=== PATIENT | female | born 1940 ===

== ENCOUNTER 2017-09-24 07:38 | Inpatient (IN) | payer MEDICARE, OTHER ==
[2017-09-24 07:38] VITALS: BMI 27.2
[2017-09-24] MEDS ORDERED: Labetalol 5 mg/ml Inj 20ML IVP STA ×3 (08:09→18:00)
[2017-09-24] MEDS ORDERED: Sodium Chloride 0.45% 1,000 ML IV SCH ×2 (08:15→08:45)
[2017-09-24 08:25] LABS: BASO % 0.2 % (0.0-2.0); EOS # 0.1 K/uL (0.0-0.7); EOS % 0.5 % (0.0-4.0); HEMOGLOBIN 14.8 g/dL (12.0-16.0); LYMPH # 5.6 K/uL (1.0-4.3); LYMPH % 47.7 % (20.0-40.0); MEAN CELL VOLUME 93.3 fl (81.0-99.0); MEAN CORPUSCULAR HGB CONC 33.2 g/dL (33.0-37.0); MEAN PLATELET VOLUME 8.8 fl (7.2-11.7); MONO # 0.9 K/uL (0.0-0.8); MONO % 7.6 % (0.0-10.0); NEUT # 5.1 K/uL (1.8-7.0); NRBC % 0.1 % (0.0-0.0); RBC 4.76 Mil/uL (3.80-5.20); RED CELL DISTRIBUTION WIDTH 13.8 % (11.5-14.5); WHITE BLOOD COUNT 11.7 K/uL (4.8-10.8)
[2017-09-24 08:37] LABS: ALB/GLOB RATIO 1.1 (1.0-2.1); ALT/SGPT 40 U/L (9-52); AST/SGOT 31 U/L (14-36); BLOOD UREA NITROGEN 21 mg/dl (7-17); CALCIUM 9.7 mg/dL (8.4-10.2); GFR AFRICAN-AMERICAN > 60; GFR NON-AFRICAN AMERICAN > 60
[2017-09-24 08:37] LABS: VENOUS BLOOD GAS BASE EXCESS 1.5 mmol/L (0.0-2.0); VENOUS BLOOD GAS PCO2 43 mmHg (40-60); VENOUS BLOOD GAS PO2 46 mm/Hg (30-55)
[2017-09-24 08:38] LABS: INR 1.2 (0.9-1.2); PROTHROMBIN TIME 13.1 Seconds (9.8-13.1)
[2017-09-24 08:39] LABS: PARTIAL THROMBOPLASTIN TIME 27.4 Seconds (25.6-37.1)
--- NOTE | 2017-09-24 08:42 | ED PDOC ---
Syncope/Near Syncope/Dizziness Time Seen by Provider: 09/24/17 07:46 Chief Complaint (Nursing): Syncope Chief Complaint (Provider): Syncope History Per: Patient, Family (granddaughter) History/Exam Limitations: no limitations Onset/Duration Of Symptoms: Sudden Onset Current Symptoms Are (Timing): Still Present Additional Complaint(s): 77 years old female with history of diabetes, hypertension and arthritis presents to the emergency department today with granddaughter for an evaluation of a syncopal episode prior to arrival. Granddaughter states she found patient unconscious with a head injury status post hitting head on bath tub associated with sweats. She also reports that patient was doing well last night besides complaining of left shoulder pain, which, patient believed it was a symptom of her arthritis. Of note, patient had vomited once she regained consciousness and had one episode in ED. Patient denies any fall, abdominal pain or urinary complaints. PMD: none provided Past Medical History Reviewed: Historical Data, Nursing Documentation, Vital Signs Vital Signs: Last Vital Signs Temp 97.4 F L 09/24/17 07:39 Pulse 84 09/24/17 08:34 Resp 14 09/24/17 08:34 BP 179/82 H 09/24/17 08:34 Pulse Ox 100 09/24/17 08:34 - Medical History PMH: Arthritis, CVA, HTN, Hypercholesterolemia Denies: Chronic Kidney Disease - Surgical History Surgical History: Appendectomy, Cholecystectomy - Family History Family History: States: Unknown Family Hx - Social History Current smoker - smoking cessation education provided: No Ex-Smoker (has not smoked in the last 12 months): No Alcohol: None Drugs: Denies - Immunization History Hx Tetanus Toxoid Vaccination: No Hx Influenza Vaccination: Yes Hx Pneumococcal Vaccination: Yes - Home Medications Home Medications: Ambulatory Orders Medication Instructions Recorded Atenolol 50 mg PO DAILY 07/02/16 Ergocalciferol (Vitamin D2) 50,000 unit PO MO 09/24/17 [Vitamin D2] Meclizine [Meclizine*] 25 mg PO Q8 PRN 09/24/17 - Allergies Allergies/Adverse Reactions: Allergies Allergy/AdvReac Type Severity Reaction Status Date / Time No Known Allergies Allergy Verified 10/10/16 12:51 Review of Systems ROS Statement: Except As Marked, All Systems Reviewed And Found Negative Constitutional: Positive for: Sweats Gastrointestinal: Positive for: Vomiting. Negative for: Abdominal Pain Genitourinary Female: Negative for: Dysuria, Hematuria Musculoskeletal: Positive for: Shoulder Pain (left side). Negative for: Other ( trauma) Neurological: Positive for: Headache (head injury), Other (LOC) Physical Exam - Reviewed Nursing Documentation Reviewed: Yes Vital Signs Reviewed: Yes - Physical Exam Appears: Positive for: No Acute Distress Head Exam: Positive for: ATRAUMATIC, NORMAL INSPECTION, NORMOCEPHALIC Skin: Positive for: Normal Color Eye Exam: Positive for: Normal appearance, EOMI, PERRL ENT: Positive for: Normal ENT Inspection Neck: Positive for: Normal, Supple Cardiovascular/Chest: Positive for: Regular Rate, Rhythm. Negative for: Murmur Respiratory: Positive for: Normal Breath Sounds. Negative for: Wheezing, Respiratory Distress Gastrointestinal/Abdominal: Positive for: Normal Exam, Soft. Negative for: Tenderness Extremity: Positive for: Normal ROM (upper/lower). Negative for: Pedal Edema ( Bilatral), Deformity (upper/lower) Neurologic/Psych: Positive for: Alert, Oriented - Laboratory Results Result Diagrams: 09/24/17 08:00 09/24/17 08:00 - ECG O2 Sat by Pulse Oximetry: 100 (RA) Pulse Ox Interpretation: Normal Medical Decision Making Medical Decision Making: Initial Impression: Syncope, Hypertension, Head injury Initial Plan: --Venous Blood Gas --CT Head w/o contrast --EKG --CMP --Troponin 1 -- Urine dipstick --CBC --PTT --PT --CXR --NS 1,000ml IV 250 mls/hr --Toradol 30 mg IVP --Tramdate 20 mg IVP --Zofran 4 mg PO --Glucose, Blood, POC Time: 0828 --EKG: NSR at 81 BMP. LVH noted with no acute changes. Time: 0935 --CXR FINDINGS: LUNGS: The lungs are well inflated and clear. PLEURA: No pneumothorax or pleural fluid seen. CARDIOVASCULAR: There is mild cardiomegaly. OSSEOUS STRUCTURES: No significant abnormalities. VISUALIZED UPPER ABDOMEN: Normal. OTHER FINDINGS: None. IMPRESSION: No active pulmonary disease. Time: 0940 --CT head FINDINGS: HEMORRHAGE: No intracranial hemorrhage. BRAIN: There are severe chronic microangiopathic changes. There is no mass, mass effect or abnormal extra-axial fluid collection is space There are coarse atherosclerotic calcifications in the cavernous carotid an vertebral arteries. VENTRICLES: There is mild age-related global parenchymal volume loss and proportionate enlargement of the ventricles and cortical sulci. CALVARIUM: There is mild hyperostosis frontalis interna.There is no calvarial fracture or extracranial soft tissue swelling. PARANASAL SINUSES: Mild mucoperiosteal thickening in the ethmoid air cells, the remaining paranasal sinuses are predominantly clear. MASTOID AIR CELLS: Predominantly clear. OTHER FINDINGS: None. IMPRESSION: No acute intracranial abnormality. Severe chronic microangiopathic changes and mild age-related global parenchymal volume loss. Scribe Attestation: Documented by Nettie Mak acting as a scribe for Pilar Correa MD. Provider Scribe Attestation: All medical record entries made by the Scribe were at my direction and personally dictated by me. I have reviewed the chart and agree that the record accurately reflects my personal performance of the history, physical exam, medical decision making, and the department course for this patient. I have also personally directed, reviewed, and agree with the discharge instructions and disposition. 1.00p - patient improved but given history of uncontrolled hypertension, syncope and blunt head injury, will admit for observation on telemetry Disposition - Clinical Impression Clinical Impression: Syncope, Uncontrolled hypertension - Patient ED Disposition Is Patient to be Admitted: Yes Doctor Will See Patient In The: Hospital - Disposition Disposition: Transfer of Care Disposition Time: 13:20 Condition: GUARDED Instructions: Syncope (Fainting), High Blood Pressure in Adults Forms: [facility] (Yakut) - Pt Status Changed To: Hospital Disposition Of: Observation - POA Present On Arrival: Falls Or Trauma
--- NOTE | 2017-09-24 09:37 | CT ---
PROCEDURE: CT HEAD WITHOUT CONTRAST. HISTORY: Syncope and head injury COMPARISON: None available. TECHNIQUE: Axial computed tomography images were obtained through the head/brain without intravenous contrast. Radiation dose: Total exam DLP = 765.11 MGy-cm. This CT exam was performed using one or more of the following dose reduction techniques: Automated exposure control, adjustment of the mA and/or kV according to patient size, and/or use of iterative reconstruction technique. FINDINGS: HEMORRHAGE: No intracranial hemorrhage. BRAIN: There are severe chronic microangiopathic changes. There is no mass, mass effect or abnormal extra-axial fluid collection is space There are coarse atherosclerotic calcifications in the cavernous carotid an vertebral arteries. VENTRICLES: There is mild age-related global parenchymal volume loss and proportionate enlargement of the ventricles and cortical sulci. CALVARIUM: There is mild hyperostosis frontalis interna.There is no calvarial fracture or extracranial soft tissue swelling. PARANASAL SINUSES: Mild mucoperiosteal thickening in the ethmoid air cells, the remaining paranasal sinuses are predominantly clear. MASTOID AIR CELLS: Predominantly clear. OTHER FINDINGS: None. IMPRESSION: No acute intracranial abnormality. Severe chronic microangiopathic changes and mild age-related global parenchymal volume loss.
--- NOTE | 2017-09-24 09:41 | RAD ---
PROCEDURE: CHEST RADIOGRAPH, 1 VIEW HISTORY: Syncope COMPARISON: None available. FINDINGS: LUNGS: The lungs are well inflated and clear. PLEURA: No pneumothorax or pleural fluid seen. CARDIOVASCULAR: There is mild cardiomegaly. OSSEOUS STRUCTURES: No significant abnormalities. VISUALIZED UPPER ABDOMEN: Normal. OTHER FINDINGS: None. IMPRESSION: No active pulmonary disease.
[2017-09-24 10:10] LABS: VENOUS BLOOD GAS BASE EXCESS -0.2 mmol/L (0.0-2.0); VENOUS BLOOD GAS PCO2 47 mmHg (40-60); VENOUS BLOOD GAS PO2 49 mm/Hg (30-55); VENOUS BLOOD PH 7.35 (7.32-7.43)
[2017-09-24] MEDS: Enoxaparin 40 mg Syringe SC SCH (16:18)
--- NOTE | 2017-09-24 16:33 | HP ---
HISTORY OF PRESENT ILLNESS: Ms. Vineet Holland is a 77-year-old female who was admitted via the Emergency Room because of syncopal episode associated with uncontrolled hypertension. She indicates that she had been taking her blood pressure medication on the morning of admission and had a syncopal episode. She was brought to the Emergency Room by her grandchildren, denies having lost consciousness completely and denies chest pains or shortness of breath, but indicates that she hit her head bathtub. PAST MEDICAL HISTORY: Hypertension, diabetes mellitus, and arthritis. FAMILY HISTORY: Noncontributory. SOCIAL HISTORY: Socially, she does not smoke or drink and lives alone. REVIEW OF SYSTEMS: Essentially unremarkable. PHYSICAL EXAMINATION: GENERAL: The patient is alert and oriented, appears to be comfortable at present except for left shoulder pain. VITAL SIGNS: Blood pressure of 179/82 was high on admission, controlled by IV antihypertensive medications, pulse 84, respiratory rate 18. She is afebrile. O2 sat is 100% on room air. SKIN: Shows fair turgor. HEENT: Pupils are equal and reactive to light and accommodation. Mouth shows fair hygiene. NECK: JVP flat. LUNGS: Clear. HEART: Regular. No murmurs or gallop. EXTREMITIES: There is tenderness of left shoulder. Extremities show no edema or cyanosis. RECTAL AND GENITALIA: Deferred. CENTRAL NERVOUS SYSTEM: Exam is grossly intact. LABORATORY DATA: Remarkable for WBC 11.7, hemoglobin 14.8, and platelet count 178,000. Sodium 146, BUN 21, creatinine 0.8, potassium 3.6, and serum glucose 161. Chest x-ray shows no acute cardiopulmonary pathology. EKG, normal sinus rhythm with sinus arrhythmia, LVH by voltage. CT scan of the brain, official report no acute intracranial abnormality, severe chronic meningeal angiopathic changes and mild age-related global parenchymal volume loss. IMPRESSION: Syncopal episode, uncontrolled hypertension, history of diabetes, history of hyperlipidemia, and history of arthritis. PLAN: The plan is monitor the patient in telemetry. Neuro checks, we would obtain neurology evaluation. Further therapy will depend on findings. We will control blood pressure appropriately. Keron Chau MD [facility] # [id number]
--- NOTE | 2017-09-24 18:09 | CARD ---
APPROVED REPORT EKG Measurement Heart [id number] CT [id number] [id number] <Conclusion> Normal sinus rhythm with sinus arrhythmia Voltage criteria for left ventricular hypertrophy Abnormal ECG
--- NOTE | 2017-09-24 18:35 | CP.PCM.CON ---
History of Present Illness - History of Present Illness History of Present Illness: PT WITH PRESYNCOPAL EPISODE X 1. PT STATES SHE URINATED AND UPON COMPLETION SHE FELT LH AND WEAK. ALMOST LOOSING CONSCIOUSNESS. SHE DENIES CP, PALP, SOB , ORTHOPNEA, PND, AMY OR PRIOR NEAR SYNCOPAL OR SYNCOPAL EVENTS. NO CAD HX. Review of Systems - Constitutional Constitutional: As Per HPI. absent: Anorexia, Chills, Daytime Sleepiness, Excessive Sweating, Fatigue, Fever, Frequent Falls, Headache, Increased Appetite , Lethargy, Malaise, Night Sweats, Snoring, Sleep Apnea, Weight Gain, Weight Loss, Weakness, Other - EENT Eyes: As Per HPI. absent: Blind Spots, Blurred Vision, Change in Vision, Decreased Night Vision, Diplopia, Discharge, Dry Eye, Exophthalmos, Floaters, Irritation, Itchy Eyes, Loss of Peripheral Vision, Pain, Photophobia, Requires Corrective Lenses, Sees Flashes, Spots in Vision, Tunnel Vision, Other Visual Disturbances, Loss of Vision, Other Ears: As Per HPI. absent: Decreased Hearing, Ear Discharge, Ear Pain, Tinnitus , Abnormal Hearing, Disequilibrium, Dizziness, Other Nose/Mouth/Throat: As Per HPI. absent: Epistaxis, Nasal Congestion, Nasal Discharge, Nasal Obstruction, Nasal Trauma, Nose Pain, Post Nasal Drip, Sinus Pain, Sinus Pressure, Bleeding Gums, Change in Voice, Dental Pain, Dry Mouth, Dysphagia, Halitosis, Hoarsness, Lip Swelling, Mouth Lesions, Mouth Pain, Odynophagia, Sore Throat, Throat Swelling, Tongue Swelling, Facial Pain, Neck Pain, Neck Mass, Other - Breasts Breasts: As Per HPI. absent: Change in Shape, Mass, Pain, Nipple Discharge, Nipple Inversion, Skin Changes, Swelling, Other - Cardiovascular Cardiovascular: As Per HPI, Lightheadedness. absent: Acrocyanosis, Chest Pain, Chest Pain at Rest, Chest Pain with Activity, Claudication, Diaphoresis, Dyspnea , Dyspnea on Exertion, Edema, Irregular Heart Rhythm, Pain Radiating to Arm/Neck /Jaw, Leg Edema, Leg Ulcers, Orthopnea, Palpitations, Paroxysmal Nocturnal Dyspnea, Pedal Edema, Radiating Pain, Rapid Heart Rate, Slow Heart Rate, Syncope , Other - Respiratory Respiratory: As Per HPI. absent: Cough, Dyspnea, Hemoptysis, Dyspnea on Exertion, Wheezing, Snoring, Stridor, Pain on Inspiration, Chest Congestion, Excessive Mucous Production, Change in Mucous Color, Pain with Coughing, Other - Gastrointestinal Gastrointestinal: As Per HPI. absent: Abdominal Pain, Belching, Bloating, Change in Bowel Habits, Change in Stool Character, Coffee Ground Emesis, Constipation, Cramping, Diarrhea, Dyspepsia, Dysphagia, Early Satiety, Excessive Flatus, Fecal Incontinence, Heartburn, Hematemesis, Hematochezia, Loose Stools, Melena, Nausea, Odynophagia, Temesmus, Vomiting, Other - Genitourinary Genitourinary: As Per HPI. absent: Change in Urinary Stream, Difficulty Urinating, Dysuria, Flank Pain, Hematuria, Pyuria, Nocturia, Urinary Incontinence, Urinary Frequency, Urinary Hesitance, Urinary Urgency, Voiding Freq/Small Amts, Freq UTI, Hx Renal/Bladder Calculi, Hx /Renal Surgery, Bladder Distension, Other - Reproductive: Female Reproductive:Female: As Per HPI. absent: Amenorrhea, Amenorrhea/ Control, Currently Menstual, Cycle <21 Days, Cycle >35 Days, Cycle Variable, Menses 1-7 Days, Menses >/= 8 Days, Menses Variable, Cycle > 4 Weeks Between, No Menses for 6 Months, Heavy Menses, Light Menses, Normal Menses, Spotting Between Cycles , S/P Hysterectomy, Menopausal, Post Menopausal, Premenarche, Abnormal Vaginal Bleeding, Dysmenorrhea, Dyspareunia, Genital Lesions, Genital Pruritis, Pelvic Pain, Prolapse Symptoms, Sexual Dysfunction, Vaginal Discharge, Vaginal Dryness , Vaginal Odor, Vaginal Pruritis, Other - Menstruation Menstruation: As Per HPI. absent: Amenorrhea, Amenorrhea/ Control, Currently Menstual, Cycle <21 Days, Cycle >35 Days, Cycle Variable, Menses 1-7 Days, Menses >/= 8 Days, Menses Variable, Cycle > 4 Weeks Between, No Menses for 6 Months, Heavy Menses, Light Menses, Normal Menses, Spotting Between Cycles , S/P Hysterectomy, Menopausal, Post Menopausal, Premenarche, Abnormal Vaginal Bleeding, Dysmenorrhea, Other - Musculoskeletal Musculoskeletal: As Per HPI. absent: Abnormal Gait, Arthralgias, Atrophy, Back Pain, Deformity, Joint Swelling, Limited Range of Motion, Loss of Height, Muscle Cramps, Muscle Weakness, Myalgias, Neck Pain, Numbness, Radiating Pain into Limb, Stiffness, Tingling, Other - Integumentary Integumentary: As Per HPI. absent: Acne, Alopecia, Bleeding Lesions, Change in Hair, Change in Nails, Change in Pigmentation, Changing Lesions, Dry Skin, Erythema, Furuncle, Hirsutism, Lesions, New Lesions, Non-Healing Lesions, Photosensitivity, Pruritus, Rash, Skin Pain, Skin Ulcer, Sores, Striae, Swelling , Unusual Bruising, Wounds, Jaundice, Other - Neurological Neurological: As Per HPI. absent: Abnormal Gait, Abnormal Hearing, Abnormal Movements, Abnormal Speech, Behavioral Changes, Burning Sensations, Confusion, Convulsions, Disequilibrium, Dizziness, Numbness, Focal Weakness, Frequent Falls , Headaches, Lack of Coordination, Loss of Vision, Memory Loss, Paresthesias, Radicular Pain, Restless Legs, Sensory Deficit, Syncope, Tingling, Tremor, Vertigo, Weakness, Other Visual Disturbances, Other - Psychiatric Psychiatric: As Per HPI. absent: Abnormal Sleep Pattern, Anhedonia, Anxiety, Auditory Hallucinations, Behavioral Changes, Change in Appetite, Change in Libido, Confusion, Depression, Difficulty Concentrating, Hallucinations, Homicidal Ideation, Hopelessness, Irritability, Memory Loss, Mood Swings, Panic Attacks, Paranoia, Suicidal Ideation, Visual Hallucinations, Tactile Hallucinations, Other - Endocrine Endocrine: As Per HPI. absent: Change in Body Appearance, Change in Libido, Cold Intolorance, Deepening of Voice, Excessive Sweating, Fatigue, Flushing, Heat Intolorance, Increase in Ring/Shoe/Hat Size, Palpitations, Polydipsia, Polyphagia, Polyuria, Other - Hematologic/Lymphatic Hematologic: As Per HPI. absent: Easy Bleeding, Easy Bruising, Lymphadenopathy , Other Past Patient History - Infectious Disease Hx of Infectious Diseases: None - Past Medical History & Family History Past Medical History?: Yes - Past Social History Smoking Status: Never Smoked Alcohol: None Drugs: Denies - CARDIAC Hx Cardiac Disorders: Yes - PULMONARY Hx Respiratory Disorders: No - NEUROLOGICAL Hx Neurological Disorder: Yes - HEENT Hx HEENT Problems: Yes - RENAL Hx Chronic Kidney Disease: No - ENDOCRINE/METABOLIC Hx Endocrine Disorders: No - HEMATOLOGICAL/ONCOLOGICAL Hx Blood Disorders: No - INTEGUMENTARY Hx Dermatological Problems: No - MUSCULOSKELETAL/RHEUMATOLOGICAL Hx Musculoskeletal Disorders: Yes - GASTROINTESTINAL Hx Gastrointestinal Disorders: No - GENITOURINARY/GYNECOLOGICAL Hx Genitourinary Disorders: No - PSYCHIATRIC Hx Psychophysiologic Disorder: No - SURGICAL HISTORY Hx Appendectomy: Yes Hx Cholecystectomy: Yes - ANESTHESIA Hx Anesthesia: Yes Hx Anesthesia Reactions: No Hx Malignant Hyperthermia: No Meds Home Medications: Home Medication List Medication Instructions Recorded Confirmed Type Aspirin [Aspirin Chewable] 81 mg PO DAILY #30 chew 09/27/17 Rx Ramipril [Altace] 5 mg PO DAILY #30 cap 09/27/17 Rx amLODIPine [Norvasc] 5 mg PO Q12 #60 tab 09/27/17 Rx Allergies/Adverse Reactions: Allergies Allergy/AdvReac Type Severity Reaction Status Date / Time No Known Allergies Allergy Verified 10/10/16 12:51 - Medications Medications: Current Medications Acetaminophen (Tylenol 325mg Tab) 650 mg PO Q6 [facility] Aspirin (Aspirin Chewable) 81 mg PO DAILY [facility] Last Admin: 09/24/17 15:35 Dose: 81 mg Atenolol (Tenormin) 50 mg PO DAILY [facility] Enoxaparin Sodium (Lovenox) 40 mg SC DAILY [facility] PRN Reason: Protocol Last Admin: 09/24/17 16:18 Dose: 40 mg Sodium Chloride (Sodium Chloride 0.45%) 1,000 mls @ 1,000 mls/hr IV .Q1H [facility] Last Admin: 09/24/17 08:42 Dose: 1,000 mls/hr Physical Exam - Constitutional Appears: Well - Head Exam Head Exam: ATRAUMATIC, NORMAL INSPECTION, NORMOCEPHALIC - Eye Exam Eye Exam: EOMI, Normal appearance, PERRL. absent: Conjunctival injection, Nystagmus, Periorbital swelling, Periorbital tenderness, Scleral icterus Pupil Exam: NORMAL ACCOMODATION, PERRL. absent: Fixed, Irregular, Miosis, Mydriatic, Unequal - ENT Exam ENT Exam: Mucous Membranes Moist, Normal Exam. absent: Mucous Membranes Dry, Normal External Ear Exam, Normal Oropharynx, TM's Normal Bilaterally - Neck Exam Neck exam: Positive for: Normal Inspection. Negative for: Full Rom, Lymphadenopathy, Meningismus, Tenderness, Thyromegaly - Respiratory Exam Respiratory Exam: Clear to Auscultation Bilateral, NORMAL BREATHING PATTERN. absent: Accessory Muscle Use, Chest Wall Tenderness, Decreased Breath Sounds, Prolonged Expiratory Phase, Rales, Rhonchi, Wheezes, Respiratory Distress, Stridor - Cardiovascular Exam Cardiovascular Exam: REGULAR RHYTHM, +S1, +S2, Systolic Murmur. absent: Bradycardia, Tachycardia, Clicks, Diastolic murmur, Gallop, Irregular Rhythm, JVD, RRR, Rubs, +S4 - GI/Abdominal Exam GI & Abdominal Exam: Normal Bowel Sounds, Soft. absent: Bruit, Diminished Bowel Sounds, Distended, Firm, Guarding, Hernia, Hyperactive Bowel Sounds, Hypoactive Bowel Sounds, Mass, Organomegaly, Pulsatile Mass, Rebound, Rigid, Tenderness - Extremities Exam Extremities exam: Positive for: normal inspection. Negative for: calf tenderness, full ROM, joint swelling, normal capillary refill, pedal edema, tenderness, pedal pulses present - Back Exam Back exam: NORMAL INSPECTION. absent: CVA tenderness (L), CVA tenderness (R), FULL ROM, muscle spasm, paraspinal tenderness, rash noted, tenderness, vertebral tenderness - Neurological Exam Neurological exam: Alert, CN II-XII Intact, Normal Gait, Oriented x3, Reflexes Normal - Psychiatric Exam Psychiatric exam: Normal Affect, Normal Mood - Skin Skin Exam: Dry, Intact, Normal Color, Warm Results - Vital Signs Recent Vital Signs: Last Vital Signs Temp 98.1 F 09/24/17 17:00 Pulse 87 09/24/17 18:24 Resp 14 09/24/17 17:00 BP 203/104 H 09/24/17 18:24 Pulse Ox 99 09/24/17 17:00 - Labs Result Diagrams: 09/25/17 05:45 09/26/17 06:10 Labs: Laboratory Results - last 24 hr 09/24/17 09/24/17 09/24/17 08:00 08:00 08:00 WBC 11.7 H D RBC 4.76 Hgb 14.8 Hct 44.4 MCV 93.3 D MCH 31.0 MCHC 33.2 RDW 13.8 Plt Count 178 MPV 8.8 Neut % (Auto) 44.0 L Lymph % (Auto) 47.7 H [place] % (Auto) 7.6 Eos % (Auto) 0.5 Baso % (Auto) 0.2 Neut # (Auto) 5.1 Lymph # (Auto) 5.6 H [place] # (Auto) 0.9 H Eos # (Auto) 0.1 Baso # (Auto) 0.0 PT 13.1 INR 1.2 APTT 27.4 pO2 VBG pH VBG pCO2 VBG HCO3 VBG Total CO2 VBG O2 Sat (Calc) VBG Base Excess VBG Potassium Glucose Lactate FiO2 Crit Value Called To Crit Value Called By Crit Value Read Back Blood Gas Notified Time Sodium 146 Potassium 3.6 Chloride 107 Carbon Dioxide 23 Anion Gap 20 BUN 21 H Creatinine 0.8 Est GFR ( Amer) > 60 Est GFR (Non-Af Amer) > 60 POC Glucose (mg/dL) Random Glucose 161 H Calcium 9.7 Total Bilirubin 0.7 AST 31 ALT 40 Alkaline Phosphatase 84 Troponin I < 0.0120 Total Protein 7.6 Albumin 4.0 Globulin 3.6 Albumin/Globulin Ratio 1.1 Venous Blood Potassium 09/24/17 09/24/17 09/24/17 08:02 08:30 10:00 WBC RBC Hgb Hct MCV MCH MCHC RDW Plt Count MPV Neut % (Auto) Lymph % (Auto) [place] % (Auto) Eos % (Auto) Baso % (Auto) Neut # (Auto) Lymph # (Auto) [place] # (Auto) Eos # (Auto) Baso # (Auto) PT INR APTT pO2 46 49 VBG pH 7.40 7.35 VBG pCO2 43 47 VBG HCO3 25.7 24.4 VBG Total CO2 27.9 27.3 VBG O2 Sat (Calc) 83.5 H 82.8 H VBG Base Excess 1.5 -0.2 L VBG Potassium 3.6 Glucose 153 H 113 H Lactate 4.4 H* 3.3 H FiO2 21.0 21.0 Crit Value Called To Jie dixon Crit Value Called By Crit Value Read Back Y N Blood Gas Notified Time 836 1005 Sodium 200.0 H* 142.0 Potassium Chloride 131.0 H 113.0 H Carbon Dioxide Anion Gap BUN Creatinine Est GFR ( Amer) Est GFR (Non-Af Amer) POC Glucose (mg/dL) 150 H Random Glucose Calcium Total Bilirubin AST ALT Alkaline Phosphatase Troponin I Total Protein Albumin Globulin Albumin/Globulin Ratio Venous Blood Potassium 3.6 - EKG Data EKG Interpreted by: Myself EKG shows normal: Sinus rhythm Rate: Normal Assessment & Plan (1) Syncope Status: Acute (2) Uncontrolled hypertension Status: Acute - Assessment and Plan (Free Text) Plan: PT WITH VASOVAGAL EVENT PER HISTORY. NO PRIOR EVENTS. WOULD TREAT HTN. WILL ORDER ECHO. CONT TELE
--- NOTE | 2017-09-24 18:52 | PCM.RRT ---
<Maria A Ernandez - Last Filed: 09/24/17 18:49> PRODUCT APPLICATIONS SCIENTIST Nurse Assessment - Situation PRODUCT APPLICATIONS SCIENTIST Responder Arrival Time: 17:50 Location: [facility] 2 PRODUCT APPLICATIONS SCIENTIST Reason for Call: Hypertension PRODUCT APPLICATIONS SCIENTIST Called By: RN - Diagnostic Test Ordered EKG: Yes (NSR, no evidence of ST changes noted) Chest X-Ray: No CT Scan: No - Stat Labs Ordered PRODUCT APPLICATIONS SCIENTIST Stat Labs Ordered: TROPONIN (Q8 x 2) CPR started during PRODUCT APPLICATIONS SCIENTIST?: No - [place] Coma Scale Coma Scale Eye Opening: Spontaneous Coma Scale Motor: Obeys Commands Movement Coma Scale Verbal: Oriented Coma Scale Total: 15 - Time PRODUCT APPLICATIONS SCIENTIST Ended Time PRODUCT APPLICATIONS SCIENTIST Ended: 18:35 I.Reason for PRODUCT APPLICATIONS SCIENTIST - A) Acute Change in Patient: Subjective: PRODUCT APPLICATIONS SCIENTIST was called by nurse because Hypertension for a 77 years old female with history of diabetes, hypertension and arthritis admitted today for syncopal episode and uncontrolled hypertension. At the time of PRODUCT APPLICATIONS SCIENTIST arrival patient was awake, oriented x 3, answering all questions properly. Patient was complaining of a left shoulder pain, but denies chest pain, SOB, N/V, epigastric/abdominal pain or other complains. Left shoulder pain is a chronic pain that recently has worsen. Patient reports that she did not take her BP medications today. In ER was given labetalol 40 mg IV. VS: BP: 230/109 mmhg, HR: 97/min, oxygen sat: 99 % in 2 LPM via NC, RR: 15, T: 97.8 F PE: respiratory: CTA bilateral to auscultation, no rales, no wheezing or rhonchi CV: RRR, normal S1, S2 abd: non distended, non tender to palpation ext: no edema in Felicita, peripheral pulses present and B/L neuro: alert, oriented x 3, no neurological deficit - Constitutional Appears: Non-toxic, No Acute Distress - Respiratory Exam Respiratory Exam: Clear to Ausculation Bilateral, NORMAL BREATHING PATTERN. absent: Decreased Breath Sounds, Rales, Rhonchi, Wheezes, Respiratory Distress - Cardiovascular Exam Cardiovascular Exam: REGULAR RHYTHM, RRR, +S1, +S2. absent: Gallop, Rubs, Murmur - GI/Abdominal Exam GI & Abdominal Exam: Soft, Normal Bowel Sounds. absent: Distended, Guarding, Rigid, Tenderness - Neurological Exam Neurological Exam: Alert, Awake, CN II-XII Intact, Oriented x3 - Extremities Exam Extremities Exam: Normal Inspection. absent: Calf Tenderness, Pedal Edema Plan - Assessment of Findings&Treatment Plan A/P: 77 y/o F with h/o of uncontrolled hypertension and Arthritis with elevated BP and left shoulder pain. Labetalol 20 mg IV once resume home Atenolol 50 mg PO daily start Norvasc 5 mg PO daily EKG stat: evidence of LVH, NSR, no acute ST changes troponin I x 2. First troponin I in ER was negative at 8 am today Tylenol 650 mg PO once for pain re-assess BP After Labetalol 20 mg , BP 195/107, HR: 88/min BP at 18:22 203/104, patient complaining of dizziness, Hydralazine 10 mg IV once re-assessment of BP after Hydralazine 10 mg IV , still elevated 208/95, Given second HYdralazine 10 mg IV once re-assessment of BP after second Hydralazine 192/96, Dizziness resolved c/w norvasc 5 mg PO daily c/w home atenolol c/w Tylenol 650 mg PO Q6 phillip for now for better pain control. Avoid NSAIDs. Cardiology consult admitting doctor, Dr. Chau notified PRODUCT APPLICATIONS SCIENTIST leader : Dr. Rajan resident: Dr. Ernandez <Abby Rajan - Last Filed: 09/24/17 19:33> Attending/Attestation - Attestation I have personally seen and examined this patient.: Yes I have fully participated in the care of the patient.: Yes I have reviewed all pertinent clinical information, including history, physical exam and plan: Yes Notes (Text): Hypertensive Urgency - pt asymptomatic - EKG : no change - Serial Troponin - IV Labetalol 20 mg x 1 and Hydralazine 20 mg x 1 given - started pt on Norvasc 5 mg daily and Atenolol 5o mg daily - BP lowered by 20% now down to 190 systolic- - Dr Chau PMD notified of event - rec Cardio consult- Dr Ventura consulted - discussed case -
[2017-09-24] MEDS ORDERED: Pneumococcal 23-Valent Vaccine IM ONE (23:19)
[2017-09-25 02:16] LABS: ALB/GLOB RATIO 1.1 (1.0-2.1); ALBUMIN 3.4 g/dL (3.5-5.0); ALT/SGPT 35 U/L (9-52); AST/SGOT 29 U/L (14-36); BLOOD UREA NITROGEN 15 mg/dl (7-17); CALCIUM 9.3 mg/dL (8.4-10.2); GFR AFRICAN-AMERICAN > 60; GFR NON-AFRICAN AMERICAN > 60
[2017-09-25 07:50] LABS: HEMOGLOBIN 13.4 g/dL (12.0-16.0); MEAN CELL VOLUME 92.4 fl (81.0-99.0); MEAN CORPUSCULAR HEMOGLOBIN 32.1 pg (27.0-31.0); MEAN CORPUSCULAR HGB CONC 34.7 g/dL (33.0-37.0); RBC 4.18 Mil/uL (3.80-5.20); RED CELL DISTRIBUTION WIDTH 13.5 % (11.5-14.5); WHITE BLOOD COUNT 7.6 K/uL (4.8-10.8)
[2017-09-25] MEDS: Enoxaparin 40 mg Syringe SC SCH (08:43)
--- NOTE | 2017-09-25 10:54 | CP.PCM.PN ---
Subjective - Date & Time of Evaluation Date of Evaluation: 09/25/17 Time of Evaluation: 10:54 - Subjective Subjective: EVENTS OF LAST NIGHT NOTED BP BETTER CONTROLLED STILL HAVING L SHOULDER PAINS Objective - Vital Signs/Intake and Output Vital Signs (last 24 hours): Temp Pulse Resp BP Pulse Ox 97.7 F 68 16 167/80 H 95 09/25/17 08:15 09/25/17 08:15 09/25/17 08:15 09/25/17 08:41 09/25/17 08:15 - Medications Medications: Current Medications Acetaminophen (Tylenol 325mg Tab) 650 mg PO Q6 [facility] Last Admin: 09/25/17 05:21 Dose: 650 mg Amlodipine Besylate (Norvasc) 5 mg PO Q12 [facility] Last Admin: 09/25/17 08:42 Dose: 5 mg Aspirin (Aspirin Chewable) 81 mg PO DAILY [facility] Last Admin: 09/25/17 08:42 Dose: 81 mg Atenolol (Tenormin) 50 mg PO DAILY [facility] Last Admin: 09/25/17 08:43 Dose: 50 mg Clonidine HCl (Catapres) 0.1 mg PO BID [facility] Last Admin: 09/25/17 08:42 Dose: 0.1 mg Enoxaparin Sodium (Lovenox) 40 mg SC DAILY [facility] PRN Reason: Protocol Last Admin: 09/25/17 08:43 Dose: 40 mg Sodium Chloride (Sodium Chloride 0.45%) 1,000 mls @ 1,000 mls/hr IV .Q1H [facility] Last Admin: 09/24/17 08:42 Dose: 1,000 mls/hr Potassium Chloride (K-Dur 20 Meq Er Tab) 20 meq PO ONCE ONE Stop: 09/25/17 10:52 Ramipril (Altace) 5 mg PO DAILY [facility] Last Admin: 09/25/17 08:41 Dose: 5 mg - Labs Labs: 09/25/17 05:45 09/25/17 01:20 PT 13.1 Seconds (9.8-13.1) 09/24/17 08:00 INR 1.2 (0.9-1.2) 09/24/17 08:00 APTT 27.4 Seconds (25.6-37.1) 09/24/17 08:00 - Constitutional Appears: No Acute Distress - Head Exam Head Exam: ATRAUMATIC, NORMAL INSPECTION, NORMOCEPHALIC - Eye Exam Eye Exam: EOMI, Normal appearance, PERRL Pupil Exam: NORMAL ACCOMODATION, PERRL - ENT Exam ENT Exam: Mucous Membranes Moist, Normal Exam - Neck Exam Neck Exam: Full ROM, Normal Inspection. absent: Lymphadenopathy - Respiratory Exam Respiratory Exam: Clear to Ausculation Bilateral, NORMAL BREATHING PATTERN - Cardiovascular Exam Cardiovascular Exam: REGULAR RHYTHM, +S1, +S2. absent: Murmur - GI/Abdominal Exam GI & Abdominal Exam: Soft, Normal Bowel Sounds. absent: Tenderness - Rectal Exam Rectal Exam: NORMAL INSPECTION - Extremities Exam Extremities Exam: Full ROM, Normal Capillary Refill, Normal Inspection. absent : Joint Swelling, Pedal Edema - Back Exam Back Exam: NORMAL INSPECTION - Neurological Exam Neurological Exam: Alert, Awake, CN II-XII Intact, Normal Gait, Oriented x3 - Psychiatric Exam Psychiatric exam: Normal Affect, Normal Mood - Skin Skin Exam: Dry, Intact, Normal Color, Warm Assessment and Plan - Assessment and Plan (Free Text) Assessment: SYNCOPE HYPERTENSIVE CRISIS L SHOULDER TRAUMA Plan: CONTINUE CURRENT RX CASE DISCUSSED WITH PT AND HER SON
[2017-09-25] MEDS ORDERED: Potassium Chloride 20 mEq ER Tab PO ONE (11:30)
--- NOTE | 2017-09-25 15:21 | CP.PCM.CON ---
History of Present Illness - History of Present Illness History of Present Illness: 77 yr old woman, pmh of DM, HTN, and arthritis who had a syncopal spell associated with increased blood pressure according to daughter, and fell. There was an HOMOEOPATH called, and at this time, the patient was awake, alert and oriented times 3, and was answering all questions appropriately. Patient was complaining of a left shoulder pain, 9/10, increased by any movement, or by palpation. but denies chest pain, SOB, N/V, epigastric/abdominal pain or other complains. She denies any aphasia, dysarthria, no headache. PMH/PSH: as above FH/SH: has several children, no tobacco, no etoh. All: nkda On exam: AAOX3. Pupils 3mm-2mm with light. EOMI. No facial droop. CN 2-12 normal. Names and repeats appropriately. no dysarthria. Motor: except for left arm due to pain, exam is 5/5 ul and ll bl. Sensory: Normal sensory exam. Cerebellar: no dysmetria. no ataxia. Walks well with normal gait Rhomberg sign is negative. +2 dtr ull bl. Toes downgoing. No clonus. Past Patient History - Infectious Disease Hx of Infectious Diseases: None - Past Medical History & Family History Past Medical History?: Yes - Past Social History Smoking Status: Never Smoked - CARDIAC Hx Cardiac Disorders: Yes Hx Hypercholesterolemia: Yes Hx Hypertension: Yes - PULMONARY Hx Respiratory Disorders: No - NEUROLOGICAL Hx Neurological Disorder: Yes HX Cerebrovascular Accident: Yes - HEENT Hx HEENT Problems: Yes Hx Cataracts: Yes Hx Glaucoma: Yes - RENAL Hx Chronic Kidney Disease: No - ENDOCRINE/METABOLIC Hx Endocrine Disorders: Yes Hx Diabetes Mellitus Type 2: Yes - HEMATOLOGICAL/ONCOLOGICAL Hx Blood Disorders: No - INTEGUMENTARY Hx Dermatological Problems: No - MUSCULOSKELETAL/RHEUMATOLOGICAL Hx Musculoskeletal Disorders: Yes Hx Arthritis: Yes Hx Falls: No - GASTROINTESTINAL Hx Gastrointestinal Disorders: No - GENITOURINARY/GYNECOLOGICAL Hx Genitourinary Disorders: No - PSYCHIATRIC Hx Psychophysiologic Disorder: No Hx Substance Use: No - SURGICAL HISTORY Hx Surgeries: Yes Hx Appendectomy: Yes Hx Cholecystectomy: Yes - ANESTHESIA Hx Anesthesia: Yes Hx Anesthesia Reactions: No Hx Malignant Hyperthermia: No Has any member of the family had a problem w/ anesthesia?: No Meds Allergies/Adverse Reactions: Allergies Allergy/AdvReac Type Severity Reaction Status Date / Time No Known Allergies Allergy Verified 10/10/16 12:51 - Medications Medications: Current Medications Acetaminophen (Tylenol 325mg Tab) 650 mg PO Q6 [facility] Last Admin: 09/25/17 05:21 Dose: 650 mg Amlodipine Besylate (Norvasc) 5 mg PO Q12 [facility] Last Admin: 09/25/17 08:42 Dose: 5 mg Aspirin (Aspirin Chewable) 81 mg PO DAILY [facility] Last Admin: 09/25/17 08:42 Dose: 81 mg Atenolol (Tenormin) 50 mg PO DAILY [facility] Last Admin: 09/25/17 08:43 Dose: 50 mg Clonidine HCl (Catapres) 0.1 mg PO BID [facility] Last Admin: 09/25/17 08:42 Dose: 0.1 mg Enoxaparin Sodium (Lovenox) 40 mg SC DAILY [facility] PRN Reason: Protocol Last Admin: 09/25/17 08:43 Dose: 40 mg Sodium Chloride (Sodium Chloride 0.45%) 1,000 mls @ 1,000 mls/hr IV .Q1H [facility] Last Admin: 09/24/17 08:42 Dose: 1,000 mls/hr Naproxen (Naprosyn Tab) 375 mg PO Q12 [facility] Ramipril (Altace) 5 mg PO DAILY [facility] Last Admin: 09/25/17 08:41 Dose: 5 mg Results - Vital Signs Recent Vital Signs: Last Vital Signs Temp 97.5 F L 09/25/17 12:41 Pulse 67 09/25/17 12:41 Resp 16 09/25/17 12:41 BP 167/83 H 09/25/17 12:41 Pulse Ox 95 09/25/17 12:41 - Labs Result Diagrams: 09/25/17 05:45 09/25/17 01:20 Labs: Laboratory Results - last 24 hr 09/24/17 09/24/17 09/25/17 18:04 20:52 01:20 WBC RBC Hgb Hct MCV MCH MCHC RDW Plt Count Sodium 145 Potassium 3.4 L Chloride 108 H Carbon Dioxide 23 Anion Gap 17 BUN 15 Creatinine 0.7 Est GFR ( Amer) > 60 Est GFR (Non-Af Amer) > 60 POC Glucose (mg/dL) 98 Random Glucose 104 Calcium 9.3 Magnesium 1.9 Total Bilirubin 0.7 AST 29 ALT 35 Alkaline Phosphatase 63 Troponin I < 0.0120 < 0.0120 Total Protein 6.4 Albumin 3.4 L Globulin 3.0 Albumin/Globulin Ratio 1.1 09/25/17 09/25/17 09/25/17 05:21 05:45 11:23 WBC 7.6 RBC 4.18 Hgb 13.4 Hct 38.6 MCV 92.4 MCH 32.1 H MCHC 34.7 RDW 13.5 Plt Count 164 Sodium Potassium Chloride Carbon Dioxide Anion Gap BUN Creatinine Est GFR ( Amer) Est GFR (Non-Af Amer) POC Glucose (mg/dL) 108 94 Random Glucose Calcium Magnesium Total Bilirubin AST ALT Alkaline Phosphatase Troponin I Total Protein Albumin Globulin Albumin/Globulin Ratio Assessment & Plan - Assessment and Plan (Free Text) Assessment: 77 yr old woman with syncopal spell that was most likely related to hypertension which is severely uncontrolled. I am quite concerned about her left shoulder, but feel her neurological examination is normal. There is no sign of stroke at this time. Neuroimaging is not needed. Plan: 1. Control hypertension. 2. CTA brain Thank you for the interesting consult. Dr. Gal MD, DPN
--- NOTE | 2017-09-25 16:38 | RAD ---
PROCEDURE: Radiographs of the Left Shoulder HISTORY: FRACTURE COMPARISON: No prior. FINDINGS: BONES: No evidence of acute displaced fracture nor dislocation. The osseous structures appear intact. Slight high-riding humeral head possibly due to on chronic rotator cuff injury. Clinical correlation recommended. 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 SOFT TISSUES: Tiny calcification within the soft tissues adjacent to the greater tuberosity possibly representing sequela of calcified tendinitis or bursitis. . OTHER FINDINGS: None. IMPRESSION: No acute fractures. Mild DJD with findings suggestive of a chronic rotator cuff injury. Tiny calcification within the soft tissues suggesting calcified tendinitis or bursitis.
--- NOTE | 2017-09-25 20:15 | CP.PCM.PN ---
Subjective - Date & Time of Evaluation Date of Evaluation: 09/25/17 Time of Evaluation: 20:15 - Subjective Subjective: NO DIZZINESS OR LH. NO VAGAL SYMPTOMS. BP REMAINS ELEVATED Objective - Vital Signs/Intake and Output Vital Signs (last 24 hours): Temp Pulse Resp BP Pulse Ox 97.1 F L 73 16 137/79 96 09/25/17 19:56 09/25/17 19:56 09/25/17 19:56 09/25/17 19:56 09/25/17 19:56 - Medications Medications: Current Medications Acetaminophen (Tylenol 325mg Tab) 650 mg PO Q6 [facility] Last Admin: 09/25/17 17:28 Dose: Not Given Amlodipine Besylate (Norvasc) 5 mg PO Q12 [facility] Last Admin: 09/25/17 08:42 Dose: 5 mg Aspirin (Aspirin Chewable) 81 mg PO DAILY [facility] Last Admin: 09/25/17 08:42 Dose: 81 mg Atenolol (Tenormin) 50 mg PO DAILY [facility] Last Admin: 09/25/17 08:43 Dose: 50 mg Clonidine HCl (Catapres) 0.1 mg PO BID [facility] Stop: 09/26/17 09:00 Last Admin: 09/25/17 17:25 Dose: 0.1 mg Clonidine HCl (Catapres) 0.1 mg PO Q8 [facility] Enoxaparin Sodium (Lovenox) 40 mg SC DAILY [facility] PRN Reason: Protocol Last Admin: 09/25/17 08:43 Dose: 40 mg Sodium Chloride (Sodium Chloride 0.45%) 1,000 mls @ 1,000 mls/hr IV .Q1H [facility] Last Admin: 09/24/17 08:42 Dose: 1,000 mls/hr Naproxen (Naprosyn Tab) 375 mg PO Q12 [facility] Last Admin: 09/25/17 13:00 Dose: 375 mg Ramipril (Altace) 5 mg PO DAILY [facility] Last Admin: 09/25/17 08:41 Dose: 5 mg - Labs Labs: 09/25/17 05:45 09/25/17 01:20 PT 13.1 Seconds (9.8-13.1) 09/24/17 08:00 INR 1.2 (0.9-1.2) 09/24/17 08:00 APTT 27.4 Seconds (25.6-37.1) 09/24/17 08:00 Assessment and Plan (1) Syncope Status: Acute (2) Uncontrolled hypertension Status: Acute - Assessment and Plan (Free Text) Plan: INCREASE CLONIDINE TO Q8 [facility]
[2017-09-26 08:27] LABS: LDL CHOLESTEROL 123 mg/dL (0-129)
[2017-09-26 08:29] LABS: BLOOD UREA NITROGEN 15 mg/dl (7-17); CALCIUM 10.3 mg/dL (8.4-10.2); GFR AFRICAN-AMERICAN > 60; GFR NON-AFRICAN AMERICAN > 60; HDL CHOLESTEROL 41 MG/DL (30-70)
[2017-09-26] MEDS: Enoxaparin 40 mg Syringe SC SCH (08:30)
--- NOTE | 2017-09-26 08:53 | CP.PCM.PN ---
Subjective - Date & Time of Evaluation Date of Evaluation: 09/26/17 Time of Evaluation: 08:50 - Subjective Subjective: Ms. Vineet jain was seen and examined at the bedside. She is alert, oriented , speaks mainly Nepali. lip of shank cutter utilized with construction equipment operator ID # [id number]. She claims of her dizziness is improving and knows that her blood pressure is labile. She denies any headache, blurred vision, nause, or vomiting. She is abler to follow simple commands. She has been wanting to go home since early this morning, explained the need to control his blood pressure and do some diagnostic test prior to discharge, patient verbalizes understanding.There was no untoward events overnight. Objective - Vital Signs/Intake and Output Vital Signs (last 24 hours): Temp Pulse Resp BP Pulse Ox 98.6 F 81 16 171/94 H 98 09/26/17 08:20 09/26/17 08:29 09/26/17 08:20 09/26/17 08:29 09/26/17 08:20 - Medications Medications: Current Medications Acetaminophen (Tylenol 325mg Tab) 650 mg PO Q6 [facility] Last Admin: 09/26/17 04:32 Dose: Not Given Amlodipine Besylate (Norvasc) 5 mg PO Q12 [facility] Last Admin: 09/26/17 08:29 Dose: 5 mg Aspirin (Aspirin Chewable) 81 mg PO DAILY [facility] Last Admin: 09/26/17 08:26 Dose: 81 mg Atenolol (Tenormin) 50 mg PO DAILY [facility] Last Admin: 09/26/17 08:22 Dose: 50 mg Clonidine HCl (Catapres) 0.1 mg PO BID [facility] Stop: 09/26/17 09:00 Last Admin: 09/26/17 08:27 Dose: Not Given Clonidine HCl (Catapres) 0.1 mg PO Q8 [facility] Last Admin: 09/26/17 08:26 Dose: 0.1 mg Enoxaparin Sodium (Lovenox) 40 mg SC DAILY [facility] PRN Reason: Protocol Last Admin: 09/26/17 08:30 Dose: Not Given Sodium Chloride (Sodium Chloride 0.45%) 1,000 mls @ 1,000 mls/hr IV .Q1H [facility] Last Admin: 09/24/17 08:42 Dose: 1,000 mls/hr Naproxen (Naprosyn Tab) 375 mg PO Q12 [facility] Last Admin: 09/26/17 08:27 Dose: 375 mg Ramipril (Altace) 5 mg PO DAILY [facility] Last Admin: 09/26/17 08:23 Dose: 5 mg - Labs Labs: 09/25/17 05:45 09/26/17 06:10 PT 13.1 Seconds (9.8-13.1) 09/24/17 08:00 INR 1.2 (0.9-1.2) 09/24/17 08:00 APTT 27.4 Seconds (25.6-37.1) 09/24/17 08:00 - Constitutional Appears: No Acute Distress - Head Exam Head Exam: NORMAL INSPECTION - Neurological Exam Neurological Exam: Alert, Awake Neuro motor strength exam: Left Upper Extremity: 4, Right Upper Extremity: 4, Left Lower Extremity: 4, Right Lower Extremity: 4 Additional comments: She is alert, oriented, follows commands. Sensation is intact. Assessment and Plan (1) Dizziness Assessment & Plan: Case discussed with Dr. Santo, continue all current medical and physical therapy. Pending carotid ultrasound. Recommend blood pressure control. Status: Acute
--- NOTE | 2017-09-26 10:30 | CP.PCM.PN ---
Subjective - Date & Time of Evaluation Date of Evaluation: 09/26/17 Time of Evaluation: 10:31 - Subjective Subjective: WANTS TO GO HOME MILD CONFUSION TODAY STILL HAS L SHOULDER PAIN BUT ABLE TO MOVE ARM AGAINST GRAVITY NO RECURRENCE OF SYNCOPE BP BETTER CONTROLLED Objective - Vital Signs/Intake and Output Vital Signs (last 24 hours): Temp Pulse Resp BP Pulse Ox 98.6 F 81 16 171/94 H 98 09/26/17 08:20 09/26/17 08:29 09/26/17 08:20 09/26/17 08:29 09/26/17 08:20 - Medications Medications: Current Medications Acetaminophen (Tylenol 325mg Tab) 650 mg PO Q6 [facility] Last Admin: 09/26/17 04:32 Dose: Not Given Amlodipine Besylate (Norvasc) 5 mg PO Q12 [facility] Last Admin: 09/26/17 08:29 Dose: 5 mg Aspirin (Aspirin Chewable) 81 mg PO DAILY [facility] Last Admin: 09/26/17 08:26 Dose: 81 mg Atenolol (Tenormin) 50 mg PO DAILY [facility] Last Admin: 09/26/17 08:22 Dose: 50 mg Clonidine HCl (Catapres) 0.1 mg PO Q8 [facility] Last Admin: 09/26/17 08:26 Dose: 0.1 mg Enoxaparin Sodium (Lovenox) 40 mg SC DAILY [facility] PRN Reason: Protocol Last Admin: 09/26/17 08:30 Dose: Not Given Sodium Chloride (Sodium Chloride 0.45%) 1,000 mls @ 1,000 mls/hr IV .Q1H [facility] Last Admin: 09/24/17 08:42 Dose: 1,000 mls/hr Naproxen (Naprosyn Tab) 375 mg PO Q12 [facility] Last Admin: 09/26/17 08:27 Dose: 375 mg Ramipril (Altace) 5 mg PO DAILY [facility] Last Admin: 09/26/17 08:23 Dose: 5 mg - Labs Labs: 09/25/17 05:45 09/26/17 06:10 PT 13.1 Seconds (9.8-13.1) 09/24/17 08:00 INR 1.2 (0.9-1.2) 09/24/17 08:00 APTT 27.4 Seconds (25.6-37.1) 09/24/17 08:00 - Constitutional Appears: No Acute Distress - Head Exam Head Exam: ATRAUMATIC, NORMAL INSPECTION, NORMOCEPHALIC - Eye Exam Eye Exam: EOMI, Normal appearance, PERRL Pupil Exam: NORMAL ACCOMODATION, PERRL - ENT Exam ENT Exam: Mucous Membranes Moist, Normal Exam - Neck Exam Neck Exam: Full ROM, Normal Inspection. absent: Lymphadenopathy - Respiratory Exam Respiratory Exam: Clear to Ausculation Bilateral, NORMAL BREATHING PATTERN - Cardiovascular Exam Cardiovascular Exam: REGULAR RHYTHM, +S1, +S2. absent: Murmur - GI/Abdominal Exam GI & Abdominal Exam: Soft, Normal Bowel Sounds. absent: Tenderness - Rectal Exam Rectal Exam: NORMAL INSPECTION - Extremities Exam Extremities Exam: Full ROM, Normal Capillary Refill, Normal Inspection. absent : Joint Swelling, Pedal Edema - Back Exam Back Exam: NORMAL INSPECTION - Neurological Exam Neurological Exam: Alert, Awake, CN II-XII Intact, Normal Gait, Oriented x3 - Psychiatric Exam Psychiatric exam: Normal Affect, Normal Mood - Skin Skin Exam: Dry, Intact, Normal Color, Warm Assessment and Plan - Assessment and Plan (Free Text) Assessment: HYPERTENSIVE CRISIS SYNCOPE L SHOULDER PAIN?LIGAMENT DAMAGE MILD CONFUSION Plan: MONITOR BP CLOSELY ORTHOPEDIC EVAL OF SHOULDER MRI OF SHOULDER
--- NOTE | 2017-09-26 13:03 | CP.PCM.CON ---
History of Present Illness - History of Present Illness History of Present Illness: ID: 77 yo female CC SEVERE pain and pseudoparalysis L shoulder HPI: Pt a 77 yo female who presents to ER Wednesday evening, presents with severe pain and restricted L shoulder ROM. Pt with presentation to ER night. discussed case with cardilogy, who felt pain was L shoulder. pt admitted, Dr Chau formally calls me on consult today Past Patient History - Infectious Disease Hx of Infectious Diseases: None - Past Medical History & Family History Past Medical History?: Yes - Past Social History Smoking Status: Never Smoked - CARDIAC Hx Cardiac Disorders: Yes Hx Hypercholesterolemia: Yes Hx Hypertension: Yes - PULMONARY Hx Respiratory Disorders: No - NEUROLOGICAL Hx Neurological Disorder: Yes HX Cerebrovascular Accident: Yes - HEENT Hx HEENT Problems: Yes Hx Cataracts: Yes Hx Glaucoma: Yes - RENAL Hx Chronic Kidney Disease: No - ENDOCRINE/METABOLIC Hx Endocrine Disorders: Yes Hx Diabetes Mellitus Type 2: Yes - HEMATOLOGICAL/ONCOLOGICAL Hx Blood Disorders: No - INTEGUMENTARY Hx Dermatological Problems: No - MUSCULOSKELETAL/RHEUMATOLOGICAL Hx Musculoskeletal Disorders: Yes Hx Arthritis: Yes Hx Falls: No - GASTROINTESTINAL Hx Gastrointestinal Disorders: No - GENITOURINARY/GYNECOLOGICAL Hx Genitourinary Disorders: No - PSYCHIATRIC Hx Psychophysiologic Disorder: No Hx Substance Use: No - SURGICAL HISTORY Hx Surgeries: Yes Hx Appendectomy: Yes Hx Cholecystectomy: Yes - ANESTHESIA Hx Anesthesia: Yes Hx Anesthesia Reactions: No Hx Malignant Hyperthermia: No Has any member of the family had a problem w/ anesthesia?: No Meds Allergies/Adverse Reactions: Allergies Allergy/AdvReac Type Severity Reaction Status Date / Time No Known Allergies Allergy Verified 10/10/16 12:51 - Medications Medications: Current Medications Acetaminophen (Tylenol 325mg Tab) 650 mg PO Q6 [facility] Last Admin: 09/26/17 10:00 Dose: Not Given Amlodipine Besylate (Norvasc) 5 mg PO Q12 [facility] Last Admin: 09/26/17 08:29 Dose: 5 mg Aspirin (Aspirin Chewable) 81 mg PO DAILY [facility] Last Admin: 09/26/17 08:26 Dose: 81 mg Atenolol (Tenormin) 50 mg PO DAILY [facility] Last Admin: 09/26/17 08:22 Dose: 50 mg Clonidine HCl (Catapres) 0.1 mg PO Q8 [facility] Last Admin: 09/26/17 08:26 Dose: 0.1 mg Enoxaparin Sodium (Lovenox) 40 mg SC DAILY [facility] PRN Reason: Protocol Last Admin: 09/26/17 08:30 Dose: Not Given Sodium Chloride (Sodium Chloride 0.45%) 1,000 mls @ 1,000 mls/hr IV .Q1H [facility] Last Admin: 09/24/17 08:42 Dose: 1,000 mls/hr Naproxen (Naprosyn Tab) 375 mg PO Q12 [facility] Last Admin: 09/26/17 08:27 Dose: 375 mg Ramipril (Altace) 5 mg PO DAILY [facility] Last Admin: 09/26/17 08:23 Dose: 5 mg Physical Exam - Additional Findings Additional findings: Physical exxam systemic- as per DR Chau and cardiology Musculoskeletal: stance/gait- defrred ROM L shoulder restricted pt presetns with modified pseudoparaylsis L upper ext N/V intact Results - Vital Signs Recent Vital Signs: Last Vital Signs Temp 98.2 F 09/26/17 12:19 Pulse 75 09/26/17 12:19 Resp 16 09/26/17 12:19 BP 154/91 H 09/26/17 12:19 Pulse Ox 97 09/26/17 12:19 - Labs Result Diagrams: 09/25/17 05:45 09/26/17 06:10 Labs: Laboratory Results - last 24 hr 09/25/17 09/25/17 09/26/17 16:04 21:13 06:02 Sodium Potassium Chloride Carbon Dioxide Anion Gap BUN Creatinine Est GFR ( Amer) Est GFR (Non-Af Amer) POC Glucose (mg/dL) 92 106 128 H Random Glucose Calcium Triglycerides Cholesterol LDL Cholesterol Direct HDL Cholesterol TSH 3rd Generation 09/26/17 09/26/17 06:10 10:56 Sodium 147 Potassium 4.2 Chloride 102 Carbon Dioxide 27 Anion Gap 22 H BUN 15 Creatinine 0.9 Est GFR ( Amer) > 60 Est GFR (Non-Af Amer) > 60 POC Glucose (mg/dL) 137 H Random Glucose 123 H Calcium 10.3 H Triglycerides 112 Cholesterol 223 H LDL Cholesterol Direct 123 HDL Cholesterol 41 TSH 3rd Generation 0.94 - Impressions Impression: Xrays- rotator cuff arthropathy l shouldr Assessment & Plan - Assessment and Plan (Free Text) Assessment: A- rotator cuffv arthrop[athy L shouder P- MRI pssibility of surgical approach discussed at length Possibility of rotator cuff repair/ possibility of L shoulder replacement discussed at length thru culturally competent controls engineer, Pt wishes surgical approach. Mri pending
--- NOTE | 2017-09-26 16:04 | CP.PCM.PN ---
Subjective - Date & Time of Evaluation Date of Evaluation: 09/26/17 Time of Evaluation: 16:04 - Subjective Subjective: NO COMPLAINTS. PER RN PT WAS CONFUSED EARLIER. Objective - Vital Signs/Intake and Output Vital Signs (last 24 hours): Temp Pulse Resp BP Pulse Ox 98.6 F 73 16 159/81 H 98 09/26/17 16:03 09/26/17 16:03 09/26/17 16:03 09/26/17 16:03 09/26/17 16:03 - Medications Medications: Current Medications Acetaminophen (Tylenol 325mg Tab) 650 mg PO Q6 [facility] Last Admin: 09/26/17 10:00 Dose: Not Given Amlodipine Besylate (Norvasc) 5 mg PO Q12 [facility] Last Admin: 09/26/17 08:29 Dose: 5 mg Aspirin (Aspirin Chewable) 81 mg PO DAILY [facility] Last Admin: 09/26/17 08:26 Dose: 81 mg Atenolol (Tenormin) 50 mg PO DAILY [facility] Last Admin: 09/26/17 08:22 Dose: 50 mg Clonidine HCl (Catapres) 0.1 mg PO Q8 [facility] Last Admin: 09/26/17 08:26 Dose: 0.1 mg Enoxaparin Sodium (Lovenox) 40 mg SC DAILY [facility] PRN Reason: Protocol Last Admin: 09/26/17 08:30 Dose: Not Given Sodium Chloride (Sodium Chloride 0.45%) 1,000 mls @ 1,000 mls/hr IV .Q1H [facility] Last Admin: 09/24/17 08:42 Dose: 1,000 mls/hr Naproxen (Naprosyn Tab) 375 mg PO Q12 [facility] Last Admin: 09/26/17 08:27 Dose: 375 mg Ramipril (Altace) 5 mg PO DAILY [facility] Last Admin: 09/26/17 08:23 Dose: 5 mg - Labs Labs: 09/25/17 05:45 09/26/17 06:10 PT 13.1 Seconds (9.8-13.1) 09/24/17 08:00 INR 1.2 (0.9-1.2) 09/24/17 08:00 APTT 27.4 Seconds (25.6-37.1) 09/24/17 08:00 - Constitutional Appears: Well - Head Exam Head Exam: ATRAUMATIC, NORMAL INSPECTION, NORMOCEPHALIC - Eye Exam Eye Exam: EOMI, Normal appearance, PERRL. absent: Conjunctival injection, Nystagmus, Periorbital swelling, Periorbital tenderness, Scleral icterus Pupil Exam: NORMAL ACCOMODATION, PERRL - ENT Exam ENT Exam: Mucous Membranes Moist, Normal Exam. absent: Mucous Membranes Dry, Normal External Ear Exam, Normal Oropharynx, TM's Normal Bilaterally - Neck Exam Neck Exam: Full ROM, Normal Inspection. absent: Lymphadenopathy, Meningismus, Tenderness, Thyromegaly - Respiratory Exam Respiratory Exam: Clear to Ausculation Bilateral, NORMAL BREATHING PATTERN. absent: Accessory Muscle Use, Chest Wall Tenderness, Decreased Breath Sounds, Prolonged Expiratory Phase, Rales, Rhonchi, Wheezes, Respiratory Distress, Stridor - Cardiovascular Exam Cardiovascular Exam: REGULAR RHYTHM, +S1, +S2, Murmur. absent: Bradycardia, Tachycardia, Clicks, Diastolic murmur, Gallop, Irregular Rhythm, JVD, RRR, Rubs , +S4 - GI/Abdominal Exam GI & Abdominal Exam: absent: Bruit, Distended, Firm, Guarding, Rigid, Tenderness , Diminished Bowel Sounds, Hernia, Hyperactive Bowel Sounds, Hypoactive Bowel Sounds, Organomegaly, Pulsatile Mass, Rebound, Mass - Extremities Exam Extremities Exam: Full ROM, Normal Capillary Refill, Normal Inspection. absent : Calf Tenderness, Joint Swelling, Pedal Edema, Tenderness - Back Exam Back Exam: NORMAL INSPECTION - Neurological Exam Neurological Exam: Alert, Awake, CN II-XII Intact, Normal Gait, Oriented x3 - Psychiatric Exam Psychiatric exam: Normal Affect, Normal Mood - Skin Skin Exam: Dry, Intact, Normal Color, Warm Assessment and Plan (1) Syncope Status: Acute (2) Uncontrolled hypertension Status: Acute - Assessment and Plan (Free Text) Plan: CONTINUE CURRENT BP MEDS FOR 1 MORE DAY PRIOR TO TITRATING UP. NO OBVIOUS ETIOLOGY FOR CONFUSION.
[2017-09-27] MEDS: Enoxaparin 40 mg Syringe SC SCH ×2 (08:33→10:43)
--- NOTE | 2017-09-27 09:16 | CP.PCM.DIS ---
Provider - Provider Date of Admission: 09/24/17 13:52 Attending physician: Keron Chau MD Time Spent in preparation of Discharge (in minutes): 30 Diagnosis - Discharge Diagnosis (1) Syncope Status: Acute (2) Uncontrolled hypertension Status: Acute (3) Bursitis Status: Acute Hospital Course - Lab Results Lab Results: Most Recent Lab Values WBC 7.6 K/uL (4.8-10.8) 09/25/17 05:45 RBC 4.18 Mil/uL (3.80-5.20) 09/25/17 05:45 Hgb 13.4 g/dL (12.0-16.0) 09/25/17 05:45 Hct 38.6 % (34.0-47.0) 09/25/17 05:45 MCV 92.4 fl (81.0-99.0) 09/25/17 05:45 MCH 32.1 pg (27.0-31.0) H 09/25/17 05:45 MCHC 34.7 g/dL (33.0-37.0) 09/25/17 05:45 RDW 13.5 % (11.5-14.5) 09/25/17 05:45 Plt Count 164 K/uL (130-400) 09/25/17 05:45 MPV 8.8 fl (7.2-11.7) 09/24/17 08:00 Neut % (Auto) 44.0 % (50.0-75.0) L 09/24/17 08:00 Lymph % (Auto) 47.7 % (20.0-40.0) H 09/24/17 08:00 Wolfe % (Auto) 7.6 % (0.0-10.0) 09/24/17 08:00 Eos % (Auto) 0.5 % (0.0-4.0) 09/24/17 08:00 Baso % (Auto) 0.2 % (0.0-2.0) 09/24/17 08:00 Neut # (Auto) 5.1 K/uL (1.8-7.0) 09/24/17 08:00 Lymph # (Auto) 5.6 K/uL (1.0-4.3) H 09/24/17 08:00 Wolfe # (Auto) 0.9 K/uL (0.0-0.8) H 09/24/17 08:00 Eos # (Auto) 0.1 K/uL (0.0-0.7) 09/24/17 08:00 Baso # (Auto) 0.0 K/uL (0.0-0.2) 09/24/17 08:00 PT 13.1 Seconds (9.8-13.1) 09/24/17 08:00 INR 1.2 (0.9-1.2) 09/24/17 08:00 APTT 27.4 Seconds (25.6-37.1) 09/24/17 08:00 pO2 49 mm/Hg (30-55) 09/24/17 10:00 VBG pH 7.35 (7.32-7.43) 09/24/17 10:00 VBG pCO2 47 mmHg (40-60) 09/24/17 10:00 VBG HCO3 24.4 mmol/L 09/24/17 10:00 VBG Total CO2 27.3 mmol/L (22-28) 09/24/17 10:00 VBG O2 Sat (Calc) 82.8 % (40-65) H 09/24/17 10:00 VBG Base Excess -0.2 mmol/L (0.0-2.0) L 09/24/17 10:00 VBG Potassium 3.6 mmol/L (3.6-5.2) 09/24/17 10:00 Sodium 142.0 mmol/L (132-148) 09/24/17 10:00 Chloride 113.0 mmol/L (98-107) H 09/24/17 10:00 Glucose 113 mg/dL (65-105) H 09/24/17 10:00 Lactate 3.3 mmol/L (0.7-2.1) H 09/24/17 10:00 FiO2 21.0 % 09/24/17 10:00 Crit Value Called To Jie dixon 09/24/17 10:00 Crit Value Called By 23 09/24/17 10:00 Crit Value Read Back N 09/24/17 10:00 Blood Gas Notified Time 1005 09/24/17 10:00 Sodium 147 mmol/l (132-148) 09/26/17 06:10 Potassium 4.2 MMOL/L (3.6-5.0) 09/26/17 06:10 Chloride 102 mmol/L (98-107) 09/26/17 06:10 Carbon Dioxide 27 mmol/L (22-30) 09/26/17 06:10 Anion Gap 22 (10-20) H 09/26/17 06:10 BUN 15 mg/dl (7-17) 09/26/17 06:10 Creatinine 0.9 mg/dl (0.7-1.2) 09/26/17 06:10 Est GFR ( Amer) > 60 09/26/17 06:10 Est GFR (Non-Af Amer) > 60 09/26/17 06:10 POC Glucose (mg/dL) 99 mg/dL (65-110) 09/27/17 05:43 Random Glucose 123 mg/dL (65-105) H 09/26/17 06:10 Calcium 10.3 mg/dL (8.4-10.2) H 09/26/17 06:10 Magnesium 1.9 MG/DL (1.6-2.3) 09/25/17 01:20 Total Bilirubin 0.7 mg/dl (0.2-1.3) 09/25/17 01:20 AST 29 U/L (14-36) 09/25/17 01:20 ALT 35 U/L (9-52) 09/25/17 01:20 Alkaline Phosphatase 63 U/L (38-126) 09/25/17 01:20 Troponin I < 0.0120 ng/mL (0.00-0.120) 09/25/17 01:20 Total Protein 6.4 G/DL (6.3-8.2) 09/25/17 01:20 Albumin 3.4 g/dL (3.5-5.0) L 09/25/17 01:20 Globulin 3.0 gm/dL (2.2-3.9) 09/25/17 01:20 Albumin/Globulin Ratio 1.1 (1.0-2.1) 09/25/17 01:20 Triglycerides 112 mg/DL (0-149) 09/26/17 06:10 Cholesterol 223 mg/dL (0-199) H 09/26/17 06:10 LDL Cholesterol Direct 123 mg/dL (0-129) 09/26/17 06:10 HDL Cholesterol 41 MG/DL (30-70) 09/26/17 06:10 TSH 3rd Generation 0.94 mIU/ML (0.46-4.68) 09/26/17 06:10 Venous Blood Potassium 3.6 mmol/L (3.6-5.2) 09/24/17 10:00 - Hospital Course Hospital Course: CLINICALLY IMPROVED EXCEPT FOR L SHOULDER PAIN Discharge Exam - Head Exam Head Exam: ATRAUMATIC, NORMAL INSPECTION, NORMOCEPHALIC - Eye Exam Eye Exam: EOMI, Normal appearance, PERRL Pupil Exam: NORMAL ACCOMODATION, PERRL - GI/Abdominal Exam GI & Abdominal Exam: Normal Bowel Sounds - Rectal Exam Rectal Exam: NORMAL INSPECTION - Extremities Exam Extremities exam: tenderness Additional comments: L SHOULDER TENDERNESS WITH POOR RANGE OF MOTION - Neurological Exam Neurological exam: Alert, CN II-XII Intact, Normal Gait, Oriented x3, Reflexes Normal - Psychiatric Exam Psychiatric exam: Normal Affect, Normal Mood - Skin Skin Exam: Dry, Intact, Normal Color, Warm Discharge Plan - Follow Up Plan Condition: FAIR Disposition: HOME/ ROUTINE Patient education suggested?: Yes Instructions: Syncope (Fainting), High Blood Pressure in Adults Additional Instructions: PROBABLE D/C HOME TODAY AFTER MRI OF SHOULDER--ORTHO FOLLOW-UP
--- NOTE | 2017-09-27 10:22 | US ---
PROCEDURE: Duplex ultrasound of the carotid and vertebral arteries. HISTORY: SYNCOPE COMPARISON: None available. TECHNIQUE: Grayscale and duplex Doppler evaluation of the cervical carotid and vertebral arteries were performed. The common carotid, carotid bifurcations and cervical ICA and proximal ECA were evaluated. The vertebral arteries were evaluated for gross patency and direction. FINDINGS: RIGHT CAROTID ARTERIES: Common Carotid Artery: Normal. Maximal flow velocity of 57.0 cm/s. Carotid Bifurcation: Normal. Internal Carotid Artery:Calcific and noncalcific plaque. Maximal flow velocity of 48.3 cm/s. External Carotid Artery (proximal branches): Normal. Maximal flow velocity of 108.8 cm/s. ICA/CCA Ratio: 0.8 LEFT CAROTID ARTERIES: Common Carotid Artery: Normal. Maximal flow velocity of 77.9 cm/s. Carotid Bifurcation: Normal. Internal Carotid Artery:Calcific and noncalcific plaque. Maximal flow velocity of 65.5 cm/s. External Carotid Artery (proximal branches): Normal. Maximal flow velocity of 57.8 cm/s. ICA/CCA Ratio: 0.8 VERTEBRAL ARTERIES: Right Vertebral Artery: Patent. Antegrade flow. Left Vertebral Artery: Patent. Antegrade flow. OTHER FINDINGS: None. IMPRESSION: Per NASCET criteria, less than 50 percent stenosis of the internal carotid arteries bilaterally.
--- NOTE | 2017-09-27 13:10 | MRI ---
MRI left shoulder History: Shoulder pain. Comparison: None available. Technique: Multi-echo multiplanar sequences were performed through the left shoulder without the use of intravenous contrast. Findings: Thinning and fraying with increased signal seen within and at the bursal aspect of the distal supraspinatus tendon near its attachment on the greater tuberosity suggestive for partial bursal surface tearing with a moderate tendinopathy. In addition, at the far anterior insertion, there is a rounded low signal density measuring 7 millimeters which may represent focal calcific tendinopathy. No significant muscle atrophy. Moderate distal infraspinatus tendinopathy with interstitial delamination. No gross tendon retraction or muscle atrophy. Teres minor tendon is preserved. Partial tearing with a moderate distal subscapularis tendinopathy. Anterior to the lesser tuberosity, at the insertion of the subscapularis tendon, there is a rounded low signal density measuring 9 millimeters suggestive for a loose osteochondral body and/or focal calcific tendinopathy. Proximal portion of the long head of the biceps tendon demonstrates a moderate tendinopathy proximally. Evaluation of the glenoid labrum demonstrates increased signal within the superior labrum extending from its mid to posterior aspect as well as at the posterior inferior labrum suggestive for degenerative partial tearing. Trace glenohumeral joint effusion. Moderate acromioclavicular joint space degenerative changes with joint space narrowing, subchondral edema, and bony hypertrophy. 4 millimeter subchondral cyst formation within the anterior proximal humerus. Incidentally noted is prominent reactive edema and/or fluid within the musculature anterior to the proximal humerus extending inferiorly which may represent muscle strain and or partial tearing including the deltoid and or coracobrachialis muscles. Superimposed acute inflammatory and or infectious changes cannot entirely be excluded. Clinical correlation. Impression: 1. Thinning and fraying with increased signal seen within and at the bursal aspect of the distal supraspinatus tendon near its attachment on the greater tuberosity suggestive for partial bursal surface tearing with a moderate tendinopathy. In addition, at the far anterior insertion, there is a rounded low signal density measuring 7 millimeters which may represent focal calcific tendinopathy. No significant muscle atrophy. 2. Moderate distal infraspinatus tendinopathy with interstitial delamination. No gross tendon retraction or muscle atrophy. 3. Partial tearing with a moderate distal subscapularis tendinopathy. Anterior to the lesser tuberosity, at the insertion of the subscapularis tendon, there is a rounded low signal density measuring 9 millimeters suggestive for a loose osteochondral body and/or focal calcific tendinopathy. 4. Proximal portion of the long head of the biceps tendon demonstrates a moderate tendinopathy proximally. 5. Evaluation of the glenoid labrum demonstrates increased signal within the superior labrum extending from its mid to posterior aspect as well as at the posterior inferior labrum suggestive for degenerative partial tearing. 6. Trace glenohumeral joint effusion. 7. Moderate acromioclavicular joint space degenerative changes with joint space narrowing, subchondral edema, and bony hypertrophy. 8. 4 millimeter subchondral cyst formation within the anterior proximal humerus. 9. Incidentally noted is prominent reactive edema and/or fluid within the musculature anterior to the proximal humerus extending inferiorly which may represent muscle strain and or partial tearing including the deltoid and or coracobrachialis muscles. Superimposed acute inflammatory and or infectious changes cannot entirely be excluded. Clinical correlation.
--- NOTE | 2017-09-27 13:15 | CARD ---
APPROVED REPORT EXAM: Two-dimensional and M-mode echocardiogram with Doppler and color Doppler. Other Information Quality : GoodRhythm : NSR INDICATION Syncope 2D DIMENSIONS IVSd1.15 (0.7-1.1cm)LVDd3.80 (3.9-5.9cm) LVOT Diameter1.68 (1.8-2.4cm)PWd0.92 (0.7-1.1cm) IVSs1.32 (0.8-1.2cm)LVDs2.33 (2.5-4.0cm) FS (%) 38.8 %PWs1.25 (0.8-1.2cm) M-Mode DIMENSIONS Left Atrium (MM)3.12 (2.5-4.0cm)IVSd1.38 (0.7-1.1cm) Aortic Root3.03 (2.2-3.7cm)LVDd3.97 (4.0-5.6cm) Aortic Cusp Exc.1.65 (1.5-2.0cm)PWd1.24 (0.7-1.1cm) IVSs1.88 cmFS (%) 50 % LVDs2.00 (2.0-3.8cm)PWs1.65 cm Mitral Valve MV E Lmksvrdp71.8cm/sMV DECEL [id number] A Sbiminxi190.6cm/s MV [id number] ratio0.7MVA (PHT)2.10cm2 TDI Lateral E' Peak V6.36cm/sMedial E' Peak V5.62cm/sE/Lateral E'13.6 E/Medial E'15.4 Pulmonary Valve PV Peak Vimjwdhu36.8cm/s Tricuspid Valve TR Peak [id number]/sRAP [id number] Peak Gr.25mmHg [id number] LEFT VENTRICLE The left ventricle is normal size. There is normal left ventricular wall thickness. The left ventricular function is normal. The left ventricular ejection fraction is 60% There is normal LV segmental wall motion. Transmitral Doppler flow pattern is Grade I-abnormal relaxation pattern. No left ventricle thrombus noted on this study. There is no ventricular septal defect visualized. There is no left ventricular aneurysm. There is no mass noted in the left ventricle. RIGHT VENTRICLE The right ventricle is normal size. There is normal right ventricular wall thickness. The right ventricular systolic function is normal. ATRIA The left atrium size is normal. The right atrium size is normal. The interatrial septum is intact with no evidence for an atrial septal defect. AORTIC VALVE The aortic valve is normal in structure. There is mild aortic regurgitation. There is no aortic valvular stenosis. There is no aortic valvular vegetation. MITRAL VALVE Mitral annular calcification is mild to moderate. There is no evidence of mitral valve prolapse. There is no mitral valve stenosis. There is no mitral valve regurgitation noted. TRICUSPID VALVE The tricuspid valve is normal in structure. There is moderate tricuspid regurgitation. Right ventricular systolic pressure is estimated at 30-40 mmHg. There is no tricuspid valve prolapse or vegetation. There is no tricuspid valve stenosis. PULMONIC VALVE The pulmonary valve is normal in structure. There is no pulmonic valvular regurgitation. There is no pulmonic valvular stenosis. GREAT VESSELS The aortic root is normal in size. The ascending aorta is normal in size. The IVC is normal in size and collapses >50% with inspiration. PERICARDIAL EFFUSION The pericardium appears normal. There is no pleural effusion. <Conclusion> Normal LV Systolic Function Mild Aortic Insufficiency Mitral Annular Calcification Impaired Diastolic Relaxation
[2017-09-27 15:52] VITALS: BP 153/87; PULSE 76; RESP 20; TEMP 97.7; O2SAT 96
--- NOTE | 2017-09-27 16:44 | CP.PCM.PN ---
Subjective - Date & Time of Evaluation Date of Evaluation: 09/27/17 Time of Evaluation: 14:00 - Subjective Subjective: NO FURTHER DIZZINESS. BP REMAINS ELEVATED. Objective - Vital Signs/Intake and Output Vital Signs (last 24 hours): Temp Pulse Resp BP Pulse Ox 97.7 F 76 20 153/87 H 96 09/27/17 15:51 09/27/17 15:51 09/27/17 15:51 09/27/17 15:51 09/27/17 15:51 - Medications Medications: Current Medications Acetaminophen (Tylenol 325mg Tab) 650 mg PO Q6 REPLACED BY [facility] Last Admin: 09/27/17 10:00 Dose: Not Given Amlodipine Besylate (Norvasc) 10 mg PO Q12 REPLACED BY [facility] Aspirin (Aspirin Chewable) 81 mg PO DAILY REPLACED BY [facility] Last Admin: 09/27/17 08:31 Dose: 81 mg Atenolol (Tenormin) 50 mg PO DAILY REPLACED BY [facility] Last Admin: 09/27/17 08:32 Dose: 50 mg Clonidine HCl (Catapres) 0.1 mg PO Q8 REPLACED BY [facility] Last Admin: 09/27/17 08:35 Dose: 0.1 mg Enoxaparin Sodium (Lovenox) 40 mg SC DAILY REPLACED BY [facility] PRN Reason: Protocol Last Admin: 09/27/17 10:43 Dose: Not Given Naproxen (Naprosyn Tab) 375 mg PO Q12 REPLACED BY [facility] Last Admin: 09/27/17 08:32 Dose: 375 mg Ramipril (Altace) 5 mg PO DAILY REPLACED BY [facility] Last Admin: 09/27/17 08:31 Dose: 5 mg - Labs Labs: 09/25/17 05:45 09/26/17 06:10 PT 13.1 Seconds (9.8-13.1) 09/24/17 08:00 INR 1.2 (0.9-1.2) 09/24/17 08:00 APTT 27.4 Seconds (25.6-37.1) 09/24/17 08:00 - Constitutional Appears: Well - Head Exam Head Exam: ATRAUMATIC, NORMAL INSPECTION, NORMOCEPHALIC - Eye Exam Eye Exam: EOMI, Normal appearance, PERRL. absent: Conjunctival injection, Nystagmus, Periorbital swelling, Periorbital tenderness, Scleral icterus Pupil Exam: NORMAL ACCOMODATION, PERRL - ENT Exam ENT Exam: Mucous Membranes Moist, Normal Exam. absent: Mucous Membranes Dry, Normal External Ear Exam, Normal Oropharynx, TM's Normal Bilaterally - Neck Exam Neck Exam: Full ROM, Normal Inspection - Respiratory Exam Respiratory Exam: Clear to Ausculation Bilateral, NORMAL BREATHING PATTERN. absent: Accessory Muscle Use, Chest Wall Tenderness, Decreased Breath Sounds, Prolonged Expiratory Phase, Rales, Rhonchi, Wheezes, Respiratory Distress, Stridor - Cardiovascular Exam Cardiovascular Exam: REGULAR RHYTHM, +S1, +S2, Murmur. absent: Bradycardia, Tachycardia, Clicks, Diastolic murmur, Gallop, Irregular Rhythm, JVD, RRR, Rubs , +S4 - GI/Abdominal Exam GI & Abdominal Exam: Soft, Normal Bowel Sounds. absent: Bruit, Distended, Firm , Guarding, Rigid, Tenderness, Diminished Bowel Sounds, Hernia, Hyperactive Bowel Sounds, Hypoactive Bowel Sounds, Organomegaly, Pulsatile Mass, Rebound, Mass - Extremities Exam Extremities Exam: Full ROM, Normal Capillary Refill, Normal Inspection. absent : Calf Tenderness, Joint Swelling, Pedal Edema, Tenderness - Back Exam Back Exam: NORMAL INSPECTION. absent: CVA tenderness (L), CVA tenderness (R), Full ROM, muscle spasm, paraspinal tenderness, rash noted, tenderness, vertebral tenderness - Neurological Exam Neurological Exam: Alert, Awake, CN II-XII Intact, Normal Gait, Oriented x3. absent: Abnormal Gait, Altered, Motor Sensory Deficit, Reflexes Normal - Psychiatric Exam Psychiatric exam: Normal Affect, Normal Mood. absent: Agitated, Anxious, Depressed, Flat Affect, Homicidal Ideation, Manic, Suicidal Ideation - Skin Skin Exam: Dry, Intact, Normal Color, Warm. absent: Abrasion, Cyanosis, Diaphoretic, Erythema, Mottled, Pallor, Pallor, Petechiae, Rash, Urticaria, Vesicles Assessment and Plan (1) Syncope Status: Acute (2) Uncontrolled hypertension Status: Acute (3) Vasovagal episode Status: Acute - Assessment and Plan (Free Text) Plan: WOULD NOT ADVISE A BP UNDER 130 SYSTOLIC OR 70 DIASTOLIC. GIVEN CURRENT ELEVATED BP WILL INCREASE NORVASC DOSE. PT STABLE FOR D/C
--- NOTE | 2017-09-27 17:03 | CP.PCM.PN ---
Subjective - Date & Time of Evaluation Date of Evaluation: 09/27/17 Time of Evaluation: 09:00 - Subjective Subjective: Patient was seen and examined at bedside comfortable. C/o pain with ROM of LUE. No new complaints. Objective - Vital Signs/Intake and Output Vital Signs (last 24 hours): Temp Pulse Resp BP Pulse Ox 97.7 F 76 20 153/87 H 96 09/27/17 15:51 09/27/17 15:51 09/27/17 15:51 09/27/17 15:51 09/27/17 15:51 - Medications Medications: Current Medications Acetaminophen (Tylenol 325mg Tab) 650 mg PO Q6 [facility] Last Admin: 09/27/17 10:00 Dose: Not Given Amlodipine Besylate (Norvasc) 10 mg PO Q12 [facility] Aspirin (Aspirin Chewable) 81 mg PO DAILY [facility] Last Admin: 09/27/17 08:31 Dose: 81 mg Atenolol (Tenormin) 50 mg PO DAILY [facility] Last Admin: 09/27/17 08:32 Dose: 50 mg Clonidine HCl (Catapres) 0.1 mg PO Q8 [facility] Last Admin: 09/27/17 08:35 Dose: 0.1 mg Enoxaparin Sodium (Lovenox) 40 mg SC DAILY [facility] PRN Reason: Protocol Last Admin: 09/27/17 10:43 Dose: Not Given Naproxen (Naprosyn Tab) 375 mg PO Q12 [facility] Last Admin: 09/27/17 08:32 Dose: 375 mg Ramipril (Altace) 5 mg PO DAILY [facility] Last Admin: 09/27/17 08:31 Dose: 5 mg - Labs Labs: 09/25/17 05:45 09/26/17 06:10 PT 13.1 Seconds (9.8-13.1) 09/24/17 08:00 INR 1.2 (0.9-1.2) 09/24/17 08:00 APTT 27.4 Seconds (25.6-37.1) 09/24/17 08:00 - Extremities Exam Additional comments: LUE: + tenderness, no swelling ROM FF 0-90deg, 0-60 deg abd with pain sensation and motor intact MN/UN/RN radial pulses intact compartments soft NT Assessment and Plan (1) Rotator cuff arthropathy of left shoulder Assessment & Plan: -MRI reviewed -CT of left shoulder -Recommend left shoulder arthroscopy for 09/29 pending medical clearance and CT scan -continue PT/OT -above case and plan was discussed with Dr. Singleton in agreement Status: Acute
== END 2017-09-27 18:35 | disposition home or self-care (01) | DRG 312 ==
LOC: H.ER 07:38 → OBSVTOIN 13:52 → H.ERHOLD 13:52 → H.TEL 17:38
PROVIDERS: ADMIT Internal Medicine Pulmonary Disease; ATTEND Internal Medicine Pulmonary Disease
DX: R55 Syncope and collapse (principal); S06.9X9A Unspecified intracranial injury with loss of consciousness of unspecified duration, initial encounter; I16.9 Hypertensive crisis, unspecified; I10 Essential (primary) hypertension; M19.90 Unspecified osteoarthritis, unspecified site; X58.XXXA Exposure to other specified factors, initial encounter; E11.9 Type 2 diabetes mellitus without complications; E78.00 Pure hypercholesterolemia, unspecified; E78.5 Hyperlipidemia, unspecified; H40.9 Unspecified glaucoma; Z79.899 Other long term (current) drug therapy; Z86.73 Personal history of transient ischemic attack (TIA), and cerebral infarction without residual deficits; Z90.49 Acquired absence of other specified parts of digestive tract; H26.9 Unspecified cataract; M25.512 Pain in left shoulder

== ENCOUNTER 2018-05-17 09:24 | Emergency (ER) | payer MEDICARE, OTHER ==
[2018-05-17 09:25] VITALS: BMI 27.2
[2018-05-17 10:11] VITALS: TEMP 97; O2SAT 97
[2018-05-17] MEDS ORDERED: Lidocaine 5% Patch TD STA (10:57)
--- NOTE | 2018-05-17 11:00 | ED PDOC ---
Upper Extremity Pain/Injury Time Seen by Provider: 05/17/18 10:40 Chief Complaint (Nursing): Upper Extremity Problem/Injury Chief Complaint (Provider): shoulder pain History Per: Patient, Family History/Exam Limitations: no limitations Onset/Duration Of Symptoms: Days (4 months) Additional Complaint(s): 77 y/o female presents to the ED complaining of left shoulderpain for 4 months. She was admitted to the hospital for a stroke in the past. Patient had fallen during the stroke onto her left shoulder and MRI at that time showed multiple chronic injuries. Patient reports taking Motrin and Tylenol with some relief. Currently she denies any new pain, new weakness, numbness, paresthesias, chest pain, or difficulty breathing. No headache, dizziness. Seen 04/25/18 for same and given pain management referral which pt. had not followed up with. Demanding "better" meds. Past Medical History Reviewed: Historical Data, Nursing Documentation, Vital Signs Vital Signs: Last Vital Signs Temp 97 F L 05/17/18 10:07 Pulse 80 05/17/18 10:07 Resp 19 05/17/18 10:07 BP 187/102 H 05/17/18 10:07 Pulse Ox 97 05/17/18 10:07 - Medical History PMH: Arthritis, CVA, HTN, Hypercholesterolemia Denies: Chronic Kidney Disease - Surgical History Surgical History: Appendectomy, Cholecystectomy - Family History Family History: States: Unknown Family Hx - Immunization History Hx Tetanus Toxoid Vaccination: No Hx Influenza Vaccination: Yes Hx Pneumococcal Vaccination: Yes - Home Medications Home Medications: Ambulatory Orders Medication Instructions Recorded Ergocalciferol (Vitamin D2) 50,000 unit PO MO 09/24/17 [Vitamin D2] Meclizine [Meclizine*] 25 mg PO Q8 PRN 09/24/17 Aspirin [Aspirin Chewable] 81 mg PO DAILY #30 chew 09/27/17 Ramipril [Altace] 5 mg PO DAILY #30 cap 09/27/17 amLODIPine [Norvasc] 5 mg PO Q12 #60 tab 09/27/17 Lidocaine 5% [Lidoderm] 1 ea TD DAILY PRN #5 patch 05/17/18 Tramadol HCl [Ultram] 50 mg PO BID PRN 3 Days tablet 05/17/18 - Allergies Allergies/Adverse Reactions: Allergies Allergy/AdvReac Type Severity Reaction Status Date / Time Penicillins Allergy Verified 04/25/18 12:47 SHRIMP Allergy Uncoded 04/25/18 12:47 Review of Systems Constitutional: Negative for: Weakness Eyes: Negative for: Vision Change ENT: Negative for: Nose Congestion Cardiovascular: Negative for: Chest Pain, Palpitations, Orthopnea Respiratory: Negative for: Shortness of Breath Gastrointestinal: Negative for: Vomiting Musculoskeletal: Positive for: Shoulder Pain. Negative for: Neck Pain, Leg Pain Neurological: Negative for: Weakness, Numbness, Headache, Dizziness Physical Exam - Reviewed Nursing Documentation Reviewed: Yes Vital Signs Reviewed: Yes - Physical Exam Appears: Positive for: Well, Non-toxic, No Acute Distress Head Exam: Positive for: ATRAUMATIC, NORMAL INSPECTION, NORMOCEPHALIC Skin: Positive for: Normal Color, Warm, DRY Neck: Positive for: Normal, Painless ROM Cardiovascular/Chest: Positive for: Regular Rate, Rhythm Respiratory: Positive for: CNT, Normal Breath Sounds Pulses-Radial (L): 2+ Back: Positive for: Normal Inspection. Negative for: L CVA Tenderness, R CVA Tenderness Extremity: Positive for: Tenderness (left shoulder; no erythema, echymosis.). Negative for: Normal ROM (left shoulder due to pain), Calf Tenderness Neurologic/Psych: Positive for: Alert, Oriented - ECG O2 Sat by Pulse Oximetry: 97 Pulse Ox Interpretation: Normal - Progress ED Course And Treament: 1102: Chronic pain. Has had several er visits for the same. Advised to fu with pain management. No new symptoms today. AAOx3. Disposition - Clinical Impression Clinical Impression: Rotator cuff injury, Chronic pain - Patient ED Disposition Is Patient to be Admitted: No Counseled Patient/Family Regarding: Diagnosis, Need For Followup, Rx Given - Disposition Referrals: [facility] [Outside] - 05/18/18 Disposition: Routine/Home Disposition Time: 10:30 Condition: STABLE Additional Instructions: Return if not better in 3 days. Prescriptions: Lidocaine 5% [Lidoderm] 1 ea TD DAILY PRN #5 patch PRN Reason: Pain, Moderate (4-7) Tramadol HCl [Ultram] 50 mg PO BID PRN 3 Days tablet PRN Reason: Pain, Moderate (4-7) Instructions: Rotator Cuff Injury
[2018-05-17] MEDS ORDERED: Lidocaine 5% Patch TD ONE (11:32)
[2018-05-17 12:05] VITALS: BP 160/92; PULSE 76; RESP 18
== END 2018-05-17 11:50 | disposition home or self-care (01) ==
LOC: H.ER 09:24
DX: M75.102 Unspecified rotator cuff tear or rupture of left shoulder, not specified as traumatic (principal); W19.XXXA Unspecified fall, initial encounter; Y92.89 Other specified places as the place of occurrence of the external cause

== ENCOUNTER 2018-07-21 19:00 | Emergency (ER) | payer MEDICARE, OTHER ==
[2018-07-21 19:00] VITALS: BMI 27.2
[2018-07-21 19:09] VITALS: TEMP 97.4; O2SAT 100
[2018-07-21] MEDS ORDERED: Sodium Chloride 0.9% 1,000 ML IV STA (19:40)
--- NOTE | 2018-07-21 19:42 | ED PDOC ---
Syncope/Near Syncope/Dizziness Time Seen by Provider: 07/21/18 19:21 Chief Complaint (Nursing): Syncope Chief Complaint (Provider): Syncope History Per: Patient, EMS, Family History/Exam Limitations: no limitations Onset/Duration Of Symptoms: Mins Current Symptoms Are (Timing): Still Present Additional Complaint(s): 77 year old female, with a past medical history of CVA, presents to the ED with daughter and granddaughter after a syncopal episode. Granddaughter reports patient was having a bowel movement when she felt dizzy and had a brief loss of consciousness. Patient suffers from constipation. Fall was witnessed by patient's 2 daughters who held her up. Granddaughter denies any head injury or chest pain. Patient was discharged yesterday after being admitted at a physical therapist center, for about a month, after having a CVA. Patient is nonambulatory and wheelchair bound since the CVA. Granddaughter states patient has been eating very little. Patient takes Aspirin and Plavix. PMD: Genny Hopson Past Medical History Reviewed: Historical Data, Nursing Documentation, Vital Signs Vital Signs: Last Vital Signs Temp 97.4 F L 07/21/18 19:07 Pulse 107 H 07/21/18 19:07 Resp 18 07/21/18 19:07 BP 141/78 07/21/18 19:07 Pulse Ox 100 07/21/18 19:07 - Medical History PMH: Arthritis, COPD, Diabetes, HTN, Hypercholesterolemia Denies: Chronic Kidney Disease - Surgical History Surgical History: Appendectomy, Cholecystectomy Other surgeries: Eye surgery, hysterectomy - Family History Family History: States: Unknown Family Hx - Immunization History Hx Tetanus Toxoid Vaccination: No Hx Influenza Vaccination: Yes Hx Pneumococcal Vaccination: Yes - Home Medications Home Medications: Ambulatory Orders Medication Instructions Recorded Aspirin [Aspirin Chewable] 81 mg PO DAILY chew 06/02/18 Azithromycin [Zithromax] 500 mg PO DAILY #4 tab 06/02/18 Clopidogrel [Plavix] 75 mg PO DAILY tab 06/02/18 Docusate Sodium/Sennosides A 1 tab PO DAILY tab 06/02/18 [Senokot S 50 MG-8.6 MG] Docusate [Colace] 100 mg PO BID cap 06/02/18 Enalapril Maleate [Vasotec] 10 mg PO DAILY tab 06/02/18 Ergocalciferol [Drisdol 50,000 1 cap PO QWK cap 06/02/18 Intl Units Cap] Famotidine [Pepcid] 20 mg PO DAILY tab 06/02/18 Lidocaine 5% [Lidoderm] 1 ea TD DAILY PRN patch 06/02/18 Rosuvastatin Calcium [Crestor] 20 mg PO HS tab 06/02/18 amLODIPine [Norvasc] 5 mg PO Q12 tab 06/02/18 levETIRAcetam [Keppra] 750 mg PO BID tab 06/02/18 Docusate [Colace] 100 mg PO BID #30 cap 07/21/18 - Allergies Allergies/Adverse Reactions: Allergies Allergy/AdvReac Type Severity Reaction Status Date / Time Penicillins Allergy RASH Verified 07/21/18 19:06 SHRIMP Allergy RASH Uncoded 07/21/18 19:06 Review of Systems ROS Statement: Except As Marked, All Systems Reviewed And Found Negative Eyes: Positive for: Vision Change (Blurry vision) Cardiovascular: Negative for: Chest Pain Gastrointestinal: Positive for: Nausea, Vomiting, Constipation Musculoskeletal: Negative for: Other (Head injury) Physical Exam - Reviewed Nursing Documentation Reviewed: Yes Vital Signs Reviewed: Yes - Physical Exam Appears: Positive for: Non-toxic, No Acute Distress Head Exam: Positive for: ATRAUMATIC, NORMOCEPHALIC Skin: Positive for: Normal Color, Warm, Dry Eye Exam: Positive for: Normal appearance ENT: Positive for: Normal ENT Inspection Neck: Positive for: Normal, Painless ROM Cardiovascular/Chest: Positive for: Regular Rate, Rhythm Respiratory: Positive for: Normal Breath Sounds. Negative for: Wheezing, Respiratory Distress Gastrointestinal/Abdominal: Positive for: Normal Exam, Soft. Negative for: Tenderness Extremity: Positive for: Normal ROM Neurologic/Psych: Positive for: Motor/Sensory Deficits (Left arm and left leg motor/sensory severly decreased ), Facial Droop (left sided from previous CVA), Other (No effort against gravity in left arm and left leg from previous CVA; 1/5 strength in left leg and 0/5 strength in left arm and slurred speech from previous CVA) - Laboratory Results Result Diagrams: 07/21/18 20:15 07/21/18 20:15 - ECG O2 Sat by Pulse Oximetry: 100 (RA) Pulse Ox Interpretation: Normal - Progress Re-evaluation Time: 22:30 Condition: Re-examined, Improved Medical Decision Making Medical Decision Making: Initial Impression: Syncope Differential includes vasovagal, orthostatic, cardiac arrhythmia, r/o CVA Initial Plan: --Head CT --ECG --BMP --Troponin stat --ED urine dipstick --CBC --Sodium chloride 1000mL IV --Zofran 4mg IV --Urinalysis 20:[address] FINDINGS: BRAIN 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 VENTRICLES: There is generalized parenchymal atrophy noted as demonstrated by symmetrical dilatation of ventricles and sulci. ORBITS: The orbits are unremarkable. SINUSES AND MASTOIDS: The paranasal sinuses and mastoid air cells are clear. BONES: No fracture. SOFT TISSUES: Unremarkable. MISCELLANEOUS: No acute intracranial pathology. IMPRESSION: 1. There is generalized parenchymal atrophy noted as demonstrated by symmetrical dilatation of ventricles and sulci. 2. 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 3. No acute intracranial pathology. 21:19 Labs reviewed which showed no significant abnormalities. CT reviewed which showed no acute findings. 22:30 Upon reevaluation, patient reports she is feeling better and has no complaints at this time. Discussed plan with family who are agreeable with plan to discharge. Scribe Attestation: Documented by Carter Sandra acting as a scribe for Miracle Stanford MD. Provider Scribe Attestation: All medical record entries made by the Scribe were at my direction and personally dictated by me. I have reviewed the chart and agree that the record accurately reflects my personal performance of the history, physical exam, medical decision making, and the department course for this patient. I have also personally directed, reviewed, and agree with the discharge instructions and disposition. Disposition - Clinical Impression Clinical Impression: Syncope and collapse, Vasovagal syncope, Constipation - Patient ED Disposition Is Patient to be Admitted: No Doctor Will See Patient In The: Office Counseled Patient/Family Regarding: Studies Performed, Diagnosis, Need For Foll owup - Disposition Referrals: Genny Ruby MD [Family Provider] - Disposition: Routine/Home Disposition Time: 22:31 Condition: GOOD Additional Instructions: YANDEL TOM, thank you for letting us take care of you today. Your provider was Miracle Stanford MD and you were treated for POSS SYNCOPE. The emergency medical care you received today was directed at your acute symptoms. If you were prescribed any medication, please fill it and take as directed. It may take several days for your symptoms to resolve. Return to the Emergency Dep artment if your symptoms worsen, do not improve, or if you have any other problems. Please contact your doctor or call one of the physicians/clinics you have been referred to that are listed on the Patient Visit Information form that is included in your discharge packet. Bring any paperwork you were given at discharge with you along with any medications you are taking to your follow up visit. Our treatment cannot replace ongoing medical care by a primary care provider outside of the emergency department. Thank you for allowing the [facility] team to be part of your care today. If you had an X-Ray or CT scan: A Radiologist will review the ED reading if any change in treatment is needed we will contact you. If you had a blood, urine, or wound culture: It will take several days for the results, if any change in treatment is needed we will contact you. If you had an STI test: It will take 48 hours for the results. Please call after 1 week if you have not heard back. Prescriptions: Docusate [Colace] 100 mg PO BID #30 cap Instructions: Syncope (Fainting), Constipation in Adults Forms: [email or web address] (German)
[2018-07-21 20:24] LABS: BASO % 0.2 % (0.0-2.0); EOS % 0.3 % (0.0-4.0); HEMOGLOBIN 15.3 g/dL (12.0-16.0); LYMPH # 1.4 K/uL (1.0-4.3); MEAN PLATELET VOLUME 8.1 fl (7.2-11.7); MONO # 0.9 K/uL (0.0-0.8); MONO % 7.8 % (0.0-10.0); NEUT # 9.4 K/uL (1.8-7.0); NEUT % 79.7 % (50.0-75.0); RBC 4.78 Mil/uL (3.80-5.20); WHITE BLOOD COUNT 11.7 K/uL (4.8-10.8)
[2018-07-21 20:36] LABS: BLOOD UREA NITROGEN 26 mg/dl (7-17); CALCIUM 10.3 mg/dL (8.4-10.2); GFR NON-AFRICAN AMERICAN > 60
[2018-07-21 22:04] LABS: SQUAMOUS EPITHIAL 1 /hpf (0-5); URINE BACTERIA RARE (<OCC); URINE BILIRUBIN NEGATIVE (NEGATIVE); URINE BLOOD NEGATIVE (NEGATIVE); URINE CLARITY SLIGHTY-CLOUDY (Clear); URINE COLOR YELLOW (YELLOW); URINE GLUCOSE (UA) NEG (NEGATIVE); URINE LEUKOCYTE ESTERASE TRACE Leu/uL (Negative); URINE PROTEIN NEGATIVE (NEGATIVE); URINE UROBILINOGEN 0.2-1.0 mg/dL (0.2-1.0)
[2018-07-21 23:20] VITALS: BP 132/80; PULSE 80; RESP 16
--- NOTE | 2018-07-22 09:36 | CARD ---
APPROVED REPORT Date of service: 07/21/2018 EKG Measurement Heart [id number] <Conclusion> Sinus tachycardia with premature atrial complexes Minimal voltage criteria for LVH, may be normal variant Possible septal infarct, age undetermined Abnormal ECG
--- NOTE | 2018-07-22 09:54 | CT ---
Date of service: 07/21/2018 PROCEDURE: CT HEAD WITHOUT CONTRAST. HISTORY: syncope COMPARISON: None available. TECHNIQUE: Axial computed tomography images were obtained through the head/brain without intravenous contrast. Radiation dose: Total exam DLP = 719.31 mGy-cm. This CT exam was performed using one or more of the following dose reduction techniques: Automated exposure control, adjustment of the mA and/or kV according to patient size, and/or use of iterative reconstruction technique. FINDINGS: HEMORRHAGE: No intracranial hemorrhage. BRAIN: Good corticomedullary differentiation is seen. Reiterated diffuse cerebral atrophy and chronic microangiopathy. No suspicious extra-axial fluid collection is identified and the midline brain anatomy appears grossly nonfocal as imaged. No mass effect identified. VENTRICLES: Unremarkable. No hydrocephalus. CALVARIUM: Unremarkable. PARANASAL SINUSES: Unremarkable as visualized. No significant inflammatory changes. MASTOID AIR CELLS: Unremarkable as visualized. No inflammatory changes. OTHER FINDINGS: None. IMPRESSION: Stable age related neuro degenerative findings compared prior head CT without contrast 09/24/2017. Follow-up CT or MRI are available if clinically warranted. Concordant preliminary report from [facility], 07/21/2018, 8:09 p.m..
== END 2018-07-21 23:30 | disposition home or self-care (01) ==
LOC: H.ER 19:00
DX: R55 Syncope and collapse (principal); R42 Dizziness and giddiness; K59.00 Constipation, unspecified; E11.9 Type 2 diabetes mellitus without complications; E78.00 Pure hypercholesterolemia, unspecified; I10 Essential (primary) hypertension; Z88.0 Allergy status to penicillin
CPT/HCPCS: 70450; 80048; 81003; 84484; 85025; 93005; 96374; 99283; J2405; J7030

== ENCOUNTER 2018-08-31 20:26 | Inpatient (IN) | payer MEDICARE, OTHER ==
[2018-08-31 21:48] LABS: VENOUS BLOOD GAS BASE EXCESS 2.8 mmol/L (0.0-2.0); VENOUS BLOOD GAS PCO2 47 mmHg (40-60); VENOUS BLOOD GAS PO2 31 mm/Hg (30-55); VENOUS BLOOD PH 7.39 (7.32-7.43)
[2018-08-31 21:58] LABS: BASO % 0.5 % (0.0-2.0); EOS % 0.4 % (0.0-4.0); HEMOGLOBIN 14.6 g/dL (12.0-16.0); LYMPH # 2.7 K/uL (1.0-4.3); LYMPH % 35.6 % (20.0-40.0); MEAN CELL VOLUME 94.5 fl (81.0-99.0); MEAN CORPUSCULAR HEMOGLOBIN 31.8 pg (27.0-31.0); MEAN CORPUSCULAR HGB CONC 33.6 g/dL (33.0-37.0); MEAN PLATELET VOLUME 7.9 fl (7.2-11.7); MONO # 0.9 K/uL (0.0-0.8); MONO % 11.8 % (0.0-10.0); NEUT # 3.9 K/uL (1.8-7.0); NEUT % 51.7 % (50.0-75.0); NRBC % 0.1 % (0.0-0.0); RBC 4.59 Mil/uL (3.80-5.20); RED CELL DISTRIBUTION WIDTH 13.6 % (11.5-14.5); WHITE BLOOD COUNT 7.5 K/uL (4.8-10.8)
[2018-08-31 22:10] LABS: INR 1.2; PROTHROMBIN TIME 13.6 Seconds (9.8-13.1)
[2018-08-31 22:13] LABS: ALB/GLOB RATIO 1.2 (1.0-2.1); ALBUMIN 4.6 g/dL (3.5-5.0); ALT/SGPT 33 U/L (9-52); AST/SGOT 46 U/L (14-36); BLOOD UREA NITROGEN 18 mg/dl (7-17); CALCIUM 10.5 mg/dL (8.4-10.2); GFR NON-AFRICAN AMERICAN > 60; PARTIAL THROMBOPLASTIN TIME 30.3 Seconds (25.6-37.1)
[2018-08-31 22:23] LABS: B-TYPE NATRIURETIC PEPTIDE 60.7 pg/ml (0-900)
--- NOTE | 2018-08-31 22:32 | ED PDOC ---
HPI: General Adult Time Seen by Provider: 08/31/18 20:34 Chief Complaint (Nursing): Altered Mental Status Chief Complaint (Provider): Weakness History Per: Patient History/Exam Limitations: no limitations Onset/Duration Of Symptoms: Days (x 5) Current Symptoms Are (Timing): Still Present Additional Complaint(s): 78 year old female with multiple comorbidities presents to the ED with generalized weakness and right flank pain for five days. Patient is more tired than usual. Family reports she has a history of a stroke that left her with left side hemiparesis which has seemed worse since onset of symptoms. Denies abdominal pain, headache, diarrhea and urinary symptoms. PMD: Dr. Ruby NIHSS Stroke Scale - Date/Time Evaluation Performed Date Performed: 08/31/18 Time Performed: 20:35 When Was NIHSS Performed: Baseline - How Severe is the Stroke Level of Consciousness: 0=Alert LOC to Questions: 0=Both comments correct LOC to commands: 0=Obeys both correctly Best Gaze: 0=Normal Visual: 0=No visual loss Facial: 2=Partial (lower face paralysis) Motor Arm - Left: 2=Falls before 10 sec Motor Arm - Right: 0=No drift Motor Leg - Left: 2=Falls before 5 sec Motor Leg - Right: 1=Drift before 5 sec Limb Ataxia: 0=Absent Sensory: 0=Normal Best Language: 1=Mild to moderate aphasia Dysarthia: 1=Mild to moderate slurring Extinction & Inattention (Neglect): 0=Normal, no object Score: 9 rTPA Inclusion/Exclusion - Refusal of Treatment Patient Refused Treatment: No - Inclusion Criteria for Altepase Patient is 18 years or Older: Yes The Clinical Diagnosis of Ischemic Stroke That is Causing a Potentially Disabling Neurological Deficit: Yes Time of Onset is Well Established to be Less Than 270 Minute Before Treatment Would Begin: No Risk/Benefit Discussed With Patient/Family Member Present: No Past Medical History Reviewed: Historical Data, Nursing Documentation, Vital Signs Vital Signs: Last Vital Signs Temp 97.9 F 08/31/18 20:28 Pulse 89 08/31/18 20:28 Resp 16 08/31/18 20:28 BP 157/94 H 08/31/18 20:28 Pulse Ox 98 08/31/18 20:28 - Medical History PMH: Arthritis, COPD, Diabetes, HTN, Hypercholesterolemia Denies: Chronic Kidney Disease - Surgical History Surgical History: Appendectomy, Cholecystectomy - Family History Family History: States: Unknown Family Hx - Immunization History Hx Tetanus Toxoid Vaccination: No Hx Influenza Vaccination: Yes Hx Pneumococcal Vaccination: Yes - Home Medications Home Medications: Ambulatory Orders Medication Instructions Recorded Aspirin [Aspirin Chewable] 81 mg PO DAILY chew 06/02/18 Clopidogrel [Plavix] 75 mg PO DAILY tab 06/02/18 Enalapril Maleate [Vasotec] 10 mg PO DAILY tab 06/02/18 Rosuvastatin Calcium [Crestor] 20 mg PO HS tab 06/02/18 Meclizine [Meclizine*] 25 mg PO DAILY 09/01/18 Atorvastatin [Lipitor] 40 mg PO HS tab 09/02/18 Cilostazol [Pletal] 50 mg PO BID #60 tab 09/02/18 Enoxaparin [Lovenox] 40 mg SC DAILY syr 09/02/18 Famotidine [Pepcid] 20 mg PO BID 09/02/18 Lactulose 20 gm PO DAILY 09/02/18 - Allergies Allergies/Adverse Reactions: Allergies Allergy/AdvReac Type Severity Reaction Status Date / Time Penicillins Allergy RASH Verified 09/02/18 21:07 SHRIMP Allergy RASH Uncoded 09/02/18 21:07 Review of Systems ROS Statement: Except As Marked, All Systems Reviewed And Found Negative Constitutional: Positive for: Weakness Musculoskeletal: Positive for: Back Pain (right flank pain) Physical Exam - Reviewed Nursing Documentation Reviewed: Yes Vital Signs Reviewed: Yes - Physical Exam Appears: Positive for: No Acute Distress Head Exam: Positive for: ATRAUMATIC, NORMOCEPHALIC Skin: Positive for: Warm, Dry Eye Exam: Positive for: EOMI, PERRL ENT: Negative for: Pharyngeal Erythema, Tonsillar Exudate Neck: Positive for: Painless ROM, Supple Cardiovascular/Chest: Positive for: Regular Rate, Rhythm. Negative for: Bradycardia Respiratory: Positive for: Normal Breath Sounds. Negative for: Respiratory Dis tress Gastrointestinal/Abdominal: Positive for: Soft. Negative for: Tenderness, Mass, Guarding, Rebound Back: Positive for: Normal Inspection, R CVA Tenderness (mild), Muscle Spasm (right lumbar paraspinal muscle spasm) Extremity: Negative for: Normal ROM, Deformity Lymphatic: Negative for: Adenopathy Neurological/Psych: Positive for: Awake, Alert, Oriented (x 3), Facial Droop (left facial droop and hemiparesis) - Laboratory Results Result Diagrams: 09/01/18 05:15 09/01/18 05:20 Lab Results: pO2 31 mm/Hg (30-55) 08/31/18 21:40 VBG pH 7.39 (7.32-7.43) 08/31/18 21:40 VBG pCO2 47 mmHg (40-60) 08/31/18 21:40 VBG HCO3 26.1 mmol/L 08/31/18 21:40 VBG Total CO2 29.9 mmol/L (22-28) H 08/31/18 21:40 VBG O2 Sat (Calc) 58.0 % (40-65) 08/31/18 21:40 VBG Base Excess 2.8 mmol/L (0.0-2.0) H 08/31/18 21:40 VBG Potassium 4.4 mmol/L (3.6-5.2) 08/31/18 21:40 Sodium 135.0 mmol/L (132-148) 08/31/18 21:40 Chloride 102.0 mmol/L (98-107) 08/31/18 21:40 Glucose 113 mg/dL (65-105) H 08/31/18 21:40 Lactate 1.3 mmol/L (0.7-2.1) 08/31/18 21:40 FiO2 21.0 % 08/31/18 21:40 PT 13.6 Seconds (9.8-13.1) H 08/31/18 21:52 INR 1.2 08/31/18 21:52 APTT 30.3 Seconds (25.6-37.1) 08/31/18 21:52 Troponin I < 0.0120 ng/mL (0.00-0.120) 08/31/18 21:52 NT-Pro-B Natriuret Pep 60.7 pg/ml (0-900) 08/31/18 21:52 Total Bilirubin 0.6 mg/dl (0.2-1.3) 08/31/18 21:52 AST 46 U/L (14-36) H 08/31/18 21:52 ALT 33 U/L (9-52) 08/31/18 21:52 Alkaline Phosphatase 76 U/L (38-126) 08/31/18 21:52 Total Protein 8.2 G/DL (6.3-8.2) 08/31/18 21:52 Albumin 4.6 g/dL (3.5-5.0) 08/31/18 21:52 Globulin 3.7 gm/dL (2.2-3.9) 08/31/18 21:52 Albumin/Globulin Ratio 1.2 (1.0-2.1) 08/31/18 21:52 - ECG O2 Sat by Pulse Oximetry: 98 (RA) Pulse Ox Interpretation: Normal Medical Decision Making Medical Decision Makin:55 Impression: right flank and back pain with weakness Differential diagnoses include but are not limited to: muscle spasm, back strain, renal colic pyelonephritis, electrolyte abnormality, dehydration Initial Plan: --Blood type and screen --VBG --CT Abd and Pelvis --CT Head --EKG --BNP --BMP --Mag --Phos --Troponin --CBC --CMP --PTT --PT --CXR --Blood cx --Urine cx --Influenza Ab --UA Name: CALDERÓNNEGRO Exam Date: Aug 31, 2018 10:41:32 PM EDT Modality Type: CT Description: CT - BRAIN WITH CORONAL AND SAGITTAL MPRS Gender: F Laterality: Not applicable : 36 Referring Physician: Giuliana Werner EXAM: CT Head without Intravenous Contrast. CLINICAL HISTORY: Qweakness left side poss stroke TECHNIQUE: Axial computed tomography images of the head/brain without intravenous contrast. 793.53 mGy-cm COMPARISON: Prior CT examination of the brain dated 07/21/2018 is not available for comparison; however, its report was reviewed. FINDINGS: BRAIN No acute intraparenchymal hemorrhage. No mass lesion. No CT evidence for acute territorial infarct. A zone of decreased attenuation is seen in the right parietal-occipital region thought compatible with subacute ischemic infarction. No midline shift or extra-axial collections. Moderate-advanced age appropriate cerebral/cerebellar atrophy. There are bilateral confluent periventricular and subcortical white matter hypolucencies compatible with severe chronic microvascular disease. VENTRICLES: Mild compensatory hydrocephalus is present. VASCULAR: Dense atherosclerotic vascular plaquing seen within the vertebral arteries and carotid siphons bilaterally. ORBITS: The orbits are unremarkable. SINUSES AND MASTOIDS: The paranasal sinuses and mastoid air cells are clear. BONES: No fracture. SOFT TISSUES: Unremarkable. IMPRESSION: 1. No acute intracranial abnormality. 2. A zone of decreased attenuation is present in the right parietal occipital region thought compatible with subacute ischemic infarction. 3. Moderate-advanced age-appropriate cerebral/cerebellar atrophy. There is associated mild compensatory ventricular dilatation present. 4. Severe bilateral chronic microvascular disease. 5. Extensive atherosclerotic vascular plaquing in the vertebral arteries and carotid siphons bilaterally. Electronically signed on Aug 31, 2018 11:38:56 PM EDT by: Kevin Adam M.D., JILLIAN Certified By ABR & CBCCT Fellowship Trained MRI and CT Specialist EXAM: CT Abdomen and Pelvis without IV contrast CLINICAL HISTORY: Left flank pain TECHNIQUE: Axial computed tomography images of the abdomen and pelvis without intravenous contrast. 470.36 mGy-cm CONTRAST: Without COMPARISON: None provided. FINDINGS: LUNG BASES: The lung bases appear clear. No pleural effusions are seen. LIVER: Unremarkable. GALLBLADDER AND BILE DUCTS: The gallbladder was not visualized. No radioopaque gallstones are seen. No biliary ductal dilatation is evident. PANCREAS: Unremarkable. SPLEEN: Unremarkable. ADRENAL GLANDS: Unremarkable. KIDNEYS, URETERS, AND BLADDER: The kidneys appear within normal limits. There is no hydronephrosis or hydroureter. No urinary calculi are seen. The urinary bladder appeared normal in size and configuration. STOMACH AND BOWEL: A small hiatal hernia is noted. There is mucosal wall thickening seen in the gastric body and antrum suspicious for gastritis. No evidence of bowel obstruction. No evidence suggesting enteritis or colitis. A prominent fecal bolus is noted in the rectal ampulla suggesting mild fecal impaction APPENDIX: No evidence of acute appendicitis on CT examination. PERITONEUM: No free fluid. No free air. LYMPH NODES: No lymphadenopathy is evident. REPRODUCTIVE: Unremarkable as visualized. VASCULATURE: No evidence of abdominal aortic aneurysm. Moderate atherosclerotic vascular plaquing is present. BONES: No aggressive appearing osseous lesion. No acute osseous pathology evident. There is mild levoscoliosis of the lumbar spine with the apex at L3. IMPRESSION: 1. Evidence of gastritis. 2. A small hiatal hernia is noted. 3. A prominent fecal bolus identified in the rectal ampulla suggests mild fecal impaction. 4. The gallbladder was not identified compatible with cholecystectomy. Electronically signed on Aug 31, 2018 11:44:44 PM EDT by: Kevin Adam M.D., MBA Certified By ABR & CBCCT Fellowship Trained MRI and CT Specialist [facility] and [facility] for admission DW pt and family findings and plan of care. Scribe Attestation: Documented by Ceci Rodrigues, acting as a scribe for Giuliana Werner MD. Provider Scribe Attestation: All medical record entries made by the Scribe were at my direction and personally dictated by me. I have reviewed the chart and agree that the record accurately reflects my personal performance of the history, physical exam, [facility] decision making, and the department course for this patient. I have also personally directed, reviewed, and agree with the discharge instructions and disposition. Disposition - Clinical Impression Clinical Impression: CVA (cerebral vascular accident) Counseled Patient/Family Regarding: Studies Performed, Diagnosis - Disposition Disposition Time: 00:00 Condition: FAIR - Pt Status Changed To: Hospital Disposition Of: Inpatient - Admit Certification Admit to Inpatient:: After my assessment, the patient will require hospitalization for at least two midnights. This is because of the severity of symptoms shown, intensity of services needed, and/or the medical risk in this patient being treated as an outpatient. - POA Present On Arrival: Falls Or Trauma (risk)
[2018-08-31 23:00] LABS: URINE BILIRUBIN NEGATIVE (NEGATIVE); URINE BLOOD NEGATIVE (NEGATIVE); URINE CLARITY CLEAR (Clear); URINE COLOR YELLOW (YELLOW); URINE GLUCOSE (UA) NEG (NEGATIVE); URINE HYALINE CAST 0-2 /hpf (0-2); URINE LEUKOCYTE ESTERASE NEG Leu/uL (Negative); URINE PROTEIN NEGATIVE (NEGATIVE); URINE UROBILINOGEN 0.2-1.0 mg/dL (0.2-1.0)
[2018-08-31] MEDS ORDERED: Sodium Chloride 0.9% 1,000 ML IV STA (23:54)
[2018-09-01 05:59] LABS: BASO % 0.3 % (0.0-2.0); EOS % 0.7 % (0.0-4.0); HEMOGLOBIN 12.9 g/dL (12.0-16.0); LYMPH # 2.7 K/uL (1.0-4.3); LYMPH % 46.4 % (20.0-40.0); MEAN CELL VOLUME 94.5 fl (81.0-99.0); MEAN CORPUSCULAR HEMOGLOBIN 31.9 pg (27.0-31.0); MEAN CORPUSCULAR HGB CONC 33.8 g/dL (33.0-37.0); MEAN PLATELET VOLUME 7.9 fl (7.2-11.7); MONO # 0.7 K/uL (0.0-0.8); MONO % 12.3 % (0.0-10.0); NEUT # 2.3 K/uL (1.8-7.0); NEUT % 40.3 % (50.0-75.0); NRBC % 0.1 % (0.0-0.0); RBC 4.03 Mil/uL (3.80-5.20); RED CELL DISTRIBUTION WIDTH 13.7 % (11.5-14.5); WHITE BLOOD COUNT 5.8 K/uL (4.8-10.8)
[2018-09-01 06:24] LABS: ALB/GLOB RATIO 1.2 (1.0-2.1); ALBUMIN 3.7 g/dL (3.5-5.0); ALT/SGPT 28 U/L (9-52); AST/SGOT 26 U/L (14-36); BLOOD UREA NITROGEN 14 mg/dl (7-17); CALCIUM 10.1 mg/dL (8.4-10.2); GFR NON-AFRICAN AMERICAN > 60; HDL CHOLESTEROL 29 MG/DL (30-70)
[2018-09-01 06:31] LABS: LDL CHOLESTEROL 90 mg/dL (0-129)
--- NOTE | 2018-09-01 08:58 | CT ---
Date of service: 08/31/2018 PROCEDURE: CT HEAD WITHOUT CONTRAST. HISTORY: weaknes left side COMPARISON: 07/21/2018. TECHNIQUE: Axial computed tomography images were obtained through the head/brain without intravenous contrast. Radiation dose: Total exam DLP = 793.53 mGy-cm. This CT exam was performed using one or more of the following dose reduction techniques: Automated exposure control, adjustment of the mA and/or kV according to patient size, and/or use of iterative reconstruction technique. FINDINGS: HEMORRHAGE: No intracranial hemorrhage. BRAIN: There is a chronic right MCA DICE SPOTTER watershed territory infarction new since the prior examination. There are severe chronic microangiopathic changes. There is no mass, mass effect or abnormal extra-axial fluid collection. There is no territorial infarction. The midline sagittal structures are normal.There are coarse atherosclerotic calcifications in the cavernous carotid arteries. VENTRICLES: There is moderate age-related global parenchymal volume loss and proportionate enlargement of the ventricles and cortical sulci. CALVARIUM: There is no calvarial fracture or extracranial soft tissue swelling. PARANASAL SINUSES: Predominantly clear. MASTOID AIR CELLS: Predominantly clear. OTHER FINDINGS: None. IMPRESSION: No acute intracranial abnormality. 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 Severe chronic microangiopathic changes and moderate age-related global parenchymal volume loss.
--- NOTE | 2018-09-01 09:17 | CARD ---
APPROVED REPORT Date of service: 09/01/2018 EKG Measurement Heart [id number] <Conclusion> Normal sinus rhythm Minimal voltage criteria for LVH, may be normal variant Nonspecific ST-T changes Borderline ECG
--- NOTE | 2018-09-01 09:19 | CARD ---
APPROVED REPORT Date of service: 09/01/2018 EKG Measurement Heart [id number] <Conclusion> Sinus tachycardia Moderate voltage criteria for LVH, may be normal variant Cannot rule out Septal infarct, age undetermined Abnormal ECG
--- NOTE | 2018-09-01 10:35 | RAD ---
Date of service: 08/31/2018 HISTORY: Weakness. COMPARISON: 09/24/2017. FINDINGS: LUNGS: No active pulmonary disease. PLEURA: No significant pleural effusion identified, no pneumothorax apparent. CARDIOVASCULAR: No atherosclerotic calcification present No radiographic findings to suggest acute or significant cardiovascular disease. OSSEOUS STRUCTURES: No significant abnormalities. VISUALIZED UPPER ABDOMEN: Normal. OTHER FINDINGS: None. IMPRESSION: No active disease. No significant interval change compared to the prior examination(s).
--- NOTE | 2018-09-01 12:46 | CP.PCM.CON ---
History of Present Illness - History of Present Illness History of Present Illness: Neurology Consultation Note: Consult requested by Dr. Werner Mrs. Vineet Holland is an 78-year-old woman with a past medical history of HTN, HLD, previous ischemic stroke and residual left side weakness, who has had generalized weakness, flank pain and worsening left side weakness for the last 5 days. The family brought the patient in for evaluation. CT scan of the head showed multiple previous areas of hypodensity in both hemispheres consistent with chronic and subacute strokes. Review of Systems - Review of Systems Systems not reviewed;Unavailable: Altered Mental Status Past Patient History - Infectious Disease Hx of Infectious Diseases: None - Past Medical History & Family History Past Medical History?: Yes - Past Social History Smoking Status: Never Smoked - CARDIAC Hx Cardiac Disorders: Yes Hx Hypercholesterolemia: Yes Hx Hypertension: Yes - PULMONARY Hx Respiratory Disorders: Yes Hx Chronic Obstructive Pulmonary Disease (COPD): Yes - NEUROLOGICAL Hx Neurological Disorder: Yes HX Cerebrovascular Accident: Yes - HEENT Hx HEENT Problems: Yes Hx Cataracts: Yes - RENAL Hx Chronic Kidney Disease: No - ENDOCRINE/METABOLIC Hx Endocrine Disorders: No - HEMATOLOGICAL/ONCOLOGICAL Hx Blood Disorders: No - INTEGUMENTARY Hx Dermatological Problems: No - MUSCULOSKELETAL/RHEUMATOLOGICAL Hx Musculoskeletal Disorders: Yes Hx Arthritis: Yes Hx Falls: Yes - GASTROINTESTINAL Hx Gastrointestinal Disorders: No - GENITOURINARY/GYNECOLOGICAL Hx Genitourinary Disorders: No - PSYCHIATRIC Hx Psychophysiologic Disorder: No Hx Substance Use: No - SURGICAL HISTORY Hx Surgeries: Yes Hx Appendectomy: Yes Hx Cataract Extraction: Yes Hx Cholecystectomy: Yes - ANESTHESIA Hx Anesthesia: Yes Hx Anesthesia Reactions: No Hx Malignant Hyperthermia: No Meds Allergies/Adverse Reactions: Allergies Allergy/AdvReac Type Severity Reaction Status Date / Time Penicillins Allergy RASH Verified 08/31/18 20:28 SHRIMP Allergy RASH Uncoded 08/31/18 20:28 - Medications Medications: Current Medications Aspirin (Aspirin Chewable) 81 mg PO DAILY [facility] Atorvastatin Calcium (Lipitor) 40 mg PO HS [facility] Clopidogrel Bisulfate (Plavix) 75 mg PO DAILY [facility] Enalapril Maleate (Vasotec) 10 mg PO DAILY [facility] Enoxaparin Sodium (Lovenox) 40 mg SC DAILY [facility]; Protocol Famotidine (Pepcid) 20 mg PO BID [facility] Physical Exam - Constitutional Appears: Chronically Ill - Head Exam Head Exam: ATRAUMATIC, NORMAL INSPECTION, NORMOCEPHALIC - Eye Exam Eye Exam: EOMI, Normal appearance, PERRL Pupil Exam: NORMAL ACCOMODATION, PERRL - ENT Exam ENT Exam: Mucous Membranes Moist, Normal Exam - Neck Exam Neck exam: Positive for: Normal Inspection - Respiratory Exam Respiratory Exam: Clear to Auscultation Bilateral, NORMAL BREATHING PATTERN - Cardiovascular Exam Cardiovascular Exam: REGULAR RHYTHM, +S1, +S2 - GI/Abdominal Exam GI & Abdominal Exam: Normal Bowel Sounds, Soft. absent: Tenderness - Extremities Exam Extremities exam: Positive for: normal inspection - Back Exam Back exam: NORMAL INSPECTION - Neurological Exam Neurological exam: Alert, Altered, CN II-XII Intact Additional comments: Left side weakness with strength 0/5 in upper and lower extremities. Left facial droop noted. Decreased sensation on the left. Reflexes brisk, upgoing plantar responses. Gait could not be assessed. NIHSS = 10 - Psychiatric Exam Psychiatric exam: Normal Affect, Normal Mood - Skin Skin Exam: Dry, Intact, Normal Color, Warm Results - Vital Signs Recent Vital Signs: Last Vital Signs Temp 97.5 F L 09/01/18 12:16 Pulse 104 H 09/01/18 12:16 Resp 20 09/01/18 12:16 BP 139/90 09/01/18 12:16 Pulse Ox 93 L 09/01/18 12:16 - Labs Result Diagrams: 09/01/18 05:15 09/01/18 05:20 Labs: Laboratory Results - last 24 hr 08/31/18 08/31/18 08/31/18 21:40 21:52 21:52 WBC 7.5 RBC 4.59 Hgb 14.6 Hct 43.3 MCV 94.5 MCH 31.8 H MCHC 33.6 RDW 13.6 Plt Count 272 MPV 7.9 Neut % (Auto) 51.7 Lymph % (Auto) 35.6 [place] % (Auto) 11.8 H Eos % (Auto) 0.4 Baso % (Auto) 0.5 Neut # (Auto) 3.9 Lymph # (Auto) 2.7 [place] # (Auto) 0.9 H Eos # (Auto) 0.0 Baso # (Auto) 0.0 PT INR APTT pO2 31 VBG pH 7.39 VBG pCO2 47 VBG HCO3 26.1 VBG Total CO2 29.9 H VBG O2 Sat (Calc) 58.0 VBG Base Excess 2.8 H VBG Potassium 4.4 Sodium 135.0 138 Chloride 102.0 99 Glucose 113 H Lactate 1.3 FiO2 21.0 Potassium 4.4 Carbon Dioxide 29 Anion Gap 14 BUN 18 H Creatinine 0.8 Est GFR ( Amer) > 60 Est GFR (Non-Af Amer) > 60 POC Glucose (mg/dL) Random Glucose 113 H Calcium 10.5 H Phosphorus 3.4 Magnesium 2.1 Total Bilirubin 0.6 AST 46 H ALT 33 Alkaline Phosphatase 76 Troponin I < 0.0120 NT-Pro-B Natriuret Pep 60.7 Total Protein 8.2 Albumin 4.6 Globulin 3.7 Albumin/Globulin Ratio 1.2 Triglycerides Cholesterol LDL Cholesterol Direct HDL Cholesterol Thyroxine (T4) TSH 3rd Generation Venous Blood Potassium 4.4 Urine Color Urine Clarity Urine pH Ur Specific [place] Urine Protein Urine Glucose (UA) Urine Ketones Urine Blood Urine Nitrate Urine Bilirubin Urine Urobilinogen Ur Leukocyte Esterase Urine RBC (Auto) Urine Microscopic WBC Hyaline Casts Influenza Typ A,B (EIA) 08/31/18 08/31/18 08/31/18 21:52 21:52 22:16 WBC RBC Hgb Hct MCV MCH MCHC RDW Plt Count MPV Neut % (Auto) Lymph % (Auto) [place] % (Auto) Eos % (Auto) Baso % (Auto) Neut # (Auto) Lymph # (Auto) [place] # (Auto) Eos # (Auto) Baso # (Auto) PT 13.6 H INR 1.2 APTT 30.3 pO2 VBG pH VBG pCO2 VBG HCO3 VBG Total CO2 VBG O2 Sat (Calc) VBG Base Excess VBG Potassium Sodium Chloride Glucose Lactate FiO2 Potassium Carbon Dioxide Anion Gap BUN Creatinine Est GFR ( Amer) Est GFR (Non-Af Amer) POC Glucose (mg/dL) Random Glucose Calcium Phosphorus Magnesium Total Bilirubin AST ALT Alkaline Phosphatase Troponin I NT-Pro-B Natriuret Pep Total Protein Albumin Globulin Albumin/Globulin Ratio Triglycerides Cholesterol LDL Cholesterol Direct HDL Cholesterol Thyroxine (T4) TSH 3rd Generation Venous Blood Potassium Urine Color Yellow Urine Clarity Clear Urine pH 6.0 Ur Specific [place] 1.010 Urine Protein Negative Urine Glucose (UA) Neg Urine Ketones Negative Urine Blood Negative Urine Nitrate Negative Urine Bilirubin Negative Urine Urobilinogen 0.2-1.0 Ur Leukocyte Esterase Neg Urine RBC (Auto) 2 Urine Microscopic WBC < 1 Hyaline Casts 0-2 Influenza Typ A,B (EIA) Negative for flu a/b 09/01/18 09/01/18 09/01/18 04:53 05:15 05:20 WBC 5.8 RBC 4.03 Hgb 12.9 Hct 38.1 MCV 94.5 MCH 31.9 H MCHC 33.8 RDW 13.7 Plt Count 240 MPV 7.9 Neut % (Auto) 40.3 L Lymph % (Auto) 46.4 H [place] % (Auto) 12.3 H Eos % (Auto) 0.7 Baso % (Auto) 0.3 Neut # (Auto) 2.3 Lymph # (Auto) 2.7 [place] # (Auto) 0.7 Eos # (Auto) 0.0 Baso # (Auto) 0.0 PT INR APTT pO2 VBG pH VBG pCO2 VBG HCO3 VBG Total CO2 VBG O2 Sat (Calc) VBG Base Excess VBG Potassium Sodium 140 Chloride 102 Glucose Lactate FiO2 Potassium 4.3 Carbon Dioxide 29 Anion Gap 13 BUN 14 Creatinine 0.7 Est GFR ( Amer) > 60 Est GFR (Non-Af Amer) > 60 POC Glucose (mg/dL) 110 Random Glucose 102 Calcium 10.1 Phosphorus Magnesium Total Bilirubin 0.5 AST 26 ALT 28 Alkaline Phosphatase 57 Troponin I < 0.0120 NT-Pro-B Natriuret Pep Total Protein 6.9 Albumin 3.7 Globulin 3.2 Albumin/Globulin Ratio 1.2 Triglycerides 123 Cholesterol 160 LDL Cholesterol Direct 90 HDL Cholesterol 29 L Thyroxine (T4) 10.7 TSH 3rd Generation 0.52 Venous Blood Potassium Urine Color Urine Clarity Urine pH Ur Specific [place] Urine Protein Urine Glucose (UA) Urine Ketones Urine Blood Urine Nitrate Urine Bilirubin Urine Urobilinogen Ur Leukocyte Esterase Urine RBC (Auto) Urine Microscopic WBC Hyaline Casts Influenza Typ A,B (EIA) 09/01/18 11:15 WBC RBC Hgb Hct MCV MCH MCHC RDW Plt Count MPV Neut % (Auto) Lymph % (Auto) [place] % (Auto) Eos % (Auto) Baso % (Auto) Neut # (Auto) Lymph # (Auto) [place] # (Auto) Eos # (Auto) Baso # (Auto) PT INR APTT pO2 VBG pH VBG pCO2 VBG HCO3 VBG Total CO2 VBG O2 Sat (Calc) VBG Base Excess VBG Potassium Sodium Chloride Glucose Lactate FiO2 Potassium Carbon Dioxide Anion Gap BUN Creatinine Est GFR ( Amer) Est GFR (Non-Af Amer) POC Glucose (mg/dL) 120 H Random Glucose Calcium Phosphorus Magnesium Total Bilirubin AST ALT Alkaline Phosphatase Troponin I NT-Pro-B Natriuret Pep Total Protein Albumin Globulin Albumin/Globulin Ratio Triglycerides Cholesterol LDL Cholesterol Direct HDL Cholesterol Thyroxine (T4) TSH 3rd Generation Venous Blood Potassium Urine Color Urine Clarity Urine pH Ur Specific [place] Urine Protein Urine Glucose (UA) Urine Ketones Urine Blood Urine Nitrate Urine Bilirubin Urine Urobilinogen Ur Leukocyte Esterase Urine RBC (Auto) Urine Microscopic WBC Hyaline Casts Influenza Typ A,B (EIA) Assessment & Plan (1) CVA (cerebral vascular accident) Assessment and Plan: The patient's symptoms could be consistent with a subacute stroke, or resurgence of previous stroke symptoms. I recommend the followin. Telemetry 2. MRI brain without contrast, MRA head/neck without contrast 3. Echocardiogram 4. Check HbA1c, Lipid panel, B12, folate, TSH, and vitamin D levels 5. Continue Aspirin 81 mg daily & Plavix 75 mg daily and obtain a PRU for plavix to evaluate efficacy. 6. Lipitor 40 mg daily 7. PT/OT/ST eval and treatment 8. Permissive HTN, may normalize BP after 24 hours (don't treat BP lower than 220/110 mm Hg) 9. Fluids with NS at 100 mL/hr 10. Case management consult Thank you for this consultation. Status: Acute
--- NOTE | 2018-09-01 14:45 | CT ---
Date of service: 08/31/2018 PROCEDURE: CT Abdomen and Pelvis without intravenous contrast HISTORY: Left flank pain COMPARISON: None. TECHNIQUE: CT scan of the abdomen and pelvis was performed without administration of intravenous contrast. Oral contrast was not administered. Coronal and sagittal reformatted images were obtained. Radiation dose: Total exam DLP = 470.36 mGy-cm. This CT exam was performed using one or more of the following dose reduction techniques: Automated exposure control, adjustment of the mA and/or kV according to patient size, and/or use of iterative reconstruction technique. FINDINGS: LOWER THORAX: There is dependent atelectasis in the lung bases. LIVER: Normal in size. No gross lesion or ductal dilatation. GALLBLADDER AND BILE DUCTS: Not visualized and may be surgically absent. PANCREAS: Normal in size. No gross lesion or ductal dilatation. SPLEEN: Normal in size. ADRENALS: Normal in size. No discrete nodule. KIDNEYS AND URETERS: Both kidneys are normal in size. No hydronephrosis or nephrolithiasis. VASCULATURE: Normal in caliber. No aortic aneurysm. There are aortic atherosclerotic calcifications present. BOWEL: Evaluation of the bowel is limited in the absence of oral contrast. The small bowel loops are normal in caliber. There is large amount of stool in the colon with fecal impaction in the rectum. There is scattered colonic diverticulosis without CT evidence for acute diverticulitis. No bowel wall thickening or obstruction APPENDIX: Normal appendix. PERITONEUM: No free fluid. No free air. LYMPH NODES: No enlarged lymph nodes. BLADDER: Well distended and normal in appearance. REPRODUCTIVE: The uterus is surgically absent. BONES: No acute fracture. Within normal limits for the patient's age. OTHER FINDINGS: There is a small sliding hiatal hernia. IMPRESSION: No acute abdominal or pelvic abnormality. Constipation and fecal impaction in the rectum Scattered colonic diverticulosis without CT evidence for acute diverticulitis. No evidence for bowel obstruction. A preliminary report was provided by [email or web address].
--- NOTE | 2018-09-01 15:44 | CP.PCM.HP ---
History of Present Illness - History of Present Illness History of Present Illness: 78 y/o F, with PMHx: [place] with L side hemiparesia, O/A, COPD, HTN, Hypercholesterolemia. [facility] for evaluation of generalized weakness x 5 days [employer], associated to R flank pain x 5 days with no relief. Worsening symptoms: Increased tiredness, speech change Aggravated factor: Walking/exercise. Pt denied: Fever, chills, abdominal pain, n/v/d, urinary symptoms, headache, CP, palpitations, SOB, cough, sick contact, recent travel out of [facility]. EKG: Sinus tachycardia. CXR: No active disease. 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 Chronic microangiopathy changes age related Present on Admission - Present on Admission Any Indicators Present on Admission: No Review of Systems - Review of Systems Systems not reviewed;Unavailable: Acuity of Condition, Altered Mental Status Past Patient History - Infectious Disease Hx of Infectious Diseases: None - Past Medical History & Family History Past Medical History?: Yes Pertinent Family History: Unknown - Past Social History Smoking Status: Never Smoked Alcohol: None Drugs: Denies Home Situation {Lives}: Alone - CARDIAC Hx Cardiac Disorders: Yes Hx Hypercholesterolemia: Yes Hx Hypertension: Yes - PULMONARY Hx Respiratory Disorders: Yes Hx Chronic Obstructive Pulmonary Disease (COPD): Yes - NEUROLOGICAL Hx Neurological Disorder: Yes HX Cerebrovascular Accident: Yes - HEENT Hx HEENT Problems: Yes Hx Cataracts: Yes - RENAL Hx Chronic Kidney Disease: No - ENDOCRINE/METABOLIC Hx Endocrine Disorders: No - HEMATOLOGICAL/ONCOLOGICAL Hx Blood Disorders: No - INTEGUMENTARY Hx Dermatological Problems: No - MUSCULOSKELETAL/RHEUMATOLOGICAL Hx Musculoskeletal Disorders: Yes Hx Arthritis: Yes Hx Falls: Yes - GASTROINTESTINAL Hx Gastrointestinal Disorders: No - GENITOURINARY/GYNECOLOGICAL Hx Genitourinary Disorders: No - PSYCHIATRIC Hx Psychophysiologic Disorder: No Hx Substance Use: No - SURGICAL HISTORY Hx Surgeries: Yes Hx Appendectomy: Yes Hx Cataract Extraction: Yes Hx Cholecystectomy: Yes - ANESTHESIA Hx Anesthesia: Yes Hx Anesthesia Reactions: No Hx Malignant Hyperthermia: No Meds Allergies/Adverse Reactions: Allergies Allergy/AdvReac Type Severity Reaction Status Date / Time Penicillins Allergy RASH Verified 08/31/18 20:28 SHRIMP Allergy RASH Uncoded 03/13/19 20:28 Physical Exam - Constitutional Appears: No Acute Distress, Confused - Head Exam Head Exam: NORMAL INSPECTION - Eye Exam Eye Exam: PERRL - ENT Exam ENT Exam: Normal Exam - Neck Exam Neck exam: Positive for: Normal Inspection - Respiratory Exam Respiratory Exam: NORMAL BREATHING PATTERN - Cardiovascular Exam Cardiovascular Exam: REGULAR RHYTHM - GI/Abdominal Exam GI & Abdominal Exam: Normal Bowel Sounds, Soft - Extremities Exam Extremities exam: Positive for: normal inspection - Back Exam Back exam: CVA tenderness (R), tenderness (mild) - Neurological Exam Additional comments: Forgetful confused, L side hemiparesia, L facial droop, obeys commands. - Psychiatric Exam Additional comments: Calm - Skin Skin Exam: Normal Color, Warm Results - Vital Signs Recent Vital Signs: Last Vital Signs Temp 98.2 F 09/01/18 15:43 Pulse 90 09/01/18 15:43 Resp 18 09/01/18 15:43 BP 133/82 09/01/18 15:43 Pulse Ox 96 09/01/18 15:43 reviewed [place] - Labs Result Diagrams: 09/01/18 05:15 09/01/18 05:20 Labs: Laboratory Results - last 24 hr 08/31/18 08/31/18 08/31/18 21:40 21:52 21:52 WBC 7.5 RBC 4.59 Hgb 14.6 Hct 43.3 MCV 94.5 MCH 31.8 H MCHC 33.6 RDW 13.6 Plt Count 272 MPV 7.9 Neut % (Auto) 51.7 Lymph % (Auto) 35.6 [place] % (Auto) 11.8 H Eos % (Auto) 0.4 Baso % (Auto) 0.5 Neut # (Auto) 3.9 Lymph # (Auto) 2.7 [place] # (Auto) 0.9 H Eos # (Auto) 0.0 Baso # (Auto) 0.0 PT INR APTT pO2 31 VBG pH 7.39 VBG pCO2 47 VBG HCO3 26.1 VBG Total CO2 29.9 H VBG O2 Sat (Calc) 58.0 VBG Base Excess 2.8 H VBG Potassium 4.4 Sodium 135.0 138 Chloride 102.0 99 Glucose 113 H Lactate 1.3 FiO2 21.0 Potassium 4.4 Carbon Dioxide 29 Anion Gap 14 BUN 18 H Creatinine 0.8 Est GFR ( Amer) > 60 Est GFR (Non-Af Amer) > 60 POC Glucose (mg/dL) Random Glucose 113 H Hemoglobin A1c Calcium 10.5 H Phosphorus 3.4 Magnesium 2.1 Total Bilirubin 0.6 AST 46 H ALT 33 Alkaline Phosphatase 76 Troponin I < 0.0120 NT-Pro-B Natriuret Pep 60.7 Total Protein 8.2 Albumin 4.6 Globulin 3.7 Albumin/Globulin Ratio 1.2 Triglycerides Cholesterol LDL Cholesterol Direct HDL Cholesterol Vitamin B12 Thyroxine (T4) TSH 3rd Generation Venous Blood Potassium 4.4 Urine Color Urine Clarity Urine pH Ur Specific [place] Urine Protein Urine Glucose (UA) Urine Ketones Urine Blood Urine Nitrate Urine Bilirubin Urine Urobilinogen Ur Leukocyte Esterase Urine RBC (Auto) Urine Microscopic WBC Hyaline Casts Influenza Typ A,B (EIA) 08/31/18 08/31/18 08/31/18 21:52 21:52 22:16 WBC RBC Hgb Hct MCV MCH MCHC RDW Plt Count MPV Neut % (Auto) Lymph % (Auto) [place] % (Auto) Eos % (Auto) Baso % (Auto) Neut # (Auto) Lymph # (Auto) [place] # (Auto) Eos # (Auto) Baso # (Auto) PT 13.6 H INR 1.2 APTT 30.3 pO2 VBG pH VBG pCO2 VBG HCO3 VBG Total CO2 VBG O2 Sat (Calc) VBG Base Excess VBG Potassium Sodium Chloride Glucose Lactate FiO2 Potassium Carbon Dioxide Anion Gap BUN Creatinine Est GFR ( Amer) Est GFR (Non-Af Amer) POC Glucose (mg/dL) Random Glucose Hemoglobin A1c Calcium Phosphorus Magnesium Total Bilirubin AST ALT Alkaline Phosphatase Troponin I NT-Pro-B Natriuret Pep Total Protein Albumin Globulin Albumin/Globulin Ratio Triglycerides Cholesterol LDL Cholesterol Direct HDL Cholesterol Vitamin B12 Thyroxine (T4) TSH 3rd Generation Venous Blood Potassium Urine Color Yellow Urine Clarity Clear Urine pH 6.0 Ur Specific [place] 1.010 Urine Protein Negative Urine Glucose (UA) Neg Urine Ketones Negative Urine Blood Negative Urine Nitrate Negative Urine Bilirubin Negative Urine Urobilinogen 0.2-1.0 Ur Leukocyte Esterase Neg Urine RBC (Auto) 2 Urine Microscopic WBC < 1 Hyaline Casts 0-2 Influenza Typ A,B (EIA) Negative for flu a/b 09/01/18 09/01/18 09/01/18 04:53 05:15 05:20 WBC 5.8 RBC 4.03 Hgb 12.9 Hct 38.1 MCV 94.5 MCH 31.9 H MCHC 33.8 RDW 13.7 Plt Count 240 MPV 7.9 Neut % (Auto) 40.3 L Lymph % (Auto) 46.4 H [place] % (Auto) 12.3 H Eos % (Auto) 0.7 Baso % (Auto) 0.3 Neut # (Auto) 2.3 Lymph # (Auto) 2.7 [place] # (Auto) 0.7 Eos # (Auto) 0.0 Baso # (Auto) 0.0 PT INR APTT pO2 VBG pH VBG pCO2 VBG HCO3 VBG Total CO2 VBG O2 Sat (Calc) VBG Base Excess VBG Potassium Sodium 140 Chloride 102 Glucose Lactate FiO2 Potassium 4.3 Carbon Dioxide 29 Anion Gap 13 BUN 14 Creatinine 0.7 Est GFR ( Amer) > 60 Est GFR (Non-Af Amer) > 60 POC Glucose (mg/dL) 110 Random Glucose 102 Hemoglobin A1c Calcium 10.1 Phosphorus Magnesium Total Bilirubin 0.5 AST 26 ALT 28 Alkaline Phosphatase 57 Troponin I < 0.0120 NT-Pro-B Natriuret Pep Total Protein 6.9 Albumin 3.7 Globulin 3.2 Albumin/Globulin Ratio 1.2 Triglycerides 123 Cholesterol 160 LDL Cholesterol Direct 90 HDL Cholesterol 29 L Vitamin B12 Thyroxine (T4) 10.7 TSH 3rd Generation 0.52 Venous Blood Potassium Urine Color Urine Clarity Urine pH Ur Specific [place] Urine Protein Urine Glucose (UA) Urine Ketones Urine Blood Urine Nitrate Urine Bilirubin Urine Urobilinogen Ur Leukocyte Esterase Urine RBC (Auto) Urine Microscopic WBC Hyaline Casts Influenza Typ A,B (EIA) 09/01/18 09/01/18 09/01/18 05:20 11:15 13:05 WBC RBC Hgb Hct MCV MCH MCHC RDW Plt Count MPV Neut % (Auto) Lymph % (Auto) [place] % (Auto) Eos % (Auto) Baso % (Auto) Neut # (Auto) Lymph # (Auto) [place] # (Auto) Eos # (Auto) Baso # (Auto) PT INR APTT pO2 VBG pH VBG pCO2 VBG HCO3 VBG Total CO2 VBG O2 Sat (Calc) VBG Base Excess VBG Potassium Sodium Chloride Glucose Lactate FiO2 Potassium Carbon Dioxide Anion Gap BUN Creatinine Est GFR ( Amer) Est GFR (Non-Af Amer) POC Glucose (mg/dL) 120 H Random Glucose Hemoglobin A1c 5.7 Calcium Phosphorus Magnesium Total Bilirubin AST ALT Alkaline Phosphatase Troponin I < 0.0120 NT-Pro-B Natriuret Pep Total Protein Albumin Globulin Albumin/Globulin Ratio Triglycerides Cholesterol LDL Cholesterol Direct HDL Cholesterol Vitamin B12 Thyroxine (T4) TSH 3rd Generation Venous Blood Potassium Urine Color Urine Clarity Urine pH Ur Specific [place] Urine Protein Urine Glucose (UA) Urine Ketones Urine Blood Urine Nitrate Urine Bilirubin Urine Urobilinogen Ur Leukocyte Esterase Urine RBC (Auto) Urine Microscopic WBC Hyaline Casts Influenza Typ A,B (EIA) 09/01/18 13:32 WBC RBC Hgb Hct MCV MCH MCHC RDW Plt Count MPV Neut % (Auto) Lymph % (Auto) [place] % (Auto) Eos % (Auto) Baso % (Auto) Neut # (Auto) Lymph # (Auto) [place] # (Auto) Eos # (Auto) Baso # (Auto) PT INR APTT pO2 VBG pH VBG pCO2 VBG HCO3 VBG Total CO2 VBG O2 Sat (Calc) VBG Base Excess VBG Potassium Sodium Chloride Glucose Lactate FiO2 Potassium Carbon Dioxide Anion Gap BUN Creatinine Est GFR ( Amer) Est GFR (Non-Af Amer) POC Glucose (mg/dL) Random Glucose Hemoglobin A1c Calcium Phosphorus Magnesium Total Bilirubin AST ALT Alkaline Phosphatase Troponin I NT-Pro-B Natriuret Pep Total Protein Albumin Globulin Albumin/Globulin Ratio Triglycerides Cholesterol LDL Cholesterol Direct HDL Cholesterol Vitamin B12 344 Thyroxine (T4) TSH 3rd Generation Venous Blood Potassium Urine Color Urine Clarity Urine pH Ur Specific [place] Urine Protein Urine Glucose (UA) Urine Ketones Urine Blood Urine Nitrate Urine Bilirubin Urine Urobilinogen Ur Leukocyte Esterase Urine RBC (Auto) Urine Microscopic WBC Hyaline Casts Influenza Typ A,B (EIA) - EKG Data EKG comments: reviewed J.P. - Imaging and Cardiology CT scan - head Status: Report reviewed by me (J.P.) CT scan - abdomen Status: Report reviewed by me (J.P.) CT scan - pelvis Status: Report reviewed by me (J.P.) Chest x-ray Status: Report reviewed by me (J.P.) Assessment & Plan (1) CVA (cerebral vascular accident) Status: Acute Priority: High Comment: New (2) History of CVA with residual deficit Status: Acute (3) Generalized weakness Status: Acute Priority: High (4) Altered mental status Status: Acute Priority: High (5) Right flank pain Status: Chronic Priority: Medium - Assessment and Plan (Free Text) Plan: F/U Carotid Artery U-S, Head MRA, Neck MRA, Brain MRI, Echo, Neurology consult appreciated. - Date & Time Date: 09/01/18 Time: 13:00
[2018-09-01] MEDS ORDERED: Gadodiamide 287 MG/ML VIAL (15ML) IV ONE (17:05)
--- NOTE | 2018-09-01 18:04 | US ---
Date of service: 09/01/2018 PROCEDURE: Duplex ultrasound of the carotid and vertebral arteries. HISTORY: CVA COMPARISON: 09.26.17 TECHNIQUE: Grayscale and duplex Doppler evaluation of the cervical carotid and vertebral arteries were performed. The common carotid, carotid bifurcations and cervical ICA and proximal ECA were evaluated. The vertebral arteries were evaluated for gross patency and direction. FINDINGS: RIGHT CAROTID ARTERIES: Common Carotid Artery: Maximal flow velocity of 44.6 cm/s. Carotid Bifurcation: Intimal thickening is present Internal Carotid Artery:Heterogeneous plaque formation. Maximal flow velocity of 21.8 cm/s. External Carotid Artery (proximal branches): Maximal flow velocity of 121.3 cm/s. ICA/CCA Ratio: 0.5 LEFT CAROTID ARTERIES: Common Carotid Artery: Maximal flow velocity of 67.2 cm/s. Carotid Bifurcation: Intimal thickening is present Internal Carotid Artery: Intimal thickening is present Maximal flow velocity of 60.3 cm/s. External Carotid Artery (proximal branches): Maximal flow velocity of 50.5 cm/s. ICA/CCA Ratio: 0.9 VERTEBRAL ARTERIES: Right Vertebral Artery: Patent. Antegrade flow. Left Vertebral Artery: Patent. Antegrade flow. OTHER FINDINGS: Atherosclerotic calcification present. Solid nodule left thyroid lobe incompletely visualize/characterize 1.7 x 1.9 cm. Elective thyroid ultrasound recommended. IMPRESSION: Right ICA degree of stenosis: Less than 50% Left ICA degree of stenosis: Less than 50% Reference Internal Carotid Artery (ICA) Peak Systolic Velocity (PSV) for above: 1. Less than 50% stenosis less than 125 cm/s peak systolic velocity 2. 50-69% stenosis 125-230cm/s peak systolic velocity 3. Greater than 70% but less than near occlusion greater than 230 cm/s peak systolic velocity
--- NOTE | 2018-09-01 19:12 | MRI ---
Date of service: 09/01/2018 PROCEDURE: MR Angiography of the neck without contrast HISTORY: Stroke COMPARISON: Comparison is made to the previous ultrasound Doppler study dated 09/01/2018 TECHNIQUE: 3D [id number] angiography of the neck was performed. Rotating maximum intensity projection images of the cervical carotid and vertebral arteries were generated. The origins of the common carotid arteries were not visualized, which is a limitation inherent to the non-contrast time of flight technique. FINDINGS: RIGHT CAROTID ARTERIES: Common Carotid Artery: There is mild narrowing of the right common carotid artery due to diffuse intimal thickening. Carotid Bifurcation: There is a focal moderate approximately 60-70 percent stenosis at the carotid bifurcation. Internal Carotid Artery:There is long segment of moderate approximately 70 percent stenosis noted at the cervical portion of the right internal carotid artery. External Carotid Artery (proximal branches): Normal. LEFT CAROTID ARTERIES: Common Carotid Artery: Mild atherosclerotic disease and diffuse intimal thickening is noted. Carotid Bifurcation: No evidence of significant stenosis. Internal Carotid Artery:No evidence of significant focal stenosis. External Carotid Artery (proximal branches): Normal. VERTEBRAL ARTERIES: Right Vertebral Artery: The right vertebral artery is slightly smaller than the left. Left Vertebral Artery: Normal. OTHER FINDINGS: Incidentally noted is moderate to marked diffuse enlargement of the thyroid gland contains foci of hyperintense T2 signal likely represent thyroid nodules. IMPRESSION: Sekt-[id number] diffuse atherosclerotic disease more prominent at the right carotid arteries. Moderate approximately 60-70 percent stenosis at the right carotid bifurcation. Moderate diffuse stenosis noted at the cervical portion of the right internal carotid artery. The above findings were reported to the nurse taking care of the patient in the [address] [place], [place] [address]Elia Dupree at 6:55 p.m. on 09/01/2018
--- NOTE | 2018-09-01 19:20 | CARD ---
APPROVED REPORT Date of service: 09/01/2018 EXAM: Two-dimensional and M-mode echocardiogram with Doppler and color Doppler. Other Information Quality : GoodRhythm : NSR INDICATION CVA/TIA 2D DIMENSIONS IVSd0.91 (0.7-1.1cm)LVDd3.74 (3.9-5.9cm) LVOT Diameter1.80 (1.8-2.4cm)PWd0.82 (0.7-1.1cm) IVSs1.15 (0.8-1.2cm)LVDs2.49 (2.5-4.0cm) FS (%) 33.5 %PWs1.19 (0.8-1.2cm) M-Mode DIMENSIONS Left Atrium (MM)2.62 (2.5-4.0cm)IVSd0.80 (0.7-1.1cm) Aortic Root2.90 (2.2-3.7cm)LVDd3.58 (4.0-5.6cm) Aortic Cusp Exc.1.79 (1.5-2.0cm)PWd1.05 (0.7-1.1cm) IVSs0.99 cmFS (%) 57 % LVDs1.54 (2.0-3.8cm)PWs1.49 cm Aortic Valve AoV Peak Mficstnu159.3cm/sAoV VTI26.1cmAO Peak GR.8mmHg LVOT Peak Gsbwnnep466.0cm/sLVOT VTI22.45cmAO Mean GR.4mmHg REED (VMAX)1.24ul1DRU (VTI)1.72ve6BH P 1/2 Lygj267fq Mitral Valve MV E Xueauhmq14.8cm/sMV DECEL SAAM458koJI A Ffhqbadg417.8cm/s MV WRG85icA/A ratio0.6MVA (PHT)2.91cm2 TDI Lateral E' Peak V7.25cm/sMedial E' Peak V5.87cm/sE/Lateral E'9.1 E/Medial E'11.2 Tricuspid Valve TR Peak Foyevtqk172fe/sRAP [id number] Peak Gr.20mmHg [id number] LEFT VENTRICLE The left ventricle is normal size. There is normal left ventricular wall thickness. The left ventricular systolic function is normal. The estimated ejection fraction is 60-65% No regional wall motion abnormalities noted.. Transmitral Doppler flow pattern is Grade I-abnormal relaxation pattern. No left ventricle thrombus noted on this study. There is no ventricular septal defect visualized. There is no left ventricular aneurysm. There is no mass noted in the left ventricle. RIGHT VENTRICLE The right ventricle is normal size. There is normal right ventricular wall thickness. The right ventricular systolic function is normal. ATRIA The left atrium size is normal. The right atrium size is normal. The interatrial septum is intact with no evidence for an atrial septal defect. AORTIC VALVE The aortic valve is normal in structure. Mild aortic regurgitation is present. There is no aortic valvular stenosis. There is no aortic valvular vegetation. MITRAL VALVE The mitral valve is normal in structure. There is no evidence of mitral valve prolapse. There is no mitral valve stenosis. There is no mitral valve regurgitation noted. TRICUSPID VALVE The tricuspid valve is normal in structure. There is mild tricuspid valve regurgitation noted. RVSP is calculated at 25 mm Hg. There is no tricuspid valve prolapse or vegetation. There is no tricuspid valve stenosis. PULMONIC VALVE The pulmonary valve is normal in structure. There is no pulmonic valvular regurgitation. There is no pulmonic valvular stenosis. GREAT VESSELS The aortic root is normal in size. The ascending aorta is normal in size. The pulmonary artery is normal. The IVC is normal in size and collapses >50% with inspiration. PERICARDIAL EFFUSION There is no pericardial effusion. There is no pleural effusion. <Conclusion> The estimated ejection fraction is 60-65% Transmitral Doppler flow pattern is Grade I-abnormal relaxation pattern. The left atrium size is normal. Mild aortic regurgitation is present. There is mild tricuspid valve regurgitation noted. RVSP is calculated at 25 mm Hg.
--- NOTE | 2018-09-01 19:20 | MRI ---
Date of service: 09/01/2018 PROCEDURE: MRI BRAIN WITH AND WITHOUT CONTRAST HISTORY: CVA COMPARISON: Comparison is made to the previous CT of the head without contrast dated 08/31/2018 TECHNIQUE: Multiplanar, multisequence MR images of the brain were obtained with and without intravenous contrast enhancement. FINDINGS: HEMORRHAGE: None DWI: There are foci of diffusion restriction noted in the right temporal parietal occipital lobe suggestive of right MCA territory acute or early subacute infarcts. These foci demonstrate hyperintense T2 FLAIR signal. BRAIN PARENCHYMA: No mass,mass effect or edema. Focal encephalomalacia is noted at the right basal ganglia right thalamus and medial aspect of the right temporal lobe likely represent old infarct. Moderate atrophy noted. Moderate periventricular and subcortical white matter changes likely represent chronic microvascular ischemic disease. ENHANCEMENT: No abnormal intracranial enhancement. VENTRICLES: Unremarkable. No hydrocephalus. CRANIUM: Unremarkable. ORBITS: No evidence of acute pathology. PARANASAL SINUSES/MASTOIDS: Clear VASCULAR SYSTEM: Skull base flow voids intact. OTHER FINDINGS: None . IMPRESSION: Foci of diffusion restriction in the right cerebral hemisphere more prominent at the posterior right parietal and occipital lobe suggestive of acute right MCA infarcts. Volume loss and white matter changes likely represent chronic microvascular ischemic disease. The above findings were reported to the nurse taking care of the patient in the [address] [place] [address] on 09/01/2018 at 6:55 p.m.
--- NOTE | 2018-09-01 19:26 | MRI ---
Date of service: 09/01/2018 PROCEDURE: Magnetic Resonance Angiography Brain HISTORY: Stroke COMPARISON: None available. TECHNIQUE: 3D time of flight MR angiography of the intracranial arteries was performed. Rotating maximum intensity projection images were generated. FINDINGS: INTERNAL CAROTID ARTERIES: The distal portion of the right internal carotid artery is significantly smaller than the left especially the cavernous and supraclinoid portion. The right internal carotid terminus is also smaller than the left. ANTERIOR CEREBRAL ARTERIES: The right A1 and the right anterior cerebral arteries are smaller than the left. MIDDLE CEREBRAL ARTERIES: The right M1 and M2 are smaller than the left. There is a paucity of the right MCA branches in the mid and posterior aspect of the right cerebral hemisphere. POSTERIOR CIRCULATION: Basilar Artery: Unremarkable. Distal Vertebral Arteries: The right V4 is slightly smaller than the left. Posterior Cerebral Arteries: There is origin of the right posterior cerebral artery. Posterior Inferior Cerebellar Arteries: Unremarkable. ANEURYSM/ VASCULAR MALFORMATIONS: None. OTHER FINDINGS: None. IMPRESSION: Narrowing of the distal right internal carotid artery. The right anterior and middle cerebral arteries are smaller than the left. Possibly of the right MCA branches in the posterior parietal and occipital lobe.
[2018-09-01] MEDS: Sodium Chloride 0.9% 1,000 ML IV SCH (21:09)
[2018-09-02 01:29] VITALS: BMI 22.4
[2018-09-02 05:52] LABS: HDL CHOLESTEROL 28 MG/DL (30-70)
[2018-09-02 06:04] LABS: LDL CHOLESTEROL 84 mg/dL (0-129)
[2018-09-02] MEDS ORDERED: Enoxaparin 40 mg Syringe SC SCH (09:00)
--- NOTE | 2018-09-02 09:16 | PCM.STROKE ---
Interval History Stroke Date: 08/26/18 No other interval changes in current, PMHx, FHx, SocHx, ROS: other than on note by: (initial neuro h&p) - Treatment DVT Prophylaxis: Sequential compression device in place bilaterally, Lovenox Antiplatelet: Acetylsalicylic acid (ASA), Plavix Statin: Atrovastatin - Education Written Stroke Education provided regarding: personal risk factors, stroke warni ng sign/symptoms, how to activate emergency medical services, need to follow up after discharge Hx Atrial Fibrillation: No Hx Atrial Flutter: No - Therapy Notes Physical therapy notes date reviewed: 09/02/18 Speech therapy notes date reviewed: 09/02/18 I have reviewed care of the patient with: Dr. Mayberry NIHSS Stroke Scale - Date/Time Evaluation Performed Date Performed: 09/02/18 Time Performed: 10:10 When Was NIHSS Performed: Re-evaluation - How Severe is the Stroke Level of Consciousness: 0=Alert LOC to Questions: 0=Both comments correct LOC to commands: 0=Obeys both correctly Best Gaze: 0=Normal Visual: 0=No visual loss Facial: 2=Partial (lower face paralysis) Motor Arm - Left: 4=No movement Motor Arm - Right: 0=No drift Motor Leg - Left: 3=No effort against gravity (falls immediately) Motor Leg - Right: 1=Drift before 5 sec Limb Ataxia: 0=Absent Sensory: 0=Normal Best Language: 0=No aphasia Dysarthia: 0=Normal articulation Extinction & Inattention (Neglect): 0=Normal, no object Score: 10 Exam - Vital Sign Vital Signs: Temp Pulse Resp BP Pulse Ox 98.2 F 80 18 151/82 H 97 09/02/18 05:53 09/02/18 05:53 09/02/18 05:53 09/02/18 05:53 09/02/18 05:53 Constitutional: No distress, Normal appearing Ophthalmoscopic: absent: papilledema, hemorrhage Right Pupil: Reactive Right Pupil Size (in mm): 3 Left Pupil: Reactive Left Pupil Size (in mm): 3 Cardiovascular: Regular rate & rhythm Mental Status: Normal: Orientation, Memory, Attention, Language, Fund of Knowledge Cranial Nerve: Normal: Extraocular movement intact, Hearing, Palate/Tongue Movement. Abnormal: Visual Tanner (difficulty assessing left side visual tanner; right side intact), Facial Sensation (decreased sensation to left side), Facial Strength (decreased to left; + facial asymmetry), Shoulder Strength (decreased to left) Motor: absent: Tone (lue flaccid; lle weakness) Neuro motor strength exam: Left Upper Extremity: 0 (unable to parole director), Right Upper Extremity: 5, Left Lower Extremity: 2/1 (unable to plantar flex), Right Lower Extremity: 4 Sensation: absent: Intact to pin, Vibration (decreased sensation to left sided extremities and left side face) DTR: Patellar Left: 2+, Patellar Right: 1+ Coordination: Finger/nose (normal on right side; unable to assess left), Heel/Odom (unable to assess left) Gait: Other (PT notes reviewed) Vascular Risk: Hypertension, Lipids, Age - Data reviewed Laboratory results: 09/01/18 05:15 09/01/18 05:20 Triglycerides 105 mg/DL (0-149) 09/02/18 04:40 Cholesterol 147 mg/dL (0-199) 09/02/18 04:40 LDL Cholesterol Direct 84 mg/dL (0-129) 09/02/18 04:40 HDL Cholesterol 28 MG/DL (30-70) L 09/02/18 04:40 Hemoglobin A1c 5.7 % (4.2-6.5) 09/01/18 05:20 Assessment and Plan (1) CVA (cerebral vascular accident) Assessment & Plan: Imaging reviewed: -MRA Head and neck (09/01/18): Narrowing of the distal right internal carotid artery. The right anterior and middle cerebral arteries are smaller than the left. Possibly of the right MCA branches in the posterior parietal and occipital lobe. [id number] diffuse atherosclerotic disease more prominent at the right carotid arteries. Moderate approximately 60-70 percent stenosis at the right carotid bifurcation. Moderate diffuse stenosis noted at the cervical portion of the right internal carotid artery. -Brain MRI (09/01/18): Foci of diffusion restriction in the right cerebral hemisphere more prominent at the posterior right parietal and occipital lobe suggestive of acute right MCA infarcts. Volume loss and white matter changes likely represent chronic microvascular ischemic disease. -CT Head (08/31/18): No acute intracranial abnormality. Chronic right MCA KILN REPAIRER watershed territory infarction, new since the prior examination. Severe chronic microangiopathic changes and moderate age-related global parenchymal volume loss. -Continue ASA, Plavix, Statin. -Continue DVT ppx -Continue PT/OT/ST per stroke protocol. Recommend acute rehab which pt and daughter are in agreement with. -PRU ordered by primary team as the pt has been on Plavix at home and this is her third stroke since September 2017. -Will discuss with Dr. Mayberry need for neuro IR to see the pt regarding CTA results. -Notify neuro team of any acute changes in pt condition. Codie Eli DNP, TOWER LOADER OPERATOR Discussed with Dr. Mayberry Status: Acute
[2018-09-02] MEDS: Sodium Chloride 0.9% 1,000 ML IV SCH ×2 (09:53→18:07)
[2018-09-02 13:11] VITALS: RESP 18
--- NOTE | 2018-09-02 14:15 | CP.PCM.PN ---
Objective - Vital Signs/Intake and Output Vital Signs (last 24 hours): Temp Pulse Resp BP Pulse Ox 97.6 F 76 18 138/87 99 09/02/18 13:15 09/02/18 13:15 09/02/18 13:15 09/02/18 13:15 09/02/18 13:15 - Medications Medications: Current Medications Aspirin (Aspirin Chewable) 81 mg PO DAILY [facility] Last Admin: 09/02/18 09:53 Dose: 81 mg Atorvastatin Calcium (Lipitor) 40 mg PO HS [facility] Last Admin: 09/01/18 22:25 Dose: 40 mg Cilostazol (Pletal) 50 mg PO BID [facility] Clopidogrel Bisulfate (Plavix) 75 mg PO DAILY [facility] Last Admin: 09/02/18 09:50 Dose: 75 mg Enalapril Maleate (Vasotec) 10 mg PO DAILY [facility] Last Admin: 09/02/18 09:50 Dose: 10 mg Enoxaparin Sodium (Lovenox) 40 mg SC DAILY [facility]; Protocol Last Admin: 09/02/18 09:51 Dose: 40 mg Famotidine (Pepcid) 20 mg PO BID [facility] Last Admin: 09/02/18 09:50 Dose: 20 mg Sodium Chloride (Sodium Chloride 0.9%) 1,000 mls @ 100 mls/hr IV .Q10H [facility] Stop: 09/02/18 19:37 Last Admin: 09/02/18 09:53 Dose: 100 mls/hr Lactulose (Enulose) 20 gm PO DAILY [facility] Last Admin: 09/02/18 12:35 Dose: 20 gm - Labs Labs: 09/01/18 05:15 09/01/18 05:20 PT 13.6 Seconds (9.8-13.1) H 08/31/18 21:52 INR 1.2 08/31/18 21:52 APTT 30.3 Seconds (25.6-37.1) 08/31/18 21:52 Assessment and Plan (1) CVA (cerebral vascular accident) Status: Acute (2) History of CVA with residual deficit Status: Acute (3) Generalized weakness Status: Acute (4) Altered mental status Status: Acute (5) Right flank pain Status: Chronic
[2018-09-02 15:45] VITALS: BP 148/87; PULSE 82; TEMP 97.7; O2SAT 98
[2018-09-02] MEDS ORDERED: Cilostazol 50 mg Tab UD PO SCH (17:00)
--- NOTE | 2018-09-02 22:12 | CP.PCM.DIS ---
Provider - Provider Date of Admission: 08/31/18 23:54 Attending physician: Wilner Ortiz MD Primary care physician: Genny Rbuy MD Consults: 09/01/18 04:11 Neurology Consult Routine Comment: Consulting Provider: Nima Mayberry Consulting Physician: Nima Mayberry Reason for Consult: CVA 09/01/18 05:00 Nursing Referral for Wound Care Routine Comment: Physician Instructions: Reason For Exam: Low Oscar Scale Time Spent in preparation of Discharge (in minutes): 35 Diagnosis - Discharge Diagnosis (1) CVA (cerebral vascular accident) Status: Acute Priority: High (2) History of CVA with residual deficit Status: Chronic Priority: High (3) Generalized weakness Status: Acute Priority: High (4) Altered mental status Status: Acute Priority: High (5) Right flank pain Status: Chronic Priority: Medium Hospital Course - Lab Results Lab Results: Micro Results 08/31/18 21:40 Blood Blood Culture - Preliminary NO GROWTH AFTER 48 HOURS 08/31/18 22:16 Urine,Clean Catch Urine Culture - Preliminary Gram Negative Garrison Gram Positive Cocci 08/31/18 22:10 Blood Blood Culture - Preliminary NO GROWTH AFTER 24 HOURS Most Recent Lab Values WBC 5.8 K/uL (4.8-10.8) 09/01/18 05:15 RBC 4.03 Mil/uL (3.80-5.20) 09/01/18 05:15 Hgb 12.9 g/dL (12.0-16.0) 09/01/18 05:15 Hct 38.1 % (34.0-47.0) 09/01/18 05:15 MCV 94.5 fl (81.0-99.0) 09/01/18 05:15 MCH 31.9 pg (27.0-31.0) H 09/01/18 05:15 MCHC 33.8 g/dL (33.0-37.0) 09/01/18 05:15 RDW 13.7 % (11.5-14.5) 09/01/18 05:15 Plt Count 240 K/uL (130-400) 09/01/18 05:15 MPV 7.9 fl (7.2-11.7) 09/01/18 05:15 Neut % (Auto) 40.3 % (50.0-75.0) L 09/01/18 05:15 Lymph % (Auto) 46.4 % (20.0-40.0) H 09/01/18 05:15 [place] % (Auto) 12.3 % (0.0-10.0) H 09/01/18 05:15 Eos % (Auto) 0.7 % (0.0-4.0) 09/01/18 05:15 Baso % (Auto) 0.3 % (0.0-2.0) 09/01/18 05:15 Neut # (Auto) 2.3 K/uL (1.8-7.0) 09/01/18 05:15 Lymph # (Auto) 2.7 K/uL (1.0-4.3) 09/01/18 05:15 [place] # (Auto) 0.7 K/uL (0.0-0.8) 09/01/18 05:15 Eos # (Auto) 0.0 K/uL (0.0-0.7) 09/01/18 05:15 Baso # (Auto) 0.0 K/uL (0.0-0.2) 09/01/18 05:15 PT 13.6 Seconds (9.8-13.1) H 08/31/18 21:52 INR 1.2 08/31/18 21:52 APTT 30.3 Seconds (25.6-37.1) 08/31/18 21:52 pO2 31 mm/Hg (30-55) 08/31/18 21:40 VBG pH 7.39 (7.32-7.43) 08/31/18 21:40 VBG pCO2 47 mmHg (40-60) 08/31/18 21:40 VBG HCO3 26.1 mmol/L 08/31/18 21:40 VBG Total CO2 29.9 mmol/L (22-28) H 08/31/18 21:40 VBG O2 Sat (Calc) 58.0 % (40-65) 08/31/18 21:40 VBG Base Excess 2.8 mmol/L (0.0-2.0) H 08/31/18 21:40 VBG Potassium 4.4 mmol/L (3.6-5.2) 08/31/18 21:40 Sodium 135.0 mmol/L (132-148) 08/31/18 21:40 Chloride 102.0 mmol/L (98-107) 08/31/18 21:40 Glucose 113 mg/dL (65-105) H 08/31/18 21:40 Lactate 1.3 mmol/L (0.7-2.1) 08/31/18 21:40 FiO2 21.0 % 08/31/18 21:40 Sodium 140 mmol/l (132-148) 09/01/18 05:20 Potassium 4.3 MMOL/L (3.6-5.0) 09/01/18 05:20 Chloride 102 mmol/L (98-107) 09/01/18 05:20 Carbon Dioxide 29 mmol/L (22-30) 09/01/18 05:20 Anion Gap 13 (10-20) 09/01/18 05:20 BUN 14 mg/dl (7-17) 09/01/18 05:20 Creatinine 0.7 mg/dl (0.7-1.2) 09/01/18 05:20 Est GFR ( Amer) > 60 09/01/18 05:20 Est GFR (Non-Af Amer) > 60 09/01/18 05:20 POC Glucose (mg/dL) 93 mg/dL (65-110) 09/02/18 17:09 Random Glucose 102 mg/dL (65-105) 09/01/18 05:20 Hemoglobin A1c 5.7 % (4.2-6.5) 09/01/18 05:20 Calcium 10.1 mg/dL (8.4-10.2) 09/01/18 05:20 Phosphorus 3.4 mg/dl (2.5-4.5) 08/31/18 21:52 Magnesium 2.1 MG/DL (1.6-2.3) 08/31/18 21:52 Total Bilirubin 0.5 mg/dl (0.2-1.3) 09/01/18 05:20 AST 26 U/L (14-36) 09/01/18 05:20 ALT 28 U/L (9-52) 09/01/18 05:20 Alkaline Phosphatase 57 U/L (38-126) 09/01/18 05:20 Troponin I < 0.0120 ng/mL (0.00-0.120) 09/01/18 20:36 NT-Pro-B Natriuret Pep 60.7 pg/ml (0-900) 08/31/18 21:52 Total Protein 6.9 G/DL (6.3-8.2) 09/01/18 05:20 Albumin 3.7 g/dL (3.5-5.0) 09/01/18 05:20 Globulin 3.2 gm/dL (2.2-3.9) 09/01/18 05:20 Albumin/Globulin Ratio 1.2 (1.0-2.1) 09/01/18 05:20 Triglycerides 105 mg/DL (0-149) 09/02/18 04:40 Cholesterol 147 mg/dL (0-199) 09/02/18 04:40 LDL Cholesterol Direct 84 mg/dL (0-129) 09/02/18 04:40 HDL Cholesterol 28 MG/DL (30-70) L 09/02/18 04:40 Vitamin B12 344 pg/mL (239-931) 09/01/18 13:32 25-OH Vitamin D Total 29.6 NG/ML (30.0-100.0) L 09/01/18 13:43 Thyroxine (T4) 10.7 ug/dl (5.5-11.0) 09/01/18 05:20 TSH 3rd Generation 0.52 mIU/ML (0.46-4.68) 09/01/18 05:20 Venous Blood Potassium 4.4 mmol/L (3.6-5.2) 08/31/18 21:40 Urine Color Yellow (YELLOW) 08/31/18 22:16 Urine Clarity Clear (Clear) 08/31/18 22:16 Urine pH 6.0 (5.0-8.0) 08/31/18 22:16 Ur Specific [place] 1.010 (1.003-1.030) 08/31/18 22:16 Urine Protein Negative mg/dL (NEGATIVE) 08/31/18 22:16 Urine Glucose (UA) Neg mg/dL (NEGATIVE) 08/31/18 22:16 Urine Ketones Negative mg/dL (NEGATIVE) 08/31/18 22:16 Urine Blood Negative (NEGATIVE) 08/31/18 22:16 Urine Nitrate Negative (NEGATIVE) 08/31/18 22:16 Urine Bilirubin Negative (NEGATIVE) 08/31/18 22:16 Urine Urobilinogen 0.2-1.0 mg/dL (0.2-1.0) 08/31/18 22:16 Ur Leukocyte Esterase Neg Sachi/uL (Negative) 08/31/18 22:16 Urine RBC (Auto) 2 /hpf (0-3) 08/31/18 22:16 Urine Microscopic WBC < 1 /hpf (0-5) 08/31/18 22:16 Hyaline Casts 0-2 /hpf (0-2) 08/31/18 22:16 Influenza Typ A,B (EIA) Negative for flu a/b (NEGATIVE) 08/31/18 21:52 - Date & Time of H&P Date of H&P: 09/01/18 Time of H&P: 13:00 Discharge Exam - Head Exam Head Exam: NORMAL INSPECTION - Eye Exam Eye Exam: PERRL - ENT Exam ENT Exam: Normal Exam - Neck Exam Neck exam: Normal Inspection - Respiratory Exam Respiratory Exam: NORMAL BREATHING PATTERN - Cardiovascular Exam Cardiovascular Exam: REGULAR RHYTHM - GI/Abdominal Exam GI & Abdominal Exam: Normal Bowel Sounds, Soft - Extremities Exam Extremities exam: normal inspection - Back Exam Back exam: CVA tenderness (R), tenderness (mild) - Neurological Exam Additional comments: forgetful, confused, L side hemiparesia, L facial droop, obeys commands - Psychiatric Exam Additional comments: Calm - Skin Skin Exam: Normal Color, Warm Discharge Plan - Discharge Medications Prescriptions: Cilostazol [Pletal] 50 mg PO BID #60 tab - Follow Up Plan Condition: FAIR Disposition: REHAB FACILITY/REHAB UNIT Instructions: Stroke (DC) Additional Instructions: discharge pt to acute rehab Referrals: Genny Ruby MD [Primary Care Provider] - Nima Mayberry MD [Medical Doctor] - Wilner Ortiz MD [Staff Provider] -
== END 2018-09-02 19:29 | DRG 65 ==
LOC: H.ER 20:26 → H.ERHOLD 23:54 → H.TEL 09-01 03:33
PROVIDERS: ADMIT Internal Medicine Pulmonary Disease; ATTEND Internal Medicine Pulmonary Disease
DX: I63.9 Cerebral infarction, unspecified (principal); G81.94 Hemiplegia, unspecified affecting left nondominant side; R47.01 Aphasia; J44.9 Chronic obstructive pulmonary disease, unspecified; E11.9 Type 2 diabetes mellitus without complications; I10 Essential (primary) hypertension; E78.5 Hyperlipidemia, unspecified; E78.00 Pure hypercholesterolemia, unspecified; K44.9 Diaphragmatic hernia without obstruction or gangrene; R53.1 Weakness; Z79.02 Long term (current) use of antithrombotics/antiplatelets; Z79.82 Long term (current) use of aspirin; Z88.0 Allergy status to penicillin; Z91.013 Allergy to seafood

== ENCOUNTER 2018-09-02 16:10 | Inpatient (IN) | payer MEDICARE, OTHER ==
[2018-09-02 21:09] VITALS: BMI 20.9
[2018-09-03] MEDS: Enoxaparin 40 mg Syringe SC SCH (08:37)
[2018-09-03] MEDS: Cilostazol 50 mg Tab UD PO SCH ×2 (08:38→16:59)
--- NOTE | 2018-09-03 14:42 | CP.PCM.HP ---
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 after found with a subacute stroke. Pt was seen by the Neurology health care consultant who also recommended PT, OT, ST eval., after evaluation, Pt was referred to [facility] on 09/02/18 due to impaired functional mobility and ambulation, also Pt c/o of mild pain in L side of body. No other interval changes in current PMHx, SocHx, ROS, other than on initial HPI. Present on Admission - Present on Admission Any Indicators Present on Admission: No Review of Systems - Review of Systems Systems not reviewed;Unavailable: Altered Mental Status Past Patient History - Infectious Disease Hx of Infectious Diseases: None - Past Medical History & Family History Past Medical History?: Yes Pertinent Family History: Unknown - Past Social History Smoking Status: Never Smoked Alcohol: None Drugs: Denies Home Situation {Lives}: Alone - CARDIAC Hx Cardiac Disorders: Yes Hx Hypercholesterolemia: Yes Hx Hypertension: Yes - PULMONARY Hx Respiratory Disorders: Yes Hx Chronic Obstructive Pulmonary Disease (COPD): Yes - NEUROLOGICAL Hx Neurological Disorder: Yes HX Cerebrovascular Accident: Yes - HEENT Hx HEENT Problems: Yes Hx Cataracts: Yes (had left eye cataract surgery) - RENAL Hx Chronic Kidney Disease: No - ENDOCRINE/METABOLIC Hx Endocrine Disorders: Yes Hx Diabetes Mellitus Type 2: Yes - HEMATOLOGICAL/ONCOLOGICAL Hx Blood Disorders: No Hx AIDS: No Hx Human Immunodeficiency Virus (HIV): No - INTEGUMENTARY Hx Dermatological Problems: No - MUSCULOSKELETAL/RHEUMATOLOGICAL Hx Musculoskeletal Disorders: Yes Hx Arthritis: Yes Hx Falls: No - GASTROINTESTINAL Hx Gastrointestinal Disorders: No - GENITOURINARY/GYNECOLOGICAL Hx Genitourinary Disorders: Yes Hx Incontinence: Yes - PSYCHIATRIC Hx Psychophysiologic Disorder: No Hx Substance Use: No - SURGICAL HISTORY Hx Surgeries: Yes Hx Appendectomy: Yes Hx Cataract Extraction: Yes (left eye) Hx Cholecystectomy: Yes - ANESTHESIA Hx Anesthesia: Yes Hx Anesthesia Reactions: No Hx Malignant Hyperthermia: No Meds Allergies/Adverse Reactions: Allergies Allergy/AdvReac Type Severity Reaction Status Date / Time Penicillins Allergy RASH Verified 09/02/18 21:07 SHRIMP Allergy RASH Uncoded 09/02/18 21:07 Physical Exam - Constitutional Appears: Confused - Head Exam Head Exam: NORMAL INSPECTION - Eye Exam Eye Exam: PERRL - ENT Exam ENT Exam: Normal Exam - Neck Exam Neck exam: Positive for: Normal Inspection - Respiratory Exam Respiratory Exam: NORMAL BREATHING PATTERN - Cardiovascular Exam Cardiovascular Exam: REGULAR RHYTHM - GI/Abdominal Exam GI & Abdominal Exam: Normal Bowel Sounds, Soft - Extremities Exam Extremities exam: Positive for: tenderness (L shoulder) - Back Exam Back exam: tenderness (mild L-S) - Neurological Exam Additional comments: Forgetful, confused, L hemiparesia, L facial droop, able to follow commands - Psychiatric Exam Additional comments: Calm - Skin Skin Exam: Warm Results - Vital Signs Recent Vital Signs: Last Vital Signs Temp 97.7 F 09/03/18 07:36 Pulse 99 H 09/03/18 08:17 Resp 20 09/03/18 07:36 BP 153/88 H 09/03/18 07:36 Pulse Ox 94 L 09/03/18 07:36 reviewed J.P. - Labs Result Diagrams: 09/07/18 05:30 09/07/18 05:30 Labs: Laboratory Results - last 24 hr 09/03/18 09/03/18 06:34 11:11 POC Glucose (mg/dL) 105 153 H reviewed J.P. Assessment & Plan (1) CVA (cerebral vascular accident) Status: Acute Priority: High (2) History of CVA with residual deficit Status: Chronic Priority: High (3) Generalized weakness Status: Acute Priority: High (4) Altered mental status Status: Acute Priority: High (5) HTN (hypertension) Status: Chronic Priority: Medium (6) Pain in left shoulder Status: Chronic Priority: High - Assessment and Plan (Free Text) Plan: Continue Antivert, ASA, Lovenox, Pletal, Plavix, Vasotec and rest of Tx. PT, OT, Physiatry consult - Date & Time Date: 09/03/18 Time: 13:10
--- NOTE | 2018-09-03 21:39 | CP.PCM.CON ---
History of Present Illness - History of Present Illness History of Present Illness: 78 year old female with left hemiplegia, admitted to acute rehab with diagnosis of new cva, history of previous CVA, OA, HTN, Hyperchlostremia Review of Systems - Neurological Neurological: Abnormal Gait, Lack of Coordination, Weakness Past Patient History - Infectious Disease Hx of Infectious Diseases: None - Past Medical History & Family History Past Medical History?: Yes - Past Social History Smoking Status: Never Smoked Alcohol: None Drugs: Denies Home Situation {Lives}: Alone - CARDIAC Hx Cardiac Disorders: Yes Hx Hypercholesterolemia: Yes Hx Hypertension: Yes - PULMONARY Hx Respiratory Disorders: Yes Hx Chronic Obstructive Pulmonary Disease (COPD): Yes - NEUROLOGICAL Hx Neurological Disorder: Yes HX Cerebrovascular Accident: Yes - HEENT Hx HEENT Problems: Yes Hx Cataracts: Yes (had left eye cataract surgery) - RENAL Hx Chronic Kidney Disease: No - ENDOCRINE/METABOLIC Hx Endocrine Disorders: Yes Hx Diabetes Mellitus Type 2: Yes - HEMATOLOGICAL/ONCOLOGICAL Hx Blood Disorders: No Hx AIDS: No Hx Human Immunodeficiency Virus (HIV): No - INTEGUMENTARY Hx Dermatological Problems: No - MUSCULOSKELETAL/RHEUMATOLOGICAL Hx Musculoskeletal Disorders: Yes Hx Arthritis: Yes Hx Falls: No - GASTROINTESTINAL Hx Gastrointestinal Disorders: No - GENITOURINARY/GYNECOLOGICAL Hx Genitourinary Disorders: Yes Hx Incontinence: Yes - PSYCHIATRIC Hx Psychophysiologic Disorder: No Hx Substance Use: No - SURGICAL HISTORY Hx Surgeries: Yes Hx Appendectomy: Yes Hx Cataract Extraction: Yes (left eye) Hx Cholecystectomy: Yes - ANESTHESIA Hx Anesthesia: Yes Hx Anesthesia Reactions: No Hx Malignant Hyperthermia: No Meds Allergies/Adverse Reactions: Allergies Allergy/AdvReac Type Severity Reaction Status Date / Time Penicillins Allergy RASH Verified 09/02/18 21:07 SHRIMP Allergy RASH Uncoded 09/02/18 21:07 - Medications Medications: Current Medications Acetaminophen (Tylenol 325mg Tab) 650 mg PO Q6 PRN PRN Reason: for pain scale 4-10 Aspirin (Aspirin Chewable) 81 mg PO DAILY [facility] Last Admin: 09/03/18 08:38 Dose: 81 mg Atorvastatin Calcium (Lipitor) 40 mg PO HS [facility] Last Admin: 09/02/18 22:49 Dose: 40 mg Bisacodyl (Dulcolax) 10 mg MA DAILY PRN PRN Reason: Constipation Last Admin: 09/02/18 23:30 Dose: 10 mg Cilostazol (Pletal) 50 mg PO BID [facility] Last Admin: 09/03/18 16:59 Dose: 50 mg Clopidogrel Bisulfate (Plavix) 75 mg PO DAILY [facility] Last Admin: 09/03/18 08:38 Dose: 75 mg Enalapril Maleate (Vasotec) 10 mg PO DAILY [facility] Last Admin: 09/03/18 08:38 Dose: 10 mg Enoxaparin Sodium (Lovenox) 40 mg SC DAILY [facility]; Protocol Last Admin: 09/03/18 08:37 Dose: 40 mg Famotidine (Pepcid) 20 mg PO BID [facility] Last Admin: 09/03/18 16:59 Dose: 20 mg Lactulose (Enulose) 20 gm PO DAILY [facility] Last Admin: 09/03/18 08:38 Dose: 20 gm Meclizine HCl (Antivert) 25 mg PO DAILY [facility] Last Admin: 09/03/18 08:38 Dose: 25 mg Physical Exam - Constitutional Appears: Well - Head Exam Head Exam: ATRAUMATIC, NORMAL INSPECTION, NORMOCEPHALIC - Eye Exam Eye Exam: EOMI, Normal appearance Pupil Exam: NORMAL ACCOMODATION, PERRL - ENT Exam ENT Exam: Mucous Membranes Moist, Normal Exam - Neck Exam Neck exam: Positive for: Normal Inspection - Respiratory Exam Respiratory Exam: Clear to Auscultation Bilateral, NORMAL BREATHING PATTERN - Cardiovascular Exam Cardiovascular Exam: REGULAR RHYTHM - GI/Abdominal Exam GI & Abdominal Exam: Normal Bowel Sounds - Rectal Exam Rectal Exam: NORMAL INSPECTION - Exam External exam: NORMAL EXTERNAL EXAM - Extremities Exam Extremities exam: Positive for: normal inspection Additional comments: left arm and left leg weakness, decreased range of motion, and strength - Back Exam Back exam: NORMAL INSPECTION - Neurological Exam Neurological exam: Alert - Psychiatric Exam Psychiatric exam: Normal Affect - Skin Skin Exam: Dry, Normal Color Results - Vital Signs Recent Vital Signs: Last Vital Signs Temp 97.7 F 09/03/18 07:36 Pulse 99 H 09/03/18 08:17 Resp 20 09/03/18 07:36 BP 153/88 H 09/03/18 07:36 Pulse Ox 94 L 09/03/18 07:36 - Labs Labs: Laboratory Results - last 24 hr 09/03/18 09/03/18 09/03/18 06:34 11:11 16:09 POC Glucose (mg/dL) 105 153 H 133 H 09/03/18 20:41 POC Glucose (mg/dL) 122 H Assessment & Plan (1) HTN (hypertension) Status: Chronic Priority: Medium (2) Bursitis Status: Acute (3) CVA (cerebral vascular accident) Assessment and Plan: plan for physical, occupational, rec and speech therapy. Plan for range of motion, strengthening, transfers and gait training. FUNCTIONAL STATUS. patient used to be independent previously, now needs assistance in adl, transfers and gait . Lived with daughter Impairment code 01.1 Status: Acute Priority: High (4) Cervical radiculopathy Status: Acute (5) Decreased ambulation status Status: Acute
--- NOTE | 2018-09-03 21:47 | PCM.OPOC ---
Physiatry Overall Plan of Care - Overall Plan of Care Estimated Length of Stay in Weeks: 3 Rehab Impairment: Mobility, Gait, Cognition, Speech, Balance, Coordination Etiologic Diagnosis: Cerebrovascular Accident Rehab/Medical Prognosis: Fair - Anticipated Interventions Physical Therapy:: Yes Number of Hours: 1.5 Number of times per week: 5 Number of Week(s) Duration: 3 Occupational Therapy:: Yes Number of Hours: 1 Number of times per week: 5 Number of Week(s) Duration: 3 Speech Therapy:: Yes Number of Hours: 1 Number of times per week: 5 Number of Week(s) Duration: 3 Recreational Therapy:: Yes Number of Hours: 1 Number of times per week: 3 Number of Week(s) Duration: 3 - Therapy Goals Bed Mobility: Independent Ambulation: Contact Guard Functional Positional Changes:: Independent - Functional Status Prior to Admission: patient was independent in all activities, adls transfers and gait . Lives with daughter Current Status: patient now needs assistance in all levels of ADL, transfers and gait . - Functional Outcomes Functional Outcomes: fair - Discharge Plan Identification of Barriers to Discharge: Cognition Discharge Destination: Home
[2018-09-04 07:41] LABS: HEMOGLOBIN 12.5 g/dL (12.0-16.0); MEAN CELL VOLUME 93.5 fl (81.0-99.0); MEAN CORPUSCULAR HEMOGLOBIN 31.9 pg (27.0-31.0); MEAN CORPUSCULAR HGB CONC 34.1 g/dL (33.0-37.0); RBC 3.93 Mil/uL (3.80-5.20); RED CELL DISTRIBUTION WIDTH 13.4 % (11.5-14.5); WHITE BLOOD COUNT 6.8 K/uL (4.8-10.8)
[2018-09-04 07:50] LABS: BLOOD UREA NITROGEN 14 mg/dl (7-17); GFR NON-AFRICAN AMERICAN > 60
[2018-09-04] MEDS: Enoxaparin 40 mg Syringe SC SCH (08:34)
[2018-09-04] MEDS: Cilostazol 50 mg Tab UD PO SCH ×2 (08:35→17:02)
[2018-09-05] MEDS: Cilostazol 50 mg Tab UD PO SCH ×2 (08:25→16:19)
[2018-09-05] MEDS: Enoxaparin 40 mg Syringe SC SCH (08:26)
[2018-09-05] MEDS ORDERED: Propofol 10 mg/ml Inj (20 ML) ONE (09:37)
--- NOTE | 2018-09-05 12:24 | CARD ---
APPROVED REPORT Date of service: 09/05/2018 EKG Measurement Heart [id number] <Conclusion> Sinus tachycardia Left axis deviation Moderate voltage criteria for LVH, may be normal variant Non specific T-wave changes Abnormal ECG
--- NOTE | 2018-09-05 14:05 | CP.PCM.PN ---
Subjective - Date & Time of Evaluation Date of Evaluation: 09/05/18 Time of Evaluation: 13:00 - Subjective Subjective: F/U CVA No SOB, no CP, nose congestion, Objective - Vital Signs/Intake and Output Vital Signs (last 24 hours): Temp Pulse Resp BP Pulse Ox 97.9 F 64 19 131/62 96 09/05/18 08:37 09/05/18 08:37 09/05/18 08:37 09/05/18 08:37 09/05/18 08:37 - Medications Medications: Current Medications Acetaminophen (Tylenol 325mg Tab) 650 mg PO Q6 PRN PRN Reason: for pain scale 4-10 Last Admin: 09/04/18 19:37 Dose: 650 mg Aspirin (Aspirin Chewable) 81 mg PO DAILY [facility] Last Admin: 09/05/18 08:25 Dose: 81 mg Atorvastatin Calcium (Lipitor) 40 mg PO HS [facility] Last Admin: 09/04/18 21:31 Dose: 40 mg Bisacodyl (Dulcolax) 10 mg [place] DAILY PRN PRN Reason: Constipation Last Admin: 09/02/18 23:30 Dose: 10 mg Cilostazol (Pletal) 50 mg PO BID [facility] Last Admin: 09/05/18 08:25 Dose: 50 mg Ciprofloxacin (Cipro) 500 mg PO Q12 [facility]; Protocol Clopidogrel Bisulfate (Plavix) 75 mg PO DAILY [facility] Last Admin: 09/05/18 08:25 Dose: 75 mg Enalapril Maleate (Vasotec) 10 mg PO DAILY [facility] Last Admin: 09/05/18 08:25 Dose: 10 mg Enoxaparin Sodium (Lovenox) 40 mg SC DAILY [facility]; Protocol Last Admin: 09/05/18 08:26 Dose: 40 mg Famotidine (Pepcid) 20 mg PO BID [facility] Last Admin: 09/05/18 08:25 Dose: 20 mg Lactulose (Enulose) 20 gm PO DAILY [facility] Last Admin: 09/05/18 08:26 Dose: 20 gm Meclizine HCl (Antivert) 25 mg PO DAILY [facility] Last Admin: 09/05/18 08:25 Dose: 25 mg - Labs Labs: 09/04/18 06:50 09/04/18 06:55 - Constitutional Appears: No Acute Distress - Head Exam Head Exam: NORMAL INSPECTION - Eye Exam Eye Exam: PERRL - ENT Exam ENT Exam: Normal Exam - Neck Exam Neck Exam: Normal Inspection - Respiratory Exam Respiratory Exam: NORMAL BREATHING PATTERN - Cardiovascular Exam Cardiovascular Exam: REGULAR RHYTHM, Murmur (1/6 LSB) - GI/Abdominal Exam GI & Abdominal Exam: Soft, Normal Bowel Sounds - Extremities Exam Extremities Exam: Tenderness (l shoulder) - Back Exam Back Exam: tenderness (mild L-S) - Neurological Exam Neurological Exam: Awake Additional comments: Forgetful, confused, L facial droop, L hemiparesia. - Skin Skin Exam: Warm Assessment and Plan (1) CVA (cerebral vascular accident) Status: Acute (2) History of CVA with residual deficit Status: Chronic (3) Generalized weakness Status: Acute (4) Altered mental status Status: Acute (5) HTN (hypertension) Status: Chronic (6) Pain in left shoulder Status: Chronic - Assessment and Plan (Free Text) Plan: HR 164 earlier today, know in 110, Echo normal. Continue Cipro, Pletal, Vasotec and rest of Tx. Cardiology consult.
[2018-09-06] MEDS: Enoxaparin 40 mg Syringe SC SCH (08:44)
[2018-09-06] MEDS: Cilostazol 50 mg Tab UD PO SCH ×2 (08:45→19:29)
--- NOTE | 2018-09-06 14:23 | CP.PCM.PN ---
Subjective - Date & Time of Evaluation Date of Evaluation: 09/06/18 Time of Evaluation: 12:30 - Subjective Subjective: F/U CVA Pt smiling, no A/D, no SOB, N/C, no CP, no palpitations. Objective - Vital Signs/Intake and Output Vital Signs (last 24 hours): Temp Pulse Resp BP Pulse Ox 97.9 F 100 H 20 138/85 96 09/06/18 07:41 09/06/18 07:41 09/06/18 07:41 09/06/18 07:41 09/06/18 07:41 - Medications Medications: Current Medications Acetaminophen (Tylenol 325mg Tab) 650 mg PO Q6 PRN PRN Reason: for pain scale 4-10 Last Admin: 09/04/18 19:37 Dose: 650 mg Aspirin (Aspirin Chewable) 81 mg PO DAILY [facility] Last Admin: 09/06/18 08:45 Dose: 81 mg Atorvastatin Calcium (Lipitor) 40 mg PO HS [facility] Last Admin: 09/05/18 21:10 Dose: 40 mg Bisacodyl (Dulcolax) 10 mg [place] DAILY PRN PRN Reason: Constipation Last Admin: 09/02/18 23:30 Dose: 10 mg Cilostazol (Pletal) 50 mg PO BID [facility] Last Admin: 09/06/18 08:45 Dose: 50 mg Ciprofloxacin (Cipro) 500 mg PO Q12 [facility]; Protocol Last Admin: 09/06/18 08:44 Dose: 500 mg Clopidogrel Bisulfate (Plavix) 75 mg PO DAILY [facility] Last Admin: 09/06/18 08:45 Dose: 75 mg Enalapril Maleate (Vasotec) 10 mg PO DAILY [facility] Last Admin: 09/06/18 08:45 Dose: 10 mg Enoxaparin Sodium (Lovenox) 40 mg SC DAILY [facility]; Protocol Last Admin: 09/06/18 08:44 Dose: 40 mg Famotidine (Pepcid) 20 mg PO BID [facility] Last Admin: 09/06/18 08:44 Dose: 20 mg Lactulose (Enulose) 20 gm PO DAILY [facility] Last Admin: 09/06/18 08:46 Dose: Not Given Meclizine HCl (Antivert) 25 mg PO DAILY [facility] Last Admin: 09/06/18 08:44 Dose: 25 mg - Labs Labs: 09/04/18 06:50 09/04/18 06:55 - Constitutional Appears: Younger Than Stated Age - Head Exam Head Exam: NORMAL INSPECTION - Eye Exam Eye Exam: PERRL - ENT Exam ENT Exam: Normal Exam - Neck Exam Neck Exam: Normal Inspection - Respiratory Exam Respiratory Exam: NORMAL BREATHING PATTERN - Cardiovascular Exam Cardiovascular Exam: REGULAR RHYTHM - GI/Abdominal Exam GI & Abdominal Exam: Soft, Normal Bowel Sounds - Extremities Exam Extremities Exam: Tenderness (L shoulder) - Back Exam Back Exam: tenderness (mild L-S) - Neurological Exam Neurological Exam: Awake Additional comments: Confused, forgetful, L facial droop, L hemiparesia. - Skin Skin Exam: Warm Assessment and Plan (1) CVA (cerebral vascular accident) Status: Acute (2) History of CVA with residual deficit Status: Chronic (3) Generalized weakness Status: Acute (4) Altered mental status Status: Acute (5) HTN (hypertension) Status: Chronic (6) Tachycardia Status: Acute (7) Pain in left shoulder Status: Chronic - Assessment and Plan (Free Text) Plan: Echo reviewed LVEF 60/65%, VQ lung scan, Cardiac consult.
--- NOTE | 2018-09-06 17:58 | CP.PCM.CON ---
History of Present Illness - History of Present Illness History of Present Illness: Justyna Colindres, PGY-1, Cardiology Consult Note for Dr. Holland 78 year old female with past medical history of HTN, Hypercholesterolemia, OA, CVA, Arthritis, COPD, Pneumonia presented to the hospital for the 3rd stroke in the past year. Patient had her first stroke on September 2017 and was able to ambulate after that stroke. Patient had her second stroke on April 2018 which led her to be unable to speak or move her lower extremities. Patient's latest stroke was this month when she was found to have a droopy mouth, back pain and lethargy at home. Patient was unable to provide HPI and ROS due to patient's current status. Family member at bedside provided all of the history. Records from prior strokes are not [facility] at this time. Will follow up results. PMH: HTN, Hypercholesterolemia, OA, CVA, Arthritis, COPD, Pneumonia PSH: Appendectomy, cataracts, hysterectomy FamHx: Father ( Heart attack in 60s, HTN); Mother Pancreatic cancer SHx: never smoked, never drugs, never alcohol Allergies: penicillin, seafood PMD: Dr. Ortiz Has rn occupational, but does not recall name No prior cath; No prior stress tests Review of Systems - Review of Systems Systems not reviewed;Unavailable: Other (unable to communicate post stroke) Past Patient History - Infectious Disease Hx of Infectious Diseases: None - Past Medical History & Family History Past Medical History?: Yes - Past Social History Smoking Status: Never Smoked Alcohol: None Drugs: Denies Home Situation {Lives}: Alone - CARDIAC Hx Cardiac Disorders: Yes Hx Hypercholesterolemia: Yes Hx Hypertension: Yes - PULMONARY Hx Respiratory Disorders: Yes Hx Chronic Obstructive Pulmonary Disease (COPD): Yes - NEUROLOGICAL Hx Neurological Disorder: Yes HX Cerebrovascular Accident: Yes - HEENT Hx HEENT Problems: Yes Hx Cataracts: Yes (had left eye cataract surgery) - RENAL Hx Chronic Kidney Disease: No - ENDOCRINE/METABOLIC Hx Endocrine Disorders: Yes Hx Diabetes Mellitus Type 2: Yes - HEMATOLOGICAL/ONCOLOGICAL Hx Blood Disorders: No Hx AIDS: No Hx Human Immunodeficiency Virus (HIV): No - INTEGUMENTARY Hx Dermatological Problems: No - MUSCULOSKELETAL/RHEUMATOLOGICAL Hx Musculoskeletal Disorders: Yes Hx Arthritis: Yes Hx Falls: No - GASTROINTESTINAL Hx Gastrointestinal Disorders: No - GENITOURINARY/GYNECOLOGICAL Hx Genitourinary Disorders: Yes Hx Incontinence: Yes - PSYCHIATRIC Hx Psychophysiologic Disorder: No Hx Substance Use: No - SURGICAL HISTORY Hx Surgeries: Yes Hx Appendectomy: Yes Hx Cataract Extraction: Yes (left eye) Hx Cholecystectomy: Yes - ANESTHESIA Hx Anesthesia: Yes Hx Anesthesia Reactions: No Hx Malignant Hyperthermia: No Meds Allergies/Adverse Reactions: Allergies Allergy/AdvReac Type Severity Reaction Status Date / Time Penicillins Allergy RASH Verified 09/02/18 21:07 SHRIMP Allergy RASH Uncoded 09/02/18 21:07 - Medications Medications: Current Medications Acetaminophen (Tylenol 325mg Tab) 650 mg PO Q6 PRN PRN Reason: for pain scale 4-10 Last Admin: 09/04/18 19:37 Dose: 650 mg Aspirin (Aspirin Chewable) 81 mg PO DAILY [facility] Last Admin: 09/06/18 08:45 Dose: 81 mg Atorvastatin Calcium (Lipitor) 40 mg PO HS [facility] Last Admin: 09/05/18 21:10 Dose: 40 mg Bisacodyl (Dulcolax) 10 mg [place] DAILY PRN PRN Reason: Constipation Last Admin: 09/02/18 23:30 Dose: 10 mg Cilostazol (Pletal) 50 mg PO BID [facility] Last Admin: 09/06/18 08:45 Dose: 50 mg Ciprofloxacin (Cipro) 500 mg PO Q12 [facility]; Protocol Last Admin: 09/06/18 08:44 Dose: 500 mg Clopidogrel Bisulfate (Plavix) 75 mg PO DAILY [facility] Last Admin: 09/06/18 08:45 Dose: 75 mg Enalapril Maleate (Vasotec) 10 mg PO DAILY [facility] Last Admin: 09/06/18 08:45 Dose: 10 mg Enoxaparin Sodium (Lovenox) 40 mg SC DAILY [facility]; Protocol Last Admin: 09/06/18 08:44 Dose: 40 mg Famotidine (Pepcid) 20 mg PO BID [facility] Last Admin: 09/06/18 08:44 Dose: 20 mg Lactulose (Enulose) 20 gm PO DAILY [facility] Last Admin: 09/06/18 08:46 Dose: Not Given Meclizine HCl (Antivert) 25 mg PO DAILY [facility] Last Admin: 09/06/18 08:44 Dose: 25 mg Physical Exam - Constitutional Appears: Well, Non-toxic, No Acute Distress - Head Exam Head Exam: ATRAUMATIC, NORMAL INSPECTION, NORMOCEPHALIC - Eye Exam Eye Exam: EOMI, PERRL - ENT Exam ENT Exam: Mucous Membranes Moist - Respiratory Exam Respiratory Exam: Clear to Auscultation Bilateral, NORMAL BREATHING PATTERN - Cardiovascular Exam Cardiovascular Exam: Tachycardia, REGULAR RHYTHM, +S1, +S2 - GI/Abdominal Exam GI & Abdominal Exam: Normal Bowel Sounds, Soft. absent: Tenderness - Extremities Exam Extremities exam: Positive for: normal capillary refill, normal inspection. Negative for: full ROM, pedal edema - Neurological Exam Neurological exam: Alert, CN II-XII Intact Additional comments: left sided weakness appreciated - Skin Skin Exam: Dry, Intact Results - Vital Signs Recent Vital Signs: Last Vital Signs Temp 97.9 F 09/06/18 07:41 Pulse 100 H 09/06/18 07:41 Resp 20 09/06/18 07:41 BP 138/85 09/06/18 07:41 Pulse Ox 96 09/06/18 07:41 - Labs Result Diagrams: 09/04/18 06:50 09/04/18 06:55 Labs: Laboratory Results - last 24 hr 09/05/18 09/06/18 09/06/18 20:32 06:08 11:19 POC Glucose (mg/dL) 128 H 106 115 H 09/06/18 15:40 POC Glucose (mg/dL) 128 H Assessment & Plan - Assessment and Plan (Free Text) Assessment: CVA HTN Hypercholesterolemia COPD Plan: CVA UTI Sepsis HTN Hypercholesterolemia COPD Head CT 08/31/18: Chronic right MCA [employer] watershed territory infarct; new since last examination in 06/2018; Chronic microangiopathic changes and age related volume loss EKG 09/05/18: NSR with left axis deviation with HR: 112 ECHO 09/01/18: EF 60-65%, Mild AR, Mild TR, RVSP 25 mmHg Brain MRI 09/01: Foci of diffusion restriction in R. cerebral hemisphere (prom inent at right posterior parietal and occipital lobe) suggestive of right MCA infarct Carotid Artery U/S 09/01: Right ICA and Left ICA < 50% stenosis MRA 09/01: Narrow distal right internal carotid artery; Right MCA smaller than left; Diffuse stenosis of R ICA HgbA1c 09/01: 5.7 Lipid panel 09/02: unremarkable except for low HDL Tropx4: negative BNP 08/31: 60.7 Continue aspirin, lipitor, and enalapril for acute stroke. Continue with PT and OT Continue with antibiotics for treatment of UTI Will need evaluation with PATRICIA to rule out ASD or PFO as cause of recurrent strokes. Medications: aspirin 81 mg daily lipitor 40 mg daily cipro 500 Q12 plavix 75 daily enalapril 10 daily meclizine 25 mg daily - Date & Time Date: 09/06/18 Time: 18:00
--- NOTE | 2018-09-06 18:56 | RAD ---
HISTORY: pre requisite for vq scan COMPARISON: Chest x-ray performed 08/31/18 TECHNIQUE: Chest, one view. FINDINGS: LUNGS: Hyperinflation may be seen in the setting of COPD. Biapical pleural thickening. No focal consolidation. Please note that chest x-ray has limited sensitivity for the detection of pulmonary masses. PLEURA: No significant pleural effusion identified. No definite pneumothorax . CARDIOVASCULAR: Cardiomegaly. Ectatic aorta with atherosclerotic calcifications. OSSEOUS STRUCTURES: Osseous demineralization. Degenerative changes. VISUALIZED UPPER ABDOMEN: Unremarkable. OTHER FINDINGS: None. IMPRESSION: Cardiomegaly. Hyperinflation may be seen in the setting of COPD. Biapical pleural thickening.
--- NOTE | 2018-09-06 22:22 | CP.PCM.PN ---
Subjective - Date & Time of Evaluation Date of Evaluation: 09/03/18 Time of Evaluation: 15:00 - Subjective Subjective: no acute complaints of neck or back pain, Objective - Vital Signs/Intake and Output Vital Signs (last 24 hours): Temp Pulse Resp BP Pulse Ox 97.9 F 100 H 20 138/85 96 09/06/18 07:41 09/06/18 07:41 09/06/18 07:41 09/06/18 07:41 09/06/18 07:41 - Medications Medications: Current Medications Acetaminophen (Tylenol 325mg Tab) 650 mg PO Q6 PRN PRN Reason: for pain scale 4-10 Last Admin: 09/04/18 19:37 Dose: 650 mg Aspirin (Aspirin Chewable) 81 mg PO DAILY [facility] Last Admin: 09/06/18 08:45 Dose: 81 mg Atorvastatin Calcium (Lipitor) 40 mg PO HS [facility] Last Admin: 09/06/18 21:41 Dose: 40 mg Bisacodyl (Dulcolax) 10 mg [place] DAILY PRN PRN Reason: Constipation Last Admin: 09/02/18 23:30 Dose: 10 mg Cilostazol (Pletal) 50 mg PO BID [facility] Last Admin: 09/06/18 19:29 Dose: 50 mg Ciprofloxacin (Cipro) 500 mg PO Q12 [facility]; Protocol Last Admin: 09/06/18 21:41 Dose: 500 mg Clopidogrel Bisulfate (Plavix) 75 mg PO DAILY [facility] Last Admin: 09/06/18 08:45 Dose: 75 mg Enalapril Maleate (Vasotec) 10 mg PO DAILY [facility] Last Admin: 09/06/18 08:45 Dose: 10 mg Enoxaparin Sodium (Lovenox) 40 mg SC DAILY [facility]; Protocol Last Admin: 09/06/18 08:44 Dose: 40 mg Famotidine (Pepcid) 20 mg PO BID [facility] Last Admin: 09/06/18 19:29 Dose: 20 mg Lactulose (Enulose) 20 gm PO DAILY [facility] Last Admin: 09/06/18 08:46 Dose: Not Given Meclizine HCl (Antivert) 25 mg PO DAILY [facility] Last Admin: 09/06/18 08:44 Dose: 25 mg - Labs Labs: 09/04/18 06:50 09/04/18 06:55 - Constitutional Appears: Well - Head Exam Head Exam: ATRAUMATIC, NORMAL INSPECTION, NORMOCEPHALIC - Eye Exam Eye Exam: EOMI, Normal appearance Pupil Exam: NORMAL ACCOMODATION, PERRL - ENT Exam ENT Exam: Mucous Membranes Moist, Normal Exam - Neck Exam Neck Exam: Full ROM, Normal Inspection - Respiratory Exam Respiratory Exam: Clear to Ausculation Bilateral, NORMAL BREATHING PATTERN - Cardiovascular Exam Cardiovascular Exam: REGULAR RHYTHM - GI/Abdominal Exam GI & Abdominal Exam: Soft, Normal Bowel Sounds - Exam External exam: NORMAL EXTERNAL EXAM - Extremities Exam Extremities Exam: Full ROM, Normal Capillary Refill, Normal Inspection - Back Exam Back Exam: NORMAL INSPECTION - Neurological Exam Neurological Exam: Alert, Awake Neuro motor strength exam: Left Upper Extremity: 2/1, Right Upper Extremity: 3, Left Lower Extremity: 2/1, Right Lower Extremity: 3 - Psychiatric Exam Psychiatric exam: Normal Affect - Skin Skin Exam: Dry, Normal Color Assessment and Plan (1) HTN (hypertension) Status: Chronic (2) Bursitis Status: Acute (3) CVA (cerebral vascular accident) Assessment & Plan: plan for physical, occupational, rec and speech therapy program. Monitor labs Status: Acute (4) Cervical radiculopathy Status: Acute (5) Decreased ambulation status Status: Acute
--- NOTE | 2018-09-06 22:27 | CP.PCM.PN ---
Subjective - Date & Time of Evaluation Date of Evaluation: 09/06/18 Time of Evaluation: 14:00 - Subjective Subjective: patient is alert, no acute complaints at present family by bedside Objective - Vital Signs/Intake and Output Vital Signs (last 24 hours): Temp Pulse Resp BP Pulse Ox 97.9 F 100 H 20 138/85 96 09/06/18 07:41 09/06/18 07:41 09/06/18 07:41 09/06/18 07:41 09/06/18 07:41 - Medications Medications: Current Medications Acetaminophen (Tylenol 325mg Tab) 650 mg PO Q6 PRN PRN Reason: for pain scale 4-10 Last Admin: 09/04/18 19:37 Dose: 650 mg Aspirin (Aspirin Chewable) 81 mg PO DAILY [facility] Last Admin: 09/06/18 08:45 Dose: 81 mg Atorvastatin Calcium (Lipitor) 40 mg PO HS [facility] Last Admin: 09/06/18 21:41 Dose: 40 mg Bisacodyl (Dulcolax) 10 mg [place] DAILY PRN PRN Reason: Constipation Last Admin: 09/02/18 23:30 Dose: 10 mg Cilostazol (Pletal) 50 mg PO BID [facility] Last Admin: 09/06/18 19:29 Dose: 50 mg Ciprofloxacin (Cipro) 500 mg PO Q12 [facility]; Protocol Last Admin: 09/06/18 21:41 Dose: 500 mg Clopidogrel Bisulfate (Plavix) 75 mg PO DAILY [facility] Last Admin: 09/06/18 08:45 Dose: 75 mg Enalapril Maleate (Vasotec) 10 mg PO DAILY [facility] Last Admin: 09/06/18 08:45 Dose: 10 mg Enoxaparin Sodium (Lovenox) 40 mg SC DAILY [facility]; Protocol Last Admin: 09/06/18 08:44 Dose: 40 mg Famotidine (Pepcid) 20 mg PO BID [facility] Last Admin: 09/06/18 19:29 Dose: 20 mg Lactulose (Enulose) 20 gm PO DAILY [facility] Last Admin: 09/06/18 08:46 Dose: Not Given Meclizine HCl (Antivert) 25 mg PO DAILY [facility] Last Admin: 09/06/18 08:44 Dose: 25 mg - Labs Labs: 09/04/18 06:50 09/04/18 06:55 - Constitutional Appears: Well - Head Exam Head Exam: ATRAUMATIC, NORMAL INSPECTION, NORMOCEPHALIC - Eye Exam Eye Exam: EOMI, Normal appearance Pupil Exam: NORMAL ACCOMODATION, PERRL - ENT Exam ENT Exam: Mucous Membranes Moist, Normal Exam - Neck Exam Neck Exam: Full ROM, Normal Inspection - Respiratory Exam Respiratory Exam: Clear to Ausculation Bilateral, NORMAL BREATHING PATTERN - Cardiovascular Exam Cardiovascular Exam: REGULAR RHYTHM - GI/Abdominal Exam GI & Abdominal Exam: Soft, Normal Bowel Sounds - Rectal Exam Rectal Exam: NORMAL INSPECTION - Exam External exam: NORMAL EXTERNAL EXAM - Extremities Exam Extremities Exam: Full ROM, Normal Capillary Refill, Normal Inspection - Back Exam Back Exam: NORMAL INSPECTION - Neurological Exam Neurological Exam: Alert, Awake Neuro motor strength exam: Left Upper Extremity: 2/1, Right Upper Extremity: 3, Left Lower Extremity: 2/1, Right Lower Extremity: 3 - Psychiatric Exam Psychiatric exam: Normal Affect - Skin Skin Exam: Dry, Normal Color Assessment and Plan (1) HTN (hypertension) Status: Chronic (2) Bursitis Status: Acute (3) CVA (cerebral vascular accident) Assessment & Plan: PLAN for cardiology follow up, for physical, occupational , rec therapy for team conference Status: Acute (4) Cervical radiculopathy Status: Acute (5) Decreased ambulation status Status: Acute
[2018-09-06] MEDS ORDERED: Alum-Mag Hydrox-Simethicone Susp (30 mL) PO ONE (23:56)
[2018-09-07 07:03] LABS: HEMOGLOBIN 12.2 g/dL (12.0-16.0); MEAN CELL VOLUME 94.6 fl (81.0-99.0); MEAN CORPUSCULAR HGB CONC 33.7 g/dL (33.0-37.0); RBC 3.81 Mil/uL (3.80-5.20); RED CELL DISTRIBUTION WIDTH 13.9 % (11.5-14.5); WHITE BLOOD COUNT 5.6 K/uL (4.8-10.8)
[2018-09-07 07:14] LABS: MEAN CORPUSCULAR HEMOGLOBIN 31.9 pg (27.0-31.0)
[2018-09-07 07:18] LABS: BLOOD UREA NITROGEN 15 mg/dl (7-17); CALCIUM 9.8 mg/dL (8.4-10.2); GFR NON-AFRICAN AMERICAN > 60
[2018-09-07] MEDS: Cilostazol 50 mg Tab UD PO SCH ×2 (08:37→17:43)
[2018-09-07] MEDS: Enoxaparin 40 mg Syringe SC SCH (08:38)
--- NOTE | 2018-09-07 10:47 | CP.PCM.PN ---
Subjective - Date & Time of Evaluation Date of Evaluation: 09/07/18 Time of Evaluation: 10:45 - Subjective Subjective: Justyna Colindres, PGY-1, Cardiology Progress Note for Dr. Holland Patient seen and evaluated at bedside. Patient was unable to sleep last night. Patient today reports no change in condition. Patient continues to have left sided weakness from recent stroke but denies chest pain, shortness of breath, nausea, diaphoresis, left arm pain, jaw pain, dizziness. Objective - Vital Signs/Intake and Output Vital Signs (last 24 hours): Temp Pulse Resp BP Pulse Ox 97.9 F 100 H 18 142/83 98 09/07/18 09:04 09/07/18 09:04 09/07/18 09:04 09/07/18 09:04 09/07/18 09:04 - Medications Medications: Current Medications Acetaminophen (Tylenol 325mg Tab) 650 mg PO Q6 PRN PRN Reason: for pain scale 4-10 Last Admin: 09/04/18 19:37 Dose: 650 mg Aspirin (Aspirin Chewable) 81 mg PO DAILY [facility] Last Admin: 09/07/18 08:37 Dose: 81 mg Atorvastatin Calcium (Lipitor) 40 mg PO HS [facility] Last Admin: 09/06/18 21:41 Dose: 40 mg Bisacodyl (Dulcolax) 10 mg [place] DAILY PRN PRN Reason: Constipation Last Admin: 09/02/18 23:30 Dose: 10 mg Cilostazol (Pletal) 50 mg PO BID [facility] Last Admin: 09/07/18 08:37 Dose: 50 mg Ciprofloxacin (Cipro) 500 mg PO Q12 [facility]; Protocol Last Admin: 09/07/18 08:37 Dose: 500 mg Clopidogrel Bisulfate (Plavix) 75 mg PO DAILY [facility] Last Admin: 09/07/18 08:40 Dose: 75 mg Enalapril Maleate (Vasotec) 10 mg PO DAILY [facility] Last Admin: 09/07/18 08:37 Dose: 10 mg Enoxaparin Sodium (Lovenox) 40 mg SC DAILY [facility]; Protocol Last Admin: 09/07/18 08:38 Dose: 40 mg Famotidine (Pepcid) 20 mg PO BID [facility] Last Admin: 09/07/18 08:37 Dose: 20 mg Lactulose (Enulose) 20 gm PO DAILY [facility] Last Admin: 09/07/18 08:38 Dose: 20 gm Meclizine HCl (Antivert) 25 mg PO DAILY [facility] Last Admin: 09/07/18 08:37 Dose: 25 mg - Labs Labs: 09/07/18 05:30 09/07/18 05:30 - Constitutional Appears: Well, Non-toxic, No Acute Distress - Head Exam Head Exam: ATRAUMATIC, NORMAL INSPECTION, NORMOCEPHALIC - Eye Exam Eye Exam: EOMI, PERRL - ENT Exam ENT Exam: Mucous Membranes Moist - Respiratory Exam Respiratory Exam: Clear to Ausculation Bilateral, NORMAL BREATHING PATTERN - Cardiovascular Exam Cardiovascular Exam: Tachycardia, REGULAR RHYTHM - GI/Abdominal Exam GI & Abdominal Exam: Soft, Normal Bowel Sounds. absent: Tenderness - Extremities Exam Extremities Exam: Normal Capillary Refill, Normal Inspection. absent: Pedal Edema - Neurological Exam Neurological Exam: Alert, Awake, CN II-XII Intact, Oriented x3 Neuro motor strength exam: Left Upper Extremity: 0, Right Upper Extremity: 5, Left Lower Extremity: 0, Right Lower Extremity: 5 - Skin Skin Exam: Dry, Intact Assessment and Plan - Assessment and Plan (Free Text) Assessment: CVA UTI Sepsis HTN Hypercholesterolemia COPD Plan: CVA UTI Sepsis HTN Hypercholesterolemia COPD Head CT 08/31/18: Chronic right MCA [employer] watershed territory infarct; new since last examination in 06/2018; Chronic microangiopathic changes and age related volume loss EKG 09/05/18: NSR with left axis deviation with HR: 112 ECHO 09/01/18: EF 60-65%, Mild AR, Mild TR, RVSP 25 mmHg Brain MRI 09/01: Foci of diffusion restriction in R. cerebral hemisphere (prominent at right posterior parietal and occipital lobe) suggestive of right MCA infarct Carotid Artery U/S 09/01: Right ICA and Left ICA < 50% stenosis MRA 09/01: Narrow distal right internal carotid artery; Right MCA smaller than left; Diffuse stenosis of R ICA HgbA1c 09/01: 5.7 Lipid panel 09/02: unremarkable except for low HDL Tropx4: negative BNP 08/31: 60.7 Continue aspirin, lipitor, and enalapril for acute stroke. Continue with PT and OT Continue with antibiotics for treatment of UTI Will need evaluation with PATRICIA to rule out ASD or PFO as cause of recurrent strokes to be done likely Wednesday. Due to patient's likely dehydrated status, will start NS at 50 cc/hr and metoprolol tartrate 50 mg BID for tachycardia Medications: aspirin 81 mg daily lipitor 40 mg daily cipro 500 Q12 plavix 75 daily enalapril 10 daily meclizine 25 mg daily
--- NOTE | 2018-09-07 12:11 | PCM.PSYTMC ---
Acute Rehab Team Conference - - Vital Signs: Vital Signs (Last 8 Hours): Vital Signs 09/07/18 09:04 Temperature 97.9 F Pulse Rate 100 H Respiratory 18 Rate Blood Pressure 142/83 O2 Sat by Pulse 98 Oximetry Pain: 0 Physical Therapy - Bed Mobility Bed Mobility: Maximum Assistance Comment: rolling to L Max A. Rolling to R minimal A. Supine <> sit max A - Transfers Sit to Stand: Maximum Assistance Comment: sit <> stand max A. stand pivot max A - Ambulation Level of Assistance: Maximum Assistance Distance (ft.): 8 Orthoses: used R hallway rail - Stair Negotiation Stairs: Level of Assistance: Not Tested - Standing Balance Static Stand: Maximal Assistance - Pain Pain (assessed during therapy session): 0 - Insight/Carryover Insight/Carryover: Fair - Patient/Family Education Comment: plan of care - Assessment/Plan Assessment: The patient has good potential in therapy, but recent sessions have been limited by tachycardia. Feel she needs an intense therapy program focusing on standing, walking, transfers, and use of the L side. Feel she can make a decent recovery, but will likely need at least supervision. - Goals Timeframe: 1 week Goals: up and down 2 steps with bilateral rail moderate assistance. 50' with WBQC minimal assistance. sit <> stand minimal assistance with WBQC. the patient will perform rolling bilaterally with minimal assistance, supine <> sit minimal assistance - Provider Physical Therapist:: Bhargav Mariee License Number:: [id number] Occupational Therapy - Arousal/Attention/Orientation Level of Consciousness: Awake, Alert, Forgetful, Disoriented, Confused Patient Orientation: Person, Place Assessment Comment: Oriented to being in therapy, but not to exact place. Patient disoriented to time. - ADL/IADL Self Feeding: Supervision, Verbal Cues, Set-up Help Grooming: Verbal Cues, Moderate Assistance Dressing-Upper Ext: Moderate Assistance Dressing-Lower Ext: Dependent Homemaking: Dependent - Sitting Balance Static Sitting: Supervision Dynamic Sitting: Requires supervision, Contact Guard Assist, Minimal Assistance - Transfers Wheelchair to Bed Transfers: Moderate Assistance, Maximum Assistance Toilet Transfers: Moderate Assistance, Maximum Assistance - Wheelchair Management Level of Assistance: Dependent - Upper Extremity Status Right Upper Extremity Comment: AROM WFL Left Upper Extremity Comment: No AROM noted. Patient with hypertonicity in L UE and pt positioned in flexor synergy pattern into shoulder internal rotation, elbow flexion, forearm pronation, wrist flexion, finger flexion. Impaired PROM. - Pain Pain (assessed during therapy session): 8 Comment: c/o pain with PROM L UE. - Insight/Carryover Insight/Carryover: Fair - Patient/Family Education Comment: Educated pt on role of OT, rehab process, compensatory techniques for ADL's, safe functional transfers, DME recommendations - Assessment/Plan Assessment: Patient was evaluated 09-03-18 for OT services. Patient currently presents with decreased sitting/standing tolerance/balance, L UE/LE hemiparesis, +L hypertonicity and pain with PROM, decreased overall strength/endurance, L visual inattention and decreased cognition. Patient would benefit from IP OT services to address the above deficits, increase functional level of I with ADL's for safe d/c. Recommend d/c to [facility] vs home with family support. - Goals Timeframe: 1 week Comment: Bed mobility: Min A. Functional transfers: Mod A. Grooming: Supervision with cues. UB dressing: Min A with cues. dynamic sitting balance for ADL's: Close S - Provider Occupational Therapist:: Ann Greer License Number: [id number] Speech Therapy - Consult Information Patient on Program: Yes Medical Diagnosis: CVA Treatment Diagnosis: -moderate cognitive deficits. -mild-moderate dysarthria - Assessment Memory Impairment: Moderate Speech/Articulation Impairment: Moderate - Plan Assessment: Tahira Holland presents with 1.) moderate cognitive deficits characterized by impaired orientation, short-term memory, thought organization, word retrieval, and ability to answer more complex questions and follow more complex commands; and 2.) mild-moderate dysarthria characterized by L facial weakness and impaired respiration for phonation resulting in moderately impaired vocal loudness and impaired articulatory precision negatively impacting speech intelligibility. Pt and family report decline in cognitive/speech skills s/p most recent CVA. Pt would benefit from skilled ST for improved cognition and speech intelligibility. Plan: Continue Speech/Language Therapy Frequency: 3-5 times per week Duration: 1 week Goals/Timeframe: Please see IE dated 09/05/18 for complete goals/POC Recommendations: Speech tx 3-5x/week for improved cognition and intelligibility - Provider Therapist: Madison Oh License Number: [id number] Recreational Therapy - Participation Participation: Monitors His/Her Own Leisure Time - Attendance Attendance: Daily - Activities Leisure Activities: Television - Socialization Level of Socialization: Initiates/interacts freely with care givers and peer - Assessment Assessment/Plan: Pt was oriented to benefits and purpose of participating in recreation therapy sessions throughout stay on unit. Pt has yet to participate in 1:1 or group recreation therapy session 2' pt resting in afternoon presenting with decrease arousal to participate in session. Pt presents with L side visual inattention and short term memory deficits. Will continue to encourage pt to participate in recreation therapy sessions throughout stay on unit. Problems Currently Limiting Participation: L side visual inattention, L side residual weakness s/p September 2017, memory deficits, short-term recall, decrease leisure awareness level Goals and Time Frame: Pt will tolerate participating in tabletop task for 20 min utes requiring min verbal cues throughout session by date of discharge. - Provider Therapist: Yareli Almaguer Nutrition - Current Diet Current Diet/Supplement/Feedings: Moderate consistent CHO heart healthy pureed thin liquids glucerna shake. 8 ounces 1 per day - Appetite Percent Meal Consumed: 50-74% - Assessment/Goals/Time Frame Assessments/Goals/Time Frame: Pt at moderate nutritional risk. goals: 1. Improve PO intake to greater than 75% at mealtime(not met,continue). 2. Maintain good glycemic control:GLU:140-180mg/dl(partially met, continue). Follow-up due on 09/13/2018. [ End ] - Provider Provider: Debbi Layton Case Management - Psychosocial Assessment Support Systems: Caryl Lozano (daughter) - [phone] Psychological Interventions/Needs: Patient is AAO and able to verbalize needs with some cognitive deficits/needs. Discharge Concerns: Patient lives in an apartment alone with elevator access and no steps. Daughter will be staying with her to assist/supervise and care for her. Patient/Family Meeting: CM met with patient and rehab team. Intervention/Goal/Outcome: 1. Goal: 24hr supervision 2. Plan: Home with VNS/homemaker services 3. assist family with maximizing hours of services rece ived while also maintaing patient's daughter Caryl as her paid caregiver through the [facility] [facility] 4. complete advanced directive forms with pt's daughter 5. DME needs 6. f/u appts - Discharge Plan Discharge Plan: Home with services Home Services: [facility] + [facility] - Provider Provider: Loraine Castañeda License Number: [id number] Rehabilitation Plan - Treatment Plan Treatment Plan: Physical Therapy, Occupational Therapy, Speech, Dietary, Patient/Family Education - Recommendation Recommendation: Physical Therapy, Occupational Therapy, Speech, Dietary, Patient/Family Education - Discharge Plan Discharge to: Home (lives with daughter)
--- NOTE | 2018-09-07 13:28 | CP.PCM.PN ---
Subjective - Date & Time of Evaluation Date of Evaluation: 09/07/18 Time of Evaluation: 10:00 - Subjective Subjective: no acute complaints at present Objective - Vital Signs/Intake and Output Vital Signs (last 24 hours): Temp Pulse Resp BP Pulse Ox 97.9 F 100 H 18 142/83 98 09/07/18 09:04 09/07/18 09:04 09/07/18 09:04 09/07/18 09:04 09/07/18 09:04 - Medications Medications: Current Medications Acetaminophen (Tylenol 325mg Tab) 650 mg PO Q6 PRN PRN Reason: for pain scale 4-10 Last Admin: 09/04/18 19:37 Dose: 650 mg Aspirin (Aspirin Chewable) 81 mg PO DAILY [facility] Last Admin: 09/07/18 08:37 Dose: 81 mg Atorvastatin Calcium (Lipitor) 40 mg PO HS [facility] Last Admin: 09/06/18 21:41 Dose: 40 mg Bisacodyl (Dulcolax) 10 mg MS DAILY PRN PRN Reason: Constipation Last Admin: 09/02/18 23:30 Dose: 10 mg Cilostazol (Pletal) 50 mg PO BID [facility] Last Admin: 09/07/18 08:37 Dose: 50 mg Ciprofloxacin (Cipro) 500 mg PO Q12 [facility]; Protocol Last Admin: 09/07/18 08:37 Dose: 500 mg Clopidogrel Bisulfate (Plavix) 75 mg PO DAILY [facility] Last Admin: 09/07/18 08:40 Dose: 75 mg Enalapril Maleate (Vasotec) 10 mg PO DAILY [facility] Last Admin: 09/07/18 08:37 Dose: 10 mg Enoxaparin Sodium (Lovenox) 40 mg SC DAILY [facility]; Protocol Last Admin: 09/07/18 08:38 Dose: 40 mg Famotidine (Pepcid) 20 mg PO BID [facility] Last Admin: 09/07/18 08:37 Dose: 20 mg Lactulose (Enulose) 20 gm PO DAILY [facility] Last Admin: 09/07/18 08:38 Dose: 20 gm Meclizine HCl (Antivert) 25 mg PO DAILY [facility] Last Admin: 09/07/18 08:37 Dose: 25 mg - Labs Labs: 09/07/18 05:30 09/07/18 05:30 - Constitutional Appears: Well - Head Exam Head Exam: ATRAUMATIC, NORMAL INSPECTION, NORMOCEPHALIC - Eye Exam Eye Exam: EOMI, Normal appearance, PERRL Pupil Exam: NORMAL ACCOMODATION - ENT Exam ENT Exam: Mucous Membranes Moist, Normal Exam - Neck Exam Neck Exam: Full ROM, Normal Inspection - Respiratory Exam Respiratory Exam: Clear to Ausculation Bilateral, NORMAL BREATHING PATTERN - Cardiovascular Exam Cardiovascular Exam: REGULAR RHYTHM - GI/Abdominal Exam GI & Abdominal Exam: Soft, Normal Bowel Sounds - Rectal Exam Rectal Exam: NORMAL INSPECTION - Exam External exam: NORMAL EXTERNAL EXAM - Extremities Exam Extremities Exam: Full ROM - Back Exam Back Exam: NORMAL INSPECTION - Neurological Exam Neurological Exam: Alert, Awake Neuro motor strength exam: Left Upper Extremity: 2/1, Right Upper Extremity: 3, Left Lower Extremity: 2/1, Right Lower Extremity: 3 - Psychiatric Exam Psychiatric exam: Normal Affect, Normal Mood - Skin Skin Exam: Dry, Intact, Normal Color Assessment and Plan (1) HTN (hypertension) Status: Chronic (2) Bursitis Status: Acute (3) CVA (cerebral vascular accident) Assessment & Plan: plan for physical, occupational therapy, rec and speech therapy for team conference Dc for September 25 Status: Acute (4) Cervical radiculopathy Status: Acute (5) Decreased ambulation status Status: Acute
--- NOTE | 2018-09-07 14:55 | CP.PCM.PN ---
Subjective - Date & Time of Evaluation Date of Evaluation: 09/07/18 Time of Evaluation: 10:40 - Subjective Subjective: F/U CVA no AD, HR up to 140's during PT Objective - Vital Signs/Intake and Output Vital Signs (last 24 hours): Temp Pulse Resp BP Pulse Ox 97.9 F 100 H 18 142/83 98 09/07/18 09:04 09/07/18 09:04 09/07/18 09:04 09/07/18 09:04 09/07/18 09:04 - Medications Medications: Current Medications Acetaminophen (Tylenol 325mg Tab) 650 mg PO Q6 PRN PRN Reason: for pain scale 4-10 Last Admin: 09/04/18 19:37 Dose: 650 mg Aspirin (Aspirin Chewable) 81 mg PO DAILY [facility] Last Admin: 09/07/18 08:37 Dose: 81 mg Atorvastatin Calcium (Lipitor) 40 mg PO HS [facility] Last Admin: 09/06/18 21:41 Dose: 40 mg Bisacodyl (Dulcolax) 10 mg MD DAILY PRN PRN Reason: Constipation Last Admin: 09/02/18 23:30 Dose: 10 mg Cilostazol (Pletal) 50 mg PO BID [facility] Last Admin: 09/07/18 08:37 Dose: 50 mg Ciprofloxacin (Cipro) 500 mg PO Q12 [facility]; Protocol Last Admin: 09/07/18 08:37 Dose: 500 mg Clopidogrel Bisulfate (Plavix) 75 mg PO DAILY [facility] Last Admin: 09/07/18 08:40 Dose: 75 mg Enalapril Maleate (Vasotec) 10 mg PO DAILY [facility] Last Admin: 09/07/18 08:37 Dose: 10 mg Enoxaparin Sodium (Lovenox) 40 mg SC DAILY [facility]; Protocol Last Admin: 09/07/18 08:38 Dose: 40 mg Famotidine (Pepcid) 20 mg PO BID [facility] Last Admin: 09/07/18 08:37 Dose: 20 mg Lactulose (Enulose) 20 gm PO DAILY [facility] Last Admin: 09/07/18 08:38 Dose: 20 gm Meclizine HCl (Antivert) 25 mg PO DAILY [facility] Last Admin: 09/07/18 08:37 Dose: 25 mg - Labs Labs: 09/07/18 05:30 09/07/18 05:30 - Constitutional Appears: No Acute Distress - Head Exam Head Exam: NORMAL INSPECTION - Eye Exam Eye Exam: PERRL - ENT Exam ENT Exam: Normal Exam - Neck Exam Neck Exam: Normal Inspection - Respiratory Exam Respiratory Exam: NORMAL BREATHING PATTERN - Cardiovascular Exam Cardiovascular Exam: REGULAR RHYTHM, Murmur (/ LSB) - GI/Abdominal Exam GI & Abdominal Exam: Soft, Normal Bowel Sounds - Extremities Exam Extremities Exam: Tenderness (L shoulder) - Back Exam Back Exam: tenderness (mild L-S) - Neurological Exam Neurological Exam: Awake Additional comments: Forgetful, confused, L facial droop, L hemiparesia - Skin Skin Exam: Warm Assessment and Plan (1) CVA (cerebral vascular accident) Status: Acute (2) History of CVA with residual deficit Status: Chronic (3) Generalized weakness Status: Acute (4) Altered mental status Status: Acute (5) HTN (hypertension) Status: Chronic (6) Tachycardia Status: Acute (7) Pain in left shoulder Status: Chronic - Assessment and Plan (Free Text) Plan: Tachycardia during PT HR up to 140's, also Tachycardia low 100's at rest, VQ Lung scan could not be done due to no IV access, to have PICC line for VQ Lung Scan, f/u Cardiac consult, continue Lovenox, Plavix, Pletal, Lopressor, Vasotec
[2018-09-08] MEDS: Sodium Chloride 0.9% 1,000 ML IV SCH ×2 (07:34→12:33)
--- NOTE | 2018-09-08 07:45 | CP.PCM.PN ---
Subjective - Date & Time of Evaluation Date of Evaluation: 09/08/18 Time of Evaluation: 07:43 - Subjective Subjective: Justyna Colindres, PGY-1, Cardiology Progress Note for Dr. Holland Patient seen and evaluated at bedside. Patient had no acute overnight events. Patient continues to report left sided weakness but denies chest pain, shortness of breath, nausea, diaphoresis, left arm pain, or jaw pain. Patient notes right arm pain as venous access was tried multiple times. Objective - Vital Signs/Intake and Output Vital Signs (last 24 hours): Temp Pulse Resp BP Pulse Ox 97.7 F 109 H 20 135/79 97 09/07/18 20:18 09/07/18 21:23 09/07/18 20:18 09/07/18 21:23 09/07/18 20:18 - Medications Medications: Current Medications Acetaminophen (Tylenol 325mg Tab) 650 mg PO Q6 PRN PRN Reason: for pain scale 4-10 Last Admin: 09/07/18 23:48 Dose: 650 mg Aspirin (Aspirin Chewable) 81 mg PO DAILY [facility] Last Admin: 09/07/18 08:37 Dose: 81 mg Atorvastatin Calcium (Lipitor) 40 mg PO HS [facility] Last Admin: 09/07/18 21:23 Dose: 40 mg Bisacodyl (Dulcolax) 10 mg MS DAILY PRN PRN Reason: Constipation Last Admin: 09/07/18 17:49 Dose: 10 mg Cilostazol (Pletal) 50 mg PO BID [facility] Last Admin: 09/07/18 17:43 Dose: 50 mg Ciprofloxacin (Cipro) 500 mg PO Q12 [facility]; Protocol Last Admin: 09/07/18 21:23 Dose: 500 mg Clopidogrel Bisulfate (Plavix) 75 mg PO DAILY [facility] Last Admin: 09/07/18 08:40 Dose: 75 mg Enalapril Maleate (Vasotec) 10 mg PO DAILY [facility] Last Admin: 09/07/18 08:37 Dose: 10 mg Enoxaparin Sodium (Lovenox) 40 mg SC DAILY [facility]; Protocol Last Admin: 09/07/18 08:38 Dose: 40 mg Famotidine (Pepcid) 20 mg PO BID [facility] Last Admin: 09/07/18 17:46 Dose: 20 mg Sodium Chloride (Sodium Chloride 0.9%) 1,000 mls @ 50 mls/hr IV .Q20H [facility] Stop: 09/08/18 15:12 Last Admin: 09/08/18 07:34 Dose: 50 mls/hr Lactulose (Enulose) 20 gm PO DAILY [facility] Last Admin: 09/07/18 08:38 Dose: 20 gm Meclizine HCl (Antivert) 25 mg PO DAILY [facility] Last Admin: 09/07/18 08:37 Dose: 25 mg Metoprolol Tartrate (Lopressor) 50 mg PO Q12 [facility] Last Admin: 09/07/18 21:23 Dose: 50 mg - Labs Labs: 09/07/18 05:30 09/07/18 05:30 - Constitutional Appears: Well, Non-toxic, No Acute Distress - Head Exam Head Exam: ATRAUMATIC, NORMAL INSPECTION, NORMOCEPHALIC - Eye Exam Eye Exam: EOMI, PERRL - ENT Exam ENT Exam: Mucous Membranes Moist - Respiratory Exam Respiratory Exam: Clear to Ausculation Bilateral, NORMAL BREATHING PATTERN - Cardiovascular Exam Cardiovascular Exam: Tachycardia, REGULAR RHYTHM, +S1, +S2 - GI/Abdominal Exam GI & Abdominal Exam: Soft, Normal Bowel Sounds. 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 cerebral hemisphere (prominent at right posterior parietal and occipital lobe) suggestive of right MCA infarct Carotid Artery U/S 09/01: Right ICA and Left ICA < 50% stenosis MRA 09/01: Narrow distal right internal carotid artery; Right MCA smaller than left; Diffuse stenosis of R ICA HgbA1c 09/01: 5.7 Lipid panel 09/02: unremarkable except for low HDL Tropx4: negative BNP 08/31: 60.7 Continue aspirin, lipitor, and enalapril for acute stroke. Continue with PT and OT Continue with antibiotics for treatment of UTI Will need evaluation with PATRICIA to rule out ASD or PFO as cause of recurrent strokes to be done likely Wednesday. Fluids were unable to be started due to issues with obtaining access. Will start fluids this morning and monitor for heart rate. Patient is still tachycardic. Medications: aspirin 81 mg daily lipitor 40 mg daily cipro 500 Q12 plavix 75 daily enalapril 10 daily meclizine 25 mg daily metoprolol tartrate 50 mg BID NS at 50 cc/hr
[2018-09-08] MEDS: Enoxaparin 40 mg Syringe SC SCH (09:02)
[2018-09-08] MEDS: Cilostazol 50 mg Tab UD PO SCH ×2 (09:03→17:25)
--- NOTE | 2018-09-08 17:31 | CP.PCM.PN ---
Subjective - Date & Time of Evaluation Date of Evaluation: 09/08/18 Time of Evaluation: 17:29 - Subjective Subjective: Coverage for Dr Sandra Seen in room with nurse and family member denies chest pain or SOB dense left UE/LE HP max A in all aspects family does not want [facility] Therapy on hold pending VQ scan no doppler has been done no calf tenderness. Given above I will get a doppler and if negative should be able to get up and mobilized as tolerated. Objective - Vital Signs/Intake and Output Vital Signs (last 24 hours): Temp Pulse Resp BP Pulse Ox 97.9 F 96 H 18 124/61 96 09/08/18 08:59 09/08/18 11:25 09/08/18 08:59 09/08/18 11:25 09/08/18 08:59 - Medications Medications: Current Medications Acetaminophen (Tylenol 325mg Tab) 650 mg PO Q6 PRN PRN Reason: for pain scale 4-10 Last Admin: 09/07/18 23:48 Dose: 650 mg Aspirin (Aspirin Chewable) 81 mg PO DAILY [facility] Last Admin: 09/08/18 09:02 Dose: 81 mg Atorvastatin Calcium (Lipitor) 40 mg PO HS [facility] Last Admin: 09/07/18 21:23 Dose: 40 mg Bisacodyl (Dulcolax) 10 mg [place] DAILY PRN PRN Reason: Constipation Last Admin: 09/07/18 17:49 Dose: 10 mg Cilostazol (Pletal) 50 mg PO BID [facility] Last Admin: 09/08/18 17:25 Dose: 50 mg Ciprofloxacin (Cipro) 500 mg PO Q12 [facility]; Protocol Last Admin: 09/08/18 09:03 Dose: 500 mg Clopidogrel Bisulfate (Plavix) 75 mg PO DAILY [facility] Last Admin: 09/08/18 09:06 Dose: 75 mg Enalapril Maleate (Vasotec) 10 mg PO DAILY [facility] Last Admin: 09/08/18 09:02 Dose: 10 mg Enoxaparin Sodium (Lovenox) 40 mg SC DAILY [facility]; Protocol Last Admin: 09/08/18 09:02 Dose: 40 mg Famotidine (Pepcid) 20 mg PO BID [facility] Last Admin: 09/08/18 17:24 Dose: 20 mg Lactulose (Enulose) 20 gm PO DAILY [facility] Last Admin: 09/08/18 09:03 Dose: 20 gm Meclizine HCl (Antivert) 25 mg PO DAILY [facility] Last Admin: 09/08/18 09:03 Dose: 25 mg Metoprolol Tartrate (Lopressor) 50 mg PO Q12 [facility] Last Admin: 09/08/18 09:02 Dose: 50 mg - Labs Labs: 09/07/18 05:30 09/07/18 05:30
[2018-09-09] MEDS: Cilostazol 50 mg Tab UD PO SCH ×2 (09:17→17:54)
[2018-09-09] MEDS: Enoxaparin 40 mg Syringe SC SCH (09:19)
--- NOTE | 2018-09-09 09:30 | US ---
Date of service: 09/08/2018 HISTORY: r/o DVT. PRIORS: None. FINDINGS: 2-D, color and duplex Doppler analysis of the lower extremity venous circulation using routine protocol from the femoral veins through the popliteal veins. Venous compressibility: Normal. Flow and augmentation patterns: Normal. Visualized veins upper third of calf: Normal. Carvajal cyst: None. IMPRESSION: No sonographic or Doppler evidence for DVT in left lower extremity. Concordant findings (preliminary report) provided by ADEN ROJAS.
--- NOTE | 2018-09-09 12:05 | CP.PCM.PN ---
Subjective - Date & Time of Evaluation Date of Evaluation: 09/09/18 Time of Evaluation: 12:03 - Subjective Subjective: Justyna Colindres, PGY-1, Cardiology Progress Note for Dr. Holland Patient seen and evaluated at bedside. Patient had no acute overnight events. Patient continues to report left sided weakness but denies chest pain, shortness of breath, nausea, diaphoresis, left arm pain, or jaw pain. Objective - Vital Signs/Intake and Output Vital Signs (last 24 hours): Temp Pulse Resp BP Pulse Ox 97.9 F 93 H 20 157/93 H 98 09/09/18 10:00 09/09/18 10:00 09/09/18 10:00 09/09/18 10:00 09/09/18 10:00 Intake and Output: 09/09/18 09/09/18 06:59 18:59 Intake Total 740 Balance 740 - Medications Medications: Current Medications Acetaminophen (Tylenol 325mg Tab) 650 mg PO Q6 PRN PRN Reason: for pain scale 4-10 Last Admin: 09/07/18 23:48 Dose: 650 mg Aspirin (Aspirin Chewable) 81 mg PO DAILY [facility] Last Admin: 09/09/18 09:18 Dose: 81 mg Atorvastatin Calcium (Lipitor) 40 mg PO HS [facility] Last Admin: 09/08/18 21:13 Dose: 40 mg Bisacodyl (Dulcolax) 10 mg [place] DAILY PRN PRN Reason: Constipation Last Admin: 09/07/18 17:49 Dose: 10 mg Cilostazol (Pletal) 50 mg PO BID [facility] Last Admin: 09/09/18 09:17 Dose: 50 mg Clopidogrel Bisulfate (Plavix) 75 mg PO DAILY [facility] Last Admin: 09/09/18 09:17 Dose: 75 mg Enalapril Maleate (Vasotec) 10 mg PO DAILY [facility] Last Admin: 09/09/18 09:18 Dose: 10 mg Enoxaparin Sodium (Lovenox) 40 mg SC DAILY [facility]; Protocol Last Admin: 09/09/18 09:19 Dose: 40 mg Famotidine (Pepcid) 20 mg PO BID [facility] Last Admin: 09/09/18 09:17 Dose: 20 mg Lactulose (Enulose) 20 gm PO DAILY [facility] Last Admin: 09/09/18 09:18 Dose: 20 gm Meclizine HCl (Antivert) 25 mg PO DAILY [facility] Last Admin: 09/09/18 09:19 Dose: 25 mg Metoprolol Tartrate (Lopressor) 50 mg PO Q12 [facility] Last Admin: 09/09/18 09:17 Dose: 50 mg - Labs Labs: 09/07/18 05:30 09/07/18 05:30 - Constitutional Appears: Well, Non-toxic, No Acute Distress - Head Exam Head Exam: ATRAUMATIC, NORMAL INSPECTION, NORMOCEPHALIC - Eye Exam Eye Exam: EOMI, PERRL - ENT Exam ENT Exam: Mucous Membranes Moist - Respiratory Exam Respiratory Exam: Clear to Ausculation Bilateral, NORMAL BREATHING PATTERN - Cardiovascular Exam Cardiovascular Exam: RRR, REGULAR RHYTHM, +S1, +S2 - GI/Abdominal Exam GI & Abdominal Exam: Soft, Normal Bowel Sounds. 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 cerebral hemisphere (prominent at right posterior parietal and occipital lobe) suggestive of right MCA infarct Carotid Artery U/S 09/01: Right ICA and Left ICA < 50% stenosis MRA 09/01: Narrow distal right internal carotid artery; Right MCA smaller than left; Diffuse stenosis of R ICA HgbA1c 09/01: 5.7 Lipid panel 09/02: unremarkable except for low HDL Tropx4: negative BNP 08/31: 60.7 Continue aspirin, lipitor, and enalapril for acute stroke. Continue with PT and OT Continue with antibiotics for treatment of UTI Will need evaluation with PATRICIA to rule out ASD or PFO as cause of recurrent strokes to be done likely Wednesday. Heart rate improved to 93 today Medications: aspirin 81 mg daily lipitor 40 mg daily cipro 500 Q12 plavix 75 daily enalapril 10 daily meclizine 25 mg daily metoprolol tartrate 50 mg BID NS at 50 cc/hr
--- NOTE | 2018-09-09 14:14 | CP.PCM.PN ---
Subjective - Date & Time of Evaluation Date of Evaluation: 09/09/18 Time of Evaluation: 14:30 - Subjective Subjective: F/U CVA No A/D, N/C Objective - Vital Signs/Intake and Output Vital Signs (last 24 hours): Temp Pulse Resp BP Pulse Ox 97.9 F 93 H 20 157/93 H 98 09/09/18 10:00 09/09/18 10:00 09/09/18 10:00 09/09/18 10:00 09/09/18 10:00 Intake and Output: 09/09/18 09/09/18 06:59 18:59 Intake Total 740 Balance 740 - Medications Medications: Current Medications Acetaminophen (Tylenol 325mg Tab) 650 mg PO Q6 PRN PRN Reason: for pain scale 4-10 Last Admin: 09/07/18 23:48 Dose: 650 mg Aspirin (Aspirin Chewable) 81 mg PO DAILY [facility] Last Admin: 09/09/18 09:18 Dose: 81 mg Atorvastatin Calcium (Lipitor) 40 mg PO HS [facility] Last Admin: 09/08/18 21:13 Dose: 40 mg Bisacodyl (Dulcolax) 10 mg [place] DAILY PRN PRN Reason: Constipation Last Admin: 09/07/18 17:49 Dose: 10 mg Cilostazol (Pletal) 50 mg PO BID [facility] Last Admin: 09/09/18 09:17 Dose: 50 mg Clopidogrel Bisulfate (Plavix) 75 mg PO DAILY [facility] Last Admin: 09/09/18 09:17 Dose: 75 mg Enalapril Maleate (Vasotec) 10 mg PO DAILY [facility] Last Admin: 09/09/18 09:18 Dose: 10 mg Enoxaparin Sodium (Lovenox) 40 mg SC DAILY [facility]; Protocol Last Admin: 09/09/18 09:19 Dose: 40 mg Famotidine (Pepcid) 20 mg PO BID [facility] Last Admin: 09/09/18 09:17 Dose: 20 mg Lactulose (Enulose) 20 gm PO DAILY [facility] Last Admin: 09/09/18 09:18 Dose: 20 gm Meclizine HCl (Antivert) 25 mg PO DAILY [facility] Last Admin: 09/09/18 09:19 Dose: 25 mg Metoprolol Tartrate (Lopressor) 50 mg PO Q12 [facility] Last Admin: 09/09/18 09:17 Dose: 50 mg - Labs Labs: 09/07/18 05:30 09/07/18 05:30 - Constitutional Appears: No Acute Distress - Head Exam Head Exam: NORMAL INSPECTION - Eye Exam Eye Exam: PERRL - ENT Exam ENT Exam: Normal Exam - Neck Exam Neck Exam: Normal Inspection - Respiratory Exam Respiratory Exam: NORMAL BREATHING PATTERN - Cardiovascular Exam Cardiovascular Exam: REGULAR RHYTHM, Murmur (1/6 LSB) - GI/Abdominal Exam GI & Abdominal Exam: Soft, Normal Bowel Sounds - Extremities Exam Extremities Exam: Tenderness (L shoulder) - Back Exam Back Exam: NORMAL INSPECTION - Neurological Exam Neurological Exam: Awake Additional comments: Forgetful, confused, L facial droop, L hemiparesia - Skin Skin Exam: Normal Color Assessment and Plan (1) CVA (cerebral vascular accident) Status: Acute (2) History of CVA with residual deficit Status: Chronic (3) Generalized weakness Status: Acute (4) Altered mental status Status: Acute (5) HTN (hypertension) Status: Chronic (6) Tachycardia Status: Acute (7) Pain in left shoulder Status: Chronic - Assessment and Plan (Free Text) Plan: No IV access, cancel Lung VQ scan, HR stable, continue PT
[2018-09-10 08:52] LABS: BLOOD UREA NITROGEN 11 mg/dl (7-17); CALCIUM 10.1 mg/dL (8.4-10.2); GFR NON-AFRICAN AMERICAN > 60
[2018-09-10] MEDS: Cilostazol 50 mg Tab UD PO SCH ×2 (08:53→17:00)
[2018-09-10] MEDS: Enoxaparin 40 mg Syringe SC SCH (08:55)
[2018-09-10 10:08] LABS: HEMOGLOBIN 12.1 g/dL (12.0-16.0); MEAN CELL VOLUME 93.9 fl (81.0-99.0); MEAN CORPUSCULAR HEMOGLOBIN 32.3 pg (27.0-31.0); MEAN CORPUSCULAR HGB CONC 34.4 g/dL (33.0-37.0); RBC 3.76 Mil/uL (3.80-5.20); RED CELL DISTRIBUTION WIDTH 13.9 % (11.5-14.5); WHITE BLOOD COUNT 5.8 K/uL (4.8-10.8)
--- NOTE | 2018-09-10 14:44 | CP.PCM.PN ---
Subjective - Date & Time of Evaluation Date of Evaluation: 09/10/18 Time of Evaluation: 14:00 - Subjective Subjective: F/U CVA Pt awake, no A/D, no c/o, no SOB, no pain. Objective - Vital Signs/Intake and Output Vital Signs (last 24 hours): Temp Pulse Resp BP Pulse Ox 97.7 F 76 20 141/73 96 09/10/18 09:07 09/10/18 08:51 09/09/18 21:00 09/10/18 08:51 09/09/18 21:00 - Medications Medications: Current Medications Acetaminophen (Tylenol 325mg Tab) 650 mg PO Q6 PRN PRN Reason: for pain scale 4-10 Last Admin: 09/10/18 09:07 Dose: 650 mg Aspirin (Aspirin Chewable) 81 mg PO DAILY [facility] Last Admin: 09/10/18 08:54 Dose: 81 mg Atorvastatin Calcium (Lipitor) 40 mg PO HS [facility] Last Admin: 09/09/18 21:11 Dose: 40 mg Bisacodyl (Dulcolax) 10 mg [place] DAILY PRN PRN Reason: Constipation Last Admin: 09/07/18 17:49 Dose: 10 mg Cilostazol (Pletal) 50 mg PO BID [facility] Last Admin: 09/10/18 08:53 Dose: 50 mg Clopidogrel Bisulfate (Plavix) 75 mg PO DAILY [facility] Last Admin: 09/10/18 08:57 Dose: 75 mg Enalapril Maleate (Vasotec) 10 mg PO DAILY [facility] Last Admin: 09/10/18 08:53 Dose: 10 mg Enoxaparin Sodium (Lovenox) 40 mg SC DAILY [facility]; Protocol Last Admin: 09/10/18 08:55 Dose: 40 mg Famotidine (Pepcid) 20 mg PO BID [facility] Last Admin: 09/10/18 08:52 Dose: 20 mg Lactulose (Enulose) 20 gm PO DAILY [facility] Last Admin: 09/10/18 08:52 Dose: 20 gm Meclizine HCl (Antivert) 25 mg PO DAILY [facility] Last Admin: 09/10/18 08:53 Dose: 25 mg Metoprolol Tartrate (Lopressor) 50 mg PO Q12 [facility] Last Admin: 09/10/18 08:51 Dose: 50 mg - Labs Labs: 09/10/18 07:00 09/10/18 07:00 - Constitutional Appears: No Acute Distress - Head Exam Head Exam: NORMAL INSPECTION - Eye Exam Eye Exam: PERRL - ENT Exam ENT Exam: Normal Exam - Neck Exam Neck Exam: Normal Inspection - Respiratory Exam Respiratory Exam: NORMAL BREATHING PATTERN - Cardiovascular Exam Cardiovascular Exam: REGULAR RHYTHM, Murmur (1/6 LSB) - GI/Abdominal Exam GI & Abdominal Exam: Soft, Normal Bowel Sounds - Extremities Exam Extremities Exam: Tenderness (L shoulder) - Back Exam Back Exam: NORMAL INSPECTION - Neurological Exam Neurological Exam: Awake Additional comments: Forgetful, confused, L facial droop, L hemiparesia - Skin Skin Exam: Warm Assessment and Plan (1) CVA (cerebral vascular accident) Status: Acute (2) History of CVA with residual deficit Status: Chronic (3) Generalized weakness Status: Acute (4) Altered mental status Status: Acute (5) HTN (hypertension) Status: Chronic (6) Tachycardia Status: Acute (7) Pain in left shoulder Status: Chronic - Assessment and Plan (Free Text) Plan: Continue ASA, Lipitor, Enalapril, Metropolol and rest of Tx, PT/OT. ETT rescheduled for next week as per cardiology.
[2018-09-11] MEDS: Cilostazol 50 mg Tab UD PO SCH ×2 (08:45→17:49)
[2018-09-11] MEDS: Enoxaparin 40 mg Syringe SC SCH (08:46)
--- NOTE | 2018-09-11 09:14 | CP.PCM.PN ---
Subjective - Date & Time of Evaluation Date of Evaluation: 09/11/18 Time of Evaluation: 09:12 - Subjective Subjective: Dr. Lozano Coverage on Tahira Manley, born 08/21/1950 who has been admitted to the [facility] acute rehab unit with dense left HP following right CVA + history of prior CVA, OA, HTN, Hyperchlostremia Objective - Vital Signs/Intake and Output Vital Signs (last 24 hours): Temp Pulse Resp BP Pulse Ox 98.1 F 87 20 143/81 96 09/10/18 21:00 09/11/18 08:45 09/10/18 21:00 09/11/18 08:45 09/10/18 21:00 - Medications Medications: Current Medications Acetaminophen (Tylenol 325mg Tab) 650 mg PO Q6 PRN PRN Reason: for pain scale 4-10 Last Admin: 09/10/18 09:07 Dose: 650 mg Aspirin (Aspirin Chewable) 81 mg PO DAILY [facility] Last Admin: 09/11/18 08:46 Dose: 81 mg Atorvastatin Calcium (Lipitor) 40 mg PO HS [facility] Last Admin: 09/10/18 21:05 Dose: 40 mg Bisacodyl (Dulcolax) 10 mg [place] DAILY PRN PRN Reason: Constipation Last Admin: 09/07/18 17:49 Dose: 10 mg Cilostazol (Pletal) 50 mg PO BID [facility] Last Admin: 09/11/18 08:45 Dose: 50 mg Clopidogrel Bisulfate (Plavix) 75 mg PO DAILY [facility] Last Admin: 09/11/18 08:48 Dose: 75 mg Enalapril Maleate (Vasotec) 10 mg PO DAILY [facility] Last Admin: 09/11/18 08:46 Dose: 10 mg Enoxaparin Sodium (Lovenox) 40 mg SC DAILY [facility]; Protocol Last Admin: 09/11/18 08:46 Dose: 40 mg Famotidine (Pepcid) 20 mg PO BID [facility] Last Admin: 09/11/18 08:45 Dose: 20 mg Lactulose (Enulose) 20 gm PO DAILY [facility] Last Admin: 09/11/18 08:49 Dose: 20 gm Meclizine HCl (Antivert) 25 mg PO DAILY [facility] Last Admin: 09/11/18 08:46 Dose: 25 mg Metoprolol Tartrate (Lopressor) 50 mg PO Q12 [facility] Last Admin: 09/11/18 08:45 Dose: 50 mg - Labs Labs: 09/10/18 07:00 09/10/18 07:00 - Constitutional Appears: Non-toxic, No Acute Distress - Head Exam Head Exam: ATRAUMATIC, NORMAL INSPECTION, NORMOCEPHALIC - ENT Exam ENT Exam: Mucous Membranes Moist - Respiratory Exam Respiratory Exam: NORMAL BREATHING PATTERN - Cardiovascular Exam Cardiovascular Exam: REGULAR RHYTHM. absent: JVD - GI/Abdominal Exam GI & Abdominal Exam: Soft - Neurological Exam Neurological Exam: Alert Neuro motor strength exam: Left Upper Extremity: 0, Right Upper Extremity: 5, Left Lower Extremity: 2/1, Right Lower Extremity: 5 - Psychiatric Exam Psychiatric exam: Normal Affect - Skin Skin Exam: Warm Assessment and Plan - Assessment and Plan (Free Text) Assessment: PT/OT to continue to help increase functional independence Team conference for d/c planning Pain: controlled, although does have some left knee pain. will see how this responds to therapy tomorrow Vascular: no evidence of DVT GI: No evidence of constipation or diarrhea Patient continues to be an excellent acute rehabilitation candidate and will have continued focused speech, PT, OT and recreational therapy to help facilitate a safe and appropriate d/c plan
[2018-09-12] MEDS: Enoxaparin 40 mg Syringe SC SCH (08:29)
[2018-09-12] MEDS: Cilostazol 50 mg Tab UD PO SCH ×2 (08:29→17:41)
--- NOTE | 2018-09-12 16:32 | CP.PCM.PN ---
Subjective - Date & Time of Evaluation Date of Evaluation: 09/12/18 Time of Evaluation: 16:31 - Subjective Subjective: Dr. Lozano Coverage on Tahira Manley, born 08/21/1950 who has been admitted to the [facility] acute rehab unit with dense left HP following right CVA + history of prior CVA, OA, HTN, Hyperchlostremia Objective - Vital Signs/Intake and Output Vital Signs (last 24 hours): Temp Pulse Resp BP Pulse Ox 97.7 F 77 17 136/71 97 09/12/18 09:10 09/12/18 09:10 09/12/18 09:10 09/12/18 09:10 09/12/18 09:10 - Medications Medications: Current Medications Acetaminophen (Tylenol 325mg Tab) 650 mg PO Q6 PRN PRN Reason: for pain scale 4-10 Last Admin: 09/12/18 11:07 Dose: 650 mg Aspirin (Aspirin Chewable) 81 mg PO DAILY [facility] Last Admin: 09/12/18 08:28 Dose: 81 mg Atorvastatin Calcium (Lipitor) 40 mg PO HS [facility] Last Admin: 09/11/18 21:05 Dose: 40 mg Bisacodyl (Dulcolax) 10 mg [place] DAILY PRN PRN Reason: Constipation Last Admin: 09/07/18 17:49 Dose: 10 mg Cilostazol (Pletal) 50 mg PO BID [facility] Last Admin: 09/12/18 08:29 Dose: 50 mg Clopidogrel Bisulfate (Plavix) 75 mg PO DAILY [facility] Last Admin: 09/12/18 08:28 Dose: 75 mg Enalapril Maleate (Vasotec) 10 mg PO DAILY [facility] Last Admin: 09/12/18 08:28 Dose: 10 mg Enoxaparin Sodium (Lovenox) 40 mg SC DAILY [facility]; Protocol Last Admin: 09/12/18 08:29 Dose: 40 mg Famotidine (Pepcid) 20 mg PO BID [facility] Last Admin: 09/12/18 08:28 Dose: 20 mg Lactulose (Enulose) 20 gm PO DAILY [facility] Last Admin: 09/12/18 08:30 Dose: 20 gm Meclizine HCl (Antivert) 25 mg PO DAILY [facility] Last Admin: 09/12/18 08:28 Dose: 25 mg Metoprolol Tartrate (Lopressor) 50 mg PO Q12 [facility] Last Admin: 09/12/18 08:29 Dose: 50 mg - Labs Labs: 09/10/18 07:00 09/10/18 07:00 - Constitutional Appears: Non-toxic, No Acute Distress - Head Exam Head Exam: ATRAUMATIC, NORMAL INSPECTION, NORMOCEPHALIC - Eye Exam Eye Exam: EOMI - ENT Exam ENT Exam: Mucous Membranes Moist - Respiratory Exam Respiratory Exam: NORMAL BREATHING PATTERN - Cardiovascular Exam Cardiovascular Exam: REGULAR RHYTHM - GI/Abdominal Exam GI & Abdominal Exam: Soft. absent: Distended - Extremities Exam Extremities Exam: absent: Calf Tenderness (some bilateral swelling) - Neurological Exam Neurological Exam: Alert Neuro motor strength exam: Left Upper Extremity: 0, Right Upper Extremity: 5, Left Lower Extremity: 0, Right Lower Extremity: 5 - Psychiatric Exam Psychiatric exam: Flat Affect - Skin Skin Exam: Warm Assessment and Plan - Assessment and Plan (Free Text) Assessment: 78 year old female with dense left HP after right CVA PT/OT to continue to help increase functional independence Team conference for d/c planning Pain: controlled, although does have some left knee pain. will see how this responds to therapy tomorrow Vascular: no evidence of DVT GI: No evidence of constipation or diarrhea Patient continues to be an excellent acute rehabilitation candidate and will have continued focused speech, PT, OT and recreational therapy to help facilit ate a safe and appropriate d/c plan
[2018-09-13 06:34] LABS: HEMOGLOBIN 12.2 g/dL (12.0-16.0); MEAN CELL VOLUME 94.4 fl (81.0-99.0); MEAN CORPUSCULAR HEMOGLOBIN 32.4 pg (27.0-31.0); MEAN CORPUSCULAR HGB CONC 34.3 g/dL (33.0-37.0); RBC 3.76 Mil/uL (3.80-5.20); RED CELL DISTRIBUTION WIDTH 14.1 % (11.5-14.5); WHITE BLOOD COUNT 6.3 K/uL (4.8-10.8)
[2018-09-13 06:46] LABS: BLOOD UREA NITROGEN 15 mg/dl (7-17); GFR NON-AFRICAN AMERICAN > 60
[2018-09-13] MEDS: Cilostazol 50 mg Tab UD PO SCH ×2 (08:33→16:15)
--- NOTE | 2018-09-13 09:23 | CP.PCM.PN ---
Subjective - Date & Time of Evaluation Date of Evaluation: 09/13/18 Time of Evaluation: 13:02 - Subjective Subjective: Justyna Colindres, PGY-1, Cardiology Progress Note for Dr. Holland Patient seen and evaluated at bedside. Patient had no acute overnight events. Patient continues to report left sided weakness but denies any new symptoms including chest pain, shortness of breath, nausea, diaphoresis, left arm pain, or jaw pain. Objective - Vital Signs/Intake and Output Vital Signs (last 24 hours): Temp Pulse Resp BP Pulse Ox 97.9 F 73 19 142/76 97 09/13/18 08:08 09/13/18 08:34 09/13/18 08:08 09/13/18 08:34 09/13/18 08:08 - Medications Medications: Current Medications Acetaminophen (Tylenol 325mg Tab) 650 mg PO Q6 PRN PRN Reason: for pain scale 4-10 Last Admin: 09/12/18 23:11 Dose: 650 mg Aspirin (Aspirin Chewable) 81 mg PO DAILY [facility] Last Admin: 09/13/18 08:35 Dose: Not Given Atorvastatin Calcium (Lipitor) 40 mg PO HS [facility] Last Admin: 09/12/18 21:21 Dose: 40 mg Bisacodyl (Dulcolax) 10 mg [place] DAILY PRN PRN Reason: Constipation Last Admin: 09/07/18 17:49 Dose: 10 mg Cilostazol (Pletal) 50 mg PO BID [facility] Last Admin: 09/13/18 08:33 Dose: Not Given Clopidogrel Bisulfate (Plavix) 75 mg PO DAILY [facility] Last Admin: 09/13/18 08:34 Dose: Not Given Enalapril Maleate (Vasotec) 10 mg PO DAILY [facility] Last Admin: 09/13/18 08:33 Dose: Not Given Enoxaparin Sodium (Lovenox) 40 mg SC DAILY [facility]; Protocol Last Admin: 09/12/18 08:29 Dose: 40 mg Famotidine (Pepcid) 20 mg PO BID [facility] Last Admin: 09/13/18 08:34 Dose: Not Given Lactulose (Enulose) 20 gm PO DAILY [facility] Last Admin: 09/13/18 08:35 Dose: Not Given Meclizine HCl (Antivert) 25 mg PO DAILY [facility] Last Admin: 09/13/18 08:35 Dose: Not Given Metoprolol Tartrate (Lopressor) 50 mg PO Q12 [facility] Last Admin: 09/13/18 08:34 Dose: Not Given - Labs Labs: 09/13/18 05:20 09/13/18 05:20 - Constitutional Appears: Well, Non-toxic, No Acute Distress - Head Exam Head Exam: ATRAUMATIC, NORMAL INSPECTION, NORMOCEPHALIC - Eye Exam Eye Exam: EOMI, PERRL - ENT Exam ENT Exam: Mucous Membranes Moist - Respiratory Exam Respiratory Exam: Clear to Ausculation Bilateral, NORMAL BREATHING PATTERN - Cardiovascular Exam Cardiovascular Exam: RRR, REGULAR RHYTHM, +S1, +S2 - GI/Abdominal Exam GI & Abdominal Exam: Soft, Normal Bowel Sounds. 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 cerebral hemisphere (prominent at right posterior parietal and occipital lobe) suggestive of right MCA infarct Carotid Artery U/S 09/01: Right ICA and Left ICA < 50% stenosis MRA 09/01: Narrow distal right internal carotid artery; Right MCA smaller than left; Diffuse stenosis of R ICA HgbA1c 09/01: 5.7 Lipid panel 09/02: unremarkable except for low HDL Tropx4: negative BNP 08/31: 60.7 Continue aspirin, lipitor, and enalapril for acute stroke. Continue with PT and OT PATRICIA done today shows aortic dilation and atheromas likely causing recurrent strokes. Patient will be NPO for 3 hours and started on a Puree diet and transferred back to rehabilitation Medications: aspirin 81 mg daily lipitor 40 mg daily cilostazol 50 mg BID plavix 75 daily enalapril 10 daily meclizine 25 mg daily metoprolol tartrate 50 mg BID
[2018-09-13] MEDS ORDERED: Propofol 10 mg/ml Inj (20 ML) ONE (12:09)
[2018-09-13] MEDS ORDERED: Etomidate 20 mg/10ml Inj IV ONE (12:10)
[2018-09-13] MEDS ORDERED: Lidocaine 1% 5ml Abboject ONE (12:10)
--- NOTE | 2018-09-13 12:44 | CP.PCM.PN ---
Subjective - Date & Time of Evaluation Date of Evaluation: 09/13/18 Time of Evaluation: 09:00 - Subjective Subjective: F/U CVA Pt with no A/D, c/o of pain L shoulder. L leg, L foot. Objective - Vital Signs/Intake and Output Vital Signs (last 24 hours): Temp Pulse Resp BP Pulse Ox 97.8 F 84 18 158/88 H 97 09/13/18 11:41 09/13/18 11:41 09/13/18 11:41 09/13/18 11:41 09/13/18 11:41 - Medications Medications: Current Medications Acetaminophen (Tylenol 325mg Tab) 650 mg PO Q6 PRN PRN Reason: for pain scale 4-10 Last Admin: 09/12/18 23:11 Dose: 650 mg Aspirin (Aspirin Chewable) 81 mg PO DAILY [facility] Last Admin: 09/13/18 08:35 Dose: Not Given Atorvastatin Calcium (Lipitor) 40 mg PO HS [facility] Last Admin: 09/12/18 21:21 Dose: 40 mg Bisacodyl (Dulcolax) 10 mg [place] DAILY PRN PRN Reason: Constipation Last Admin: 09/07/18 17:49 Dose: 10 mg Cilostazol (Pletal) 50 mg PO BID [facility] Last Admin: 09/13/18 08:33 Dose: Not Given Clopidogrel Bisulfate (Plavix) 75 mg PO DAILY [facility] Last Admin: 09/13/18 08:34 Dose: Not Given Enalapril Maleate (Vasotec) 10 mg PO DAILY [facility] Last Admin: 09/13/18 08:33 Dose: Not Given Enoxaparin Sodium (Lovenox) 40 mg SC DAILY [facility]; Protocol Last Admin: 09/12/18 08:29 Dose: 40 mg Famotidine (Pepcid) 20 mg PO BID [facility] Last Admin: 09/13/18 08:34 Dose: Not Given Lactulose (Enulose) 20 gm PO DAILY [facility] Last Admin: 09/13/18 08:35 Dose: Not Given Meclizine HCl (Antivert) 25 mg PO DAILY [facility] Last Admin: 09/13/18 08:35 Dose: Not Given Metoprolol Tartrate (Lopressor) 50 mg PO Q12 [facility] Last Admin: 09/13/18 08:34 Dose: Not Given - Labs Labs: 09/13/18 05:20 09/13/18 05:20 - Constitutional Appears: No Acute Distress - Head Exam Head Exam: NORMAL INSPECTION - Eye Exam Eye Exam: PERRL - ENT Exam ENT Exam: Normal Exam - Neck Exam Neck Exam: Normal Inspection - Respiratory Exam Respiratory Exam: NORMAL BREATHING PATTERN - Cardiovascular Exam Cardiovascular Exam: REGULAR RHYTHM, Murmur (1/6 LSB) - GI/Abdominal Exam GI & Abdominal Exam: Soft, Normal Bowel Sounds - Extremities Exam Extremities Exam: Tenderness (L shoulder) - Back Exam Back Exam: NORMAL INSPECTION - Neurological Exam Neurological Exam: Alert, Awake, CN II-XII Intact Additional comments: Ox2, forgetful, L facial droop, L hemiparesia - Skin Skin Exam: Warm Assessment and Plan (1) CVA (cerebral vascular accident) Status: Acute (2) History of CVA with residual deficit Status: Chronic (3) Generalized weakness Status: Acute (4) Altered mental status Status: Acute (5) HTN (hypertension) Status: Chronic (6) Tachycardia Status: Acute (7) Pain in left shoulder Status: Chronic - Assessment and Plan (Free Text) Plan: Continue ASA, Metoprolol, Enalapril, Lipitor, Pt,OT. For PATRICIA today.
[2018-09-13] MEDS ORDERED: Lactated Ringer's 1,000 ML IV SCH (14:00)
[2018-09-13] MEDS: Enoxaparin 60 mg Syringe SC SCH (17:30)
[2018-09-14] MEDS: Enoxaparin 60 mg Syringe SC SCH ×2 (01:05→09:24)
[2018-09-14] MEDS: Enoxaparin 40 mg Syringe SC SCH (01:07)
--- NOTE | 2018-09-14 07:52 | CP.PCM.PN ---
<Justyna Colindres - Last Filed: 09/14/18 14:26> Subjective - Date & Time of Evaluation Date of Evaluation: 09/14/18 Time of Evaluation: 07:51 - Subjective Subjective: Justyna Colindres, PGY-1, Cardiology Progress Note for Dr. Holland Patient seen and evaluated at bedside. Patient had no acute overnight events. Patient continues to report left sided weakness but denies any new symptoms including chest pain, shortness of breath, nausea, diaphoresis, left arm pain, or jaw pain. Objective - Vital Signs/Intake and Output Vital Signs (last 24 hours): Temp Pulse Resp BP Pulse Ox 97.2 F L 82 18 162/93 H 97 09/13/18 17:00 09/13/18 17:00 09/13/18 17:00 09/13/18 17:00 09/13/18 17:00 - Medications Medications: Current Medications Acetaminophen (Tylenol 325mg Tab) 650 mg PO Q6 PRN PRN Reason: for pain scale 4-10 Last Admin: 09/12/18 23:11 Dose: 650 mg Aspirin (Aspirin Chewable) 81 mg PO DAILY [facility] Last Admin: 09/13/18 08:35 Dose: Not Given Atorvastatin Calcium (Lipitor) 40 mg PO HS [facility] Last Admin: 09/14/18 01:05 Dose: Not Given Bisacodyl (Dulcolax) 10 mg CA DAILY PRN PRN Reason: Constipation Last Admin: 09/07/18 17:49 Dose: 10 mg Cilostazol (Pletal) 50 mg PO BID [facility] Last Admin: 09/13/18 16:15 Dose: 50 mg Clopidogrel Bisulfate (Plavix) 75 mg PO DAILY [facility] Last Admin: 09/13/18 08:34 Dose: Not Given Enalapril Maleate (Vasotec) 10 mg PO DAILY [facility] Last Admin: 09/13/18 16:12 Dose: 10 mg Enoxaparin Sodium (Lovenox) 50 mg SC Q12 [facility]; Protocol Last Admin: 09/14/18 01:05 Dose: Not Given Famotidine (Pepcid) 20 mg PO BID [facility] Last Admin: 09/13/18 16:16 Dose: 20 mg Lactulose (Enulose) 20 gm PO DAILY [facility] Last Admin: 09/13/18 08:35 Dose: Not Given Meclizine HCl (Antivert) 25 mg PO DAILY [facility] Last Admin: 09/13/18 08:35 Dose: Not Given Metoprolol Tartrate (Lopressor) 50 mg PO Q12 [facility] Last Admin: 09/14/18 01:05 Dose: Not Given - Labs Labs: 09/13/18 05:20 09/13/18 05:20 - Constitutional Appears: Well, Non-toxic, No Acute Distress - Head Exam Head Exam: ATRAUMATIC, NORMAL INSPECTION, NORMOCEPHALIC - Eye Exam Eye Exam: EOMI, PERRL - ENT Exam ENT Exam: Mucous Membranes Moist - Respiratory Exam Respiratory Exam: Clear to Ausculation Bilateral, NORMAL BREATHING PATTERN - Cardiovascular Exam Cardiovascular Exam: RRR, REGULAR RHYTHM, +S1, +S2 - GI/Abdominal Exam GI & Abdominal Exam: Soft, Normal Bowel Sounds. 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 Patient will be NPO for 3 hours and started on a Puree diet and transferred back to rehabilitation Extremity ultrasound on 09/08: no DVT observed Brain MRI 09/01: Foci of diffusion restriction in R. cerebral hemisphere (prominent at right posterior parietal and occipital lobe) suggestive of right MCA infarct Carotid Artery U/S 09/01: Right ICA and Left ICA < 50% stenosis MRA 09/01: Narrow distal right internal carotid artery; Right MCA smaller than left; Diffuse stenosis of R ICA HgbA1c 09/01: 5.7 Lipid panel 09/02: unremarkable except for low HDL Tropx4: negative BNP 3/13: 60.7 Continue aspirin, lipitor, and enalapril for acute stroke. Continue with PT and OT Will add xarelto as anticoagulation for atheroma Medications: aspirin 81 mg daily lipitor 40 mg daily cilostazol 50 mg BID plavix 75 daily enalapril 10 daily meclizine 25 mg daily metoprolol tartrate 50 mg BID <Jamil Holland - Last Filed: 09/14/18 23:27> Objective - Vital Signs/Intake and Output Vital Signs (last 24 hours): Temp Pulse Resp BP Pulse Ox 97.7 F 89 20 124/61 97 09/14/18 19:56 09/14/18 21:18 09/14/18 19:56 09/14/18 21:18 09/14/18 19:56 - Medications Medications: Current Medications Acetaminophen (Tylenol 325mg Tab) 650 mg PO Q6 PRN PRN Reason: for pain scale 4-10 Last Admin: 09/12/18 23:11 Dose: 650 mg Aspirin (Aspirin Chewable) 81 mg PO DAILY [facility] Last Admin: 09/14/18 09:23 Dose: 81 mg Atorvastatin Calcium (Lipitor) 40 mg PO HS [facility] Last Admin: 09/14/18 21:20 Dose: 40 mg Bisacodyl (Dulcolax) 10 mg CA DAILY PRN PRN Reason: Constipation Last Admin: 09/14/18 17:03 Dose: 10 mg Cilostazol (Pletal) 50 mg PO BID [facility] Last Admin: 09/14/18 17:06 Dose: 50 mg Enalapril Maleate (Vasotec) 10 mg PO DAILY [facility] Last Admin: 09/14/18 09:21 Dose: 10 mg Famotidine (Pepcid) 20 mg PO BID [facility] Last Admin: 09/14/18 17:06 Dose: 20 mg Lactulose (Enulose) 20 gm PO DAILY [facility] Last Admin: 09/14/18 09:23 Dose: 20 gm Meclizine HCl (Antivert) 25 mg PO DAILY [facility] Last Admin: 09/14/18 09:21 Dose: 25 mg Metoprolol Tartrate (Lopressor) 50 mg PO Q12 [facility] Last Admin: 09/14/18 21:18 Dose: 50 mg Rivaroxaban (Xarelto) 10 mg PO DAILY [facility]; Protocol - Labs Labs: 09/13/18 05:20 09/13/18 05:20 Attending/Attestation - Attestation I have personally seen and examined this patient.: Yes I have fully participated in the care of the patient.: Yes I have reviewed all pertinent clinical information, including history, physical exam and plan: Yes Notes (Text): 09/14/18 23:27 dc plavix add xarelto cont asa arb/statins
[2018-09-14] MEDS: Cilostazol 50 mg Tab UD PO SCH ×2 (09:23→17:06)
--- NOTE | 2018-09-14 10:53 | CARD ---
APPROVED REPORT Date of service: 09/13/2018 EXAM: Transesophageal echocardiogram with color flow Doppler. INDICATION CVA/TIA Reason For Test : Rule out cardiac source of emboli. PROCEDURE After obtaining informed consent, patient underwent transesophageal echo in the Echo Lab. Type of Sedation : Conscious Sedation Sedation was provided by anesthesiologist. Sedation was achieved with Propofol, Versed intravenously. Transesophageal probe was inserted and advanced into esophagus without difficulty. Echo enhancement indication: R/O Septal defect. Echo enhancement agent administered: The PATRICIA was performed without complications. Throughout the procedure, the blood pressure, pulse oximetry, cardiac rhythm, and rate were monitored. The patient tolerated the procedure without adverse effects. Recovery from conscious sedation was uneventful and vital signs were stable. LEFT VENTRICLE The left ventricle is normal size. There is mild to moderate concentric left ventricular hypertrophy. The left ventricular function is normal. The left ventricular ejection fraction is within the normal range. LVEF is 65-70%. There is normal LV segmental wall motion. Transmitral Doppler flow pattern is Grade II-pseudonormal filling dynamics. No left ventricle thrombus noted on this study. There is no ventricular septal defect visualized. There is no left ventricular aneurysm. There is no mass noted in the left ventricle. RIGHT VENTRICLE The right ventricle is normal size. There is normal right ventricular wall thickness. The right ventricular systolic function is normal. ATRIA The left atrium is mildly dilated. The right atrium size is normal. The interatrial septum is intact with no evidence for an atrial septal defect. AORTIC VALVE The aortic valve is normal in structure. No aortic regurgitation is present. There is no aortic valvular stenosis. There is no aortic valvular vegetation. MITRAL VALVE The mitral valve is normal in structure. There is no evidence of mitral valve prolapse. There is no mitral valve stenosis. Mitral regurgitation is trace to mild. TRICUSPID VALVE The tricuspid valve is normal in structure. There is mild tricuspid regurgitation. There is no tricuspid valve prolapse or vegetation. There is no tricuspid valve stenosis. PULMONIC VALVE The pulmonary valve is normal in structure. There is no pulmonic valvular regurgitation. There is no pulmonic valvular stenosis. GREAT VESSELS The aortic root is normal in size. There ismoderate atherosclerotic plaques in the aortic arch. The pulmonary artery is normal. The IVC is normal in size and collapses >50% with inspiration. PERICARDIAL EFFUSION The pericardium appears normal. <Conclusion> The left ventricular function is normal. The left ventricular ejection fraction is within the normal range. LVEF is 65-70%. Transmitral Doppler flow pattern is Grade II-pseudonormal filling dynamics. Mitral regurgitation is trace to mild. There ismoderate atherosclerotic plaques in the aortic arch. Grade II aortic arch atheroma noted.
--- NOTE | 2018-09-14 12:17 | PCM.PSYTMC ---
Acute Rehab Team Conference - - Vital Signs: Vital Signs (Last 8 Hours): Vital Signs 09/14/18 09/14/18 09/14/18 09:22 10:00 11:59 Temperature 97.9 F 97.9 F Pulse Rate 68 68 68 Respiratory 18 18 Rate Blood Pressure 154/84 H 154/84 H 154/84 H O2 Sat by Pulse 98 Oximetry Pain: 0 - Precautions: Precautions: Fall Prevention, Aspiration, Cardiac/Pulmonary - Medications/Other Issues: Comment: Lovenox increase to every 12 hrs - Consults: Comment: Dr Holland for tachycardia - Skin: Incision Site: Intact Incision Line Treatment: N/A - Toileting: Toileting: Maximal Assistance - Bladder Management: Bladder Pattern: Normal Voiding Method: Toilet, Bedpan Bladder Management: Maximal Assistance Other Intervention:: no urine incontinence - Transfers: Transfers: Maximal Assistance - ADL's: ADL's: Moderate Assistance - Pain Management: Other Intervention:: Tylenol 650 mg p.o every 6 hrs for pain level4-10 - Patient/Family Teaching: Other Intervention:: Safe transfer, aspiration precaution , signs and symptom of low sugar, education about medication , indication and side effects.pain mgt - Goals/Time Frame: Comment: Next team conference - Provider: Registered Nurse:: Carolyn Thompson Physical Therapy - Bed Mobility Bed Mobility: Verbal Cues, Moderate Assistance, Maximum Assistance - Transfers Wheelchair to Mat: Verbal Cues, Maximum Assistance Sit to Stand: Verbal Cues, Minimal Assistance, Moderate Assistance - Ambulation Level of Assistance: Moderate Assistance, Maximum Assistance Distance (ft.): 15 Assistive Devices: Rakan Walker Orthoses: LUE giv-jewell. LLE dorsiflexion wrap Comment: -15 feet x 3 with R rakan-walker with LUE giv-jewell sling. -RLE dorsiflexion wrap & WC follow. -mod A for trunk control and weight shifting, max A for LLE progression and mod A for LLE stabilization during stance. -rest breaks between trials. -VCs for upright gaze and motivation - Stair Negotiation Stairs: Level of Assistance: Not Tested - Standing Balance Static Stand: Moderate Assistance Comment: RUE support - Pain Pain (assessed during therapy session): 6 Alleviating Techniques: Medication, Massage, Position Change, Distraction, Relaxation Techniques, Exercise, Inactivity Comment: LUE & LLE - increased with PROM - Insight/Carryover Insight/Carryover: Fair - Patient/Family Education Comment: POC, therapy goals, safety, mobility, therapy schedule, use of DME - Assessment/Plan Assessment: Ms. Manley continues to report L sided discomfort as well as impaired tolerance to activities. Patient lacks motivation during therapy sessions and requires cueing to participate. Pt continues to be limited by L sided weakness and impaired postural control. PT recommends skilled therapy to maximize safety and independence with all mobility s/p CVA. PT recommends home discharge with 24 hour care as prior. - Goals Timeframe: 7 days Goals: Ms. Vineet Holland will perform the following: -rolling with min A. - supine to/from sit with min A. -SPT with mod A. -sit to/from stand with min A. -ambulate 25 feet with WBQC with mod A. -negotiate 2 steps with max A with R rail - Provider Physical Therapist:: Mar Camacho License Number:: [id number] Occupational Therapy - Arousal/Attention/Orientation Level of Consciousness: Awake, Alert, Forgetful Patient Orientation: Person, Place Assessment Comment: +not oriented to temporal context - ADL/IADL Self Feeding: Set-up Help, Minimal Assistance Grooming: Set-up Help, Minimal Assistance Bathing-Upper Ext: Moderate Assistance Bathing-Lower Ext: Maximum Assistance Dressing-Upper Ext: Moderate Assistance Dressing-Lower Ext: Maximum Assistance - Sitting Balance Static Sitting: Supervision Dynamic Sitting: Contact Guard Assist - Transfers Wheelchair to Bed Transfers: Verbal Cues, Moderate Assistance Toilet Transfers: Verbal Cues, Moderate Assistance, Maximum Assistance Tub Transfers: Maximum Assistance - Wheelchair Management Level of Assistance: Moderate Assistance Distance (ft.): 50 - Upper Extremity Status Right Upper Extremity Comment: AROM WFLs Left Upper Extremity Comment: No AROM noted. Patient with hypertonicity in L UE and pt positioned in flexor synergy pattern into shoulder internal rotation, elbow flexion, forearm pronation, wrist flexion, finger flexion. Impaired PROM. - Pain Pain (assessed during therapy session): 8 Alleviating Techniques: Massage Comment: LUE - Insight/Carryover Insight/Carryover: Fair - Patient/Family Education Comment: CVA recovery, dme/ae education, plan of care, goal, role of OT - Assessment/Plan Assessment: Pt is a a 78 yo f presenting to [facility] s/p acute CVA. Patient currently presents with decreased sitting/standing tolerance/balance, L UE/LE hemiparesis, +L hypertonicity and pain with PROM, decreased overall strength/endurance, L visual inattention and decreased cognition. Patient has made gains since beginning skilled OT services . patient completes ub adls with overall mod A, lb adls with max A in long sitting and toileting with overall max A, no AROM is noted in LUE at this time, pt also with hypertonicity. patient has been limitedd 2' cardiac issues. Patient would benefit from IP OT services to address the above deficits, increase functional level of I with ADL's for safe d/c. Recommend d/c to [facility] vs home with family support. - Goals Timeframe: 2 weeks Comment: Bed mobility: Min A. Functional transfers: Mod A. Grooming: S upervision with cues. UB dressing: Min A with cues. dynamic sitting balance for ADL's: Close S - Provider Occupational Therapist:: Shantel Santiago License Number: [id number] Speech Therapy - Consult Information Patient on Program: Yes Medical Diagnosis: CVA Treatment Diagnosis: -moderate cognitive deficits. -mild dysarthria. -mild-moderate oral dysphagia - Assessment Problem Solving Impairment: Moderate Memory Impairment: Moderate Speech/Articulation Impairment: Mild Dysphagia/Swallowing Impairment: Mild - Plan Assessment: Tahira Holland presents with 1.) moderate cognitive deficits characterized by impaired orientation, short-term memory, thought organization, word retrieval, and ability to answer more complex questions and follow more complex commands; 2.) mild dysarthria characterized by L facial weakness and impaired respiration for phonation resulting in moderately impaired vocal loudness and impaired articulatory precision negatively impacting speech intelligibility; and 3.) mild-moderate oral dysphagia for bite-sized solids characterized by impaired mastication with moderately prolonged mastication and A-P transit time; pharyngeally, pt demonstrates timely swallow initiation with appropriate laryngeal elevation and no overt s/s aspiration on PO trials tested. Recommend diet advancement to finely chopped solids and thin liquids, though monitor for pt fatigue with solids; if pt unable to tolerate entire meals without fatigue from excessive mastication, downgrade diet back to puree/thin. Pt would benefit from continued speech tx 3-5x/week for improved cognition and intelligibility, as well as dysphagia follow up 1-2x for diet tolerance and compensatory strategy training. Barriers to learning include cognitive and physical deficits, visual deficits, and pt fatigue. Plan: Continue Dysphagia Therapy, Continue Speech/Language Therapy Frequency: 3-5 times per week Duration: 1 week Goals/Timeframe: Please see IE completed 09/12/18 for updated goals/POC Recommendations: -Continue speech tx 3-5x/week. -Finely chopped solids/thin liquids; dysphagia tx 1-2x - Provider Therapist: Madison Oh License Number: [id number] Recreational Therapy - Participation Participation: Monitors His/Her Own Leisure Time - Attendance Attendance: Daily - Activities Leisure Activities: Television - Socialization Level of Socialization: Initiates/interacts with caregivers but not with peer - Assessment Assessment/Plan: Pt is agreeable to participate in recreation therapy sessions following encouragement. Pt requires mod-max verbal cues for encouragement to participate 2' decrease arousal and decrease initiation. Pt was agreeable to participate in bingo task with her daughter's encouragement and required mod A throughout task for visual awareness to the L side. Pt's barriers to participation are flat affect, decrease initiation, and decrease attention to task. Pt will continue to benefit from participating in recreation therapy session throughout stay on unit. Problems Currently Limiting Participation: L side visual inattention, L side residual weakness s/p September 2017, memory deficits, short-term recall, decrease leisure awareness level Goals and Time Frame: Pt will tolerate participating in tabletop task for 20 minutes requiring min verbal cues throughout session by date of discharge. - Provider Therapist: Yareli Almaguer Nutrition - Current Diet Current Diet/Supplement/Feedings: finely chopped - Appetite Percent Meal Consumed: 50-74% - Assessment/Goals/Time Frame Assessments/Goals/Time Frame: Pt at high nutritional risk. goals: 1. finely chopped. 2. Blood glucoses to be between 70-180 mg/dl. Follow-up due on 09/18/2018 - Provider Provider: Debbi Layton Case Management - Psychosocial Assessment Support Systems: Caryl (daughter) - [phone]. Jaelyn (daughter) - [phone] Psychological Interventions/Needs: Patient is AAO and able to verbalize needs. Discharge Concerns: Patient's daughters refuse [facility] for patient and will be taking care of her at home. Patient/Family Meeting: CM met with patient and rehab team. Intervention/Goal/Outcome: 1. Goal: 24hr care 2. Plan: home with VNS and family support 3. discuss DME needs with team 4. schedule follow up appts 5. caregiver training with both daughters present 6. continued emotional support - Discharge Plan Discharge Plan: Home with services Home Services: [facility] - Provider Provider: Loraine Castañeda License Number: [id number] Rehabilitation Plan - Treatment Plan Treatment Plan: Physical Therapy, Occupational Therapy, Speech, Dietary, Patient/Family Education - Discharge Plan Estimated Date of Discharge: 09/25/18 Discharge to: Home
--- NOTE | 2018-09-14 14:54 | CP.PCM.PN ---
Subjective - Date & Time of Evaluation Date of Evaluation: 09/14/18 Time of Evaluation: 11:20 - Subjective Subjective: F/U CVA. No A/D, doing well with PT,OT Objective - Vital Signs/Intake and Output Vital Signs (last 24 hours): Temp Pulse Resp BP Pulse Ox 97.9 F 68 18 154/84 H 98 09/14/18 11:59 09/14/18 11:59 09/14/18 11:59 09/14/18 11:59 09/14/18 10:00 - Medications Medications: Current Medications Acetaminophen (Tylenol 325mg Tab) 650 mg PO Q6 PRN PRN Reason: for pain scale 4-10 Last Admin: 09/12/18 23:11 Dose: 650 mg Aspirin (Aspirin Chewable) 81 mg PO DAILY [facility] Last Admin: 09/14/18 09:23 Dose: 81 mg Atorvastatin Calcium (Lipitor) 40 mg PO HS [facility] Last Admin: 09/14/18 01:05 Dose: Not Given Bisacodyl (Dulcolax) 10 mg ID DAILY PRN PRN Reason: Constipation Last Admin: 09/07/18 17:49 Dose: 10 mg Cilostazol (Pletal) 50 mg PO BID [facility] Last Admin: 09/14/18 09:23 Dose: 50 mg Enalapril Maleate (Vasotec) 10 mg PO DAILY [facility] Last Admin: 09/14/18 09:21 Dose: 10 mg Famotidine (Pepcid) 20 mg PO BID [facility] Last Admin: 09/14/18 09:21 Dose: 20 mg Lactulose (Enulose) 20 gm PO DAILY [facility] Last Admin: 09/14/18 09:23 Dose: 20 gm Meclizine HCl (Antivert) 25 mg PO DAILY [facility] Last Admin: 09/14/18 09:21 Dose: 25 mg Metoprolol Tartrate (Lopressor) 50 mg PO Q12 [facility] Last Admin: 09/14/18 09:22 Dose: 50 mg Rivaroxaban (Xarelto) 10 mg PO QD5 [facility]; Protocol - Labs Labs: 09/13/18 05:20 09/13/18 05:20 - Constitutional Appears: No Acute Distress - Head Exam Head Exam: NORMAL INSPECTION - Eye Exam Eye Exam: PERRL - ENT Exam ENT Exam: Normal Exam - Neck Exam Neck Exam: Normal Inspection - Respiratory Exam Respiratory Exam: NORMAL BREATHING PATTERN - Cardiovascular Exam Cardiovascular Exam: REGULAR RHYTHM, Murmur (/6 LSB) - GI/Abdominal Exam GI & Abdominal Exam: Soft, Normal Bowel Sounds - Extremities Exam Extremities Exam: Pedal Edema (L foot), Tenderness (L shoulder) - Back Exam Back Exam: NORMAL INSPECTION - Neurological Exam Neurological Exam: Awake, CN II-XII Intact Additional comments: Ox2, forgetful, L facial droop, L hemiparesia. - Skin Skin Exam: Warm Assessment and Plan (1) CVA (cerebral vascular accident) Status: Acute (2) History of CVA with residual deficit Status: Chronic (3) Generalized weakness Status: Acute (4) Altered mental status Status: Acute (5) HTN (hypertension) Status: Chronic (6) Tachycardia Status: Acute (7) Pain in left shoulder Status: Chronic - Assessment and Plan (Free Text) Plan: Continue with Pletal, ASA, Lopressor, Vasotec and rest of Tx. continue PT,OT, speech therapy. As per rehab team conference of Dr. Lozano and family, Pt's daughter refused [facility] and she will be taking care of her at home.
[2018-09-15] MEDS: Cilostazol 50 mg Tab UD PO SCH ×2 (08:06→16:22)
--- NOTE | 2018-09-15 14:59 | CP.PCM.PN ---
Subjective - Date & Time of Evaluation Date of Evaluation: 09/15/18 Time of Evaluation: 14:57 - Subjective Subjective: Justyna Colindres, PGY-1, Cardiology Progress Note for Dr. Holland Patient seen and evaluated at bedside. Patient had no acute overnight events. Patient continues to report left sided weakness and left arm pain but denies symptoms including chest pain, shortness of breath, nausea, diaphoresis, or jaw pain. Objective - Vital Signs/Intake and Output Vital Signs (last 24 hours): Temp Pulse Resp BP Pulse Ox 98.1 F 88 20 136/70 97 09/15/18 09:25 09/15/18 09:25 09/15/18 09:25 09/15/18 09:25 09/15/18 09:25 - Medications Medications: Current Medications Acetaminophen (Tylenol 325mg Tab) 650 mg PO Q6 PRN PRN Reason: for pain scale 4-10 Last Admin: 09/12/18 23:11 Dose: 650 mg Aspirin (Aspirin Chewable) 81 mg PO DAILY [facility] Last Admin: 09/15/18 08:05 Dose: 81 mg Atorvastatin Calcium (Lipitor) 40 mg PO HS [facility] Last Admin: 09/14/18 21:20 Dose: 40 mg Bisacodyl (Dulcolax) 10 mg [place] DAILY PRN PRN Reason: Constipation Last Admin: 09/14/18 17:03 Dose: 10 mg Cilostazol (Pletal) 50 mg PO BID [facility] Last Admin: 09/15/18 08:06 Dose: 50 mg Enalapril Maleate (Vasotec) 10 mg PO DAILY [facility] Last Admin: 09/15/18 08:07 Dose: 10 mg Famotidine (Pepcid) 20 mg PO BID [facility] Last Admin: 09/15/18 08:07 Dose: 20 mg Lactulose (Enulose) 20 gm PO DAILY [facility] Last Admin: 09/15/18 08:06 Dose: 20 gm Meclizine HCl (Antivert) 25 mg PO DAILY [facility] Last Admin: 09/15/18 08:06 Dose: 25 mg Metoprolol Tartrate (Lopressor) 50 mg PO Q12 [facility] Last Admin: 09/15/18 08:06 Dose: 50 mg Rivaroxaban (Xarelto) 10 mg PO DAILY [facility]; Protocol Last Admin: 09/15/18 08:17 Dose: 10 mg - Labs Labs: 09/13/18 05:20 09/13/18 05:20 - Constitutional Appears: Well, Non-toxic, No Acute Distress - Head Exam Head Exam: ATRAUMATIC, NORMAL INSPECTION, NORMOCEPHALIC - Eye Exam Eye Exam: EOMI, PERRL - ENT Exam ENT Exam: Mucous Membranes Moist - Respiratory Exam Respiratory Exam: Clear to Ausculation Bilateral, NORMAL BREATHING PATTERN - Cardiovascular Exam Cardiovascular Exam: RRR, REGULAR RHYTHM, +S1, +S2 - GI/Abdominal Exam GI & Abdominal Exam: Soft, Normal Bowel Sounds. absent: Tenderness - Extremities Exam Extremities Exam: Normal Capillary Refill, Normal Inspection - Neurological Exam Neurological Exam: Alert, Awake, CN II-XII Intact, Oriented x3 Neuro motor strength exam: Left Upper Extremity: 0, Right Upper Extremity: 5, Left Lower Extremity: 0, Right Lower Extremity: 5 - Skin Skin Exam: Dry, Intact Assessment and Plan (1) CVA (cerebral vascular accident) Assessment & Plan: Brain MRI 09/01: Foci of diffusion restriction in R. cerebral hemisphere (prominent at right posterior parietal and occipital lobe) suggestive of right MCA infarct Carotid Artery U/S 09/01: Right ICA and Left ICA < 50% stenosis MRA 09/01: Narrow distal right internal carotid artery; Right MCA smaller than left; Diffuse stenosis of R ICA TTE 09/01/18: EF 60-65%, Mild AR, Mild TR, RVSP 25 mmHg PATRICIA 09/13: aortic dilation and atheromas likely causing recurrent strokes. 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 Status: Acute (2) Hypercholesteremia Assessment & Plan: Continue lipitor Status: Acute (3) Tachycardia Assessment & Plan: Tachycardia has resolved Status: Acute (4) HTN (hypertension) Assessment & Plan: Continue enalapril, lopressor Status: Chronic (5) UTI (urinary tract infection) Assessment & Plan: Patient has finished dose of antibiotics and last UCx and BCx were negative Status: Acute
[2018-09-15] MEDS ORDERED: Lidocaine 5% Patch TD PRN (15:30)
--- NOTE | 2018-09-15 18:01 | CP.PCM.PN ---
Subjective - Date & Time of Evaluation Date of Evaluation: 09/15/18 Time of Evaluation: 18:00 - Subjective Subjective: Dr. Lozano Coverage on Tahira Manley, born 08/21/1950 who has been admitted to the [facility] acute rehab unit with dense left HP following right CVA + history of prior CVA, OA, HTN, Hyperchlostremia Objective - Vital Signs/Intake and Output Vital Signs (last 24 hours): Temp Pulse Resp BP Pulse Ox 98.1 F 88 20 136/70 97 09/15/18 09:25 09/15/18 09:25 09/15/18 09:25 09/15/18 09:25 09/15/18 09:25 - Medications Medications: Current Medications Acetaminophen (Tylenol 325mg Tab) 650 mg PO Q6 PRN PRN Reason: for pain scale 4-10 Last Admin: 09/12/18 23:11 Dose: 650 mg Aspirin (Aspirin Chewable) 81 mg PO DAILY [facility] Last Admin: 09/15/18 08:05 Dose: 81 mg Atorvastatin Calcium (Lipitor) 40 mg PO HS [facility] Last Admin: 09/14/18 21:20 Dose: 40 mg Bisacodyl (Dulcolax) 10 mg [place] DAILY PRN PRN Reason: Constipation Last Admin: 09/14/18 17:03 Dose: 10 mg Cilostazol (Pletal) 50 mg PO BID [facility] Last Admin: 09/15/18 16:22 Dose: 50 mg Enalapril Maleate (Vasotec) 10 mg PO DAILY [facility] Last Admin: 09/15/18 08:07 Dose: 10 mg Famotidine (Pepcid) 20 mg PO BID [facility] Last Admin: 09/15/18 17:01 Dose: 20 mg Lactulose (Enulose) 20 gm PO DAILY [facility] Last Admin: 09/15/18 08:06 Dose: 20 gm Lidocaine (Lidoderm) 1 ea TD DAILY PRN PRN Reason: Muscle spasm Lidocaine (Lidoderm) 1 ea TD DAILY [facility] Meclizine HCl (Antivert) 25 mg PO DAILY [facility] Last Admin: 09/15/18 08:06 Dose: 25 mg Metoprolol Tartrate (Lopressor) 50 mg PO Q12 [facility] Last Admin: 09/15/18 08:06 Dose: 50 mg Rivaroxaban (Xarelto) 10 mg PO DAILY [facility]; Protocol Last Admin: 09/15/18 08:17 Dose: 10 mg - Labs Labs: 09/13/18 05:20 09/13/18 05:20 - Constitutional Appears: Non-toxic - Head Exam Head Exam: ATRAUMATIC, NORMAL INSPECTION, NORMOCEPHALIC - Eye Exam Eye Exam: EOMI - ENT Exam ENT Exam: Mucous Membranes Moist - Respiratory Exam Respiratory Exam: NORMAL BREATHING PATTERN - Cardiovascular Exam Cardiovascular Exam: REGULAR RHYTHM - GI/Abdominal Exam GI & Abdominal Exam: Soft. absent: Guarding, Rigid - Extremities Exam Extremities Exam: absent: Calf Tenderness - Neurological Exam Neurological Exam: Alert - Psychiatric Exam Psychiatric exam: Flat Affect. absent: Anxious - Skin Skin Exam: Warm Assessment and Plan - Assessment and Plan (Free Text) Assessment: Tahira Manley, born 08/21/1950 who has been admitted to the [facility] acute rehab unit with dense left HP following right CVA + history of prior CVA, OA, HTN, Hyperchlostremia Left UE/LE pain but distractable PT/OT to continue to help increase functional independence Team conference for d/c planning Pain: controlled Vascular: no evidence of DVT GI: No evidence of constipation or diarrhea Patient continues to be an excellent acute rehabilitation candidate and will have continued focused speech, PT, OT and recreational therapy to help facilitate a safe and appropriate d/c plan
[2018-09-16 06:14] LABS: MEAN CELL VOLUME 93.6 fl (81.0-99.0); MEAN CORPUSCULAR HEMOGLOBIN 32.3 pg (27.0-31.0); MEAN CORPUSCULAR HGB CONC 34.5 g/dL (33.0-37.0); RBC 3.71 Mil/uL (3.80-5.20); WHITE BLOOD COUNT 5.5 K/uL (4.8-10.8)
[2018-09-16 06:28] LABS: BLOOD UREA NITROGEN 13 mg/dl (7-17); CALCIUM 9.8 mg/dL (8.4-10.2); GFR NON-AFRICAN AMERICAN > 60
[2018-09-16] MEDS: Lidocaine 5% Patch TD SCH (08:45)
[2018-09-16] MEDS: Lidocaine 5% Patch TD PRN (08:46)
[2018-09-16] MEDS: Cilostazol 50 mg Tab UD PO SCH ×2 (08:48→17:00)
--- NOTE | 2018-09-16 12:10 | CP.PCM.PN ---
Subjective - Date & Time of Evaluation Date of Evaluation: 09/16/18 Time of Evaluation: 12:08 - Subjective Subjective: Justyna Colindres, PGY-1, Cardiology Progress Note for Dr. Holland Patient seen and evaluated at bedside. Patient had no acute overnight events. Patient continues to report left sided weakness and left arm pain but denies symptoms including chest pain, shortness of breath, nausea, diaphoresis, or jaw pain. Objective - Vital Signs/Intake and Output Vital Signs (last 24 hours): Temp Pulse Resp BP Pulse Ox 97.3 F L 74 18 119/72 95 09/16/18 10:00 09/16/18 10:00 09/16/18 10:00 09/16/18 10:00 09/16/18 10:00 - Medications Medications: Current Medications Acetaminophen (Tylenol 325mg Tab) 650 mg PO Q6 PRN PRN Reason: for pain scale 4-10 Last Admin: 09/15/18 20:56 Dose: 650 mg Aspirin (Aspirin Chewable) 81 mg PO DAILY [facility] Last Admin: 09/16/18 08:44 Dose: 81 mg Atorvastatin Calcium (Lipitor) 40 mg PO HS [facility] Last Admin: 09/15/18 21:02 Dose: 40 mg Bisacodyl (Dulcolax) 10 mg [place] DAILY PRN PRN Reason: Constipation Last Admin: 09/14/18 17:03 Dose: 10 mg Cilostazol (Pletal) 50 mg PO BID [facility] Last Admin: 09/16/18 08:48 Dose: 50 mg Enalapril Maleate (Vasotec) 10 mg PO DAILY [facility] Last Admin: 09/16/18 08:49 Dose: 10 mg Famotidine (Pepcid) 20 mg PO BID [facility] Last Admin: 09/16/18 08:44 Dose: 20 mg Lactulose (Enulose) 20 gm PO DAILY [facility] Last Admin: 09/16/18 08:44 Dose: 20 gm Lidocaine (Lidoderm) 1 ea TD DAILY PRN PRN Reason: Muscle spasm Last Admin: 09/16/18 08:46 Dose: 1 ea Lidocaine (Lidoderm) 1 ea TD DAILY [facility] Last Admin: 09/16/18 08:45 Dose: 1 ea Meclizine HCl (Antivert) 25 mg PO DAILY [facility] Last Admin: 09/16/18 08:44 Dose: 25 mg Metoprolol Tartrate (Lopressor) 50 mg PO Q12 [facility] Last Admin: 09/16/18 08:48 Dose: 50 mg Rivaroxaban (Xarelto) 10 mg PO DAILY [facility]; Protocol Last Admin: 09/16/18 08:49 Dose: 10 mg - Labs Labs: 09/16/18 05:06 09/16/18 05:06 - Constitutional Appears: Well, Non-toxic, No Acute Distress - Head Exam Head Exam: ATRAUMATIC, NORMAL INSPECTION, NORMOCEPHALIC - Eye Exam Eye Exam: EOMI, PERRL - ENT Exam ENT Exam: Mucous Membranes Moist - Respiratory Exam Respiratory Exam: Clear to Ausculation Bilateral, NORMAL BREATHING PATTERN - Cardiovascular Exam Cardiovascular Exam: RRR, REGULAR RHYTHM, +S1, +S2 - GI/Abdominal Exam GI & Abdominal Exam: Soft, Normal Bowel Sounds. absent: Tenderness - Extremities Exam Extremities Exam: Normal Capillary Refill, Normal Inspection - Neurological Exam Neurological Exam: Alert, Awake, CN II-XII Intact, Oriented x3 Neuro motor strength exam: Left Upper Extremity: 0, Right Upper Extremity: 5, Left Lower Extremity: 0, Right Lower Extremity: 5 - Skin Skin Exam: Dry, Intact Assessment and Plan (1) CVA (cerebral vascular accident) Assessment & Plan: Brain MRI 09/01: Foci of diffusion restriction in R. cerebral hemisphere (pro minent at right posterior parietal and occipital lobe) suggestive of right MCA infarct Carotid Artery U/S 09/01: Right ICA and Left ICA < 50% stenosis MRA 09/01: Narrow distal right internal carotid artery; Right MCA smaller than left; Diffuse stenosis of R ICA TTE 09/01/18: EF 60-65%, Mild AR, Mild TR, RVSP 25 mmHg PATRICIA 09/13: aortic dilation and atheromas likely causing recurrent strokes. Patient will be NPO for 3 hours and started on a Puree diet and transferred back to rehabilitation Extremity ultrasound on 09/08: no DVT observed Due to PATRICIA showing atheroma in the aortic arch, will continue xarelto and aspirin. Status: Acute (2) Hypercholesteremia Assessment & Plan: Continue lipitor Status: Acute (3) Tachycardia Assessment & Plan: Tachycardia has resolved Status: Acute (4) HTN (hypertension) Assessment & Plan: Continue enalapril, lopressor Status: Chronic (5) UTI (urinary tract infection) Assessment & Plan: Patient has finished dose of antibiotics and last UCx and BCx were negative Status: Acute
--- NOTE | 2018-09-16 15:37 | CP.PCM.PN ---
Subjective - Date & Time of Evaluation Date of Evaluation: 09/16/18 Time of Evaluation: 15:35 - Subjective Subjective: patient seen in the gym and is stable and in NAD c/o left UE/LE pain, no swelling or erythema continue current care Objective - Vital Signs/Intake and Output Vital Signs (last 24 hours): Temp Pulse Resp BP Pulse Ox 97.3 F L 74 18 119/72 95 09/16/18 10:00 09/16/18 10:00 09/16/18 10:00 09/16/18 10:00 09/16/18 10:00 - Medications Medications: Current Medications Acetaminophen (Tylenol 325mg Tab) 650 mg PO Q6 PRN PRN Reason: for pain scale 4-10 Last Admin: 09/15/18 20:56 Dose: 650 mg Aspirin (Aspirin Chewable) 81 mg PO DAILY [facility] Last Admin: 09/16/18 08:44 Dose: 81 mg Atorvastatin Calcium (Lipitor) 40 mg PO HS [facility] Last Admin: 09/15/18 21:02 Dose: 40 mg Bisacodyl (Dulcolax) 10 mg [place] DAILY PRN PRN Reason: Constipation Last Admin: 09/14/18 17:03 Dose: 10 mg Cilostazol (Pletal) 50 mg PO BID [facility] Last Admin: 09/16/18 08:48 Dose: 50 mg Enalapril Maleate (Vasotec) 10 mg PO DAILY [facility] Last Admin: 09/16/18 08:49 Dose: 10 mg Famotidine (Pepcid) 20 mg PO BID [facility] Last Admin: 09/16/18 08:44 Dose: 20 mg Lactulose (Enulose) 20 gm PO DAILY [facility] Last Admin: 09/16/18 08:44 Dose: 20 gm Lidocaine (Lidoderm) 1 ea TD DAILY PRN PRN Reason: Muscle spasm Last Admin: 09/16/18 08:46 Dose: 1 ea Lidocaine (Lidoderm) 1 ea TD DAILY [facility] Last Admin: 09/16/18 08:45 Dose: 1 ea Meclizine HCl (Antivert) 25 mg PO DAILY [facility] Last Admin: 09/16/18 08:44 Dose: 25 mg Metoprolol Tartrate (Lopressor) 50 mg PO Q12 [facility] Last Admin: 09/16/18 08:48 Dose: 50 mg Rivaroxaban (Xarelto) 10 mg PO DAILY [facility]; Protocol Last Admin: 09/16/18 08:49 Dose: 10 mg - Labs Labs: 09/16/18 05:06 09/16/18 05:06
--- NOTE | 2018-09-16 18:43 | CP.PCM.CON ---
History of Present Illness - History of Present Illness History of Present Illness: Podiatry Consult Note: Dr. Knox 78 year old female patient, seen and evaluated in TCU for elongated, dystrophic nails. Patient states that secondary to her recent stroke she is unable to take care of her nails herself. She reports pain to her nails when she participates in rehab. Family member present at visit. Denies nausea/vomiting/fever/shortness of breath. PMH: HTN, Hypercholesterolemia, OA, CVA, Arthritis, COPD, Pneumonia PSH: Appendectomy, cataracts, hysterectomy SHx: denies tobacco and alcohol use All: PCN Review of Systems - Constitutional Constitutional: As Per HPI Past Patient History - Infectious Disease Hx of Infectious Diseases: None - Past Medical History & Family History Past Medical History?: Yes - Past Social History Smoking Status: Never Smoked Alcohol: None Drugs: Denies Home Situation {Lives}: Alone - CARDIAC Hx Cardiac Disorders: Yes Hx Hypercholesterolemia: Yes Hx Hypertension: Yes - PULMONARY Hx Respiratory Disorders: Yes Hx Chronic Obstructive Pulmonary Disease (COPD): Yes - NEUROLOGICAL Hx Neurological Disorder: Yes HX Cerebrovascular Accident: Yes - HEENT Hx HEENT Problems: Yes Hx Cataracts: Yes (had left eye cataract surgery) - RENAL Hx Chronic Kidney Disease: No - ENDOCRINE/METABOLIC Hx Endocrine Disorders: Yes Hx Diabetes Mellitus Type 2: Yes - HEMATOLOGICAL/ONCOLOGICAL Hx Blood Disorders: No Hx AIDS: No Hx Human Immunodeficiency Virus (HIV): No - INTEGUMENTARY Hx Dermatological Problems: No - MUSCULOSKELETAL/RHEUMATOLOGICAL Hx Musculoskeletal Disorders: Yes Hx Arthritis: Yes Hx Falls: No - GASTROINTESTINAL Hx Gastrointestinal Disorders: No - GENITOURINARY/GYNECOLOGICAL Hx Genitourinary Disorders: Yes Hx Incontinence: Yes - PSYCHIATRIC Hx Psychophysiologic Disorder: No Hx Substance Use: No - SURGICAL HISTORY Hx Surgeries: Yes Hx Appendectomy: Yes Hx Cataract Extraction: Yes (left eye) Hx Cholecystectomy: Yes - ANESTHESIA Hx Anesthesia: Yes Hx Anesthesia Reactions: No Hx Malignant Hyperthermia: No Meds Allergies/Adverse Reactions: Allergies Allergy/AdvReac Type Severity Reaction Status Date / Time Penicillins Allergy RASH Verified 09/02/18 21:07 SHRIMP Allergy RASH Uncoded 09/02/18 21:07 - Medications Medications: Current Medications Acetaminophen (Tylenol 325mg Tab) 650 mg PO Q6 PRN PRN Reason: for pain scale 4-10 Last Admin: 09/15/18 20:56 Dose: 650 mg Aspirin (Aspirin Chewable) 81 mg PO DAILY [facility] Last Admin: 09/16/18 08:44 Dose: 81 mg Atorvastatin Calcium (Lipitor) 40 mg PO HS [facility] Last Admin: 09/15/18 21:02 Dose: 40 mg Bisacodyl (Dulcolax) 10 mg [place] DAILY PRN PRN Reason: Constipation Last Admin: 09/14/18 17:03 Dose: 10 mg Cilostazol (Pletal) 50 mg PO BID [facility] Last Admin: 09/16/18 17:00 Dose: 50 mg Enalapril Maleate (Vasotec) 10 mg PO DAILY [facility] Last Admin: 09/16/18 08:49 Dose: 10 mg Famotidine (Pepcid) 20 mg PO BID [facility] Last Admin: 09/16/18 17:00 Dose: 20 mg Lactulose (Enulose) 20 gm PO DAILY [facility] Last Admin: 09/16/18 08:44 Dose: 20 gm Lidocaine (Lidoderm) 1 ea TD DAILY PRN PRN Reason: Muscle spasm Last Admin: 09/16/18 08:46 Dose: 1 ea Lidocaine (Lidoderm) 1 ea TD DAILY [facility] Last Admin: 09/16/18 08:45 Dose: 1 ea Meclizine HCl (Antivert) 25 mg PO DAILY [facility] Last Admin: 09/16/18 08:44 Dose: 25 mg Metoprolol Tartrate (Lopressor) 50 mg PO Q12 [facility] Last Admin: 09/16/18 08:48 Dose: 50 mg Rivaroxaban (Xarelto) 10 mg PO DAILY [facility]; Protocol Last Admin: 09/16/18 08:49 Dose: 10 mg Physical Exam - Constitutional Appears: Non-toxic, No Acute Distress - Head Exam Head Exam: ATRAUMATIC, NORMOCEPHALIC - Extremities Exam Additional comments: Vascular: DP/PT 1/4, CFT < 3 seconds, TG warm to warm, no edema present to b/l lower extremities Ortho: Tenderness with palpation of b/l nails Neuro: Gross sensation intact, unable to assess protective Derm: Elongated, dystrophic nails. No open lesions, no erythema, no clinical signs of infection - Neurological Exam Neurological exam: Alert, Oriented x3 - Psychiatric Exam Psychiatric exam: Normal Affect, Normal Mood Results - Vital Signs Recent Vital Signs: Last Vital Signs Temp 97.3 F L 09/16/18 10:00 Pulse 74 09/16/18 10:00 Resp 18 09/16/18 10:00 BP 119/72 09/16/18 10:00 Pulse Ox 95 09/16/18 10:00 - Labs Result Diagrams: 09/20/18 05:31 09/20/18 05:31 Labs: Laboratory Results - last 24 hr 09/16/18 09/16/18 09/16/18 05:06 05:06 07:07 WBC 5.5 RBC 3.71 L Hgb 12.0 Hct 34.8 MCV 93.6 MCH 32.3 H MCHC 34.5 RDW 14.0 Plt Count 278 Sodium 138 Potassium 3.7 Chloride 104 Carbon Dioxide 27 Anion Gap 11 BUN 13 Creatinine 0.7 Est GFR ( Amer) > 60 Est GFR (Non-Af Amer) > 60 POC Glucose (mg/dL) 103 Random Glucose 91 Calcium 9.8 09/16/18 15:56 WBC RBC Hgb Hct MCV MCH MCHC RDW Plt Count Sodium Potassium Chloride Carbon Dioxide Anion Gap BUN Creatinine Est GFR ( Amer) Est GFR (Non-Af Amer) POC Glucose (mg/dL) 123 H Random Glucose Calcium Assessment & Plan - Assessment and Plan (Free Text) Assessment: 78 year old female patient with elongated, dystrophic nails. Plan: Patient seen and evaluated with all questions and concerns addressed Discussed with Dr. Knox Nails debrided with a large nail nipper x10 without incident Podiatry to sign off at this time, please reconsult as needed Thank you for the consult - Date & Time Date: 09/16/18 Time: 18:43
[2018-09-17] MEDS: Cilostazol 50 mg Tab UD PO SCH ×2 (08:07→16:57)
[2018-09-17] MEDS: Lidocaine 5% Patch TD SCH (08:09)
--- NOTE | 2018-09-17 16:34 | CP.PCM.PN ---
Subjective - Date & Time of Evaluation Date of Evaluation: 09/17/18 Time of Evaluation: 14:00 - Subjective Subjective: F/U CVA Pt doing well with PT, minimal tenderness L shoulder. Objective - Vital Signs/Intake and Output Vital Signs (last 24 hours): Temp Pulse Resp BP Pulse Ox 97.3 F L 81 20 122/88 95 09/17/18 10:00 09/17/18 13:23 09/17/18 10:00 09/17/18 10:00 09/17/18 13:23 - Medications Medications: Current Medications Acetaminophen (Tylenol 325mg Tab) 650 mg PO Q6 PRN PRN Reason: for pain scale 4-10 Last Admin: 09/15/18 20:56 Dose: 650 mg Aspirin (Aspirin Chewable) 81 mg PO DAILY [facility] Last Admin: 09/17/18 08:08 Dose: 81 mg Atorvastatin Calcium (Lipitor) 40 mg PO HS [facility] Last Admin: 09/16/18 21:05 Dose: 40 mg Bisacodyl (Dulcolax) 10 mg [place] DAILY PRN PRN Reason: Constipation Last Admin: 09/14/18 17:03 Dose: 10 mg Cilostazol (Pletal) 50 mg PO BID [facility] Last Admin: 09/17/18 08:07 Dose: 50 mg Enalapril Maleate (Vasotec) 10 mg PO DAILY [facility] Last Admin: 09/17/18 08:09 Dose: 10 mg Famotidine (Pepcid) 20 mg PO BID [facility] Last Admin: 09/17/18 08:08 Dose: 20 mg Lactulose (Enulose) 20 gm PO DAILY [facility] Last Admin: 09/17/18 08:08 Dose: 20 gm Lidocaine (Lidoderm) 1 ea TD DAILY PRN PRN Reason: Muscle spasm Last Admin: 09/16/18 08:46 Dose: 1 ea Lidocaine (Lidoderm) 1 ea TD DAILY [facility] Last Admin: 09/17/18 08:09 Dose: 1 ea Meclizine HCl (Antivert) 25 mg PO DAILY [facility] Last Admin: 09/17/18 08:08 Dose: 25 mg Metoprolol Tartrate (Lopressor) 50 mg PO Q12 [facility] Last Admin: 09/17/18 08:08 Dose: 50 mg Rivaroxaban (Xarelto) 10 mg PO DAILY [facility]; Protocol Last Admin: 09/17/18 08:09 Dose: 10 mg - Labs Labs: 09/16/18 05:06 09/16/18 05:06 - Constitutional Appears: No Acute Distress - Head Exam Head Exam: NORMAL INSPECTION - Eye Exam Eye Exam: PERRL - ENT Exam ENT Exam: Normal Exam - Neck Exam Neck Exam: Normal Inspection - Respiratory Exam Respiratory Exam: NORMAL BREATHING PATTERN - Cardiovascular Exam Cardiovascular Exam: REGULAR RHYTHM, Murmur (1/6 LSB) - GI/Abdominal Exam GI & Abdominal Exam: Soft, Normal Bowel Sounds - Extremities Exam Extremities Exam: Pedal Edema (L foot) - Back Exam Back Exam: tenderness (L shoulder) - Neurological Exam Neurological Exam: Awake, CN II-XII Intact Additional comments: Ox2, forgetful, L facial droop, L hemiparesia - Skin Skin Exam: Warm Assessment and Plan (1) CVA (cerebral vascular accident) Status: Acute (2) History of CVA with residual deficit Status: Chronic (3) Generalized weakness Status: Acute (4) Altered mental status Status: Acute (5) HTN (hypertension) Status: Chronic (6) Tachycardia Status: Acute (7) Pain in left shoulder Status: Chronic - Assessment and Plan (Free Text) Plan: Continue Vasotec, Pletal, Lidoderm, ASA and rest of Tx., continue PT.
[2018-09-18] MEDS: Cilostazol 50 mg Tab UD PO SCH ×2 (09:33→16:31)
[2018-09-18] MEDS: Lidocaine 5% Patch TD SCH (09:38)
[2018-09-19] MEDS: Cilostazol 50 mg Tab UD PO SCH ×2 (08:39→16:51)
[2018-09-19] MEDS: Lidocaine 5% Patch TD SCH (08:40)
[2018-09-19] MEDS: Lidocaine 5% Patch TD PRN (08:41)
--- NOTE | 2018-09-19 14:42 | CP.PCM.PN ---
Subjective - Date & Time of Evaluation Date of Evaluation: 09/19/18 Time of Evaluation: 13:00 - Subjective Subjective: F/U CVA Pt calm, smiling, with good appetite, doing well with PT, minimal tenderness L shoulder Objective - Vital Signs/Intake and Output Vital Signs (last 24 hours): Temp Pulse Resp BP Pulse Ox 96.8 F L 69 18 130/77 98 09/19/18 10:08 09/19/18 09:33 09/19/18 09:33 09/19/18 09:33 09/19/18 09:33 - Medications Medications: Current Medications Acetaminophen (Tylenol 325mg Tab) 650 mg PO Q6 PRN PRN Reason: for pain scale 4-10 Last Admin: 09/19/18 10:08 Dose: 650 mg Aspirin (Aspirin Chewable) 81 mg PO DAILY [facility] Last Admin: 09/19/18 08:39 Dose: 81 mg Atorvastatin Calcium (Lipitor) 40 mg PO HS [facility] Last Admin: 09/18/18 21:14 Dose: 40 mg Bisacodyl (Dulcolax) 10 mg [place] DAILY PRN PRN Reason: Constipation Last Admin: 09/14/18 17:03 Dose: 10 mg Cilostazol (Pletal) 50 mg PO BID [facility] Last Admin: 09/19/18 08:39 Dose: 50 mg Enalapril Maleate (Vasotec) 10 mg PO DAILY [facility] Last Admin: 09/19/18 08:44 Dose: 10 mg Famotidine (Pepcid) 20 mg PO BID [facility] Last Admin: 09/19/18 08:45 Dose: 20 mg Lactulose (Enulose) 20 gm PO DAILY [facility] Last Admin: 09/19/18 08:39 Dose: 20 gm Lidocaine (Lidoderm) 1 ea TD DAILY PRN PRN Reason: Muscle spasm Last Admin: 09/19/18 08:41 Dose: 1 ea Lidocaine (Lidoderm) 1 ea TD DAILY [facility] Last Admin: 09/19/18 08:40 Dose: 1 ea Meclizine HCl (Antivert) 25 mg PO DAILY [facility] Last Admin: 09/19/18 08:39 Dose: 25 mg Metoprolol Tartrate (Lopressor) 50 mg PO Q12 [facility] Last Admin: 09/19/18 08:43 Dose: 50 mg Rivaroxaban (Xarelto) 10 mg PO DAILY [facility]; Protocol Last Admin: 09/19/18 08:44 Dose: 10 mg - Labs Labs: 09/16/18 05:06 09/16/18 05:06 - Constitutional Appears: No Acute Distress - Head Exam Head Exam: NORMAL INSPECTION - Eye Exam Eye Exam: PERRL - ENT Exam ENT Exam: Normal Exam - Neck Exam Neck Exam: Normal Inspection - Respiratory Exam Respiratory Exam: NORMAL BREATHING PATTERN - Cardiovascular Exam Cardiovascular Exam: REGULAR RHYTHM, Murmur (1/6 LSB) - Extremities Exam Extremities Exam: Pedal Edema (L foot), Tenderness (L shoulder) - Back Exam Back Exam: NORMAL INSPECTION - Neurological Exam Neurological Exam: Awake, CN II-XII Intact Additional comments: Ox2, forgetful, L facial droop, L hemiparesia. - Skin Skin Exam: Warm Assessment and Plan (1) CVA (cerebral vascular accident) Status: Acute (2) History of CVA with residual deficit Status: Chronic (3) Generalized weakness Status: Acute (4) Altered mental status Status: Acute (5) HTN (hypertension) Status: Chronic (6) Tachycardia Status: Acute (7) Pain in left shoulder Status: Chronic - Assessment and Plan (Free Text) Plan: Continue ASA, Lopressor, Vasotec and rest of Ts, PT?OT
[2018-09-20 06:07] LABS: HEMOGLOBIN 12.4 g/dL (12.0-16.0); MEAN CELL VOLUME 95.9 fl (81.0-99.0); MEAN CORPUSCULAR HEMOGLOBIN 31.6 pg (27.0-31.0); RBC 3.93 Mil/uL (3.80-5.20); RED CELL DISTRIBUTION WIDTH 14.2 % (11.5-14.5); WHITE BLOOD COUNT 8.7 K/uL (4.8-10.8)
[2018-09-20 06:10] LABS: BLOOD UREA NITROGEN 14 mg/dl (7-17); CALCIUM 9.9 mg/dL (8.4-10.2); GFR NON-AFRICAN AMERICAN > 60
[2018-09-20] MEDS: Cilostazol 50 mg Tab UD PO SCH ×2 (08:38→16:52)
[2018-09-20] MEDS: Lidocaine 5% Patch TD SCH (08:39)
--- NOTE | 2018-09-20 19:18 | CP.PCM.PN ---
Subjective - Date & Time of Evaluation Date of Evaluation: 09/20/18 Time of Evaluation: 12:00 - Subjective Subjective: no acute complaints of pain mild discomfort Objective - Vital Signs/Intake and Output Vital Signs (last 24 hours): Temp Pulse Resp BP Pulse Ox 97.5 F L 77 18 116/70 98 09/20/18 07:28 09/20/18 08:38 09/20/18 07:28 09/20/18 08:38 09/20/18 08:34 - Medications Medications: Current Medications Acetaminophen (Tylenol 325mg Tab) 650 mg PO Q6 PRN PRN Reason: for pain scale 4-10 Last Admin: 09/19/18 10:08 Dose: 650 mg Aspirin (Aspirin Chewable) 81 mg PO DAILY [facility] Last Admin: 09/20/18 08:39 Dose: 81 mg Atorvastatin Calcium (Lipitor) 40 mg PO HS [facility] Last Admin: 09/19/18 21:18 Dose: 40 mg Bisacodyl (Dulcolax) 10 mg [place] DAILY PRN PRN Reason: Constipation Last Admin: 09/14/18 17:03 Dose: 10 mg Cilostazol (Pletal) 50 mg PO BID [facility] Last Admin: 09/20/18 16:52 Dose: 50 mg Enalapril Maleate (Vasotec) 10 mg PO DAILY [facility] Last Admin: 09/20/18 08:38 Dose: 10 mg Famotidine (Pepcid) 20 mg PO BID [facility] Last Admin: 09/20/18 16:52 Dose: 20 mg Lactulose (Enulose) 20 gm PO DAILY [facility] Last Admin: 09/20/18 08:39 Dose: 20 gm Lidocaine (Lidoderm) 1 ea TD DAILY PRN PRN Reason: Muscle spasm Last Admin: 09/19/18 08:41 Dose: 1 ea Lidocaine (Lidoderm) 1 ea TD DAILY [facility] Last Admin: 09/20/18 08:39 Dose: 1 ea Meclizine HCl (Antivert) 25 mg PO DAILY [facility] Last Admin: 09/20/18 08:39 Dose: 25 mg Metoprolol Tartrate (Lopressor) 50 mg PO Q12 [facility] Last Admin: 09/20/18 08:38 Dose: 50 mg Rivaroxaban (Xarelto) 10 mg PO DAILY [facility]; Protocol Last Admin: 09/20/18 08:37 Dose: 10 mg - Labs Labs: 09/20/18 05:31 09/20/18 05:31 - Constitutional Appears: Well - Head Exam Head Exam: ATRAUMATIC, NORMAL INSPECTION, NORMOCEPHALIC - Eye Exam Eye Exam: EOMI, Normal appearance Pupil Exam: NORMAL ACCOMODATION, PERRL - ENT Exam ENT Exam: Mucous Membranes Moist, Normal Exam - Neck Exam Neck Exam: Normal Inspection - Respiratory Exam Respiratory Exam: NORMAL BREATHING PATTERN - Cardiovascular Exam Cardiovascular Exam: REGULAR RHYTHM - GI/Abdominal Exam GI & Abdominal Exam: Normal Bowel Sounds - Rectal Exam Rectal Exam: NORMAL INSPECTION - Exam External exam: NORMAL EXTERNAL EXAM - Extremities Exam Extremities Exam: Normal Capillary Refill - Back Exam Back Exam: NORMAL INSPECTION - Neurological Exam Neurological Exam: Alert, Awake Neuro motor strength exam: Left Upper Extremity: 2/1, Right Upper Extremity: 3, Left Lower Extremity: 2/1, Right Lower Extremity: 3 - Psychiatric Exam Psychiatric exam: Normal Affect, Normal Mood - Skin Skin Exam: Normal Color Assessment and Plan (1) HTN (hypertension) Status: Chronic (2) Bursitis Status: Acute (3) CVA (cerebral vascular accident) Assessment & Plan: plan for physical, occupational, rec and speech therapy Status: Acute (4) Cervical radiculopathy Status: Acute (5) Decreased ambulation status Status: Acute
--- NOTE | 2018-09-20 19:30 | CP.PCM.PN ---
Subjective - Date & Time of Evaluation Date of Evaluation: 09/19/18 Time of Evaluation: 13:00 - Subjective Subjective: no acute complaints at present Objective - Vital Signs/Intake and Output Vital Signs (last 24 hours): Temp Pulse Resp BP Pulse Ox 97.5 F L 77 18 116/70 98 09/20/18 07:28 09/20/18 08:38 09/20/18 07:28 09/20/18 08:38 09/20/18 08:34 - Medications Medications: Current Medications Acetaminophen (Tylenol 325mg Tab) 650 mg PO Q6 PRN PRN Reason: for pain scale 4-10 Last Admin: 09/19/18 10:08 Dose: 650 mg Aspirin (Aspirin Chewable) 81 mg PO DAILY [facility] Last Admin: 09/20/18 08:39 Dose: 81 mg Atorvastatin Calcium (Lipitor) 40 mg PO HS [facility] Last Admin: 09/19/18 21:18 Dose: 40 mg Bisacodyl (Dulcolax) 10 mg [place] DAILY PRN PRN Reason: Constipation Last Admin: 09/14/18 17:03 Dose: 10 mg Cilostazol (Pletal) 50 mg PO BID [facility] Last Admin: 09/20/18 16:52 Dose: 50 mg Enalapril Maleate (Vasotec) 10 mg PO DAILY [facility] Last Admin: 09/20/18 08:38 Dose: 10 mg Famotidine (Pepcid) 20 mg PO BID [facility] Last Admin: 09/20/18 16:52 Dose: 20 mg Lactulose (Enulose) 20 gm PO DAILY [facility] Last Admin: 09/20/18 08:39 Dose: 20 gm Lidocaine (Lidoderm) 1 ea TD DAILY PRN PRN Reason: Muscle spasm Last Admin: 09/19/18 08:41 Dose: 1 ea Lidocaine (Lidoderm) 1 ea TD DAILY [facility] Last Admin: 09/20/18 08:39 Dose: 1 ea Meclizine HCl (Antivert) 25 mg PO DAILY [facility] Last Admin: 09/20/18 08:39 Dose: 25 mg Metoprolol Tartrate (Lopressor) 50 mg PO Q12 [facility] Last Admin: 09/20/18 08:38 Dose: 50 mg Rivaroxaban (Xarelto) 10 mg PO DAILY [facility]; Protocol Last Admin: 09/20/18 08:37 Dose: 10 mg - Labs Labs: 09/20/18 05:31 09/20/18 05:31 - Constitutional Appears: Well - Head Exam Head Exam: ATRAUMATIC, NORMAL INSPECTION, NORMOCEPHALIC - Eye Exam Eye Exam: EOMI, Normal appearance Pupil Exam: NORMAL ACCOMODATION, PERRL - ENT Exam ENT Exam: Mucous Membranes Moist, Normal Exam - Neck Exam Neck Exam: Normal Inspection - Respiratory Exam Respiratory Exam: Clear to Ausculation Bilateral, NORMAL BREATHING PATTERN - Cardiovascular Exam Cardiovascular Exam: REGULAR RHYTHM - GI/Abdominal Exam GI & Abdominal Exam: Soft, Normal Bowel Sounds - Rectal Exam Rectal Exam: NORMAL INSPECTION - Exam External exam: NORMAL EXTERNAL EXAM - Extremities Exam Extremities Exam: Full ROM, Normal Capillary Refill, Normal Inspection - Back Exam Back Exam: NORMAL INSPECTION - Neurological Exam Neurological Exam: Alert Neuro motor strength exam: Left Upper Extremity: 0, Right Upper Extremity: 3, Left Lower Extremity: 2/1, Right Lower Extremity: 3 - Psychiatric Exam Psychiatric exam: Normal Affect, Normal Mood - Skin Skin Exam: Dry, Normal Color Assessment and Plan (1) HTN (hypertension) Status: Chronic (2) Bursitis Status: Acute (3) CVA (cerebral vascular accident) Assessment & Plan: plan for range of motion, strengthening, transfers and gait training, adl eval and equipment evaluation. Status: Acute (4) Cervical radiculopathy Status: Acute (5) Decreased ambulation status Status: Acute
[2018-09-21] MEDS: Lidocaine 5% Patch TD SCH (08:33)
[2018-09-21] MEDS: Cilostazol 50 mg Tab UD PO SCH ×2 (08:34→16:55)
--- NOTE | 2018-09-21 11:26 | CP.PCM.PN ---
Subjective - Date & Time of Evaluation Date of Evaluation: 09/21/18 Time of Evaluation: 10:00 - Subjective Subjective: no acute complaints of neck or back pain, generalized weakness Objective - Vital Signs/Intake and Output Vital Signs (last 24 hours): Temp Pulse Resp BP Pulse Ox 97.2 F L 78 20 130/75 96 09/21/18 09:00 09/21/18 09:00 09/21/18 09:00 09/21/18 09:00 09/21/18 08:55 - Medications Medications: Current Medications Acetaminophen (Tylenol 325mg Tab) 650 mg PO Q6 PRN PRN Reason: for pain scale 4-10 Last Admin: 09/19/18 10:08 Dose: 650 mg Aspirin (Aspirin Chewable) 81 mg PO DAILY [facility] Last Admin: 09/21/18 08:34 Dose: 81 mg Atorvastatin Calcium (Lipitor) 40 mg PO HS [facility] Last Admin: 09/20/18 21:38 Dose: 40 mg Bisacodyl (Dulcolax) 10 mg [place] DAILY PRN PRN Reason: Constipation Last Admin: 09/14/18 17:03 Dose: 10 mg Cilostazol (Pletal) 50 mg PO BID [facility] Last Admin: 09/21/18 08:34 Dose: 50 mg Enalapril Maleate (Vasotec) 10 mg PO DAILY [facility] Last Admin: 09/21/18 08:34 Dose: 10 mg Famotidine (Pepcid) 20 mg PO BID [facility] Last Admin: 09/21/18 08:34 Dose: 20 mg Lactulose (Enulose) 20 gm PO DAILY [facility] Last Admin: 09/21/18 08:35 Dose: 20 gm Lidocaine (Lidoderm) 1 ea TD DAILY PRN PRN Reason: Muscle spasm Last Admin: 09/19/18 08:41 Dose: 1 ea Lidocaine (Lidoderm) 1 ea TD DAILY [facility] Last Admin: 09/21/18 08:33 Dose: 1 ea Meclizine HCl (Antivert) 25 mg PO DAILY [facility] Last Admin: 09/21/18 08:34 Dose: 25 mg Metoprolol Tartrate (Lopressor) 50 mg PO Q12 [facility] Last Admin: 09/21/18 08:35 Dose: 50 mg Rivaroxaban (Xarelto) 10 mg PO DAILY [facility]; Protocol Last Admin: 09/21/18 08:34 Dose: 10 mg - Labs Labs: 09/20/18 05:31 09/20/18 05:31 - Constitutional Appears: Well - Head Exam Head Exam: ATRAUMATIC, NORMAL INSPECTION, NORMOCEPHALIC - Eye Exam Eye Exam: EOMI, Normal appearance, PERRL Pupil Exam: NORMAL ACCOMODATION - ENT Exam ENT Exam: Mucous Membranes Moist, Normal Exam - Neck Exam Neck Exam: Full ROM, Normal Inspection - Respiratory Exam Respiratory Exam: NORMAL BREATHING PATTERN - Cardiovascular Exam Cardiovascular Exam: REGULAR RHYTHM - GI/Abdominal Exam GI & Abdominal Exam: Soft, Normal Bowel Sounds - Rectal Exam Rectal Exam: NORMAL INSPECTION - Exam External exam: NORMAL EXTERNAL EXAM - Extremities Exam Extremities Exam: Full ROM, Normal Capillary Refill, Normal Inspection - Back Exam Back Exam: NORMAL INSPECTION - Neurological Exam Neurological Exam: Alert, Awake Neuro motor strength exam: Left Upper Extremity: 3, Right Upper Extremity: 0, Left Lower Extremity: 3, Right Lower Extremity: 0 - Psychiatric Exam Psychiatric exam: Normal Affect, Normal Mood - Skin Skin Exam: Dry, Intact Assessment and Plan (1) HTN (hypertension) Status: Chronic (2) Bursitis Status: Acute (3) CVA (cerebral vascular accident) Assessment & Plan: plan for team conference for today to discuss Dc planning with family and equipment eval, plan for pt, ot, rec and st Status: Acute (4) Cervical radiculopathy Status: Acute (5) Decreased ambulation status Status: Acute
--- NOTE | 2018-09-21 12:05 | PCM.PSYTMC ---
Acute Rehab Team Conference - - Vital Signs: Vital Signs (Last 8 Hours): Vital Signs 09/21/18 09/21/18 09/21/18 07:56 08:35 08:55 Temperature 97.2 F L Pulse Rate 78 78 78 Respiratory 20 Rate Blood Pressure 130/75 130/75 O2 Sat by Pulse 98 96 Oximetry 09/21/18 09:00 Temperature 97.2 F L Pulse Rate 78 Respiratory 20 Rate Blood Pressure 130/75 O2 Sat by Pulse Oximetry Pain: 0 - Precautions: Precautions: Fall Prevention, Cardiac/Pulmonary - Medications/Other Issues: Comment: on Xarelto - Consults: Comment: - cardio - Skin: Incision Site: Intact Incision Line Treatment: N/A - Toileting: Toileting: Maximal Assistance - Bladder Management: Bladder Pattern: Incontinent Voiding Method: Toilet, Bedpan, Diaper Bladder Management: Moderate Assistance Other Intervention:: continent/incontinent - Transfers: Transfers: Maximal Assistance - ADL's: ADL's: Moderate Assistance - Pain Management: Other Intervention:: on lidoderm patch for pain & tylenol as needed - Patient/Family Teaching: Other Intervention:: medications, safety measures - Goals/Time Frame: Comment: Fall prevention. maintain normal heart rate - Provider: Registered Nurse:: Yadira Salinas Physical Therapy - Bed Mobility Bed Mobility: Moderate Assistance, Maximum Assistance - Transfers Wheelchair to Mat: Verbal Cues, Moderate Assistance Sit to Stand: Verbal Cues, Minimal Assistance - Ambulation Level of Assistance: Moderate Assistance, Maximum Assistance Distance (ft.): 12 Assistive Devices: Rakan Walker Orthoses: LLE dorsiflexion assist GERMAIN wrap - Stair Negotiation Stairs: Level of Assistance: Not Tested - Standing Balance Static Stand: Moderate Assistance Comment: KJ support - Pain Pain (assessed during therapy session): 6 Alleviating Techniques: Medication, Massage, Position Change, Distraction, Relaxation Techniques, Exercise, Inactivity Comment: L hand - Insight/Carryover Insight/Carryover: Fair - Patient/Family Education Comment: CVA recovery, safety, POC, d/c recommendations - Assessment/Plan Assessment: Pt actively participating in PT tx sessions focusing on BLE strengthening exercises, balance and endurance activities, and functional mobility training. Pt requires mod/max A for bed mobilities, min/mod A for transfers, mod/max A for ambulating short distances with hemiwalker and LLE dorsiflexor assist GERMAIN wrap. Pt will continue to benefit from skilled PT interventions to address deficits, reduce fall risk, and maximize functional independence. Recommend 24 hour assist from family at home. - Goals Timeframe: 10 days Goals: Sit < > supine min A. Sit < > stand transfers CGA. Bed < > chair transfers min A. pt will ambulate 25 ft with R hemiwalker mod A - Provider Physical Therapist:: Elizabeth Palma License Number:: [id number] Occupational Therapy - Arousal/Attention/Orientation Level of Consciousness: Awake, Alert, Forgetful Patient Orientation: Person, Place, Time, Appropriate to Age, Appropriate to Situation - ADL/IADL Self Feeding: Supervision, Verbal Cues, Set-up Help Grooming: Supervision, Verbal Cues, Set-up Help, Contact Guard Bathing-Upper Ext: Verbal Cues, Set-up Help, Moderate Assistance Bathing-Lower Ext: Verbal Cues, Set-up Help, Maximum Assistance Dressing-Upper Ext: Verbal Cues, Set-up Help Dressing-Lower Ext: Verbal Cues, Set-up Help, Maximum Assistance Homemaking: Not Applicable - Sitting Balance Static Sitting: Supervision Dynamic Sitting: Reaches across midline, Reaches out of base of support, Reaches within base of support, Contact Guard Assist, Minimal Assistance Comment: seated unsupported - Transfers Wheelchair to Bed Transfers: Verbal Cues, Set-up Help, Moderate Assistance Toilet Transfers: Verbal Cues, Set-up Help, Moderate Assistance Comment: shower transfers to bench: mod-max assist and verbal cues limited postural control, impaired strength in LUE/LLE - Wheelchair Management Level of Assistance: Verbal Cues, Set-up Help, Moderate Assistance Distance (ft.): 50 - Upper Extremity Status Right Upper Extremity Comment: AROM is WNLS, strength 4/5 Left Upper Extremity Comment: moderate tone in adductors in shoulder abdductors/internal rotators, elbow flexors, pronators, wrist flexors, digit flexors/adductors - Pain Pain (assessed during therapy session): 5 Alleviating Techniques: Heat, Inactivity Comment: pt refuses pain meds - Insight/Carryover Insight/Carryover: Fair - Patient/Family Education Comment: -adl, transfer and mobility training uisng adaptivecomepensatory strategies. -pt's caregievr educated on transfers/mobility , adl strategies, LUE/LLE management/positioning--ongoing training with pt/pt's daughter Caryl. -educated on uses/applications of transfer tub bench, commode, w/c components(gagan morillo pt's daughter Caryl). -review rehab/OT goals and plan of care with pt/pt's daughter(Caryl) - Assessment/Plan Assessment: Pt continues to responds well to moist heat and manual therapy for LUE pain management. Pt wishes to continues with moist heat t tx for pain relief. Pt has been refusing pain meds @ this time--as per pt pain meds does not help with pain. Pt may benefit from LUE splinting and /or positioning to minimize contractures--will check with DR. Penn. Plan: Pt will go home with family with 24 hour care--home PT, OT ,ST and [employer]PER[employer] services. Will continue ongoing training with pt/pt's daughter, Caryl, for safe transition home with 24 hour care as recommended. - Goals Comment: -caregiver, Caryl, to be I/safe assisting pt with adls, transfers, mobility, LUE management/HEP. -transfers:min/mod assist and verbal cues <->bed, commode, w/c and other surfaces. -upper body dressing: min assist and verbal cues with rakan-techniques. -lower body dressing: mod assist and verbal cues with rakan-techniues/devices. -w/c propulsion/management 100 feet+ with min assist and verbal cues - Provider Occupational Therapist:: Susan Cervantes License Number: [id number] Speech Therapy - Consult Information Patient on Program: Yes Medical Diagnosis: CVA Treatment Diagnosis: -moderate cognitive deficits. -mild dysarthria - Assessment Problem Solving Impairment: Moderate Comment: mild-moderate Memory Impairment: Moderate Comment: mild-moderate Speech/Articulation Impairment: Mild - Plan Assessment: Tahira Holland presents with 1.) moderate cognitive deficits characterized by mildly impaired temporal orientation, impaired short-term memory, thought organization, word retrieval, and ability to answer more complex questions and follow more complex commands; and 2.) mild dysarthria characterized by L facial weakness and impaired respiration for phonation resulting in impaired vocal loudness and intermittently impaired articulatory precision negatively impacting speech intelligibility. Pt has demonstrated intermittent carryover of compensatory speech strategies improving intelligibility at times and has also demonstrated improved recall and thought organization when focused on tx tasks. She would benefit from continued speech tx 3-5x/week for improved cognition and intelligibility. Barriers to learning include cognitive and visual deficits as well as pt fatigue. Pt is tolerating diet of finely chopped solids and thin liquids without overt s/s aspiration 100% SOPHIA; prolonged A-P transit time observed secondary to impaired dentition and L sided weakness, though pt independently utilizes liquid wash PRN. She is tolerating the least restrictive diet at this time; therefore, no further indication for skilled dysphagia tx; will d/c dysphagia tx and focus on speech tx. Plan: Continue Speech/Language Therapy, Discharge Dysphagia Therapy Frequency: 3-5 times per week Duration: 1 week Goals/Timeframe: Please see progress note dated 09/19/18 for updated goals/POC Recommendations: Continue speech tx 3-5x/week for improved cognition and speech intelligibility - Provider Therapist: Madison Oh License Number: [id number] Recreational Therapy - Participation Participation: Monitors His/Her Own Leisure Time - Attendance Attendance: 3-5 times per week - Activities Leisure Activities: Television - Socialization Level of Socialization: Initiates/interacts with caregivers but not with peer, Responds freely, but does not initiate - Assessment Assessment/Plan: Pt is agreeable to participate in recreation therapy sessions following encouragement. Pt requires mod-max verbal cues for encouragement to participate 2' decrease arousal and decrease initiation. Pt receives daily room visits for social support and encouragement to participate in sessions. Will continue to encourage. Problems Currently Limiting Participation: L side visual inattention, L side residual weakness s/p September 2017, memory deficits, short-term recall, decrease leisure awareness level Goals and Time Frame: Pt will tolerate participating in tabletop task for 20 minutes requiring min verbal cues throughout session by date of discharge. - Provider Therapist: Yareli Almaguer Nutrition - Current Diet Current Diet/Supplement/Feedings: [facility] altered(finely chopped) thin liquids glucerna shake 8 ounces 1 per day. (220 kcal and 10 grams of protein) - Appetite Percent Meal Consumed: 50-74% - Assessment/Goals/Time Frame Assessments/Goals/Time Frame: Pt at moderate nutritional risk. Goals. 1. Blood glucoses to be between 70-180 mg/dl(met,continue). 2. Pt to consume 75- 100% of meals(not met,continue). Follow-up due on 09/26/2018 - Provider Provider: Debbi Layton Case Management - Psychosocial Assessment Support Systems: Caryl (daughter) - [phone]. Jaelyn (daughter) - [phone] Psychological Interventions/Needs: Patient is alert with intermittent forgetfulness Discharge Concerns: Patient continues to demonstrate impairments in cognition as well as functional mobility and will require 24 hour assist at home Patient/Family Meeting: CM met with patient/family and rehab team- discussion held via certified Chadian speaking security systems integrator Madison Ly. Intervention/Goal/Outcome: 1. PLAN: Home with 24 hour assist- family refusing MELISSA and has made arrangements for round the clock care at home- caregiver training/education completed with family. 2. DME needs- shower chair delivered and additional w/c add ons and modifications completed. 3. f/u appts to be scheduled. 4. continued emotional support. 5. tentative discharge date: 09/25/2018. 6. refer to [facility] for home VNS - Discharge Plan Discharge Plan: Home with services Home Services: [facility] - Provider Provider: Mir Patrick License Number: [id number] Rehabilitation Plan - Treatment Plan Treatment Plan: Physical Therapy, Occupational Therapy, Speech, Dietary, Patient/Family Education - Recommendation Recommendation: Physical Therapy, Occupational Therapy, Speech, Dietary, Patient/Family Education - Discharge Plan Discharge to: Home (DC september 29)
--- NOTE | 2018-09-21 12:34 | CP.PCM.PN ---
Subjective - Date & Time of Evaluation Date of Evaluation: 09/21/18 Time of Evaluation: 12:25 - Subjective Subjective: F/U s/p CVA No A/D, minimal pain L shoulder, able to walk with walker and PT. Objective - Vital Signs/Intake and Output Vital Signs (last 24 hours): Temp Pulse Resp BP Pulse Ox 97.2 F L 78 20 130/75 96 09/21/18 09:00 09/21/18 09:00 09/21/18 09:00 09/21/18 09:00 09/21/18 08:55 - Medications Medications: Current Medications Acetaminophen (Tylenol 325mg Tab) 650 mg PO Q6 PRN PRN Reason: for pain scale 4-10 Last Admin: 09/19/18 10:08 Dose: 650 mg Aspirin (Aspirin Chewable) 81 mg PO DAILY [facility] Last Admin: 09/21/18 08:34 Dose: 81 mg Atorvastatin Calcium (Lipitor) 40 mg PO HS [facility] Last Admin: 09/20/18 21:38 Dose: 40 mg Bisacodyl (Dulcolax) 10 mg [place] DAILY PRN PRN Reason: Constipation Last Admin: 09/14/18 17:03 Dose: 10 mg Cilostazol (Pletal) 50 mg PO BID [facility] Last Admin: 09/21/18 08:34 Dose: 50 mg Enalapril Maleate (Vasotec) 10 mg PO DAILY [facility] Last Admin: 09/21/18 08:34 Dose: 10 mg Famotidine (Pepcid) 20 mg PO BID [facility] Last Admin: 09/21/18 08:34 Dose: 20 mg Lactulose (Enulose) 20 gm PO DAILY [facility] Last Admin: 09/21/18 08:35 Dose: 20 gm Lidocaine (Lidoderm) 1 ea [place] DAILY PRN PRN Reason: Muscle spasm Last Admin: 09/19/18 08:41 Dose: 1 ea Lidocaine (Lidoderm) 1 ea TD DAILY [facility] Last Admin: 09/21/18 08:33 Dose: 1 ea Meclizine HCl (Antivert) 25 mg PO DAILY [facility] Last Admin: 09/21/18 08:34 Dose: 25 mg Metoprolol Tartrate (Lopressor) 50 mg PO Q12 [facility] Last Admin: 09/21/18 08:35 Dose: 50 mg Rivaroxaban (Xarelto) 10 mg PO DAILY [facility]; Protocol Last Admin: 09/21/18 08:34 Dose: 10 mg - Labs Labs: 09/20/18 05:31 09/20/18 05:31 - Constitutional Appears: No Acute Distress - Head Exam Head Exam: NORMAL INSPECTION - Eye Exam Eye Exam: PERRL - ENT Exam ENT Exam: Normal Exam - Neck Exam Neck Exam: Normal Inspection - Respiratory Exam Respiratory Exam: NORMAL BREATHING PATTERN - Cardiovascular Exam Cardiovascular Exam: REGULAR RHYTHM, Murmur (1/6 LSB) - GI/Abdominal Exam GI & Abdominal Exam: Soft, Normal Bowel Sounds - Extremities Exam Extremities Exam: Pedal Edema (L foot), Tenderness (L shoulder) - Back Exam Back Exam: NORMAL INSPECTION - Neurological Exam Neurological Exam: Awake, CN II-XII Intact Additional comments: Ox2, forgetful, L facial droop, L hemiparesia - Psychiatric Exam Additional comments: Calm - Skin Skin Exam: Warm Assessment and Plan (1) CVA (cerebral vascular accident) Status: Acute (2) History of CVA with residual deficit Status: Chronic (3) Generalized weakness Status: Acute (4) Altered mental status Status: Acute (5) HTN (hypertension) Status: Chronic (6) Tachycardia Status: Acute (7) Pain in left shoulder Status: Chronic - Assessment and Plan (Free Text) Plan: Continue Xarelto, Pletal, Vasotec, LOpressor and rest of Tx.
[2018-09-22] MEDS: Cilostazol 50 mg Tab UD PO SCH ×2 (08:43→17:07)
[2018-09-22] MEDS: Lidocaine 5% Patch TD SCH (08:50)
[2018-09-23 06:25] LABS: HEMOGLOBIN 12.5 g/dL (12.0-16.0); MEAN CELL VOLUME 95.6 fl (81.0-99.0); MEAN CORPUSCULAR HEMOGLOBIN 32.3 pg (27.0-31.0); MEAN CORPUSCULAR HGB CONC 33.7 g/dL (33.0-37.0); RBC 3.87 Mil/uL (3.80-5.20); RED CELL DISTRIBUTION WIDTH 13.8 % (11.5-14.5); WHITE BLOOD COUNT 7.5 K/uL (4.8-10.8)
[2018-09-23 06:31] LABS: BLOOD UREA NITROGEN 14 mg/dl (7-17); CALCIUM 10.1 mg/dL (8.4-10.2); GFR NON-AFRICAN AMERICAN > 60
[2018-09-23] MEDS: Cilostazol 50 mg Tab UD PO SCH ×2 (08:28→16:47)
[2018-09-23] MEDS: Lidocaine 5% Patch TD SCH (08:29)
--- NOTE | 2018-09-23 12:41 | CP.PCM.PN ---
Subjective - Date & Time of Evaluation Date of Evaluation: 09/23/18 Time of Evaluation: 10:00 - Subjective Subjective: no acute complaints of any pain Objective - Vital Signs/Intake and Output Vital Signs (last 24 hours): Temp Pulse Resp BP Pulse Ox 97.9 F 78 20 126/82 97 09/23/18 07:19 09/23/18 08:30 09/23/18 07:19 09/23/18 08:30 09/23/18 07:19 - Medications Medications: Current Medications Acetaminophen (Tylenol 325mg Tab) 650 mg PO Q6 PRN PRN Reason: for pain scale 4-10 Last Admin: 09/19/18 10:08 Dose: 650 mg Aspirin (Aspirin Chewable) 81 mg PO DAILY [facility] Last Admin: 09/23/18 08:28 Dose: 81 mg Atorvastatin Calcium (Lipitor) 40 mg PO HS [facility] Last Admin: 09/22/18 21:28 Dose: 40 mg Bisacodyl (Dulcolax) 10 mg [place] DAILY PRN PRN Reason: Constipation Last Admin: 09/14/18 17:03 Dose: 10 mg Cilostazol (Pletal) 50 mg PO BID [facility] Last Admin: 09/23/18 08:28 Dose: 50 mg Enalapril Maleate (Vasotec) 10 mg PO DAILY [facility] Last Admin: 09/23/18 08:30 Dose: 10 mg Famotidine (Pepcid) 20 mg PO BID [facility] Last Admin: 09/23/18 08:30 Dose: 20 mg Lactulose (Enulose) 20 gm PO DAILY [facility] Last Admin: 09/23/18 08:29 Dose: 20 gm Lidocaine (Lidoderm) 1 ea TD DAILY PRN PRN Reason: Muscle spasm Last Admin: 09/19/18 08:41 Dose: 1 ea Lidocaine (Lidoderm) 1 ea TD DAILY [facility] Last Admin: 09/23/18 08:29 Dose: 1 ea Meclizine HCl (Antivert) 25 mg PO DAILY [facility] Last Admin: 09/23/18 08:28 Dose: 25 mg Metoprolol Tartrate (Lopressor) 50 mg PO Q12 [facility] Last Admin: 09/23/18 08:30 Dose: 50 mg Rivaroxaban (Xarelto) 10 mg PO QD5 [facility]; Protocol Last Admin: 09/23/18 08:31 Dose: 10 mg - Labs Labs: 09/23/18 05:15 09/23/18 05:15 - Constitutional Appears: Well - Head Exam Head Exam: ATRAUMATIC, NORMAL INSPECTION, NORMOCEPHALIC - Eye Exam Eye Exam: EOMI, Normal appearance, PERRL Pupil Exam: NORMAL ACCOMODATION - ENT Exam ENT Exam: Mucous Membranes Moist, Normal Exam - Neck Exam Neck Exam: Full ROM - Respiratory Exam Respiratory Exam: Clear to Ausculation Bilateral, NORMAL BREATHING PATTERN - Cardiovascular Exam Cardiovascular Exam: REGULAR RHYTHM - GI/Abdominal Exam GI & Abdominal Exam: Soft, Normal Bowel Sounds - Rectal Exam Rectal Exam: NORMAL INSPECTION - Exam External exam: NORMAL EXTERNAL EXAM - Extremities Exam Extremities Exam: Full ROM, Normal Capillary Refill, Normal Inspection - Back Exam Back Exam: NORMAL INSPECTION - Neurological Exam Neurological Exam: Alert, Awake Neuro motor strength exam: Left Upper Extremity: 2/1, Right Upper Extremity: 3, Left Lower Extremity: 2/1, Right Lower Extremity: 3 - Psychiatric Exam Psychiatric exam: Normal Affect, Normal Mood - Skin Skin Exam: Dry, Intact Assessment and Plan (1) HTN (hypertension) Status: Chronic (2) Bursitis Status: Acute (3) CVA (cerebral vascular accident) Assessment & Plan: plan for discharge for wednesday, status post pt,, ot rec and St. discussed dC PLANNING WITH FAMILY Status: Acute (4) Cervical radiculopathy Status: Acute (5) Decreased ambulation status Status: Acute
--- NOTE | 2018-09-23 17:10 | CP.PCM.PN ---
Subjective - Date & Time of Evaluation Date of Evaluation: 09/23/18 Time of Evaluation: 15:00 - Subjective Subjective: F/U s/p CVA Objective - Vital Signs/Intake and Output Vital Signs (last 24 hours): Temp Pulse Resp BP Pulse Ox 97.9 F 78 20 126/82 97 09/23/18 07:19 09/23/18 08:30 09/23/18 07:19 09/23/18 08:30 09/23/18 07:19 - Medications Medications: Current Medications Acetaminophen (Tylenol 325mg Tab) 650 mg PO Q6 PRN PRN Reason: for pain scale 4-10 Last Admin: 09/19/18 10:08 Dose: 650 mg Aspirin (Aspirin Chewable) 81 mg PO DAILY [facility] Last Admin: 09/23/18 08:28 Dose: 81 mg Atorvastatin Calcium (Lipitor) 40 mg PO HS [facility] Last Admin: 09/22/18 21:28 Dose: 40 mg Bisacodyl (Dulcolax) 10 mg [place] DAILY PRN PRN Reason: Constipation Last Admin: 09/14/18 17:03 Dose: 10 mg Cilostazol (Pletal) 50 mg PO BID [facility] Last Admin: 09/23/18 16:47 Dose: 50 mg Enalapril Maleate (Vasotec) 10 mg PO DAILY [facility] Last Admin: 09/23/18 08:30 Dose: 10 mg Famotidine (Pepcid) 20 mg PO BID [facility] Last Admin: 09/23/18 16:47 Dose: 20 mg Lactulose (Enulose) 20 gm PO DAILY [facility] Last Admin: 09/23/18 08:29 Dose: 20 gm Lidocaine (Lidoderm) 1 ea TD DAILY PRN PRN Reason: Muscle spasm Last Admin: 09/19/18 08:41 Dose: 1 ea Lidocaine (Lidoderm) 1 ea TD DAILY [facility] Last Admin: 09/23/18 08:29 Dose: 1 ea Meclizine HCl (Antivert) 25 mg PO DAILY [facility] Last Admin: 09/23/18 08:28 Dose: 25 mg Metoprolol Tartrate (Lopressor) 50 mg PO Q12 [facility] Last Admin: 09/23/18 08:30 Dose: 50 mg Rivaroxaban (Xarelto) 10 mg PO QD5 [facility]; Protocol Last Admin: 09/23/18 16:48 Dose: Not Given - Labs Labs: 09/23/18 05:15 09/23/18 05:15 - Constitutional Appears: No Acute Distress - Head Exam Head Exam: NORMAL INSPECTION - Eye Exam Eye Exam: PERRL - ENT Exam ENT Exam: Normal Exam - Neck Exam Neck Exam: Normal Inspection - Respiratory Exam Respiratory Exam: NORMAL BREATHING PATTERN - Cardiovascular Exam Cardiovascular Exam: REGULAR RHYTHM, Murmur (1/6 LSB) - GI/Abdominal Exam GI & Abdominal Exam: Soft, Normal Bowel Sounds - Extremities Exam Extremities Exam: Pedal Edema (L foot), Tenderness (L shoulder) - Back Exam Back Exam: NORMAL INSPECTION - Neurological Exam Neurological Exam: Awake, CN II-XII Intact Additional comments: O x2, forgetful, L facial droop, L hemiparesia - Psychiatric Exam Additional comments: Calm - Skin Skin Exam: Warm Assessment and Plan (1) CVA (cerebral vascular accident) Status: Acute (2) History of CVA with residual deficit Status: Chronic (3) Generalized weakness Status: Acute (4) Altered mental status Status: Acute (5) HTN (hypertension) Status: Chronic (6) Tachycardia Status: Acute (7) Pain in left shoulder Status: Chronic
[2018-09-24] MEDS: Cilostazol 50 mg Tab UD PO SCH ×2 (08:31→17:14)
[2018-09-24] MEDS: Lidocaine 5% Patch TD SCH (08:32)
[2018-09-25 08:16] VITALS: BP 139/78; PULSE 74; RESP 18; TEMP 98.1; O2SAT 98
[2018-09-25] MEDS: Cilostazol 50 mg Tab UD PO SCH (09:26)
[2018-09-25] MEDS: Lidocaine 5% Patch TD SCH (09:26)
--- NOTE | 2018-09-25 12:57 | CP.PCM.PN ---
Subjective - Date & Time of Evaluation Date of Evaluation: 09/24/18 Time of Evaluation: 09:00 - Subjective Subjective: no acute complaints at present Objective - Vital Signs/Intake and Output Vital Signs (last 24 hours): Temp Pulse Resp BP Pulse Ox 98.1 F 74 18 139/78 98 09/25/18 08:15 09/25/18 09:28 09/25/18 08:15 09/25/18 09:28 09/25/18 08:15 - Medications Medications: Current Medications Acetaminophen (Tylenol 325mg Tab) 650 mg PO Q6 PRN PRN Reason: for pain scale 4-10 Last Admin: 09/19/18 10:08 Dose: 650 mg Aspirin (Aspirin Chewable) 81 mg PO DAILY [facility] Last Admin: 09/25/18 09:25 Dose: 81 mg Atorvastatin Calcium (Lipitor) 40 mg PO HS [facility] Last Admin: 09/24/18 21:14 Dose: 40 mg Bisacodyl (Dulcolax) 10 mg [place] DAILY PRN PRN Reason: Constipation Last Admin: 09/14/18 17:03 Dose: 10 mg Cilostazol (Pletal) 50 mg PO BID [facility] Last Admin: 09/25/18 09:26 Dose: 50 mg Enalapril Maleate (Vasotec) 10 mg PO DAILY [facility] Last Admin: 09/25/18 09:27 Dose: 10 mg Famotidine (Pepcid) 20 mg PO BID [facility] Last Admin: 09/25/18 09:27 Dose: 20 mg Lactulose (Enulose) 20 gm PO DAILY [facility] Last Admin: 09/25/18 09:26 Dose: 20 gm Lidocaine (Lidoderm) 1 ea TD DAILY PRN PRN Reason: Muscle spasm Last Admin: 09/19/18 08:41 Dose: 1 ea Lidocaine (Lidoderm) 1 ea TD DAILY [facility] Last Admin: 09/25/18 09:26 Dose: 1 ea Meclizine HCl (Antivert) 25 mg PO DAILY [facility] Last Admin: 09/25/18 09:26 Dose: 25 mg Metoprolol Tartrate (Lopressor) 50 mg PO Q12 [facility] Last Admin: 09/25/18 09:28 Dose: 50 mg Rivaroxaban (Xarelto) 10 mg PO QD5 [facility]; Protocol Last Admin: 09/24/18 17:11 Dose: 10 mg - Labs Labs: 09/23/18 05:15 09/23/18 05:15 - Constitutional Appears: Well - Head Exam Head Exam: ATRAUMATIC, NORMAL INSPECTION, NORMOCEPHALIC - Eye Exam Eye Exam: EOMI, Normal appearance Pupil Exam: NORMAL ACCOMODATION, PERRL - ENT Exam ENT Exam: Mucous Membranes Dry, Mucous Membranes Moist, Normal Exam - Neck Exam Neck Exam: Full ROM - Respiratory Exam Respiratory Exam: NORMAL BREATHING PATTERN - Cardiovascular Exam Cardiovascular Exam: REGULAR RHYTHM - GI/Abdominal Exam GI & Abdominal Exam: Normal Bowel Sounds - Rectal Exam Rectal Exam: NORMAL INSPECTION - Exam External exam: NORMAL EXTERNAL EXAM - Extremities Exam Extremities Exam: Full ROM - Back Exam Back Exam: NORMAL INSPECTION - Neurological Exam Neurological Exam: Alert Neuro motor strength exam: Left Upper Extremity: 2/1, Left Lower Extremity: 2/1 - Psychiatric Exam Psychiatric exam: Normal Mood - Skin Skin Exam: Normal Color Assessment and Plan (1) HTN (hypertension) Status: Chronic (2) Bursitis Status: Acute (3) CVA (cerebral vascular accident) Assessment & Plan: planning for discharge home with family, status post therapies, additional services after discharge , family involved Status: Acute (4) Cervical radiculopathy Status: Acute (5) Decreased ambulation status Status: Acute
--- NOTE | 2018-09-25 16:56 | CP.PCM.DIS ---
Provider - Provider Date of Admission: 09/02/18 21:09 Attending physician: Wilner Ortiz MD Primary care physician: Genny Ruby MD Consults: 09/02/18 21:00 Physiatry Consult Routine Comment: Consulting Provider: Sanjeev Cantrell Consulting Physician: Sanjeev Cantrell Reason for Consult: Physiatry consult 09/03/18 00:22 Pharmacist Consult As Ordered Comment: Physician Instructions: Reason For Exam: on Lovenox 09/03/18 08:30 Case Management Referral Routine Comment: Physician Instructions: Reason For Exam: for discharge planning Reason for Referral: Discharge Planning 09/05/18 12:59 Cardiology Consult Routine Comment: Consulting Provider: Jamil Holland Consulting Physician: Jamil Holland Reason for Consult: tachycardia 09/15/18 15:43 Podiatry Consult Routine Comment: podiatry consult/ toe nails trim Consulting Provider: Sesar Anderson Consulting Physician: Sesar Anderson Reason for Consult: toe nails trim Diagnosis - Discharge Diagnosis (1) CVA (cerebral vascular accident) Status: Acute Priority: High (2) History of CVA with residual deficit Status: Chronic Priority: High (3) Generalized weakness Status: Acute Priority: High (4) Altered mental status Status: Acute Priority: High (5) HTN (hypertension) Status: Chronic Priority: Medium (6) Tachycardia Status: Acute (7) Pain in left shoulder Status: Chronic Priority: High Hospital Course - Lab Results Lab Results: Micro Results 09/05/18 18:12 Urine,Catheterized Urine Culture - Final No Growth (<1,000 CFU/ML) Most Recent Lab Values WBC 7.5 K/uL (4.8-10.8) 09/23/18 05:15 RBC 3.87 Mil/uL (3.80-5.20) 09/23/18 05:15 Hgb 12.5 g/dL (12.0-16.0) 09/23/18 05:15 Hct 37.0 % (34.0-47.0) 09/23/18 05:15 MCV 95.6 fl (81.0-99.0) 09/23/18 05:15 MCH 32.3 pg (27.0-31.0) H 09/23/18 05:15 MCHC 33.7 g/dL (33.0-37.0) 09/23/18 05:15 RDW 13.8 % (11.5-14.5) 09/23/18 05:15 Plt Count 255 K/uL (130-400) 09/23/18 05:15 Sodium 138 mmol/l (132-148) 09/23/18 05:15 Potassium 4.5 MMOL/L (3.6-5.0) 09/23/18 05:15 Chloride 102 mmol/L (98-107) 09/23/18 05:15 Carbon Dioxide 27 mmol/L (22-30) 09/23/18 05:15 Anion Gap 14 (10-20) 09/23/18 05:15 BUN 14 mg/dl (7-17) 09/23/18 05:15 Creatinine 0.8 mg/dl (0.7-1.2) 09/23/18 05:15 Est GFR ( Amer) > 60 09/23/18 05:15 Est GFR (Non-Af Amer) > 60 09/23/18 05:15 POC Glucose (mg/dL) 107 mg/dL (65-110) 09/25/18 05:35 Random Glucose 102 mg/dL (65-105) 09/23/18 05:15 Calcium 10.1 mg/dL (8.4-10.2) 09/23/18 05:15 Discharge Exam - Head Exam Head Exam: ATRAUMATIC, NORMAL INSPECTION, NORMOCEPHALIC Discharge Plan - Follow Up Plan Condition: GOOD Disposition: HOME/ ROUTINE Instructions: Stroke, Rivaroxaban, Lidocaine (Topical), Aspirin, Atorvastatin, Cilostazol, Enalapril, Famotidine, Lactulose, Meclizine, Metoprolol, Cardioversion (DC), Hypertension (DC), Hypertension (GEN) Additional Instructions: Needs total assistance with all daily activities. Fall and aspiration precaution Appointment with Dr Mayberry ( Neurologist ) October 11, 2018 @ 300 P.M. Tel [employer] picker 2:00 P.M. , return time 400 P.M. Conf. # [id number] Appointment w/ Dr Ruby October 12, 2018 @ 930 A.M . Tel # [phone] Pick -up [employer] @ 830 A. M. , return time 1030 A. M. Conf. # [id number] Referrals: Genny Ruby MD [Primary Care Provider] - Nima Mayberry MD [Medical Doctor] -
== END 2018-09-25 14:30 | disposition home or self-care (01) | DRG 57 ==
PROVIDERS: ADMIT Internal Medicine Pulmonary Disease; ATTEND Internal Medicine Pulmonary Disease
PROC: F07Z9FZ Gait Training/Functional Ambulation Treatment using Assistive, Adaptive, Supportive or Protective Equipment (ICD-10-PCS; principal; 2018-09-02)
PROC: F08Z4FZ Home Management Treatment using Assistive, Adaptive, Supportive or Protective Equipment (ICD-10-PCS; 2018-09-02)
PROC: F07L6FZ Therapeutic Exercise Treatment of Musculoskeletal System - Lower Back / Lower Extremity using Assistive, Adaptive, Supportive or Protective Equipment (ICD-10-PCS; 2018-09-02)
PROC: F06Z6ZZ Communicative/Cognitive Integration Skills Treatment (ICD-10-PCS; 2018-09-03)
DX: I69.354 Hemiplegia and hemiparesis following cerebral infarction affecting left non-dominant side (principal); N39.0 Urinary tract infection, site not specified; I69.392 Facial weakness following cerebral infarction; I70.0 Atherosclerosis of aorta; I65.21 Occlusion and stenosis of right carotid artery; M54.12 Radiculopathy, cervical region; E11.9 Type 2 diabetes mellitus without complications; I10 Essential (primary) hypertension; L60.8 Other nail disorders; M75.52 Bursitis of left shoulder; R00.0 Tachycardia, unspecified; J44.9 Chronic obstructive pulmonary disease, unspecified; E78.00 Pure hypercholesterolemia, unspecified; Z79.01 Long term (current) use of anticoagulants; Z87.01 Personal history of pneumonia (recurrent); Z90.710 Acquired absence of both cervix and uterus; Z88.0 Allergy status to penicillin; Z91.013 Allergy to seafood

== ENCOUNTER 2018-09-13 18:53 | Emergency (ER) | payer MEDICARE, OTHER ==
[2018-09-13 18:54] VITALS: BMI 22.4
[2018-09-13 19:24] VITALS: O2SAT 97
[2018-09-13 20:49] LABS: ALB/GLOB RATIO 1.1 (1.0-2.1); ALBUMIN 3.2 g/dL (3.5-5.0); ALT/SGPT 53 U/L (9-52); AST/SGOT 44 U/L (14-36); BLOOD UREA NITROGEN 12 mg/dl (7-17); CALCIUM 8.9 mg/dL (8.4-10.2); GFR NON-AFRICAN AMERICAN > 60
--- NOTE | 2018-09-13 20:49 | ED PDOC ---
HPI: General Adult Time Seen by Provider: 09/13/18 19:00 Chief Complaint (Nursing): Abnormal Labs Chief Complaint (Provider): Abnormal Labs History Per: Patient, Family (daughter) History/Exam Limitations: no limitations Current Symptoms Are (Timing): Still Present Recently: Treated By A Physician Additional Complaint(s): 78 year old female with a history of DM, CVA, COPD and HTN presents to the ED for evaluation PATRICIA from rehab in this hospital. Patient had persistent tachycardia so DR Bonner did echo and it was ambiguous so went ahead with PATRICIA and PATRICIA was positive for multiple clots so Dr Ortiz the pts pcp ordered one dose of lovenox. Currently reports no symptoms and is no distress. Denies chest pain, shortness of breath, weakness and numbness. 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 Wilner Ortiz Past Medical History Reviewed: Historical Data, Nursing Documentation, Vital Signs Vital Signs: Last Vital Signs Temp 98.8 F 09/13/18 18:56 Pulse 76 09/13/18 18:56 Resp 16 09/13/18 18:56 BP Pulse Ox 97 09/13/18 18:56 - Medical History PMH: Arthritis, COPD, Diabetes, HTN, Hypercholesterolemia Denies: Atrial Fibrillation, Deep Vein Thrombosis, HIV, Chronic Kidney Disease - Surgical History Surgical History: Appendectomy, Cholecystectomy Denies: Pacemaker Other surgeries: hysterectomy - Family History Family History: States: Unknown Family Hx - Social History Current smoker - smoking cessation education provided: No Alcohol: None Drugs: Denies - Immunization History Hx Tetanus Toxoid Vaccination: No Hx Influenza Vaccination: Yes Hx Pneumococcal Vaccination: Yes - Home Medications Home Medications: Ambulatory Orders Medication Instructions Recorded Aspirin [Aspirin Chewable] 81 mg PO DAILY chew 06/02/18 Clopidogrel [Plavix] 75 mg PO DAILY tab 06/02/18 Enalapril Maleate [Vasotec] 10 mg PO DAILY tab 06/02/18 Rosuvastatin Calcium [Crestor] 20 mg PO HS tab 06/02/18 Meclizine [Meclizine*] 25 mg PO DAILY 09/01/18 Atorvastatin [Lipitor] 40 mg PO HS tab 09/02/18 Cilostazol [Pletal] 50 mg PO BID #60 tab 09/02/18 Enoxaparin [Lovenox] 40 mg SC DAILY syr 03/15/19 Famotidine [Pepcid] 20 mg PO BID 09/02/18 Lactulose 20 gm PO DAILY 09/02/18 - Allergies Allergies/Adverse Reactions: Allergies Allergy/AdvReac Type Severity Reaction Status Date / Time Penicillins Allergy RASH Verified 09/02/18 21:07 SHRIMP Allergy RASH Uncoded 09/02/18 21:07 Review of Systems ROS Statement: Except As Marked, All Systems Reviewed And Found Negative Cardiovascular: Positive for: Other (multiple clots revealed on TTE; asymptomatic at this time). Negative for: Chest Pain, Palpitations Respiratory: Negative for: Cough, Shortness of Breath Physical Exam - Reviewed Nursing Documentation Reviewed: Yes Vital Signs Reviewed: Yes - Physical Exam Appears: Positive for: Non-toxic, No Acute Distress Head Exam: Positive for: ATRAUMATIC, NORMAL INSPECTION, NORMOCEPHALIC Skin: Positive for: Normal Color, Warm, Dry. Negative for: Rash Eye Exam: Positive for: EOMI, Normal appearance, PERRL ENT: Positive for: Normal ENT Inspection Neck: Positive for: Normal, Painless ROM, Supple Cardiovascular/Chest: Positive for: Regular Rate, Rhythm. Negative for: Murmur Respiratory: Positive for: Normal Breath Sounds. Negative for: Wheezing, Respiratory Distress Gastrointestinal/Abdominal: Positive for: Normal Exam, Soft. Negative for: Ten derness Back: Positive for: Normal Inspection. Negative for: L CVA Tenderness, R CVA Tenderness Extremity: Positive for: Normal ROM (x 4). 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 Negative for: Symmetric/Intact Strength - Laboratory Results Result Diagrams: 09/13/18 21:02 09/13/18 20:30 - ECG O2 Sat by Pulse Oximetry: 97 (RA) Pulse Ox Interpretation: Normal Medical Decision Making Medical Decision Makin:00 Impression: abnormal TTE results; patient is currently asymptomatic Initial Plan: --CBC --CMP --Blood cx 21:[address] Ortiz he states to call dr bonner 22:[address] Bonner who stated that results (he is aware of them) do not indicate need for admission at this time. Patient will be discharged to return to rehab. Stable vitals and in no distress. can return to rehab Scribe Attestation: Documented by Ceci Rodrigues, acting as a scribe for Kelvin Heart MD Provider Scribe Attestation: All medical record entries made by the Scribe were at my direction and personally dictated by me. I have reviewed the chart and agree that the record accurately reflects my personal performance of the history, physical exam, medical decision making, and the department course for this patient. I have also personally directed, reviewed, and agree with the discharge instructions and disposition Disposition - Clinical Impression Clinical Impression: Abnormal diagnostic test result - Patient ED Disposition Is Patient to be Admitted: No - Disposition Disposition Time: 22:20 Condition: STABLE Additional Instructions: follow up with Dr Ortiz and Dr Bonner as instructed you can return to rehab. Instructions: Enoxaparin Forms: [employer] (Mongolian)
[2018-09-13 21:15] LABS: BASO % 0.3 % (0.0-2.0); EOS % 0.3 % (0.0-4.0); HEMOGLOBIN 10.1 g/dL (12.0-16.0); LYMPH # 2.2 K/uL (1.0-4.3); LYMPH % 33.6 % (20.0-40.0); MEAN CELL VOLUME 95.3 fl (81.0-99.0); MEAN CORPUSCULAR HEMOGLOBIN 33.2 pg (27.0-31.0); MEAN CORPUSCULAR HGB CONC 34.8 g/dL (33.0-37.0); MONO # 0.7 K/uL (0.0-0.8); MONO % 11.3 % (0.0-10.0); NEUT # 3.5 K/uL (1.8-7.0); NEUT % 54.5 % (50.0-75.0); NRBC % 0.3 % (0.0-0.0); RBC 3.04 Mil/uL (3.80-5.20); RED CELL DISTRIBUTION WIDTH 13.9 % (11.5-14.5); WHITE BLOOD COUNT 6.4 K/uL (4.8-10.8)
[2018-09-14 01:21] VITALS: BP 154/87; PULSE 75; RESP 17; TEMP 98.6
== END 2018-09-14 00:45 ==
LOC: H.ER 18:53
DX: R79.9 Abnormal finding of blood chemistry, unspecified (principal); E11.9 Type 2 diabetes mellitus without complications; E78.00 Pure hypercholesterolemia, unspecified; I10 Essential (primary) hypertension; J44.9 Chronic obstructive pulmonary disease, unspecified; Z79.82 Long term (current) use of aspirin; Z88.0 Allergy status to penicillin

== ENCOUNTER 2018-10-23 12:57 | Emergency (ER) | payer MEDICARE, OTHER ==
[2018-10-23 12:57] VITALS: BMI 22.4
--- NOTE | 2018-10-23 15:19 | ED PDOC ---
HPI: Trauma/Fall - HPI Time Seen by Provider: 10/23/18 13:05 Chief Complaint (Nursing): Trauma History Per: Patient, Family Onset/Duration Of Symptoms: Hrs (1) Injury Occurred (Timing): Hours Ago: (1) Location Of Injury: Left: Face Additional Complaint(s): Fell when trying to stand from toilet, hit left side of face against wall. Denies antecedent dizziness, chest pain or palpitations. denies LOC. H/o CVA with left sided weakness. Pt is usually unsteady due to left sided weakness. Denies headache or other injury. Past Medical History Vital Signs: Last Vital Signs Temp 98.5 F 10/23/18 12:58 Pulse 93 H 10/23/18 12:58 Resp 20 10/23/18 12:58 BP 182/116 H 10/23/18 12:58 Pulse Ox 98 10/23/18 12:58 Primary Care Provider: Heron Crowley - Medical History PMH: Arthritis, COPD, CVA, Diabetes, HTN, Hypercholesterolemia Denies: Atrial Fibrillation, Deep Vein Thrombosis, HIV, Chronic Kidney Disease - Surgical History Surgical History: Appendectomy, Cholecystectomy Denies: Pacemaker - Family History Family History: States: Unknown Family Hx - Immunization History Hx Tetanus Toxoid Vaccination: No Hx Influenza Vaccination: Yes Hx Pneumococcal Vaccination: Yes - Home Medications Home Medications: Ambulatory Orders Medication Instructions Recorded Aspirin [Aspirin Chewable] 81 mg PO DAILY chew 06/02/18 Enalapril Maleate [Vasotec] 10 mg PO DAILY tab 06/02/18 Meclizine [Meclizine*] 25 mg PO DAILY 09/01/18 Atorvastatin [Lipitor] 40 mg PO HS tab 09/02/18 Cilostazol [Pletal] 50 mg PO BID #60 tab 09/02/18 Famotidine [Pepcid] 20 mg PO BID 09/02/18 Lactulose 20 gm PO DAILY 09/02/18 Acetaminophen [Tylenol 325mg tab] 650 mg PO Q6 PRN tab 09/25/18 Lidocaine 5% [Lidoderm] 1 ea TD DAILY patch 09/25/18 Metoprolol Tartrate [Lopressor] 50 mg PO Q12 tab 09/25/18 Rivaroxaban [Xarelto] 10 mg PO QD5 tab 09/25/18 traMADol [Ultram] 25 mg PO Q8 #6 tab 10/23/18 - Allergies Allergies/Adverse Reactions: Allergies Allergy/AdvReac Type Severity Reaction Status Date / Time Penicillins Allergy RASH Verified 10/23/18 12:58 SHRIMP Allergy RASH Uncoded 10/23/18 12:58 Review of Systems ROS Statement: Except As Marked, All Systems Reviewed And Found Negative Cardiovascular: Negative for: Chest Pain, Palpitations Neurological: Negative for: Dizziness Physical Exam - Reviewed Nursing Documentation Reviewed: Yes Vital Signs Reviewed: Yes - Physical Exam Appears: Positive for: Non-toxic, No Acute Distress Head Exam: Negative for: ATRAUMATIC (Left infraorbital ecchymosis. 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 TECHNIQUE: Contiguous axial CT images of the maxillofacial bones were obtained. Coronal and sagittal reformats were generated. Radiation dose: Total exam DLP = 750.02 mGy-cm. This CT exam was performed using one or more of the following dose reduction techniques: Automated exposure control, adjustment of the mA and/or kV according to patient size, and/or use of iterative reconstruction technique. FINDINGS: NASAL BONES: Probable old old healed nasal bone fracture deformity. ORBITS: Unremarkable. PARANASAL SINUSES/ MASTOIDS: There is a fracture of the left zygomatic arch. Fractures of the anterior and posterolateral muñoz of the left maxillary sinus. Probable old healed fracture deformity of the right nasal bones.. There is a fracture of the inferior aspect lateral wall left orbit. Questionable nondisplaced left orbital floor fracture. Hemorrhagic fluid level seen left maxillary antrum Changes of bilateral cataract surgery MAXILLA: Maxilla otherwise intact. MANDIBLE/ TEMPOROMANDIBULAR JOINTS: Unremarkable. SKULL BASE: Unremarkable. TEMPORAL BONES: Middle ears and mastoid grossly unremarkable. OTHER FINDINGS: None. IMPRESSION: Multiple left-sided facial fractures as above. There is a hemorrhagic fluid level left maxillary antrum Date of service: 10/23/2018 PROCEDURE: CT HEAD WITHOUT CONTRAST. HISTORY: Rule out hemorrhage COMPARISON: Correlation made with prior CT scan of the brain 08/31/2008 as well as concurrent CT scan of the maxillofacial skeleton. TECHNIQUE: Axial computed tomography images were obtained through the head/brain without intravenous contrast. Radiation dose: Total exam DLP = 760.73 mGy-cm. This CT exam was performed using one or more of the following dose reduction techniques: Automated exposure control, adjustment of the mA and/or kV according to patient size, and/or use of iterative reconstruction technique. FINDINGS: HEMORRHAGE: No acute parenchymal, subarachnoid nor extra-axial hemorrhage. BRAIN: Moderate to significant chronic white matter ischemic changes with more discrete infarcts in the right frontal and left posterior parietal lobes.. Chronic bilateral basal nuclei infarcts. Note also made of what appears to represent dystrophic type calcification changes along the ependymal surface of the right lateral ventricle Moderate to significant atrophy VENTRICLES: Unremarkable. No hydrocephalus. CALVARIUM: There are no acute calvarial fractures PARANASAL SINUSES: There is a fracture of the left zygomatic arch. Fractures of the anterior and posterolateral muoñz of the left maxillary sinus. Probable old healed fracture deformity of the right nasal bones.. There is a fracture of the inferior aspect lateral wall left orbit. Questionable nondisplaced left orbital floor fracture. Hemorrhagic fluid level seen left maxillary antrum Changes of bilateral cataract surgery MASTOID AIR CELLS: Unremarkable as visualized. No inflammatory changes. OTHER FINDINGS: None. IMPRESSION: No definitive evidence of acute intracranial hemorrhage. Moderate to significant chronic white matter ischemic changes with more discrete infarcts in the right frontal and left posterior parietal lobes.. Chronic bilateral basal nuclei infarcts Moderate to significant atrophy Multiple left-sided facial fractures with hemorrhagic fluid level left maxillary antrum. Changes of bilateral cataract surgery. As above Discussed with [facility] Dr. Gonzalez. CT discussed with him. Does not feel that pt needs transfer or inpt admission. Can be followed as outpt. Discussed with family who are in agreement. Dr. Ortiz notified and agrees. Disposition - Clinical Impression Clinical Impression: Orbital fracture - Patient ED Disposition Is Patient to be Admitted: No - Disposition Referrals: Justine Flaherty DDS [Doctor Dental Surgery] - Wilner Ortiz MD [Staff Provider] - Disposition: Routine/Home Disposition Time: 17:26 Condition: FAIR Prescriptions: traMADol [Ultram] 25 mg PO Q8 #6 tab Instructions: Skull and Facial Fractures Forms: [facility] (Albanian) Print Language: WELSH
--- NOTE | 2018-10-23 15:29 | CT ---
Date of service: 10/23/2018 PROCEDURE: CT HEAD WITHOUT CONTRAST. HISTORY: Rule out hemorrhage COMPARISON: Correlation made with prior CT scan of the brain 08/31/2008 as well as concurrent CT scan of the maxillofacial skeleton. TECHNIQUE: Axial computed tomography images were obtained through the head/brain without intravenous contrast. Radiation dose: Total exam DLP = 760.73 mGy-cm. This CT exam was performed using one or more of the following dose reduction techniques: Automated exposure control, adjustment of the mA and/or kV according to patient size, and/or use of iterative reconstruction technique. FINDINGS: HEMORRHAGE: No acute parenchymal, subarachnoid nor extra-axial hemorrhage. BRAIN: Moderate to significant chronic white matter ischemic changes with more discrete infarcts in the right frontal and left posterior parietal lobes.. Chronic bilateral basal nuclei infarcts. Note also made of what appears to represent dystrophic type calcification changes along the ependymal surface of the right lateral ventricle Moderate to significant atrophy VENTRICLES: Unremarkable. No hydrocephalus. CALVARIUM: There are no acute calvarial fractures PARANASAL SINUSES: There is a fracture of the left zygomatic arch. Fractures of the anterior and posterolateral muñoz of the left maxillary sinus. Probable old healed fracture deformity of the right nasal bones.. There is a fracture of the inferior aspect lateral wall left orbit. Questionable nondisplaced left orbital floor fracture. Hemorrhagic fluid level seen left maxillary antrum Changes of bilateral cataract surgery MASTOID AIR CELLS: Unremarkable as visualized. No inflammatory changes. OTHER FINDINGS: None. IMPRESSION: No definitive evidence of acute intracranial hemorrhage. Moderate to significant chronic white matter ischemic changes with more discrete infarcts in the right frontal and left posterior parietal lobes.. Chronic bilateral basal nuclei infarcts Moderate to significant atrophy Multiple left-sided facial fractures with hemorrhagic fluid level left maxillary antrum. Changes of bilateral cataract surgery. As above
[2018-10-23 15:31] VITALS: RESP 17
--- NOTE | 2018-10-23 15:31 | CT ---
Date of service: 10/23/2018 PROCEDURE: CT MAXILLOFACIAL BONES WITHOUT CONTRAST HISTORY: Trauma COMPARISON: None available. TECHNIQUE: Contiguous axial CT images of the maxillofacial bones were obtained. Coronal and sagittal reformats were generated. Radiation dose: Total exam DLP = 750.02 mGy-cm. This CT exam was performed using one or more of the following dose reduction techniques: Automated exposure control, adjustment of the mA and/or kV according to patient size, and/or use of iterative reconstruction technique. FINDINGS: NASAL BONES: Probable old old healed nasal bone fracture deformity. ORBITS: Unremarkable. PARANASAL SINUSES/ MASTOIDS: There is a fracture of the left zygomatic arch. Fractures of the anterior and posterolateral muñoz of the left maxillary sinus. Probable old healed fracture deformity of the right nasal bones.. There is a fracture of the inferior aspect lateral wall left orbit. Questionable nondisplaced left orbital floor fracture. Hemorrhagic fluid level seen left maxillary antrum Changes of bilateral cataract surgery MAXILLA: Maxilla otherwise intact. MANDIBLE/ TEMPOROMANDIBULAR JOINTS: Unremarkable. SKULL BASE: Unremarkable. TEMPORAL BONES: Middle ears and mastoid grossly unremarkable. OTHER FINDINGS: None. IMPRESSION: Multiple left-sided facial fractures as above. There is a hemorrhagic fluid level left maxillary antrum
[2018-10-23 16:43] LABS: BASO % 0.4 % (0.0-2.0); EOS % 0.1 % (0.0-4.0); HEMOGLOBIN 13.2 g/dL (12.0-16.0); LYMPH # 2.6 K/uL (1.0-4.3); MEAN CORPUSCULAR HEMOGLOBIN 32.3 pg (27.0-31.0); MEAN CORPUSCULAR HGB CONC 34.4 g/dL (33.0-37.0); MEAN PLATELET VOLUME 7.8 fl (7.2-11.7); MONO # 0.8 K/uL (0.0-0.8); MONO % 7.3 % (0.0-10.0); NEUT # 7.1 K/uL (1.8-7.0); NEUT % 67.2 % (50.0-75.0); RBC 4.07 Mil/uL (3.80-5.20); RED CELL DISTRIBUTION WIDTH 13.7 % (11.5-14.5); WHITE BLOOD COUNT 10.5 K/uL (4.8-10.8)
[2018-10-23 16:52] LABS: BLOOD UREA NITROGEN 13 mg/dl (7-17); CALCIUM 9.7 mg/dL (8.4-10.2); GFR NON-AFRICAN AMERICAN > 60
[2018-10-23 17:04] LABS: ALB/GLOB RATIO 1.2 (1.0-2.1); ALBUMIN 4.1 g/dL (3.5-5.0); ALT/SGPT 40 U/L (9-52); AST/SGOT 70 U/L (14-36)
[2018-10-23 18:52] VITALS: BP 146/84; PULSE 76; TEMP 98.2; O2SAT 100
--- NOTE | 2018-10-23 21:51 | CARD ---
APPROVED REPORT Date of service: 10/23/2018 EKG Measurement Heart [id number] <Conclusion> Normal sinus rhythm Minimal voltage criteria for LVH, may be normal variant Borderline ECG
== END 2018-10-23 17:45 | disposition home or self-care (01) ==
LOC: H.ER 12:57
DX: S02.32XA Fracture of orbital floor, left side, initial encounter for closed fracture (principal); W19.XXXA Unspecified fall, initial encounter; Y92.89 Other specified places as the place of occurrence of the external cause; E11.9 Type 2 diabetes mellitus without complications; E78.00 Pure hypercholesterolemia, unspecified; Z88.0 Allergy status to penicillin; J44.9 Chronic obstructive pulmonary disease, unspecified; Z79.82 Long term (current) use of aspirin